=== PATIENT | male | born 1940 | race Caucasian/White ===

== ENCOUNTER → 2017-04-03 10:39 | Outpatient (CLI) | payer MEDICARE, SELFPAY ==
[2017-04-03 11:31] LABS: Potassium 4.3 mmol/L (3.5-5.1)
== END ==
PROVIDERS: Family Provider Internal Medicine; PCP Internal Medicine; Visit Provider Internal Medicine
DX: E87.5 Hyperkalemia (principal)
CPT/HCPCS: 84132

== ENCOUNTER 2017-08-08 04:08 | Emergency (ER) | payer MEDICARE, SELFPAY ==
[2017-08-08 04:10] VITALS: BP 150/81; PULSE 66; RESP 16; TEMP 36.6; O2SAT 96; BMI 30.3
[2017-08-08 04:45] LABS: Bacteria 0 SEEN /hpf (None Seen); Mucous, Urine 0 SEEN /hpf (<or=2+); White Blood Cells 0 SEEN /hpf (0-5)
[2017-08-08 04:47] LABS: Color, Urine Red (Yellow); Glucose, Dipstick Normal (Normal); Ketone-Dipstick 5 mg/dl (Negative); Leukocyte Esterase-Dipstick Negative /ul (Negative); Nitrite-Dipstick Negative (Negative); Occult Blood-Urine 250 /ul (Negative); Protein-Dipstick 500 mg/dl (Negative); Specific Gravity, Urine 1.015 (1.002-1.030); Urine Bilirubin Dipstick Negative (Negative); Urine Clarity Turbid (Clear); Urine Urobilinogen Normal (Normal)
[2017-08-08 04:54] LABS: Red Blood Cells-Urine > 100 SEEN /hpf (0-5); Squamous Epithelial Cells - UA 0-5 SEEN /hpf (0-5)
--- NOTE | 2017-08-08 06:09 | ED.VISSUMM ---
- ER Visit Summary Date of Service: 08/08/17 Chief Complaint: Hematuria History of Present Illness: The patient is a 77 M presenting for evaluation secondary to hematuria. Patient states that he has a underlying history of prostate cancer, and intermittently gets problems with having hematuria. Patient states that since yesterday however he has had symptoms of potentially having a urinary tract infection associated with frequency and burning and has had worse hematuria that he typically does. He states that his urine is very concentrated with blood. He has not been passing any clots, but he did feel as if he was somewhat unable to urinate and felt that he was potentially plugged. He denies any fevers or new back pain. He is not on any sort of anticoagulants. Review of systems otherwise negative. Physical Examination: Vital signs within normal limits. Well-nourished male no acute distress. Head normocephalic, no conjunctival pallor or scleral icterus. Heart regular lungs clear. Abdomen shows a massive hernia but is nontender. unremarkable. Test Results: Urinalysis is grossly contaminated with blood Emergency Department Course and Treatment: Patient presented with hematuria. Catheter was placed, and the patient was irrigated ?2. We were able to get the patient to a slightly more clear urine, but he continues to be having blood. Given how thick his hematuria was on initial presentation, and the fact that he was having retention I do believe that he is appropriate for discharge with a Green catheter. Given the fact that the patient states that he felt as if he was nam a urinary tract infection I will treat the patient empirically with Cipro. Patient will be given referral to Dr. Zafar for follow-up and catheter removal. He understands signs and symptoms for which to return. Disposition: Discharge Impression: 1. Urinary retention with hematuria This note was generated with [employer] dictation software. It may contain incorrect words, spelling, and punctuation that were not noted in review of the chart prior to signing ED Disposition - Plan for ED Patient: Disposition: Home or Assisted Living Chief Complaint: Complaint Diagnosis: Urinary retention, Hematuria Instructions: ED Retention Urinary Male, ED Hematuria Prescriptions: Ciprofloxacin [Cipro] 500 mg PO BID #14 tab Referrals: Javon Lopez MD [STAFF PHYSICIAN] - 2 Days
--- NOTE | 2017-08-08 06:13 | ED.DCSUM_ITS ---
- ER Visit Summary Date of Service: 08/08/17 Chief Complaint: Hematuria History of Present Illness: The patient is a 77 M presenting for evaluation secondary to hematuria. Patient states that he has a underlying history of prostate cancer, and intermittently gets problems with having hematuria. Patient states that since yesterday however he has had symptoms of potentially having a urinary tract infection associated with frequency and burning and has had worse hematuria that he typically does. He states that his urine is very concentrated with blood. He has not been passing any clots, but he did feel as if he was somewhat unable to urinate and felt that he was potentially plugged . He denies any fevers or new back pain. He is not on any sort of anticoagulants. Review of systems otherwise negative. Physical Examination: Vital signs within normal limits. Well-nourished male no acute distress. Head normocephalic, no conjunctival pallor or scleral icterus. Heart regular lungs clear. Abdomen shows a massive hernia but is nontender. unremarkable. Test Results: Urinalysis is grossly contaminated with blood Emergency Department Course and Treatment: Patient presented with hematuria. Catheter was placed, and the patient was irrigated ?2. We were able to get the patient to a slightly more clear urine, but he continues to be having blood. Given how thick his hematuria was on initial presentation, and the fact that he was having retention I do believe that he is appropriate for discharge with a Green catheter. Given the fact that the patient states that he felt as if he was nam a urinary tract infection I will treat the patient empirically with Cipro. Patient will be given referral to Dr. Zafar for follow-up and catheter removal. He understands signs and symptoms for which to return. Disposition: Discharge Impression: 1. Urinary retention with hematuria This note was generated with [employer] dictation software. It may contain incorrect words, spelling, and punctuation that were not noted in review of the chart prior to signing ED Disposition - Plan for ED Patient: Disposition: Home or Assisted Living Chief Complaint: Complaint Diagnosis: Urinary retention, Hematuria Instructions: ED Retention Urinary Male, ED Hematuria Prescriptions: Ciprofloxacin [Cipro] 500 mg PO BID #14 tab Referrals: Javon Lopez MD [STAFF PHYSICIAN] - 2 Days
[2017-08-08] MEDS: Ciprofloxacin 250 MG Tablet 500 MG PO (06:25)
[2017-08-08 06:46] VITALS: BP 155/78; PULSE 88; RESP 20; O2SAT 97
== END 2017-08-08 06:55 | disposition home or self-care (01) ==
PROVIDERS: Emergency Provider Emergency Medicine; Family Provider Internal Medicine; PCP Internal Medicine
DX: R33.9 Retention of urine, unspecified (principal); R31.9 Hematuria, unspecified; R35.0 Frequency of micturition; R30.0 Dysuria; Z85.46 Personal history of malignant neoplasm of prostate
CPT/HCPCS: 81001; 87086; 87088; 99283

== ENCOUNTER 2017-08-08 13:49 | Emergency (ER) | payer MEDICARE, SELFPAY ==
[2017-08-08 13:51] VITALS: BP 134/71; PULSE 71; RESP 17; TEMP 36.7; O2SAT 96; BMI 30.1
[2017-08-08] MEDS: Phenazopyridine 95 MG Tablet 190 MG PO (15:05)
--- NOTE | 2017-08-08 15:15 | ED.DCSUM_ITS ---
- ER Visit Summary Date of Service: 08/08/17 Chief Complaint: [] Green catheter is not draining appropriately History of Present Illness: The patient is a 77 M [] prostate cancer surgery, radiation therapy, he has intermittent episodes of urinary retention, he developed that late last night he was seen in the emergency room early this morning had a Green catheter placed it was slightly blood-tinged he went home, he reports that he has had now decreased urinary output into the catheter bag and he is leaking urine from around the penile meatus he spoke with his urologist Dr. Lopez will he was instructed to come in to get a different catheter placed, his been ill in any way his health has been good no fever no cough eating drinking well Physical Examination: [] M he has a large anterior abdominal wall type hernia that is not an issue today it is nontender the area his Green catheter does have some blood-tinged urine in it but he appears to have leak around the penile meatus as he describes the exam is otherwise unremarkable the lungs are clear the heart tones are normal again the abdomen soft with this hernia he was able to walk into the emergency room without difficulty Test Results: [] Emergency Department Course and Treatment: [] Will change the Green catheter to a larger one at 20 or 22 over he can tolerate irrigate until clear and he has an appointment to see his urologist this Thursday he is currently on ciprofloxacin we will add Pyridium to that as she is complaining of some dysuria he is otherwise comfortable with the catheter the leg bag as he has had Green catheter is in leg bag in the past related to all of the above past history Treatment Plan: [] Disposition: [] Home stable Impression: [] Urinary retention, hematuria history of prostate cancer prostate surgery, radiation therapy This note was generated with [employer] dictation software. It may contain incorrect words, spelling, and punctuation that were not noted in review of the chart prior to signing ED Disposition - Plan for ED Patient: Chief Complaint: Green C/O Referrals: Steff Culp DO [Primary Care Provider] -
--- NOTE | 2017-08-08 15:15 | ED.DEP ---
ED Disposition - Plan for ED Patient: Chief Complaint: Green C/O Instructions: Discharge Instructions: Caring for Your Indwelling Urinary Catheter, ED Catheter Care Green Prescriptions: Phenazopyridine HCl [Pyridium] 200 mg PO BID PRN PRN #10 tab PRN Reason: Pain Referrals: Steff Culp DO [Primary Care Provider] -
== END 2017-08-08 16:12 | disposition home or self-care (01) ==
PROVIDERS: Emergency Provider Emergency Medicine; Family Provider Internal Medicine; PCP Internal Medicine
DX: R33.9 Retention of urine, unspecified (principal); R31.9 Hematuria, unspecified; R30.0 Dysuria; Z85.46 Personal history of malignant neoplasm of prostate; Z98.890 Other specified postprocedural states; Z92.3 Personal history of irradiation; K43.9 Ventral hernia without obstruction or gangrene; Z96.0 Presence of urogenital implants
CPT/HCPCS: 51702; 81001; 87086; 87088; 99283; 99284

== ENCOUNTER 2017-08-09 16:24 | Emergency (ER) | payer MEDICARE, SELFPAY ==
[2017-08-09 16:24] VITALS: BP 136/74; PULSE 81; RESP 16; TEMP 36.9; O2SAT 98; BMI 30.2
[2017-08-09] MEDS: 0.9% Normal Saline 1,000 ML 1000 ML IV (17:08)
[2017-08-09 17:14] LABS: Absolute Lymphocyte Count 0.82 X10^3/ul (0.83-4.51); Absolute Neutrophil Count 3.6 X10^3/uL (2.0-7.7); Basophil# 0.05 X10^3/uL; Eosinophil# 0.14 X10^3/uL; Eosinophils% 2.8 % (0-5); Hematocrit 36.8 % (40-54); Hemoglobin 12.5 g/dl (13.0-16.5); Lymphocyte # 0.82 X10^3/ul (4.0); Lymphocyte % 16.4 % (19-41); Mean Corpuscular Hgb 31.2 pg (27.0-32.0); Mean Corpuscular Volume 91.8 fL (80-94); Monocyte# 0.39 X10^3/uL; Monocyte% 7.8 % (0-10); Neutrophil % 71.8 % (47-70); Platelet Count 106 K/mm3 (150-450); RBC Distribution Width CV 14.4 % (11.6-14.6); RBC Distribution Width SD 48.9 fl (35.1-43.9); Red Blood Count 4.01 M/mm3 (4.6-6.2)
[2017-08-09 17:15] LABS: POSITIVE COUNT NO; POSITIVE DIFFERENTIAL NO; POSITIVE MORPHOLOGY NO
[2017-08-09 17:22] LABS: International Normalized Ratio 1.2; Prothrombin Time (Protime)PT. 15.3 SECONDS (11.7-14.9)
[2017-08-09 17:23] LABS: Partial Thromboplast Time 35.5 Seconds (24.1-36.2)
[2017-08-09 17:29] LABS: Anion Gap 6 (5-15); BUN 16 mg/dL (7-18); BUN/Creat Ratio 18.2 RATIO (10-20); Calcium,Total 7.8 mg/dL (8.5-10.1); Chloride 110 mmol/L (98-107); Creatinine, Serum 0.88 mg/dL (0.70-1.30); EST Glomerular Filtration Rate 90 mL/min (>60); Est Glom Filt Rate - Afr Amer 109 mL/min (>60); Estimated Creatinine Clearance 79.61 ml/min; Glucose 103 mg/dL (74-106); Potassium 3.9 mmol/L (3.5-5.1); Sodium Level 141 mmol/L (136-145)
--- NOTE | 2017-08-09 17:41 | ED.VISSUMM ---
- ER Visit Summary Date of Service: 08/09/17 Chief Complaint: Blood in urine History of Present Illness: The patient is a 77 M with history of prostate cancer. He had a catheter placed for urine retention 2 days ago. He was here yesterday for bleeding and concern for retention. A larger catheter was placed, 20 [place]. He has had continued bleeding. Urinalysis and culture were done. He was started on Cipro. He had some leakage today when he bears down with a bowel movement but otherwise he has not had leakage. Just complains of continued bleeding. No pain. No fevers. He is supposed to follow-up with Dr. Lopez tomorrow. Physical Examination: Vital signs unremarkable. Afebrile. No acute distress. Abdomen soft and nontender. No masses. Green catheter is in place. Urine is red wine consistency. Skin appears normal. Test Results: Laboratory studies showed a hemoglobin of 12.5 and platelets of 106. This is similar to previous. BMP and coags unremarkable. Emergency Department Course and Treatment: Catheter was irrigated with 400 mL's. 400 mL's were drained. He has continued bleeding. I did check labs which were unremarkable. Patient is comfortable. He would like to go home despite the continued bleeding. I explained that typically we would admit for continuous irrigation. He would like to go home. I did discuss with his urologist who will follow-up with him tomorrow. Return for any new or worsening issues. Treatment Plan: As above Disposition: Discharged Impression: 1. Hematuria This note was generated with [employer] dictation software. It may contain incorrect words, spelling, and punctuation that were not noted in review of the chart prior to signing ED Disposition - Plan for ED Patient: Chief Complaint: Green C/O Referrals: Steff Culp DO [Primary Care Provider] -
--- NOTE | 2017-08-09 17:47 | ED.DCSUM_ITS ---
- ER Visit Summary Date of Service: 08/09/17 Chief Complaint: Blood in urine History of Present Illness: The patient is a 77 M with history of prostate cancer. He had a catheter placed for urine retention 2 days ago. He was here yesterday for bleeding and concern for retention. A larger catheter was placed , 20 [place]. He has had continued bleeding. Urinalysis and culture were done. He was started on Cipro. He had some leakage today when he bears down with a bowel movement but otherwise he has not had leakage. Just complains of continued bleeding. No pain. No fevers. He is supposed to follow-up with Dr. Lopez tomorrow. Physical Examination: Vital signs unremarkable. Afebrile. No acute distress. Abdomen soft and nontender. No masses. Green catheter is in place. Urine is red wine consistency. Skin appears normal. Test Results: Laboratory studies showed a hemoglobin of 12.5 and platelets of 106. This is similar to previous. BMP and coags unremarkable. Emergency Department Course and Treatment: Catheter was irrigated with 400 mL' s. 400 mL's were drained. He has continued bleeding. I did check labs which were unremarkable. Patient is comfortable. He would like to go home despite the continued bleeding. I explained that typically we would admit for continuous irrigation. He would like to go home. I did discuss with his urologist who will follow-up with him tomorrow. Return for any new or worsening issues. Treatment Plan: As above Disposition: Discharged Impression: 1. Hematuria This note was generated with [employer]) dictation software. It may contain incorrect words, spelling, and punctuation that were not noted in review of the chart prior to signing ED Disposition - Plan for ED Patient: Chief Complaint: Green C/O Referrals: Steff Culp DO [Primary Care Provider] -
--- NOTE | 2017-08-09 17:47 | ED.DEP ---
ED Disposition - Plan for ED Patient: Chief Complaint: Green C/O Instructions: Discharge Instructions: Caring for Your Indwelling Urinary Catheter Referrals: Javon Lopez MD [STAFF PHYSICIAN] -
[2017-08-09 18:06] VITALS: BP 158/62; PULSE 82; RESP 16; O2SAT 99
== END 2017-08-09 18:07 | disposition home or self-care (01) ==
PROVIDERS: Emergency Provider Emergency Medicine; Family Provider Internal Medicine; PCP Internal Medicine
DX: R31.9 Hematuria, unspecified (principal); Z96.0 Presence of urogenital implants; Z85.46 Personal history of malignant neoplasm of prostate; Z92.3 Personal history of irradiation
CPT/HCPCS: 80048; 85025; 85610; 85730; 96360; 99283; J7030; A4216

== ENCOUNTER → 2017-10-26 13:07 | Outpatient (CLI) | payer MEDICARE, SELFPAY ==
--- NOTE | 2017-10-26 13:13 | US_ITS ---
STUDY: THYROID ULTRASOUND REASON FOR EXAM: Male, 77 years old. Thyroid nodule TECHNIQUE: Ultrasound evaluation of the thyroid was performed with real-time and static yanes-scale imaging. COMPARISON: Previous study of 06/09/2016 FINDINGS: RIGHT LOBE: The right lobe of the thyroid gland measures 4.7 x 2.1 x 1.3 cm. There is a homogeneous echotexture. There are 2 cysts of the right thyroid lobe, one located in the mid pole measuring 4 x 4 by 4 mm and the second in the lower pole measuring 5 x 6 x 5 mm. LEFT LOBE: The left lobe of the thyroid gland measures 5.2 x 1.7 x 1.4 cm. There is a homogeneous echotexture. There are no demonstrated solid, cystic or complex lesions. ISTHMUS: The isthmus measures . The regional lymph nodes are normal. US/Thyroid IMPRESSION: 2 cysts of the mid and lower pole of the right thyroid lobe as described above. The mid pole cyst represents a new interval finding. The lower pole cyst has increased in size in the interval. A 2 mm left thyroid lobe cyst reported on the previous study is not seen at this time. Electronically Signed: Naman Ramos MD at 23:52 EDT , Service support ,
== END ==
PROVIDERS: Family Provider Internal Medicine; PCP Internal Medicine; Visit Provider Internal Medicine
DX: E04.1 Nontoxic single thyroid nodule (principal)
CPT/HCPCS: 76536

== ENCOUNTER → 2018-06-08 | Outpatient (CLI) | payer MEDICARE, SELFPAY | END | disposition home or self-care (01) | PROVIDERS: Family Provider Internal Medicine; PCP Internal Medicine; Referring Provider Urology; Visit Provider Urology | DX: R30.0 Dysuria (principal) | CPT/HCPCS: 87077; 87086; 87088; 87186 ==

== ENCOUNTER → 2019-01-18 16:07 | Outpatient (CLI) | payer MEDICARE, SELFPAY ==
--- NOTE | 2019-01-18 16:11 | CT_ITS ---
STUDY: CT ABDOMEN AND PELVIS WITH AND WITHOUT CONTRAST REASON FOR EXAM: Male, 78 years old. GROSS HEMATURIA. PRIOR HERNIA SURGERY. PRIOR PROSTATE CANCER RADIATION DOSAGE (If Supplied By Facility): CTDIvol = ( 20.34 ) mGy, DLP = ( 2669.25 ) mGycm TECHNIQUE: Transaxial images were obtained from the dome of the diaphragm to the symphysis pubis without oral contrast. ISOVUE 300 100 ML was administered. Sagittal and coronal images were reconstructed. Individualized dose optimization techniques were used for this CT. COMPARISON: June 11, 2016 FINDINGS: Trace bilateral pleural effusions present, greater on the right than left. No suspicious pulmonary nodule though note is made of a very small subpleural nodular density at the left lung base measuring approximately 3.5 mm, likely to be benign. Cardiomegaly is noted. No pericardial effusion. Lobulated liver noted but otherwise the appearance of the liver is unremarkable. Cholelithiasis is noted with a gallstone measuring approximately 1.5 cm. No evidence of pathologic gallbladder wall thickening or biliary ductal dilatation. The gallbladder is only partially filled on this exam. There appears to be wandering spleen, the spleen is seen in the left lower quadrant projecting just anterior to the iliac crest on the left. Pancreatic atrophy noted. Normal bilateral adrenal glands. The right kidney is ptotic in position otherwise unremarkable. Normal left kidney. A stomach wall appears thickened which may be secondary to state of contraction, no definitive mass seen. I do note that there does appear mild wall thickening of the gastroesophageal junction. There is a small low density retrocrural lymph node present measuring approximately 1.7 x 1 point a 5 cm. Bowel is unobstructed. The bowel descends into a very large anterior abdominal wall hernia which descends to the left groin level. There is a small amount of ascites in the dependent portion of this hernia. For instance referred to sagittal image #107 series 602 and coronal image #27 series 601 at the anterior abdominal wall laxity musculature. It does appear that there was some surgery in this area with mesh. The hernia extends over the top of this prior operative area. There are multiple colonic diverticula consistent with diverticulosis. The appendix is visualized and appears normal. Tortuous aorta noted. Normal inferior vena cava. There appears that mixing of contrast within the gonadal vein on the left. Normal retroperitoneum. The urinary bladder is contracted. The prostate gland appears enlarged and impresses upon the base of the urinary bladder there does appear some debris in the urinary bladder likely related to patient's gross hematuria best seen on the postcontrast delayed imaging. Degenerative spondylosis of the spine is noted with mild levoscoliosis. CT/CT Abd/Pelvis W/WO Contrast IMPRESSION: The prostate gland does appear to impress upon the base of the urinary bladder. The urinary bladder is contracted. Given this patient's history of prostate cancer cannot exclude invasion into the bladder. Tt does appear that there is some debris within the bladder dependently which could represent hemorrhage on the postcontrast delayed study. No evidence of renal obstruction. There is a very large anterior abdominal wall hernia with wandering spleen and ptotic right kidney noted. There is a nonspecific retrocrural lymph node present. Cholelithiasis is noted without evidence of acute cholecystitis and there is diverticulosis without evidence of diverticulitis. See above. Electronically Signed: Letty Patton MD at 12:00 EST , Service support ,
[2019-01-18 16:31] LABS: CREATININE FINGERSTICK 0.9 mg/dL (0.70-1.30)
== END ==
PROVIDERS: Family Provider Internal Medicine; PCP Internal Medicine; Referring Provider Nurse Practitioner Adult Health; Visit Provider Nurse Practitioner Adult Health
DX: R31.9 Hematuria, unspecified (principal)
CPT/HCPCS: 74178; Q9967

== ENCOUNTER → 2019-01-27 17:37 | Outpatient (CLI) | payer MEDICARE, SELFPAY | PROVIDERS: Family Provider Internal Medicine; PCP Internal Medicine; Referring Provider Urology; Visit Provider Urology | DX: R82.998 Other abnormal findings in urine (principal) | CPT/HCPCS: 87077; 87086; 87088; 87186 ==

== ENCOUNTER → 2019-03-22 11:10 | Outpatient (CLI) | payer MEDICARE, SELFPAY ==
--- NOTE | 2019-03-22 11:13 | RAD_ITS ---
STUDY: X-RAY CHEST REASON FOR EXAM: Male, 78 years old. LLL pneumonia TECHNIQUE: Frontal and lateral views of the chest were performed COMPARISON: For May 2016 FINDINGS: The lungs are clear and heart expanded. There is no demonstrated pleural abnormality. Normal size heart. Normal mediastinum and mars. Normal visualized pulmonary arteries. Normal visualized aortic arch and descending thoracic aorta. Normal visualized thoracic spine. Normal visualized ribs, clavicles, and shoulders. There is no demonstrated abnormality of the visualized soft tissue structures of the upper abdomen. RAD/Chest PA and Lateral IMPRESSION: No acute findings or change since prior. Hyperinflation, presumably emphysema. Electronically Signed: Hugo Carson, at 19:23 EST Tel , Service support ,
== END ==
PROVIDERS: PCP Internal Medicine; Referring Provider Internal Medicine; Visit Provider Internal Medicine
DX: J18.9 Pneumonia, unspecified organism (principal)
CPT/HCPCS: 71046

== ENCOUNTER → 2019-03-29 09:48 | Outpatient (CLI) | payer MEDICARE, SELFPAY ==
--- NOTE | 2019-03-29 09:51 | US_ITS ---
STUDY: SUPERFICIAL ULTRASOUND - LEFT ANTERIOR CHEST. REASON FOR EXAM: Male, 78 years old. LT ANTEROLATERAL CHEST MASS SEEN ON CT - OUTSIDE FILMS IN PACS TECHNIQUE: A superficial ultrasound was performed with real-time and static yanes-scale imaging. COMPARISON: None. FINDINGS: The abnormality corresponds to a 1.5 cm x 2.5 cm x 1.5 cm hypoechoic nodule in the intercostal space. This is not completely seen on the CT scan. A repeat CT scan if this area is recommended for further evaluation. A biopsy may be indicated. US/Chest IMPRESSION: 1.5 cm x 2.5 cm x 1.5 Alne hypoechoic density in the intercostal space corresponding to the CT findings. A repeat examination with attention to this area is recommended prior to biopsy. Electronically Signed: Dano Boyce, at 11:19 EST , Service support ,
== END ==
PROVIDERS: Family Provider Internal Medicine; PCP Internal Medicine; Referring Provider Internal Medicine; Visit Provider Internal Medicine
DX: R22.2 Localized swelling, mass and lump, trunk (principal)
CPT/HCPCS: 76604

== ENCOUNTER → 2019-04-06 15:08 | Outpatient (CLI) | payer MEDICARE, SELFPAY ==
--- NOTE | 2019-04-06 15:11 | CT_ITS ---
STUDY: CT CHEST WITH CONTRAST REASON FOR EXAM: Male, 78 years old. CHEST WALL MASS? compare to CT from 02/16/19, pneumonia at this time. RADIATION DOSAGE (If Supplied By Facility): CTDIvol = ( 18.15 ) mGy, DLP = ( 664.90 ) mGycm TECHNIQUE: Transaxial imaging was performed following intravenous administration of IV 100ML ISOVUE 300. Individualized dose optimization techniques were used for this CT. COMPARISON: CT scan 02/16/2019. FINDINGS: On the previous study, there was marginal demonstration of a possible mass lesion in subcutaneous fat of the lateral left abdomen. This possible mass is not visualized on the current study, however, I''m uncertain that the current exam includes enough of the abdomen to demonstrate the mass effect that is still present. This finding would have been more reliably evaluated with a CT scan of the abdomen, rather than a CT scan of the chest. There is a small right pleural effusion, which is not significantly different from the previous study. There is a patchy airspace infiltrate in the right lower lobe, seen on axial images 71-82, which was not demonstrated on the previous CT scan, and it is likely to represent a new focus of pneumonia. There is interval resolution of a left lower lobe consolidation. There is persistent mild fibrosis or atelectasis in the posterior lower lung hays bilaterally. There are calcified granulomas in the right lower lung field. The heart is enlarged. There is no demonstrated pericardial effusion. Normal mediastinum. Normal hilar regions. Normal enhanced pulmonary arteries. There is tortuosity of the thoracic aorta with mild atherosclerotic calcification. There is no demonstrated aneurysm or dissection. There are bridging osteophytes at multiple contiguous levels of the spine, consistent with DISH (diffuse idiopathic skeletal hyperostosis). There is a calcified gallstone. Contour of the liver is somewhat irregular, suspicious for cirrhosis. CT/Chest WITH Contrast IMPRESSION: A potential left lateral abdominal wall mass was seen on the lowermost images of previous CT scan of the chest. This finding is not visualized on current exam, however, cannot be entirely certain that images extend sufficiently inferior to visualize this abnormality if it is still present. CT scan of the abdomen would more reliably evaluate this potential abnormality. New small focus of right lower lobe pneumonia. Interval resolution of a previously demonstrated left lower lobe airspace consolidation. Persistent small right pleural effusion. Persistent fibrosis or atelectasis in the posterior lung bases bilaterally. Cardiomegaly. Atherosclerosis. Electronically Signed: Tyler Lantigua MD at 7:49 EST , Service support ,
== END ==
PROVIDERS: PCP Internal Medicine; Referring Provider Internal Medicine; Visit Provider Internal Medicine
DX: R94.2 Abnormal results of pulmonary function studies (principal)
CPT/HCPCS: 71260; Q9967

== ENCOUNTER → 2019-04-13 14:38 | Outpatient (CLI) | payer MEDICARE, SELFPAY ==
[2019-04-13 17:31] LABS: Absolute Lymphocyte Count 0.73 X10^3/uL (0.83-4.51); Absolute Neutrophil Count 2.7 X10^3/uL (2.0-7.7); Basophil# 0.05 X10^3/uL; Basophil% 1.2 % (0-1); Eosinophil# 0.14 X10^3/uL; Eosinophils% 3.4 % (0-5); Hematocrit 35.5 % (40-54); Hemoglobin 11.2 g/dL (13.0-16.5); Lymphocyte # 0.73 X10^3/ul (4.0); Lymphocyte % 17.9 % (19-41); Mean Corp Hgb Conc 31.5 g/dL (32-36); Mean Corpuscular Hgb 28.6 pg (27.0-32.0); Mean Corpuscular Volume 90.8 fL (80-94); Mean Platelet Vol. 10.9 fl (6.2-12.0); Monocyte# 0.42 X10^3/uL; Monocyte% 10.3 % (0-10); NRBC Flagged by Analyzer 0 % (0-5); Neutrophil # 2.73 X10^3/uL (2.7-7.7); Platelet Count 123 K/mm3 (150-450); RBC Distribution Width SD 53.5 fl (35.1-43.9); Red Blood Count 3.91 M/mm3 (4.6-6.2); White Blood Count 4.1 K/mm3 (4.4-11.0)
[2019-04-13 17:55] LABS: Erythrocyte Sedimentation Rate 6 mm/hr (0-20)
[2019-04-13 18:10] LABS: CRP < 2.90 mg/L (0.0-3.0)
== END ==
PROVIDERS: PCP Internal Medicine; Referring Provider Internal Medicine Pulmonary Disease; Visit Provider Internal Medicine Pulmonary Disease
DX: J18.9 Pneumonia, unspecified organism (principal)
CPT/HCPCS: 36415; 85025; 85652; 86140

== ENCOUNTER → 2019-04-22 10:00 | Outpatient (CLI) | payer MEDICARE, SELFPAY | PROVIDERS: PCP Internal Medicine; Referring Provider Internal Medicine; Visit Provider Internal Medicine | DX: R94.2 Abnormal results of pulmonary function studies (principal) | CPT/HCPCS: 94060; 94726; 94729 ==

== ENCOUNTER → 2019-04-25 12:16 | Outpatient (CLI) | payer MEDICARE, SELFPAY ==
--- NOTE | 2019-04-25 12:20 | RAD_ITS ---
STUDY: X-RAY CHEST REASON FOR EXAM: Male, 79 years old. PLEURAL EFFUSION TECHNIQUE: 2 left decubitus views of the chest COMPARISON: April 25, 2019 at 12:[address] of the chest dated April 06, 2019 FINDINGS: No demonstrated pleural effusion on either decubitus view. The left lung is not well visualized due to the patient''s arm obscuring part of the upper lobe and general opaqueness. The visualized aspects of the right lung are clear. The remaining visualized structures are stable. The right lung is hyperinflated. RAD/Special CXR (Obl/Decub/A/L) IMPRESSION: Limited study. No demonstrated pleural effusion. Electronically Signed: Alvarado Grey MD at 12:34 EDT , Service support ,
--- NOTE | 2019-04-25 12:20 | RAD_ITS ---
STUDY: X-RAY CHEST REASON FOR EXAM: Male, 79 years old. PLEURAL EFFUSION TECHNIQUE: PA and lateral views of the chest. 4 views. COMPARISON: 04/07/2019 FINDINGS: The lungs are hyperinflated. There is a blunted appearance of the costophrenic angles. The focal patchy nodular density within the right lower lobe that measures 2.1 x 2.5 cm. There are still multifocal patchy densities in the lung bases. There is a small right effusion. There is still blunting of the left costophrenic angle. There is mild cardiac enlargement. Normal mediastinum and mars. Normal visualized pulmonary arteries. Normal visualized aortic arch and descending thoracic aorta. There are diffuse degenerative changes of the visualized thoracic spine. Normal visualized ribs, clavicles, and shoulders. There is no demonstrated abnormality of the visualized soft tissue structures of the upper abdomen. RAD/Chest PA and Lateral IMPRESSION: Small right effusion. Persistent patchy right lower lobe infiltrates. Possible nodule measuring 2.1 x 2.5 cm. May represent inflammatory change/pneumonia Given persistent over time cannot entirely exclude neoplasm. Recommend consideration for short term interval follow-up CT chest. A small left effusion. Electronically Signed: Roula Moreland MD at 17:58 EDT Tel , Service support ,
--- NOTE | 2019-04-25 12:20 | RAD_ITS ---
STUDY: X-RAY CHEST REASON FOR EXAM: Male, 79 years old. PLEURAL EFFUSION TECHNIQUE: 2 left decubitus views of the chest. COMPARISON: April 25, 2019 standard x-ray FINDINGS: No demonstrated consolidation or layering pleural effusion seen in either lung on this study although views are limited. Normal heart size. The remaining visualized structures are unremarkable. RAD/Special CXR (Obl/Decub/A/L) IMPRESSION: No demonstrated pleural effusion on the provided images Electronically Signed: Alvarado Grey MD at 14:19 EDT , Service support ,
== END ==
PROVIDERS: PCP Internal Medicine; Referring Provider Internal Medicine Pulmonary Disease; Visit Provider Internal Medicine Pulmonary Disease
DX: J90 Pleural effusion, not elsewhere classified (principal)
CPT/HCPCS: 71046

== ENCOUNTER → 2019-07-26 08:45 | Outpatient (CLI) | payer MEDICARE, SELFPAY ==
--- NOTE | 2019-07-26 09:11 | US_ITS ---
STUDY: ULTRASOUND BREAST - LEFT REASON FOR EXAM: Male, 79 years old. Palpable lump left breast. TECHNIQUE: Axial and longitudinal images of the LEFT breast were performed with a high resolution ultrasound transducer. # OF IMAGES: 50 COMPARISON: Comparison is made with prior mammogram done earlier today. FINDINGS: LEFT Breast: There is a 1.4 cm x 1.9 cm x 0.6 cm slightly irregular hypoechoic density in the retroareolar region. This corresponds to the patient''s palpable abnormality. A biopsy is recommended for further evaluation. US/Breast Limited Unilateral IMPRESSION: The palpable abnormality corresponds to a 1.4 cm x 1.9 cm x 0.6 cm slightly irregular hypoechoic density. A biopsy is recommended for further evaluation. ASSESSMENT CATEGORY: BIRADS Category 4: Suspicious - Biopsy Should Be Considered. A letter regarding these results will be sent to the patient by the facility within 30 days. Electronically Signed: Dano Boyce, at 12:42 EDT , Service support ,
--- NOTE | 2019-07-26 09:11 | BI_ITS ---
MAMMOGRAPHY - BILATERAL DIAGNOSTIC REASON FOR EXAM: Male, 79 years old. Left breast lump. Patient has a history of prostate cancer treated with Lupron. PERTINENT HISTORY: Non-contributory. TECHNIQUE: Digital bilateral breast alejandra (3D mammographic acquisition) in the CC and MLO projections. 2-D mediolateral oblique (MLO) and craniocaudad (CC) views of both breasts were obtained. CAD: Full Field Digital Mammography with Computer Added Detection was performed. COMPARISON: None. Baseline examination. FINDINGS: Breast Composition: There are scattered areas of fibroglandular density. There are no dominant masses or suspicious calcifications. More breast tissue is seen in the retroareolar region of the left breast as compared to the right side. This is suggestive of gynecomastia. Well-defined nodules are seen in the axillary region of both breasts suggestive of small lymph nodes. No other significant abnormalities are identified. BI/DIAG MAMM W/CAD, BILAT IMPRESSION: Findings suggestive of gynecomastia in the retroareolar region of the left breast as described. This corresponds to the patient''s history of left breast lump. Correlation with ultrasound is recommended. ASSESSMENT CATEGORY: BIRADS Category 0: Incomplete. Need additional imaging evaluation. A letter regarding these results will be sent to the patient by the facility within 30 days. Approximately 10% of breast cancers are not detected by mammography. A normal mammogram should not delay biopsy of a clinically suspicious abnormality. Electronically Signed: Dano Boyce, at 10:20 EDT , Service support ,
== END ==
PROVIDERS: PCP Internal Medicine; Referring Provider Internal Medicine; Visit Provider Internal Medicine
DX: N63.0 Unspecified lump in unspecified breast (principal)
CPT/HCPCS: 76642; 77062; 77066; G0279

== ENCOUNTER → 2019-08-01 15:54 | Outpatient (CLI) | payer MEDICARE, SELFPAY ==
[2019-07-27 14:19] VITALS: BMI 30.2
--- NOTE | 2019-08-01 15:58 | CT_ITS ---
STUDY: CT CHEST WITHOUT CONTRAST REASON FOR EXAM: Male, 79 years old. PT STATED F/U TO PLEURAL EFFUSION FIRST SEEN ON 02/15/19 AT ANOTHER FACILITY RADIATION DOSAGE (If Supplied By Facility): CTDIvol = ( 9.76 ) mGy, DLP = ( 412.36 ) mGycm TECHNIQUE: Transaxial imaging was performed without the administration of intravenous contrast material. Individualized dose optimization techniques were used for this CT. COMPARISON: April 06, 2019 FINDINGS: There is minor interstitial thickening in the lower lobes greater on the left. There are tiny granulomatous calcifications in the right lower lobe. There is mild pleural parenchymal scarring in the pulmonary apices. There is no pleural effusion or pneumothorax.. The heart is enlarged. Normal mediastinum. Tiny calcified right hilar nodes.. Normal unenhanced pulmonary arteries. Atherosclerotic changes of the aorta without evidence for aneurysm. Dorsal spine demonstrates changes of dish Lobulated appearance to enlarged liver consistent with hepatic cirrhosis. Contracted thick-walled gallbladder without calcified stones.. Small fluid density in the posterior mediastinum possibly representing lymphocele. Previously noted right pleural effusion has resolved CT/Chest without Contrast IMPRESSION: ASHD and mild interstitial thickening with old granulomatous disease. Resolution of previously noted right pleural effusion. Other findings as above. Electronically Signed: Tyler Allen MD at 22:53 EDT , Service support ,
== END ==
PROVIDERS: PCP Internal Medicine; Referring Provider Internal Medicine Pulmonary Disease; Visit Provider Internal Medicine Pulmonary Disease
DX: J90 Pleural effusion, not elsewhere classified (principal); J18.9 Pneumonia, unspecified organism
CPT/HCPCS: 71250

== ENCOUNTER → 2019-08-04 16:22 | Outpatient (CLI) | payer MEDICARE, SELFPAY ==
[2019-08-04 12:56] VITALS: BMI 30.2
--- NOTE | 2019-08-04 13:15 | BRBX_PTH ---
PATIENT: ZAC MAHAJAN LOC: [facility] U#:[id number] AGE/SX: 84/M ROOM: RE08/04/[address]: Dr. Petey Bartholomew MD : 1940 BED: DIS: SPEC #: [id number] RECD: 08/04/19 16:22 STATUS: LITZY REQ #: [id number] JANETT: 08/04/19 13:[address]: Petey Bartholomew DEPT: SURGICAL PATHOLOGY RECD BY: Adalberto Hayes ENTERED: 08/05/19 08:17 SP TYPE: BREAST BX OTHR DR: Dr. Steff Culp DO Tissues: Left breast, NOS Procedures: Surgery Specimen Level IV HEADER OPERATION: Ultrasound-guided needle core biopsy left breast PRE-OP DIAGNOSIS: Abnormal ultrasound left breast TISSUE SUBMITTED: Left breast biopsy ISCHEMIC TIME: 30 seconds FIXATION TIME: 7.5 hours MICROSCOPIC DIAGNOSIS Left breast, ultrasound-guided core biopsy: Consistent with gynecomastia. AM:isha 08/08/19 MICROSCOPIC DESCRIPTION Slides are reviewed. GROSS DESCRIPTION Received in fixative is one container labeled with the patient's name and designated left breast biopsy. The specimen consists of multiple irregular and elongated fragments of light yoo soft tissue that in aggregate measure 1 x 0.5 x 0.1 cm. The specimen is totally submitted in one cassette. / AM:isha 08/05/19 TC:5 CPT: 42082
== END ==
PROVIDERS: PCP Internal Medicine; Referring Provider Surgery; Visit Provider Surgery
DX: R92.8 Other abnormal and inconclusive findings on diagnostic imaging of breast (principal)
CPT/HCPCS: 88305

== ENCOUNTER → 2019-12-29 11:55 | Outpatient (CLI) | payer MEDICARE, SELFPAY ==
[2019-12-28 14:06] VITALS: BMI 26.7
[2019-12-29 15:42] LABS: Absolute Lymphocyte Count 0.72 X10^3/uL (0.83-4.51); Absolute Neutrophil Count 3.3 X10^3/uL (2.0-7.7); Basophil# 0.06 X10^3/uL; Basophil% 1.3 % (0-1); Eosinophil# 0.24 X10^3/uL; Eosinophils% 5.1 % (0-5); Hematocrit 39.6 % (40-54); Hemoglobin 12.8 g/dL (13.0-16.5); Lymphocyte # 0.72 X10^3/ul (4.0); Lymphocyte % 15.3 % (19-41); Mean Corp Hgb Conc 32.3 g/dL (32-36); Mean Corpuscular Hgb 30.9 pg (27.0-32.0); Mean Corpuscular Volume 95.7 fL (80-94); Mean Platelet Vol. 10.8 fl (6.2-12.0); Monocyte# 0.43 X10^3/uL; Monocyte% 9.1 % (0-10); NRBC Flagged by Analyzer 0 % (0-5); Neutrophil # 3.26 X10^3/uL (2.7-7.7); Platelet Count 133 K/mm3 (150-450); RBC Distribution Width CV 14.3 % (11.6-14.6); RBC Distribution Width SD 50.5 fl (35.1-43.9); Red Blood Count 4.14 M/mm3 (4.6-6.2); White Blood Count 4.7 K/mm3 (4.4-11.0)
[2019-12-29 16:15] LABS: Erythrocyte Sedimentation Rate 4 mm/hr (0-20)
[2019-12-29 16:21] LABS: ALB/GLOB Ratio 0.9 RATIO (0.9-2.4); AST(SGOT) 22 U/L (15-37); Alanine Aminotransfer ALT/SGPT 25 U/L (16-61); Albumin, Serum 2.9 g/dL (3.2-5.0); Alkaline Phosphatase 75 U/L (45-117); Anion Gap 2 (5-15); BUN 22 mg/dL (7-18); BUN/Creat Ratio 17.9 RATIO (10-20); CRP < 2.90 mg/L (0.0-3.0); Calcium,Total 8.2 mg/dL (8.5-10.1); Chloride 110 mmol/L (98-107); Creatinine, Serum 1.23 mg/dL (0.70-1.30); EST Glomerular Filtration Rate 61 mL/min (>60); Est Glom Filt Rate - Afr Amer 73 mL/min (>60); Globulin 3.3 g/dL (2.2-4.2); Glucose 71 mg/dL (74-106); Potassium 4.6 mmol/L (3.5-5.1); Protein, Total 6.2 g/dL (6.4-8.2); Sodium Level 142 mmol/L (136-145); Thyroid Stim Hormone (TSH) 2.48 uIU/mL (0.358-3.74)
[2020-01-02 18:26] LABS: ANTINUCLEAR ANTIBODIES DIRECT Positive (Negative)
== END ==
PROVIDERS: PCP Internal Medicine; Referring Provider Internal Medicine; Visit Provider Internal Medicine
DX: R76.8 Other specified abnormal immunological findings in serum (principal); R06.02 Shortness of breath
CPT/HCPCS: 36415; 80053; 84443; 85025; 85652; 86038; 86140

== ENCOUNTER → 2020-03-16 12:19 | Outpatient (CLI) | payer MEDICARE, SELFPAY ==
[2019-12-28 14:06] VITALS: BMI 26.7
== END ==
PROVIDERS: PCP Internal Medicine; Referring Provider Internal Medicine; Visit Provider Internal Medicine
DX: I49.3 Ventricular premature depolarization (principal)
CPT/HCPCS: 93225

== ENCOUNTER → 2020-03-28 12:17 | Outpatient (CLI) | payer MEDICARE, SELFPAY ==
[2020-03-28 11:27] VITALS: BMI 27.5
[2020-03-28 13:00] LABS: Absolute Lymphocyte Count 0.54 X10^3/uL (0.83-4.51); Basophil# 0.05 X10^3/uL; Basophil% 1.2 % (0-1); Eosinophil# 0.16 X10^3/uL; Eosinophils% 3.9 % (0-5); Hematocrit 38.9 % (40-54); Hemoglobin 12.4 g/dL (13.0-16.5); Lymphocyte # 0.54 X10^3/ul (4.0); Lymphocyte % 13.1 % (19-41); Mean Corp Hgb Conc 31.9 g/dL (32-36); Mean Corpuscular Hgb 29.2 pg (27.0-32.0); Mean Corpuscular Volume 91.7 fL (80-94); Mean Platelet Vol. 11.3 fl (6.2-12.0); Monocyte# 0.39 X10^3/uL; Monocyte% 9.5 % (0-10); NRBC Flagged by Analyzer 0 % (0-5); Neutrophil # 2.96 X10^3/uL (2.7-7.7); Neutrophil % 72.1 % (47-70); POSITIVE DIFFERENTIAL YES; Platelet Count 118 K/mm3 (150-450); RBC Distribution Width SD 47.3 fl (35.1-43.9); Red Blood Count 4.24 M/mm3 (4.6-6.2); White Blood Count 4.1 K/mm3 (4.4-11.0)
[2020-03-28 13:01] LABS: Differential Indicated SCAN CRITERIA MET
[2020-03-28 13:23] LABS: Platelet Estimate SLT DEC (ADEQ); Red Cell Morphology NORM C+C NORMAL (NORM C&C)
[2020-03-28 13:27] LABS: Anion Gap 0 (5-15); BUN 19 mg/dL (7-18); Calcium,Total 8.3 mg/dL (8.5-10.1); Chloride 112 mmol/L (98-107); Creatinine, Serum 1.19 mg/dL (0.70-1.30); EST Glomerular Filtration Rate 63 mL/min (>60); Est Glom Filt Rate - Afr Amer 76 mL/min (>60); Glucose 77 mg/dL (74-106); Magnesium 2.2 mg/dL (1.6-2.6); Potassium 4.4 mmol/L (3.5-5.1); Sodium Level 141 mmol/L (136-145); T4 Free Direct 1.83 ng/dL (0.76-1.46); Thyroid Stim Hormone (TSH) 1.97 uIU/mL (0.358-3.74)
[2020-03-28 13:35] LABS: BNP,B-Type NATRIURETIC PEPTIDE 398.2 pg/mL (0-100)
[2020-03-29 14:00] LABS: Pathologist Review Reviewed
== END ==
PROVIDERS: PCP Internal Medicine; Referring Provider Nurse Practitioner Family; Visit Provider Nurse Practitioner Family
DX: I42.8 Other cardiomyopathies (principal); I47.2 Ventricular tachycardia; I49.1 Atrial premature depolarization; R00.1 Bradycardia, unspecified; R06.00 Dyspnea, unspecified; R42 Dizziness and giddiness
CPT/HCPCS: 36415; 80048; 83735; 83880; 84439; 84443; 85025

== ENCOUNTER → 2020-04-04 14:00 | Outpatient (CLI) | payer MEDICARE, SELFPAY ==
[2020-03-28 11:27] VITALS: BMI 27.5
--- NOTE | 2020-04-04 14:05 | ECHOCS_ITS ---
Version 3 Reason For Study: Palpitations, PVC [place] Procedure This was a 2D Doppler, Color Flow transthoracic echocardiogram. Contrast injection was performed. Exam performed in department. Left Ventricle Mildly dilated left ventricle. Left ventricular systolic function is normal. The estimated ejection fraction is 55 %. Stage 1 diastolic dysfunction. No regional wall motion abnormalities noted. Right Ventricle Normal RV size. Normal systolic function. Atria Normal left atrium. Normal right atrium. Mitral Valve Normal mitral valve. Mild (1+) eccentric mitral valve insufficiency. Tricuspid Valve Normal tricuspid valve. Mild tricuspid valve insufficiency. Pulmonary artery systolic pressure is 34 mmHg. Aortic Valve Trisinus/trileaflet aortic valve. Peak aortic valve gradient 28 mmHg. Mean aortic valve gradient 15 mmHg. Mild aortic stenosis. Mild-Moderate (1-2+) aortic valve insufficiency. Pulmonic Valve Normal pulmonic valve. Great Vessels Normal aortic root. The pulmonary artery is normal size. Normal inferior vena cava. Pericardium/Pleural No pericardial effusion. Medication Diluted definity 4ml given slow IV push to enhance endocardial definition. MMode/2D Measurements & Calculations LVIDd: 6.8 cm IVSd: 1.2 cm LVOT diam: 2.2 cm LVIDs: 5.2 cm LVPWd: 1.1 cm RVDd: 3.4 cm FS: 23.2 % LVOT area: 3.8 cm2 Ao root diam: 2.8 cm LAV(MOD-bp): 79.3 ml LVAd ap4: 54.6 cm2 LAV(MOD-bp) Indexed: 36.8 ml/m2 EDV(MOD-sp4): 260.6 ml LAV(MOD-sp2): 101.2 ml EDV(sp4-el): 272.5 ml LAV(MOD-sp4): 53.8 ml LVAs ap4: 37.3 cm2 ESV(MOD-sp4): 145.4 ml ESV(sp4-el): 145.9 ml EF(MOD-sp4): 44.2 % EF(sp4-el): 46.5 % SV(MOD-sp4): 115.1 ml SV(sp4-el): 126.7 ml LA A4 area: 19.0 cm2 LA dimension(2D): 5.2 cm RA A4 area: 23.8 cm2 Doppler Measurements & Calculations MV E max holden: 51.8 cm/sec Lat Peak E' Holden: 6.8 cm/sec Med Peak E' Holden: 4.0 cm/sec MV A max holden: 69.0 cm/sec E/E' lat: 7.6 E/E' med: 12.9 MV E/A: 0.75 Ao V2 max: 267.3 cm/sec AI max holden: 538.2 cm/sec LV V1 max: 128.3 cm/sec Ao max P.7 mmHg AI max P.5 mmHg LV V1 max P.6 mmHg Ao V2 mean: 181.3 cm/sec LV V1 mean P.6 mmHg Ao mean P.7 mmHg AI dec slope: 231.5 cm/sec2 LV V1 mean: 90.0 cm/sec Ao V2 VTI: 54.2 cm AI P1/2t: 680.9 msec LV V1 VTI: 26.7 cm ANA(I,D): 1.9 cm2 ANA(V,D): 1.8 cm2 SV(LVOT): 102.1 ml PA V2 max: 113.2 cm/sec TR max holden: 275.5 cm/sec TR max P.4 mmHg Interpretation Summary Left ventricular systolic function is normal. The estimated ejection fraction is 55 %. Mild aortic stenosis. Stage 1 diastolic dysfunction. Mild (1+) eccentric mitral valve insufficiency. Pulmonary artery systolic pressure is 34 mmHg. Mild-Moderate (1-2+) aortic valve insufficiency. Mildly dilated left ventricle. Contrast injection was performed. Ordering Physician: Som Thompson Referring Physician: Steff Culp Performed By: Stacy Thompson, VICTORINA, RVT
== END ==
PROVIDERS: PCP Internal Medicine; Referring Provider Nurse Practitioner Family; Visit Provider Nurse Practitioner Family
DX: I49.1 Atrial premature depolarization (principal); I47.2 Ventricular tachycardia; I42.8 Other cardiomyopathies; I49.49 Other premature depolarization
CPT/HCPCS: 93306; Q9957; A4216; C8929

== ENCOUNTER → 2020-06-26 13:43 | Outpatient (CLI) | payer MEDICARE, SELFPAY ==
[2020-04-27 15:38] VITALS: BMI 26.9
== END ==
PROVIDERS: PCP Internal Medicine; Referring Provider Nurse Practitioner Family; Visit Provider Nurse Practitioner Family
DX: I47.2 Ventricular tachycardia (principal); I49.49 Other premature depolarization; R06.00 Dyspnea, unspecified; I42.8 Other cardiomyopathies
CPT/HCPCS: 93225; 93226

== ENCOUNTER → 2020-08-13 16:55 | Outpatient (CLI) | payer MEDICARE, SELFPAY ==
[2020-04-27 15:38] VITALS: BMI 26.9
[2020-08-13 18:41] LABS: AST(SGOT) 32 U/L (15-37); Alanine Aminotransfer ALT/SGPT 27 U/L (16-61); Alkaline Phosphatase 105 U/L (45-117); Anion Gap 7 (5-15); BUN 23 mg/dL (7-18); BUN/Creat Ratio 17.3 RATIO (10-20); Chloride 109 mmol/L (98-107); Creatinine, Serum 1.33 mg/dL (0.70-1.30); EST Glomerular Filtration Rate 55 mL/min (>60); Est Glom Filt Rate - Afr Amer 67 mL/min (>60); Glucose 78 mg/dL (74-106); Potassium 4.3 mmol/L (3.5-5.1); Sodium Level 143 mmol/L (136-145)
== END ==
LOC: MTRAD 16:56 → MTLAB 16:57
PROVIDERS: PCP Internal Medicine; Referring Provider Internal Medicine; Visit Provider Internal Medicine
DX: R79.89 Other specified abnormal findings of blood chemistry (principal)
CPT/HCPCS: 36415; 80053

== ENCOUNTER → 2021-01-01 13:47 | Outpatient (CLI) | payer MEDICARE, SELFPAY ==
[2021-01-01 15:39] LABS: Anion Gap 4 (5-15); BUN 20 mg/dL (7-18); BUN/Creat Ratio 16.1 RATIO (10-20); Calcium,Total 8.3 mg/dL (8.5-10.1); Chloride 110 mmol/L (98-107); Creatinine, Serum 1.24 mg/dL (0.70-1.30); EST Glomerular Filtration Rate 60 mL/min (>60); Est Glom Filt Rate - Afr Amer 72 mL/min (>60); Glucose 93 mg/dL (74-106); Potassium 4.6 mmol/L (3.5-5.1); Sodium Level 143 mmol/L (136-145)
[2021-01-01 15:40] LABS: BNP,B-Type NATRIURETIC PEPTIDE 697.9 pg/mL (0-100)
== END ==
PROVIDERS: PCP Internal Medicine; Visit Provider Internal Medicine Cardiovascular Disease
DX: R06.00 Dyspnea, unspecified (principal)
CPT/HCPCS: 36415; 80048; 83880

== ENCOUNTER → 2021-01-23 09:24 | Outpatient (CLI) | payer MEDICARE, SELFPAY ==
--- NOTE | 2021-01-23 13:43 | PFTCOMP ---
COMPLETE PULMONARY FUNCTION TEST INTERPRETATION Brief HPI: Patient is a 80 year old male, currently under the care of Dr. Martínez, who presents to [facility] for complete pulmonary function tests secondary to diagnosis of dyspnea. Respiratory therapist reports good effort and reproducible results. Interpretation: Forced expiration spirometry shows no large airways obstructive ventilatory defect with an FEV1 of 85% predicted. There is no significant bronchodilator response by strict ATS criteria. Spirograms are of good quality and plateau normally. The respiratory flow volume loop shows a normal pattern. Lung volumes by body plethysmography show a normal total lung capacity at 6.42 L, 93% predicted. All other lung volumes are within normal limits. Diffusion capacity by carbon monoxide is normal at 87% predicted. The airway resistance is normal. Compared to previous pulmonary function tests from 04/22/2019, there has been no significant change. Impression: Relatively normal pulmonary function testing with no change compared to previous.
== END ==
PROVIDERS: PCP Internal Medicine; Referring Provider Internal Medicine Cardiovascular Disease; Visit Provider Internal Medicine Cardiovascular Disease
DX: R06.00 Dyspnea, unspecified (principal)
CPT/HCPCS: 94060; 94726; 94729

== ENCOUNTER 2021-04-24 14:52 | Outpatient (CLI) | payer MEDICARE, SELFPAY ==
--- NOTE | 2021-04-24 14:57 | CT_ITS ---
STUDY: CT Abdomen And Pelvis WO/W Contrast Injection 04/24/2021 3:54 PM REASON FOR EXAM: Male, 81 years old. ABDOMINAL PAIN CHRONIC Cystitis W/O HEMATURIA TECHNIQUE: Transaxial images were obtained without oral contrast, and with and without IV 100mL Isovue-300 intravenous contrast. Individualized dose optimization techniques were used for this CT. COMPARISON: Jan 18 2019 4:26pm . FINDINGS: There are bilateral pleural effusions. Normal liver. There is a solitary gallstone. There is mild splenomegaly. Normal pancreas. Normal bilateral adrenal glands. There is a 9.3 mm hyperdensity in the right kidney. This is 77 HU. No follow up required for this stable hemorrhagic or protein cyst. There are hypodensities in the left kidney. These are consistent for cysts. No follow up required. Normal visualized stomach. Normal small intestine. There are multiple colonic diverticula consistent with diverticulosis. There is non-visualization of the appendix. There are no acute findings of the abdominal aorta. Normal inferior vena cava. Subcentimeter mesenteric lymph nodes. 17 mm possible duplication cyst near the aortic hiatus. Urinary bladder wall has wall thickening. This can be related to a partially contractile state. However, a cystitis is not excluded. Urinalysis should be performed in an effort to exclude cystitis. There are prostatic calcifications.Presacral inflammatory changes. There is a very large anterior abdominal wall hernia which has evidence of prior repair but there is a persistent large defect anteriorly. The hernia contains small bowel, colon, and some mesenteric vessels. There is a large left inguinal persistent hernia that contains small bowel, colon, and some mesenteric vessels. There is a very large left testicular hydrocele. These findings are unchanged. However, again, there are dilated mesenteric vessels in the scrotum. There are diffuse degenerative changes of the visualized lumbar spine. There is bilateral neural foraminal stenosis at L4-5 and L5-S1. bilaterally urinary bladder diverticuli.. IMPRESSION: (NOT LISTED IN ORDER OF SIGNIFICANCE) There is a very large anterior abdominal wall hernia which has evidence of prior repair but there is a persistent large defect anteriorly. The hernia contains small bowel, colon, and some mesenteric vessels. There is a large left inguinal persistent hernia that contains small bowel, colon, and some mesenteric vessels. There is a very large left testicular hydrocele. These findings are unchanged. However, again, there are dilated mesenteric vessels in the scrotum. There are bilateral pleural effusions. There is a solitary gallstone. There is mild splenomegaly. Urinary bladder wall has wall thickening. This can be related to a partially contractile state. However, a cystitis is not excluded. Urinalysis should be performed in an effort to exclude cystitis. Other findings as above. Electronically Signed: Charles Storey MD at 16:22 EST , CT/CT Abd/Pelvis W/WO Contrast
[2021-04-24 15:22] LABS: CREATININE FINGERSTICK 0.8 mg/dL (0.70-1.30); EGFR FINGERSTICK > 60.0000 mL/min (>60)
== END 2021-04-24 23:59 | disposition home or self-care (01) ==
LOC: CT 14:53
PROVIDERS: PCP Internal Medicine; Visit Provider Urology
DX: N30.20 Other chronic cystitis without hematuria (principal)
CPT/HCPCS: 74178; Q9967

== ENCOUNTER 2021-04-26 16:29 | Outpatient (CLI) | payer MEDICARE, SELFPAY ==
[2021-04-26 17:45] LABS: BNP,B-Type NATRIURETIC PEPTIDE 545.8 pg/mL (0-100)
[2021-04-26 17:50] LABS: Anion Gap 4 (5-15); BUN 18 mg/dL (7-18); BUN/Creat Ratio 12.9 RATIO (10-20); Calcium,Total 8.2 mg/dL (8.5-10.1); Chloride 111 mmol/L (98-107); EST Glomerular Filtration Rate 52 mL/min (>60); Est Glom Filt Rate - Afr Amer 63 mL/min (>60); Glucose 74 mg/dL (74-106); Potassium 4.1 mmol/L (3.5-5.1); Sodium Level 145 mmol/L (136-145)
== END 2021-04-26 23:59 | disposition home or self-care (01) ==
LOC: LAB 16:30
PROVIDERS: PCP Internal Medicine; Referring Provider Nurse Practitioner Family; Visit Provider Nurse Practitioner Family
DX: I49.49 Other premature depolarization (principal); R06.00 Dyspnea, unspecified
CPT/HCPCS: 36415; 80048; 83880

== ENCOUNTER 2021-05-08 08:41 | Observation (INO) | payer MEDICARE, SELFPAY ==
--- NOTE | 2021-05-02 13:51 | EKG12_ITS ---
Test Reason : PREOP Blood Pressure : / mmHG Vent. Rate : 078 BPM Atrial Rate : 070 BPM P-R Int : 000 ms QRS Dur : 144 ms QT Int : 432 ms P-R-T Axes : 000 -38 -03 degrees QTc Int : 492 ms Atrial fibrillation with premature ventricular or aberrantly conducted complexes Left axis deviation Right bundle branch block Abnormal ECG Confirmed by ANILA STEWART, JOEY ([id number]), newspaper editor managing MELISSA COYLE ([id number]) on 05/03/2021 7:17:30 AM Referred By: Javon Lopez Confirmed By:TED HIGH MD
[2021-05-02 16:22] LABS: Hematocrit 35.8 % (40-54); Hemoglobin 11.1 g/dL (13.0-16.5); Mean Corpuscular Hgb 27.3 pg (27.0-32.0); Mean Platelet Vol. 10.8 fl (6.2-12.0); Platelet Count 132 K/mm3 (150-450); RBC Distribution Width SD 57.4 fl (35.1-43.9); Red Blood Count 4.07 M/mm3 (4.6-6.2); White Blood Count 3.8 K/mm3 (4.4-11.0)
[2021-05-02 17:31] LABS: International Normalized Ratio 1.3
[2021-05-02 17:32] LABS: Partial Thromboplast Time 34.9 Seconds (24.1-36.2)
[2021-05-08] VITALS (12 sets, daily range): BP systolic 122–149; BP diastolic 66–98; PULSE 64–93; RESP 16–18; TEMP 35.9–37.2; O2SAT 94–100; BMI 25.4
--- NOTE | 2021-05-08 | IMM_PTH ---
PATIENT: ZAC MAHAJAN LOC: [facility] U#:[id number] AGE/SX: 81/M ROOM: [facility] RE05/08/[address]: Dr. Javon Lopez MD : 1940 BED: 1 DIS: 05/09/2021 SPEC #: [id number] RECD: 05/09/21 14:29 STATUS: LITZY REQ #: [id number] JANETT: 05/08/21 00:[address]: Javon Lopez DEPT: IMMUNOHISTOCHEMISTRY RECD BY: Amy Turcios ENTERED: 05/09/21 14:30 SP TYPE: IMMUNO OTHR DR: Dr. Steff Culp DO Tissues: Prostate, NOS Procedures: CK5-6 (add) 34BE12 (add) P40 (add) PSAP (add) 34BE12 (initial) Comments: @ Specimen number changed from [id number] to [id number] @ on 05/09/21 at 1439 by RGOOD. PHYSICIAN & [address] [address] SPECIMEN INFORMATION: Tissue Source: Prostate Clinical Info: BPH with obstruction, recurrent UTI, bladder stone Specimen Number: [id number] #4 & 6 CPT code: 18559, 91178 x7 METHODOLOGY: Deparaffinized sections of prefer/formalin-fixed tissue or PAP/DQ stained slides are incubated with monoclonal/polyclonal antibodies/oligonucleotide probes. Localization is made via biotin free immunoperoxidase method. Appropriate controls are performed and reacted as expected. Results on target cell population are indicated in the following table: RESULTS: ANTIBODY / CLONE RESULT Block 4 34BE12 (34BE12) positive PSAP (PASE/4LJ) positive, weak CK5-6 (D5 & 1684) positive P40 (BC28) positive Block 6 34BE12 (34BE12) positive PSAP (PASE/4LJ) positive, weak CK5-6 (D5 & 1684) positive P40 (BC28) positive These tests were developed and their performance characteristics determined by [facility]. They may not have been cleared or approved by the U.S. Food and Drug Administration. The FDA has determined that such clearance or approval is not necessary. The above immunohistochemical/dualISH markers are ordered and reviewed by the Pathologist. INTERPRETATION: Prostate, transurethral resection: Negative for malignancy. MAZIN:isha 05/10/2021
[2021-05-08] MEDS: Lactated Ringers 1,000 ML 15 ML IV ×2 (07:38→13:01)
--- NOTE | 2021-05-08 08:42 | HP.PCM_ITS ---
HPI - General HPI Narrative ZAC MAHAJAN, is a 81 M who presents for a TURP [facility] Medical History (Updated 05/02/21 @ 08:31 by Karla Ibrahim) Acute hypoxemic respiratory failure (02/16/19) Alcohol use Anemia Arthritis Atrial premature complexes Atrial tachycardia (02/16/19) Back pain Cancer Former smoker Gallstones Gynecomastia, male HFrEF (heart failure with reduced ejection fraction) History of echocardiogram History of edema History of Holter monitoring History of irregular heartbeat History of non-ST elevation myocardial infarction (NSTEMI) (02/16/19) History of prostate cancer History of stress test Left inguinal hernia Monoclonal gammopathy Multiple premature ventricular complexes Non-ischemic cardiomyopathy Nonrheumatic aortic (valve) stenosis with insufficiency Obesity Osteoarthritis Pancytopenia Paroxysmal ventricular tachycardia Pneumonia (02/16/19) Sepsis (02/16/19) Shortness of breath on exertion Tachyarrhythmia Thrombocytopenia Thyroid nodule Walker as ambulation aid Wears glasses Home Medications amiodarone 100 mg tablet 100 mg PO DAILY #30 tab 03/29/21 [Rx Last Taken 05/08/21] furosemide 40 mg tablet 40 mg PO .COMPLEX tab 04/29/21 [History Last Taken 05/07/21] cephalexin 500 mg PO BID #10 cap 05/08/21 [Rx Last Taken Unknown] Allergy/AdvReac Type Severity Reaction Status Date / Time ciprofloxacin [From Cipro] Allergy Mild rash Verified 05/02/21 08:09 levofloxacin [From Levaquin] Allergy Mild rash Verified 05/02/21 08:09 Sulfa (Sulfonamide AdvReac Unknown Verified 05/02/21 08:09 Antibiotics) Family History Son CVA (cerebral vascular accident) Surgical History (Updated 05/02/21 @ 08:31 by Karla Ibrahim) History of cardiac catheterization History of colonoscopy History of hernia repair History of left heart catheterization (02/18/19) History of prostate surgery History of transurethral resection of prostate Hx of breast biopsy Hx of left breast biopsy Social History Smoking Status: Former smoker how long ago did patient quit smokin years ago alcohol intake: current alcohol intake frequency: a few times a week Alcohol type: wine substance use type: does not use caffeine: Yes Type: coffee Vital Signs Vital Signs Vital Signs: 05/08/21 07:25 Temperature 99.0 F Temperature Source Temporal Pulse Rate 64 Respiratory Rate 16 Respiratory Pattern Normal Blood Pressure 138/72 H Blood Pressure Mean 94 Blood Pressure Source Monitor Blood Pressure Position Semi-Fowlers Blood Pressure Location Left Arm Pulse Ox 99 Oxygen Delivery Method Room Air Weight Weight: 85 kg Body Mass Index (BMI) 25.4 Results Lab / Micro Data Result Diagrams: 05/02/21 14:23
--- NOTE | 2021-05-08 08:43 | PCM.DC ---
Discharge Instructions Diet Discharge Diet: No restrictions Activity Discharge Activity: Return to Normal Activity and May Not Drive (while taking narcotic pain medications.) Dressing / Incision Call your doctor if you observe: Fever of 101 or Higher Follow Up Care Please Follow Up With: Javon Lopez MD When: Call [phone] for an appointment Test Results: Test results from this visit will be discussed in further detail at your follow-up appointment, if applicable. Discharge Plan Admission Primary Reason for Your Visit: TUR Attending Provider: Javon Lopez Primary Care Provider: Steff Culp Instructions Patient Instructions: DENIZ Home Recovery Discharge Orders/Prescriptions Prescriptions: New cephalexin 500 mg capsule 500 mg PO BID Qty: 10 RF: 0 Continued amiodarone 100 mg tablet 100 mg PO DAILY Qty: 30 RF: 12 furosemide [Lasix] 40 mg tablet 40 mg PO .COMPLEX RF: 0 Referrals / Follow Up: Steff Culp DO [Primary Care Provider] - Javon Lopez MD [STAFF PHYSICIAN] - Disposition Disposition (needs filled in before D/C Order can be placed): Home, Self Care
[2021-05-08] MEDS: Cefazolin 2 GM in 0.9% Normal Saline 100 ML IV (08:56)
--- NOTE | 2021-05-08 09:05 | PROS_PTH ---
PATIENT: ZAC MAHAJAN LOC: [facility] U#:[id number] AGE/SX: 81/M ROOM: [facility] RE05/08/[address]: Dr. Javon Lopez MD : 1940 BED: 1 DIS: 05/09/2021 SPEC #: [id number] RECD: 05/08/21 11:17 STATUS: LITZY BROCK #: [id number] JANETT: 05/08/21 09:[address]: Javon Lopez DEPT: SURGICAL PATHOLOGY RECD BY: Alberto Telles ENTERED: 05/08/21 12:56 SP TYPE: TURP OTHR DR: Dr. Steff Culp DO Tissues: Prostate, NOS Procedures: Surgery Specimen Level IV HEADER OPERATION: Cysto, TUR prostate, Olympus, laser bladder stone PRE-OP DIAGNOSIS: BPH with obstruction, recurrent UTI, bladder stone TISSUE SUBMITTED: Prostate tissue and bladder stone MICROSCOPIC DIAGNOSIS Prostate tissue and bladder stone, transurethral resection: Benign prostatic hyperplasia, predominantly stromal type. Focal basal cell hyperplasia, chronic inflammation and squamous metaplasia. See comment. MAZIN:isha 05/09/2021 COMMENT Immunohistochemistry ([id number]) supports the above diagnosis. Please make reference to previous specimen ([id number]) left prostate, apex, mid and base and lateral, core biopsies with diagnosis of ?prostatic adenocarcinoma.? MICROSCOPIC DESCRIPTION Slides are reviewed. GROSS DESCRIPTION Received is one container labeled with the patient's name and designated prostate tissue. The specimen consists of multiple irregular fragments of pink-yoo, rubbery, soft tissue that in aggregate weigh 7.8 gm and measure in aggregate 5 x 5 x 0.8 cm. Also present in the specimen container are multiple yellow calculi ranging in size from 0.1 to 0.5 cm. The entire specimen is submitted in six cassettes. / AM:isha 05/08/2021 TC:5 CPT: 17122
--- NOTE | 2021-05-08 09:44 | PCM.OPRPT ---
Report of Operation Date of Procedure: 05/08/21 Pre-Operative Diagnosis: BPH with obstruction and large bladder stones Post-Operative Diagnosis: Same Surgery/Procedure Performed:: Transurethral resection of the prostate and laser of bladder stones large Description of Surgical Findings:: In the preoperative setting I discussed with the patient how the surgery would be done with expect afterwards. We discussed how a prostate resection is done and we discussed the risk of the surgery including, bleeding, infection, retrograde ejaculation, changes with ejaculation or intercourse,. We discussed the possibility that the resection of the prostate may not alleviate his urinary symptoms. We discussed the small risk of developing scar tissue along the urethral channel and strictures. We also discussed the chance of the prostate could grow back and he may need further surgery or treatment in the future for prostate problems. Patient was taken back to the operating room, timeout procedure was performed, he was identified and marked and placed on the operating room table. He underwent general anesthesia. He was placed in dorsolithotomy position. Penis and testicles were prepped and draped in usual sterile fashion. The urethra and genitals were prepped and draped in usual sterile fashion. Went into the bladder using a 24 Bolivian cystoscope. We used the laser bridge through the scope for continuous irrigation. Then using the laser bridge we introduced a laser fiber into the bladder and the stone in the bladder was trapped against the back wall. The stone measured larger than 2,5cm in total size. The stone was then lasered using laser lithotripsy the small little pieces all the pieces were evacuated on the bladder. After all the stones were removed then the scope was removed there was minimal bleeding. Went into the bladder using the visual obturator with a resectoscope. Once inside the bladder identified the right and left ureteral orifice. I then identified the prostate and the anatomy of the prostate. I marked out the area of the sphincter and the verumontanum was identified. I then proceeded with the prostate resection first resected the median lobe. And then resected the right lobe of the prostate. Then to resect the left lobe of the prostate. I then resected the apical tissue of the prostate. This was a complete resection of all obstructive tissue to improve voiding and relieve obstruction. I then made sure that there was no injury to the sphincter or the verumontanum was still intact. At the end of the resection all the chips were Ellik out of the bladder. I then identified the left and right ureteral orifice and these were confirmed to be in good position and effluxing and not injured. The resectoscope was removed, a 22 Bolivian catheter was placed into the bladder on continuous irrigation. And the urine was fairly light pink color and draining normally. He was taken back to the PACU in good condition. CPT 04990 CPT 90068 Type of Anesthesia: General Drains: [address] Admit VTE Documentation VTE Present on Admission: No VTE Mechan Device Prophylaxis: SCD's VTE Pharm Prophylaxis ordered?: No
[2021-05-08] MEDS: Ondansetron 4 MG/2 ML Vial IV (13:00)
[2021-05-08] MEDS: 0.9% Saline Lock 10 ML Syringe IV (13:01)
[2021-05-09 03:16] VITALS: BMI 25.4
[2021-05-09 03:28] VITALS: BP 114/68; PULSE 74; RESP 18; TEMP 36.6; O2SAT 98
[2021-05-09 05:20] VITALS: BP 108/62; PULSE 66; RESP 18; TEMP 36.7; O2SAT 96
[2021-05-09 07:16] VITALS: BMI 25.4
[2021-05-09] MEDS: Amiodarone 200 MG Tablet 100 MG PO (08:29)
[2021-05-09] MEDS: Furosemide 40 MG Tablet PO (08:30)
[2021-05-09 11:16] VITALS: BMI 25.4
[2021-05-09 13:00] VITALS: BP 108/62; PULSE 66; RESP 18; TEMP 36.6; O2SAT 96
--- NOTE | 2021-05-09 14:11 | CHAPLAIN ---
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
== END 2021-05-09 07:39 | disposition home or self-care (01) ==
LOC: AC 08:41 → PCU 11:12
PROVIDERS: Anesthesiology; Admitting Provider Urology; PCP Internal Medicine; Referring Provider Urology; Visit Provider Urology
PROC: (CPT 52601; principal; 2021-05-08 08:55)
DX: N40.1 Benign prostatic hyperplasia with lower urinary tract symptoms (principal); I50.22 Chronic systolic (congestive) heart failure; I42.8 Other cardiomyopathies; I25.2 Old myocardial infarction; N30.01 Acute cystitis with hematuria; N21.0 Calculus in bladder; M19.90 Unspecified osteoarthritis, unspecified site; Z85.46 Personal history of malignant neoplasm of prostate; D47.2 Monoclonal gammopathy; Z87.891 Personal history of nicotine dependence; Z79.899 Other long term (current) drug therapy; I49.1 Atrial premature depolarization; R00.1 Bradycardia, unspecified; R06.00 Dyspnea, unspecified; Z86.2 Personal history of diseases of the blood and blood-forming organs and certain disorders involving the immune mechanism; N13.8 Other obstructive and reflux uropathy
CPT/HCPCS: 52601; 52318; 00914; 36415; 85027; 85610; 85730; 88305; 88341; 88342; 93005; 96374; 97802; 99218; J7120; A4216; G0378; J2405

== ENCOUNTER 2021-06-09 11:16 | Emergency (ER) | payer MEDICARE, SELFPAY ==
[2021-06-09 11:17] VITALS: BP 140/87; PULSE 51; RESP 18; TEMP 36.5; O2SAT 94; BMI 25.7
[2021-06-09 11:29] VITALS: BP 148/85; PULSE 86; RESP 18; O2SAT 96
[2021-06-09 11:30] VITALS: O2SAT 96
--- NOTE | 2021-06-09 12:10 | EDS_ITS ---
HPI History of Present Illness Chief Complaint: Shortness of Breath Informant: patient Onset/Context/Timing Onset: Days Context: gradual Timing: Continuous Quality: Positive for Orthopnea Worsened by: Lying flat Relieved by: Nothing Associated Symptoms cough, rhinorrhea, sore throat and yellow sputum; Negative for fever or chills Chest Pain: Positive for None Narrative Narrative: Patient presents with shortness of breath that has been getting worse over the past few days. Patient states it is worse whenever he lays flat. Patient states he is coughing up some yellow sputum. Patient denies any fevers or chills. Patient admits to some rhinorrhea and upper respiratory drainage. Patient also complains of a sore throat. Patient denies any chest pain. Patient was in [place] recently and traveled back by plane. Patient states he was not taking his Lasix as prescribed while he was in [place]. Patient also admits to a recent surgery. Patient had a TURP approximately 3 weeks ago. [facility] Medical History Acute hypoxemic respiratory failure (02/16/19) Alcohol use Anemia Arthritis Atrial premature complexes Atrial tachycardia (02/16/19) Back pain Cancer Former smoker Gallstones Gynecomastia, male HFrEF (heart failure with reduced ejection fraction) History of echocardiogram History of edema History of Holter monitoring History of irregular heartbeat History of non-ST elevation myocardial infarction (NSTEMI) (02/16/19) History of prostate cancer History of stress test Left inguinal hernia Monoclonal gammopathy Multiple premature ventricular complexes Non-ischemic cardiomyopathy Nonrheumatic aortic (valve) stenosis with insufficiency Obesity Osteoarthritis Pancytopenia Paroxysmal ventricular tachycardia Pneumonia (02/16/19) Sepsis (02/16/19) Shortness of breath on exertion Tachyarrhythmia Thrombocytopenia Thyroid nodule Walker as ambulation aid Wears glasses Home Medications amiodarone 100 mg tablet 100 mg PO DAILY #30 tab 03/29/21 [Rx Last Taken 05/08/21] furosemide 40 mg tablet 40 mg PO DAILY tab 04/29/21 [History Last Taken 05/07/21] cefdinir 300 mg PO BID 06/09/21 [History Last Taken Unknown] Allergy/AdvReac Type Severity Reaction Status Date / Time ciprofloxacin [From Cipro] Allergy Mild rash Verified 06/09/21 11:19 levofloxacin [From Levaquin] Allergy Mild rash Verified 06/09/21 11:19 Sulfa (Sulfonamide AdvReac Unknown Verified 06/09/21 11:19 Antibiotics) Family History Son CVA (cerebral vascular accident) Surgical History History of cardiac catheterization History of colonoscopy History of hernia repair History of left heart catheterization (02/18/19) History of prostate surgery History of transurethral resection of prostate Hx of breast biopsy Hx of left breast biopsy Social History Smoking Status: Former smoker how long ago did patient quit smokin years ago alcohol intake: current alcohol intake frequency: a few times a week Alcohol type: wine substance use type: does not use caffeine: Yes Type: coffee ROS ROS ED Constitutional Constitutional ED: Denies chills or fever(s) Eyes Eyes: Denies blurry vision or change in vision ENT ENT ED: Reports rhinorrhea and sore throat Cardiovascular Cardiovascular: Denies chest pain or palpitations Respiratory/Chest Respiratory/Chest: Reports cough and dyspnea Gastrointestinal Gastrointestinal: Denies nausea or vomiting Genitourinary Genitourinary ED: Denies dysuria or hematuria Musculoskeletal Musculoskeletal: Denies back pain or neck pain Integumentary Denies abscess or rash Neurologic Neurologic: Denies headache(s) or weakness Allergic/Immunologic Allergic/Immunologic ED: Denies mouth swelling or urticaria EXAM Physical Exam Const Vital Signs: 06/09/21 11:17 06/09/21 11:29 06/09/21 11:30 Temperature 97.7 F L Temperature Source Temporal Pulse Rate 51 L 86 Respiratory Rate 18 18 Respiratory Effort Short of Breath Respiratory Depth Deep Respiratory Pattern Normal Blood Pressure 140/87 H 148/85 H Blood Pressure Mean 104 106 Pulse Ox 94 96 Oxygen Delivery Method Room Air Room Air Room Air 06/09/21 12:41 06/09/21 13:13 Temperature Temperature Source Pulse Rate 85 74 Respiratory Rate 15 19 H Respiratory Effort Respiratory Depth Respiratory Pattern Normal Blood Pressure 144/88 H Blood Pressure Mean 106 Pulse Ox 96 Oxygen Delivery Method Room Air Positive well nourished and well developed General Appearance ED: well developed and NAD HEENT Reports moist mucous membranes Neck supple and no JVD Resp normal respiratory effort Auscultation: rhonchi throughout Cardio regular rate Rhythm: abnormal rhythm irregularly irregular GI non-tender Palpation: soft Neuro oriented x3, CN's II-XII intact bilaterally and no sensory deficits noted Sensorium / Orientation: alert Motor Exam: strength 5/5 throughout Psych mental status grossly normal MDM MDM MDM Narrative Medical decision making narrative: EKG was obtained. On my interpretation it shows atrial fibrillation with a rate of 90. There is a right bundle branch block pattern noted. There are no acute ST or T wave changes noted. There is left axis deviation at -42. This was unchanged compared to previous EKG. Portable 1 view chest x-ray was obtained. On my interpretation, lung hays show mild bilateral pulmonary effusions. There is cardiomegaly. Bony thorax is normal. There is no acute process noted. Radiologist also interpreted the x- ray and agrees. CBC was within normal limits. PT was INR and PTT were within normal limits. D-dimer was slightly elevated at 1.22. Comprehensive metabolic profile was essentially within normal limits. BNP was elevated at 941.5. Patient was given a dose of Lasix here. Because of the elevated D-dimer, CTA of the chest was obtained. There is no evidence of pulmonary embolism. There are pleural effusions bilaterally, right worse than left. There is cardiomegaly noted. This was interpreted by the radiologist and reviewed by myself. Patient had 2 recent COVID-19 antigen test which were negative. Patient is feeling better after diuresis. Patient was instructed to continue his Lasix and amiodarone as previously prescribed. Patient was instructed to follow-up with his primary care physician in 3 to 5 days. Patient understood and was agreeable with the plan. All questions were answered. Lab Data Attestation: I reviewed the patient's lab results. Labs: Laboratory Results - last 24 hr 06/09/21 06/09/21 06/09/21 12:35 12:35 12:35 WBC 5.2 RBC 4.54 L Hgb 13.8 Hct 42.7 MCV 94.1 H MCH 30.4 MCHC 32.3 RDW Std Deviation 72.3 H RDW Coeff of Ashkan 21.2 H Plt Count 144 L MPV 10.6 Immature Gran % (Auto) 0.200 Neut % (Auto) 67.6 Lymph % (Auto) 14.4 L [place] % (Auto) 10.4 H Eos % (Auto) 6.2 H Baso % (Auto) 1.2 H Absolute Neuts (auto) 3.5 Absolute Lymphs (auto) 0.75 L Nucleated RBC % 0 Polychromasia 1+ Anisocytosis 1+ PT 15.3 H INR 1.2 APTT 32.8 D-Dimer Quant (PE/DVT) 1.22 H* Sodium 142 Potassium 3.7 Chloride 109 H Carbon Dioxide 28.0 Anion Gap 5 BUN 15 Creatinine 1.19 Estim Creat Clear Calc 55.25 Est GFR (MDRD) Af Amer 76 Est GFR (MDRD) Non-Af 63 BUN/Creatinine Ratio 12.6 Glucose 92 Calcium 8.2 L Total Bilirubin 1.50 H AST 41 H ALT 37 Alkaline Phosphatase 189 H B-Natriuretic Peptide Total Protein 6.3 L Albumin 3.0 L Globulin 3.3 Albumin/Globulin Ratio 0.9 06/09/21 12:35 WBC RBC Hgb Hct MCV MCH MCHC RDW Std Deviation RDW Coeff of Ashkan Plt Count MPV Immature Gran % (Auto) Neut % (Auto) Lymph % (Auto) [place] % (Auto) Eos % (Auto) Baso % (Auto) Absolute Neuts (auto) Absolute Lymphs (auto) Nucleated RBC % Polychromasia Anisocytosis PT INR APTT D-Dimer Quant (PE/DVT) Sodium Potassium Chloride Carbon Dioxide Anion Gap BUN Creatinine Estim Creat Clear Calc Est GFR (MDRD) Af Amer Est GFR (MDRD) Non-Af BUN/Creatinine Ratio Glucose Calcium Total Bilirubin AST ALT Alkaline Phosphatase B-Natriuretic Peptide 941.5 H Total Protein Albumin Globulin Albumin/Globulin Ratio Radiography Chest X-Ray - ED: 1 View, Read by ED Physician, Read by Radiologist, No Acute Disease, Cardiomegaly, Right Effusion and Left Effusion Diagnostic Testing: Clinical Impression(s) from Imaging Studies Chest X-Ray 06/09/21 12:22 IMPRESSION: Cardiomegaly. No focal infiltrate is seen. Possible small bilateral pleural effusions. Electronically Signed: Cesar John MD at 13:00 EDT , Chest CTA 06/09/21 13:17 IMPRESSION: No evidence for pulmonary embolism. Right greater left pleural effusions. Marked cardiomegaly. Cholelithiasis. Individualized dose optimization techniques were used for this CT. at 1444 Reported and signed by: Adry Salas MD Electronically Signed: Adry Salas MD at 14:43 EDT , EKG Initial EKG: Attestation: I personally reviewed and interpreted this EKG as follows: Interpretation: Atrial Fibrillation (90), RBBB and Non-Specific ST Changes Prior EKG tracings: available for review Prior: Unchanged (05/08/2021) Discharge Plan Triage Chief Complaint: Shortness of Breath ED Provider: Poncho Heaton Dx/Rx/DC Orders Clinical Impression: Dyspnea, Atrial fibrillation, Pleural effusion Instructions: ED Dyspnea Prescriptions: No Action amiodarone 100 mg tablet 100 mg PO DAILY Qty: 30 RF: 12 cefdinir 300 mg capsule 300 mg PO BID RF: 0 furosemide [Lasix] 40 mg tablet 40 mg PO DAILY RF: 0 Primary Care Provider: Stfef Culp Referrals: Steff Culp DO [Primary Care Provider] - 3-5 Days Disposition Disposition: Home, Self Care
--- NOTE | 2021-06-09 12:22 | RAD_ITS ---
STUDY: X-RAY CHEST REASON FOR EXAM: Male, 81 years old. Cough TECHNIQUE: Single AP portable view of the chest. COMPARISON: 04/25/2019. FINDINGS: No focal infiltrate is seen. Blunting of costophrenic angles could be due to small left pleural effusion pleural thickening unchanged. There is mild cardiac enlargement. Normal mediastinum and mars. Normal visualized pulmonary arteries. There is atherosclerotic calcification of the aortic arch with tortuosity. Stable osseous structures. There is no demonstrated abnormality of the visualized soft tissue structures of the upper abdomen. RAD/Chest 1 View (Portable) IMPRESSION: Cardiomegaly. No focal infiltrate is seen. Possible small bilateral pleural effusions. Electronically Signed: Cesar John MD at 13:00 EDT ,
--- NOTE | 2021-06-09 12:23 | EKG12_ITS ---
Test Reason : SOB Blood Pressure : / mmHG Vent. Rate : 090 BPM Atrial Rate : 340 BPM P-R Int : 000 ms QRS Dur : 154 ms QT Int : 422 ms P-R-T Axes : 000 -42 -06 degrees QTc Int : 516 ms Atrial fibrillation with occasional PVC's Left axis deviation Right bundle branch block Septal infarct , age undetermined Abnormal ECG Confirmed by ADDIS STEWART, KM ([id number]), medical transcription editor EM AKHTAR ([id number]) on 06/11/2021 11:13:22 AM Referred By: NAMITA Confirmed By:KM MANCINI MD
[2021-06-09] MEDS: Ipratropium/Albuterol Sulfate 3 ML AMPUL.NEB INHALATION (12:38)
[2021-06-09 12:41] VITALS: PULSE 85; RESP 15
[2021-06-09 12:46] LABS: Absolute Lymphocyte Count 0.75 X10^3/uL (0.83-4.51); Absolute Neutrophil Count 3.5 X10^3/uL (2.0-7.7); Basophil# 0.06 X10^3/uL; Basophil% 1.2 % (0-1); Eosinophil# 0.32 X10^3/uL; Eosinophils% 6.2 % (0-5); Hematocrit 42.7 % (40-54); Hemoglobin 13.8 g/dL (13.0-16.5); Lymphocyte # 0.75 X10^3/ul (0.83-4.51); Lymphocyte % 14.4 % (19-41); Mean Corp Hgb Conc 32.3 g/dL (32-36); Mean Corpuscular Hgb 30.4 pg (27.0-32.0); Mean Corpuscular Volume 94.1 fL (80-94); Mean Platelet Vol. 10.6 fl (6.2-12.0); Monocyte# 0.54 X10^3/uL; Monocyte% 10.4 % (0-10); NRBC Flagged by Analyzer 0 % (0-5); Neutrophil # 3.52 X10^3/uL (2.7-7.7); Neutrophil % 67.6 % (47-70); POSITIVE MORPHOLOGY YES; Platelet Count 144 K/mm3 (150-450); RBC Distribution Width CV 21.2 % (11.6-14.6); RBC Distribution Width SD 72.3 fl (35.1-43.9); Red Blood Count 4.54 M/mm3 (4.6-6.2); White Blood Count 5.2 K/mm3 (4.4-11.0)
[2021-06-09 12:54] LABS: International Normalized Ratio 1.2; Prothrombin Time (Protime)PT. 15.3 SECONDS (11.7-14.9)
[2021-06-09 12:55] LABS: Partial Thromboplast Time 32.8 Seconds (24.1-36.2)
[2021-06-09 12:56] LABS: Differential Indicated SCAN CRITERIA MET
[2021-06-09 13:00] LABS: ALB/GLOB Ratio 0.9 RATIO (0.9-2.4); AST(SGOT) 41 U/L (15-37); Alanine Aminotransfer ALT/SGPT 37 U/L (16-61); Alkaline Phosphatase 189 U/L (45-117); Anion Gap 5 (5-15); BUN 15 mg/dL (7-18); BUN/Creat Ratio 12.6 RATIO (10-20); Calcium,Total 8.2 mg/dL (8.5-10.1); Chloride 109 mmol/L (98-107); Creatinine, Serum 1.19 mg/dL (0.70-1.30); EST Glomerular Filtration Rate 63 mL/min (>60); Est Glom Filt Rate - Afr Amer 76 mL/min (>60); Estimated Creatinine Clearance 55.25 ml/min; Globulin 3.3 g/dL (2.2-4.2); Glucose 92 mg/dL (74-106); Potassium 3.7 mmol/L (3.5-5.1); Protein, Total 6.3 g/dL (6.4-8.2); Sodium Level 142 mmol/L (136-145)
[2021-06-09 13:13] VITALS: BP 144/88; PULSE 74; RESP 19; O2SAT 96
[2021-06-09 13:13] LABS: D-Dimer Quantitative (DVT/PE) 1.22 FEU/ug/m (0.27-0.49)
--- NOTE | 2021-06-09 13:17 | CT_ITS ---
HISTORY: Elevated D-dimer. TECHNIQUE: Helically acquired images of the chest following IV contrast as per pulmonary angiogram protocol with 2D and 3D reconstructions. A radiation dose optimization technique was used for this scan. IV Contrast dosage and agent: 100 mL Isovue-300. # of images incl. paperwork: [id number]. COMPARISON: XR same day, CT 08/01/2019. FINDINGS: CENTRAL AIRWAYS: Patent. LUNGS: Mild apical scarring and lower lobe atelectasis. Calcified right lower lobe granuloma PLEURA: Mild-moderate right and mild left pleural effusions. PULMONARY ARTERIES: No filling defect with motion artifact limiting evaluation of the more distal branches. HEART/PERICARDIUM: Moderate-severe cardiomegaly with trace pericardial effusion. AORTA: Tortuous thoracic aorta without aneurysm. MEDIASTINUM/NINA: No enlarged lymph nodes. OSSEOUS STRUCTURES: Degenerative change. SOFT TISSUES: Mild chest wall edema. Eventration of the right hemidiaphragm UPPER ABDOMEN: Large calcified gallstone. CT/CTA Chest W/WO Contrast IMPRESSION: No evidence for pulmonary embolism. Right greater left pleural effusions. Marked cardiomegaly. Cholelithiasis. Individualized dose optimization techniques were used for this CT. at 1444 Reported and signed by: Adry Salas MD Electronically Signed: Adry Salas MD at 14:43 EDT Reading Location ID and State: [facility] / [place] Tel , Service support ,
[2021-06-09 13:22] LABS: Anisocytosis 1+; BNP,B-Type NATRIURETIC PEPTIDE 941.5 pg/mL (0-100); Polychromasia 1+
[2021-06-09] MEDS: Furosemide 40 MG/4 ML Vial IV (13:57)
[2021-06-09 15:20] VITALS: BP 146/82; PULSE 74; RESP 13
== END 2021-06-09 15:23 | disposition home or self-care (01) ==
PROVIDERS: Emergency Provider Emergency Medicine; PCP Internal Medicine; Visit Provider Emergency Medicine
DX: I48.91 Unspecified atrial fibrillation (principal); I50.22 Chronic systolic (congestive) heart failure; I42.8 Other cardiomyopathies; Z87.891 Personal history of nicotine dependence; I45.10 Unspecified right bundle-branch block; M19.90 Unspecified osteoarthritis, unspecified site; Z87.19 Personal history of other diseases of the digestive system; I25.2 Old myocardial infarction; I35.2 Nonrheumatic aortic (valve) stenosis with insufficiency; Z85.46 Personal history of malignant neoplasm of prostate; Z87.01 Personal history of pneumonia (recurrent); Z86.2 Personal history of diseases of the blood and blood-forming organs and certain disorders involving the immune mechanism; Z79.899 Other long term (current) drug therapy; R79.89 Other specified abnormal findings of blood chemistry; J90 Pleural effusion, not elsewhere classified
CPT/HCPCS: 71045; 71275; 80053; 83880; 85025; 85379; 85610; 85730; 93005; 94640; 96374; 99283; Q9967; A4216; J1940

== ENCOUNTER → 2021-06-12 | Outpatient (CLI) | payer MEDICARE, SELFPAY ==
--- NOTE | 2021-06-12 16:24 | RAD_ITS ---
STUDY: XR Chest 2 Views 06/12/2021 4:31 PM REASON FOR EXAM: Male, 81 years old. CHEST PAIN HEART FAILURE COMPARISON: 06.09.21 TECHNIQUE: XR Chest 2 Views FINDINGS: Bilateral pleural effusions. The lung hays are hyperexpanded. Normal heart size. Normal mediastinum. Normal mars. Prominent appearing increased interstitial lung markings. Normal visualized pulmonary arteries. There is atherosclerotic calcification of the aortic arch with tortuosity. There are diffuse degenerative changes of the visualized thoracic spine. There is degenerative osteoarthritis of the bilateral shoulders. There is no demonstrated abnormality of the visualized soft tissue structures of the upper abdomen. RAD/Chest PA and Lateral IMPRESSION: Bilateral pleural effusions. Electronically Signed: Charles Storey MD at 18:20 EDT ,
--- NOTE | 2021-06-12 16:25 | RAD_ITS ---
EXAM: XR LEFT FOOT COMPLETE, 3 OR MORE VIEWS CLINICAL INDICATION: FOOT PAIN left foot pain, bottom of foot by 1st mt TECHNIQUE: Frontal, lateral and oblique views of the left foot. This report was created using [employer] report generation technology. COMPARISON: None. FINDINGS: BONES/JOINTS: Unremarkable. No acute fracture. No subluxation. Normal alignment. Preservation of the joint space. No sclerotic or destructive changes observed. SOFT TISSUES: Unremarkable. No soft tissue swelling or gas. No radiopaque foreign body. RAD/Foot min 3 Views IMPRESSION: Negative left foot x-rays. Electronically Signed: Charles Storey MD at 18:22 EDT ,
[2021-06-12 18:45] LABS: Troponin-I HS 26 pg/mL (3.0-78.0)
== END | disposition home or self-care (01) ==
LOC: MTLAB 16:22
PROVIDERS: PCP Internal Medicine; Referring Provider Internal Medicine; Visit Provider Internal Medicine
DX: M79.672 Pain in left foot (principal); I50.9 Heart failure, unspecified; I42.9 Cardiomyopathy, unspecified
CPT/HCPCS: 36415; 71046; 73630; 84484

== ENCOUNTER → 2021-06-18 | Outpatient (CLI) | payer MEDICARE, SELFPAY ==
--- NOTE | 2021-06-18 14:08 | ECHOD_ITS ---
Reason For Study: Cardiomyopathy Procedure This was a 2D Doppler, Color Flow transthoracic echocardiogram. Technically difficult due to arrhythmia and Heart Rate. Exam performed in department. Left Ventricle Normal LV size. Left ventricular systolic function is normal. The estimated ejection fraction is 50 %. No regional wall motion abnormalities noted. Right Ventricle Normal RV size. Normal systolic function. Atria The left atrium is mildly enlarged. The right atrium is moderately enlarged. Mitral Valve Bileaflet diffuse mitral valve thickening. Tricuspid Valve Normal tricuspid valve. Pulmonary artery systolic pressure is 30 mmHg. Mild to moderate (1-2+) tricuspid valve insufficiency. Aortic Valve Normal aortic valve. Trisinus/trileaflet aortic valve. Mild (1+) aortic valve insufficiency. Pulmonic Valve Normal pulmonic valve. MMode/2D Measurements & Calculations LVIDd: 6.1 cm IVSd: 1.2 cm LA dimension: 3.8 cm LVIDs: 4.6 cm LVPWd: 1.0 cm FS: 24.5 % LAV(MOD-bp): 80.3 ml LA A4 area: 23.1 cm2 RA A4 area: 28.8 cm2 LAV(MOD-bp) Indexed: 39.6 ml/m2 LAV(MOD-sp2): 81.1 ml LAV(MOD-sp4): 71.0 ml Doppler Measurements & Calculations Ao V2 max: 185.1 cm/sec AI max lucia: 507.0 cm/sec LV V1 max: 94.0 cm/sec Ao max P.2 mmHg AI max P.3 mmHg LV V1 max P.7 mmHg AI dec slope: 243.1 cm/sec2 AI P1/2t: 610.9 msec PA V2 max: 97.0 cm/sec TR max lucia: 251.0 cm/sec TR max P.3 mmHg ECHO/Echo Complete Interpretation Summary Normal LV size. Left ventricular systolic function is normal. The estimated ejection fraction is 50 %. Bileaflet diffuse mitral valve thickening. Mild (1+) aortic valve insufficiency. The left atrium is mildly enlarged. The right atrium is moderately enlarged. Mild to moderate (1-2+) tricuspid valve insufficiency. Pulmonary artery systolic pressure is 30 mmHg. Ordering Physician: Steff Culp Referring Physician: Steff Culp Performed By: Jayce Ttae RCS
== END | disposition home or self-care (01) ==
LOC: CVS 14:07
PROVIDERS: PCP Internal Medicine; Referring Provider Internal Medicine; Visit Provider Internal Medicine
DX: I42.9 Cardiomyopathy, unspecified (principal); I35.1 Nonrheumatic aortic (valve) insufficiency
CPT/HCPCS: 93306

== ENCOUNTER → 2021-06-20 | Outpatient (CLI) | payer MEDICARE, SELFPAY ==
[2021-06-20 13:04] LABS: Anion Gap 9 (5-15); BUN 27 mg/dL (7-18); BUN/Creat Ratio 15.3 RATIO (10-20); Calcium,Total 9.1 mg/dL (8.5-10.1); Chloride 105 mmol/L (98-107); Creatinine, Serum 1.77 mg/dL (0.70-1.30); EST Glomerular Filtration Rate 40 mL/min (>60); Est Glom Filt Rate - Afr Amer 48 mL/min (>60); Glucose 87 mg/dL (74-106); Magnesium 2.4 mg/dL (1.6-2.6); Potassium 3.7 mmol/L (3.5-5.1); Sodium Level 143 mmol/L (136-145); T4 Free Direct 2.82 ng/dL (0.76-1.46); Thyroid Stim Hormone (TSH) 1.94 uIU/mL (0.358-3.74)
[2021-06-20 13:11] LABS: BNP,B-Type NATRIURETIC PEPTIDE 306.4 pg/mL (0-100)
== END | disposition home or self-care (01) ==
LOC: LAB 12:07
PROVIDERS: PCP Internal Medicine; Referring Provider Nurse Practitioner Family; Visit Provider Nurse Practitioner Family
DX: I47.1 Supraventricular tachycardia (principal); I50.30 Unspecified diastolic (congestive) heart failure; I48.91 Unspecified atrial fibrillation; I47.2 Ventricular tachycardia; R06.00 Dyspnea, unspecified; I35.2 Nonrheumatic aortic (valve) stenosis with insufficiency
CPT/HCPCS: 36415; 80048; 83735; 83880; 84439; 84443

== ENCOUNTER → 2021-07-17 | Outpatient (CLI) | payer MEDICARE, SELFPAY ==
[2021-07-17 15:19] LABS: Absolute Lymphocyte Count 0.73 X10^3/uL (0.83-4.51); Absolute Neutrophil Count 2.3 X10^3/uL (2.0-7.7); Basophil# 0.08 X10^3/uL; Basophil% 2.1 % (0-1); Eosinophil# 0.19 X10^3/uL; Eosinophils% 5.1 % (0-5); Hematocrit 36.5 % (40-54); Lymphocyte # 0.73 X10^3/ul (0.83-4.51); Lymphocyte % 19.5 % (19-41); Mean Corp Hgb Conc 32.9 g/dL (32-36); Mean Corpuscular Hgb 31.6 pg (27.0-32.0); Mean Corpuscular Volume 96.1 fL (80-94); Mean Platelet Vol. 10.2 fl (6.2-12.0); Monocyte# 0.43 X10^3/uL; Monocyte% 11.5 % (0-10); NRBC Flagged by Analyzer 0 % (0-5); Neutrophil # 2.31 X10^3/uL (2.7-7.7); Neutrophil % 61.5 % (47-70); Platelet Count 151 K/mm3 (150-450); RBC Distribution Width CV 18.2 % (11.6-14.6); White Blood Count 3.8 K/mm3 (4.4-11.0)
[2021-07-17 15:51] LABS: Anion Gap 5 (5-15); BUN 23 mg/dL (7-18); BUN/Creat Ratio 16.5 RATIO (10-20); Calcium,Total 8.3 mg/dL (8.5-10.1); Chloride 111 mmol/L (98-107); Creatinine, Serum 1.39 mg/dL (0.70-1.30); EST Glomerular Filtration Rate 52 mL/min (>60); Est Glom Filt Rate - Afr Amer 63 mL/min (>60); Glucose 68 mg/dL (74-106); Potassium 4.4 mmol/L (3.5-5.1); Sodium Level 144 mmol/L (136-145)
== END | disposition home or self-care (01) ==
PROVIDERS: Internal Medicine Gastroenterology; PCP Internal Medicine; Referring Provider Nurse Practitioner Family; Visit Provider Nurse Practitioner Family
DX: K92.1 Melena (principal)
CPT/HCPCS: 36415; 80048; 85025

== ENCOUNTER 2021-07-25 14:41 | Emergency (ER) | payer MEDICARE, SELFPAY ==
[2021-07-25 14:42] VITALS: BP 157/95; PULSE 82; RESP 16; TEMP 36.4; O2SAT 97; BMI 26.2
--- NOTE | 2021-07-25 15:16 | CT_ITS ---
STUDY: CTA HEAD AND NECK WITH CONTRAST REASON FOR EXAM: Male, 81 years old. altered mental status RADIATION DOSAGE (If Supplied By Facility): CTDIvol = ( 33.34 ) mGy, DLP = ( 1544.42 ) mGycm TECHNIQUE: CT angiography was performed with a multi-detector CT scanner. Data acquisition was obtained from the skull base through the vertex following intravenous administration of IV 100mL Isovue-370. MIP images were reconstructed from the axial data set. Post-processing of the angiographic images was performed, with multiplanar reformation and 3D reconstruction. Individualized dose optimization techniques were used for this CT. COMPARISON: No relevant priors. FINDINGS: Normal bilateral petrous carotid arteries. Normal right cavernous carotid artery with a normal supraclinoid bifurcation. Normal left cavernous carotid artery with a normal supraclinoid bifurcation. Normal right A1 segments of the anterior cerebral artery. Normal left A1 segments of the anterior cerebral artery. Normal intact anterior communicating artery (ACOM). Normal bilateral A2 segments of the anterior cerebral arteries. Normal right M1 and M2 segments of the middle cerebral arteries, with a normal M1 bifurcation. Normal left M1 and M2 segments of the middle cerebral arteries, with a normal M1 bifurcation. Normal right posterior communicating artery (PCOM). Left posterior communicating artery not visualized consistent with normal variant Right vertebral is dominant and normal caliber. The left vertebral is mildly diffusely narrowed and terminates in PICA consistent with normal variant Normal basilar artery with a normal basilar bifurcation. The visualized bilateral superior cerebellar (SCA) arteries are normal. Normal bilateral P1, P2 and visualized P3 segments of the posterior cerebral arteries. There is no demonstrated aneurysm of the [place]. AORTIC ARCH: Normal visualized aortic arch. Normal origins of the brachiocephalic, left common carotid, and left subclavian arteries. RIGHT CAROTID ARTERIES: Normal right common carotid artery (CCA). Normal right common carotid bulb. Normal origin of the right internal carotid (ICA) artery without a hemodynamically significant stenosis. Normal visualized cervical portion of the right internal carotid artery. Normal origin of the right external carotid artery (ECA). LEFT CAROTID ARTERIES: Mild calcific plaquing of distal left common carotid artery (CCA). Normal left common carotid bulb. Normal origin of the left internal carotid (ICA) artery without a hemodynamically significant stenosis. Normal visualized cervical portion of the left internal carotid artery. Normal origin of the left external carotid artery (ECA). VERTEBRAL ARTERIES: Right vertebral is dominant and normal caliber. There is mild diffuse narrowing of left vertebral which terminates in PICA and is normal variant CT/CTA Head AND Neck W/ Contrast IMPRESSION: Mild atherosclerotic disease. No evidence for hemodynamically significant stenosis utilizing NASCET criteria. Electronically Signed: Tyler Allen MD at 17:17 EDT ,
--- NOTE | 2021-07-25 15:17 | EKG12_ITS ---
Test Reason : CONFUSION Blood Pressure : / mmHG Vent. Rate : 086 BPM Atrial Rate : 214 BPM P-R Int : 000 ms QRS Dur : 160 ms QT Int : 466 ms P-R-T Axes : 000 -55 080 degrees QTc Int : 557 ms Atrial fibrillation with premature ventricular or aberrantly conducted complexes Right bundle branch block Left anterior fascicular block Bifascicular block T wave abnormality, consider lateral ischemia Abnormal ECG Confirmed by JENNIFER STEWART, LILI ([id number]), image editor EM AKHTAR ([id number]) on 07/29/2021 10:14:55 AM Referred By: Confirmed By:LILI RODRIGUEZ MD
--- NOTE | 2021-07-25 15:18 | EDS_ITS ---
HPI History of Present Illness Chief Complaint: Confusion Informant: patient and family Onset/Context/Timing Onset: Today Narrative Narrative: Patient presents for evaluation secondary to confusion. Patient does have a history of A. fib. He was recently off of his Eliquis for approximately 1 month secondary to dark stools. He restarted this last evening. He was also recently treated for a UTI. Due to continued symptoms a culture was sent 2 days ago but results are not back at this time. Patient reportedly had nausea last evening. Son did not see him this morning but after arriving home at 1230 this afternoon noted the patient to be up and dressed but sleeping in a chair. It appeared he had not taken his morning medications or eat anything. They woke him and try to get him to take his medications. They state after walking to the pillbox he turned around and walked away asking where his medications were. They got him to eat a small amounts but he seemed to still be more confused than baseline so brought him in for evaluation. They do report somewhat of an unsteady gait at baseline but it did seem to be slightly worse today. Patient has no complaints. [facility] Medical History (HFpEF) heart failure with preserved ejection fraction Acute hypoxemic respiratory failure (02/16/19) Alcohol use Anemia Arthritis Atrial premature complexes Atrial tachycardia (02/16/19) Back pain Bilateral pleural effusion Bradycardia Cancer Former smoker Gallstones Gynecomastia, male HFrEF (heart failure with reduced ejection fraction) History of edema History of irregular heartbeat History of non-ST elevation myocardial infarction (NSTEMI) (02/16/19) History of prostate cancer History of stress test Left inguinal hernia Melena Monoclonal gammopathy Multiple premature ventricular complexes New onset atrial fibrillation (05/02/21) Non-ischemic cardiomyopathy Nonrheumatic aortic (valve) stenosis with insufficiency Obesity Osteoarthritis Pancytopenia Paroxysmal ventricular tachycardia Pneumonia (02/16/19) Sepsis (02/16/19) Shortness of breath on exertion Tachyarrhythmia Thrombocytopenia Thyroid nodule Walker as ambulation aid Wears glasses Home Medications amiodarone 100 mg tablet 100 mg PO DAILY #30 tab 03/29/21 [Rx Last Taken 05/08/21] cholecalciferol (vitamin D3) 50 mcg (2,000 unit) tablet 50 mcg PO DAILY 06/20/21 [History Last Taken Unknown] furosemide 40 mg tablet 40 mg PO DAILY tab 07/19/21 [History Last Taken Unknown] omeprazole 20 mg capsule,delayed release 20 mg PO DAILY cap 07/23/21 [History Last Taken Unknown] potassium chloride 20 mEq tablet,extended release 20 meq PO BID tab 07/23/21 [History Last Taken Unknown] apixaban 5 mg tablet 5 mg PO BID #60 tab 07/24/21 [Rx Last Taken Unknown] nitrofurantoin macrocrystal 100 mg PO BID 7 Days #14 cap 07/25/21 [Rx Last Taken Unknown] Allergy/AdvReac Type Severity Reaction Status Date / Time ciprofloxacin [From Cipro] Allergy Mild rash Verified 07/25/21 14:42 levofloxacin [From Levaquin] Allergy Mild rash Verified 07/25/21 14:42 Sulfa (Sulfonamide AdvReac Unknown Verified 07/25/21 14:42 Antibiotics) Family History Son CVA (cerebral vascular accident) Surgical History History of cardiac catheterization History of colonoscopy History of esophagogastroduodenoscopy (EGD) (07/22/21) History of hernia repair History of left heart catheterization (02/18/19) History of prostate surgery History of transurethral resection of prostate Hx of breast biopsy Hx of left breast biopsy Social History Smoking Status: Former smoker how long ago did patient quit smokin years ago alcohol intake: current alcohol intake frequency: a few times a week Alcohol type: wine substance use type: does not use caffeine: Yes Type: coffee ROS ROS ED Constitutional Constitutional ED: Denies chills or fever(s) Eyes Eyes: Denies change in vision ENT ENT ED: Denies sore throat Cardiovascular Cardiovascular: Denies chest pain Respiratory/Chest Respiratory/Chest: Denies cough or dyspnea Gastrointestinal Gastrointestinal: Reports nausea; Denies abdominal pain, diarrhea or vomiting Genitourinary Genitourinary ED: Reports dysuria Musculoskeletal Musculoskeletal: Denies back pain or neck pain Integumentary Denies rash Neurologic Neurologic: Denies headache(s) or weakness Psychiatric Psychiatric: Denies anxiety or depression Allergic/Immunologic Allergic/Immunologic ED: Denies urticaria EXAM Physical Exam Const Vital Signs: 07/25/21 14:42 07/25/21 16:41 Temperature 97.5 F L Temperature Source Temporal Pulse Rate 82 72 Respiratory Rate 16 18 Blood Pressure 157/95 H 126/67 H Blood Pressure Mean 115 86 Pulse Ox 97 99 Oxygen Delivery Method Room Air Room Air Positive well nourished and well developed General Appearance ED: well developed HEENT Reports moist mucous membranes Eyes PERRL and EOMs intact bilaterally Neck supple Chest Wall inspection of chest normal and palpation of chest normal Resp normal respiratory effort and clear to auscultation bilaterally Cardio Rhythm: abnormal rhythm irregularly irregular GI normal to inspection, nondistended, normoactive bowel sounds and non-tender Palpation: soft Extremity normal to inspection Neuro oriented x3 Neuro Narrative: NIH equals 0 at time of my exam. Sensorium / Orientation: alert Psych mental status grossly normal Skin no rashes or lesions noted MDM MDM MDM Narrative Medical decision making narrative: CTA of the head and neck obtained. EKG, chest x-ray, lab work obtained. Urinalysis obtained. Lab Data Attestation: I reviewed the patient's lab results. Labs: Laboratory Results - last 24 hr 07/25/21 07/25/21 07/25/21 14:25 14:25 15:36 WBC 4.1 L RBC 4.02 L Hgb 12.5 L Hct 38.4 L MCV 95.5 H MCH 31.1 MCHC 32.6 RDW Std Deviation 59.5 H RDW Coeff of Ashkan 16.9 H Plt Count 157 MPV 10.9 Immature Gran % (Auto) 0.200 Neut % (Auto) 74.8 H Lymph % (Auto) 13.1 L [place] % (Auto) 8.5 Eos % (Auto) 2.4 Baso % (Auto) 1.0 Absolute Neuts (auto) 3.1 Absolute Lymphs (auto) 0.54 L Nucleated RBC % 0 Differential Comment SCANNED Diff Path Review May foll Sodium 142 Potassium 3.8 Chloride 110 H Carbon Dioxide 24.0 Anion Gap 8 BUN 23 H Creatinine 1.65 H Estim Creat Clear Calc 39.85 Est GFR (MDRD) Af Amer 52 L Est GFR (MDRD) Non-Af 43 L BUN/Creatinine Ratio 13.9 Glucose 116 H Calcium 8.8 Total Bilirubin 1.00 Direct Bilirubin 0.28 AST 38 H ALT 32 Alkaline Phosphatase 124 H Troponin I High Sens 23 Total Protein 6.9 Albumin 3.2 Globulin 3.7 Urine Color Yellow Urine Clarity Sl. Cloudy Urine pH 6.5 Ur Specific [place] 1.010 Urine Protein 15 H Urine Glucose (UA) Normal Urine Ketones Negative Urine Occult Blood 50 H Urine Nitrite Negative Urine Bilirubin Negative Urine Urobilinogen Normal Ur Leukocyte Esterase 500 H Urine RBC 10-25 SEEN Urine WBC 50-100 SEEN Ur Squamous Epith Cells 0-5 SEEN Urine Bacteria 4+ Urine Mucus 0 SEEN Radiography Chest X-Ray - ED: 1 View, Read by ED Physician and Chronic Changes Diagnostic Testing: Clinical Impression(s) from Imaging Studies Head/Neck CTA 07/25/21 15:16 IMPRESSION: Mild atherosclerotic disease. No evidence for hemodynamically significant stenosis utilizing NASCET criteria. Electronically Signed: Tyler Allen MD at 17:17 EDT , Chest X-Ray 07/25/21 15:55 IMPRESSION: Mild hyperinflation. No acute cardiopulmonary pathology. Electronically Signed: Tyler Allen MD at 16:41 EDT , EKG Initial EKG: Attestation: I personally reviewed and interpreted this EKG as follows: Interpretation: Atrial Fibrillation (A. fib at 86 with bifascicular block.) Treatment and Re-Evaluation Narrative: On repeat evaluation patient resting comfortably. White count is low at 4.1. Chemistry studies and LFTs unremarkable. CT of the head and neck reveals no acute findings. Chest x-ray per mitral rotation reveals no infiltrate. Urinalysis does show infection with 4+ bacteria and 50-100 white cells. I was able to speak to Dr. Flores who faxed me the urine culture that was obtained 2 days ago. This reveals E. coli that is pansensitive. Patient will be given a dose of Rocephin here and discharged with a prescription for nitrofurantoin. He does have noted allergies to sulfa, Cipro, Levaquin. Return instructions are provided. Family is comfortable with this plan. Discharge Plan Triage Chief Complaint: Confusion ED Provider: Rhiannon Don Dx/Rx/DC Orders Clinical Impression: UTI (urinary tract infection) Instructions: ED Bladder Infection, Male (Adult) Prescriptions: New nitrofurantoin macrocrystal 100 mg capsule 100 mg PO BID 7 Days Qty: 14 RF: 0 No Action amiodarone 100 mg tablet 100 mg PO DAILY Qty: 30 RF: 12 omeprazole 20 mg capsule,delayed release(DR/EC) 20 mg PO DAILY RF: 0 cholecalciferol (vitamin D3) 50 mcg (2,000 unit) tablet 50 mcg PO DAILY RF: 0 potassium chloride 20 mEq tablet extended release 20 meq PO BID RF: 0 furosemide [Lasix] 40 mg tablet 40 mg PO DAILY RF: 0 Eliquis 5 mg tablet 5 mg PO BID Qty: 60 RF: 11 Hold Instructions: occult positive Primary Care Provider: Steff Culp Referrals: Steff Culp DO [Primary Care Provider] - 1 Week Javon Lopez MD [STAFF PHYSICIAN] - As Needed Disposition Disposition: Home, Self Care
[2021-07-25 15:45] LABS: Mucous, Urine 0 SEEN /hpf (<or=2+)
[2021-07-25 15:47] LABS: Color, Urine Yellow (Yellow); Glucose, Dipstick Normal (Normal); Ketone-Dipstick Negative (Negative); Leukocyte Esterase-Dipstick 500 /ul (Negative); Nitrite-Dipstick Negative (Negative); Occult Blood-Urine 50 /ul (Negative); Protein-Dipstick 15 mg/dl (Negative); Urine Bilirubin Dipstick Negative (Negative); Urine Clarity Sl. Cloudy (Clear); Urine Urobilinogen Normal (Normal); Urine pH 6.5 (5.0 - 8.0)
[2021-07-25 15:47] LABS: Absolute Lymphocyte Count 0.54 X10^3/uL (0.83-4.51); Absolute Neutrophil Count 3.1 X10^3/uL (2.0-7.7); Basophil# 0.04 X10^3/uL; Eosinophils% 2.4 % (0-5); Hematocrit 38.4 % (40-54); Hemoglobin 12.5 g/dL (13.0-16.5); Lymphocyte # 0.54 X10^3/ul (0.83-4.51); Lymphocyte % 13.1 % (19-41); Mean Corp Hgb Conc 32.6 g/dL (32-36); Mean Corpuscular Hgb 31.1 pg (27.0-32.0); Mean Corpuscular Volume 95.5 fL (80-94); Mean Platelet Vol. 10.9 fl (6.2-12.0); Monocyte# 0.35 X10^3/uL; Monocyte% 8.5 % (0-10); NRBC Flagged by Analyzer 0 % (0-5); Neutrophil # 3.08 X10^3/uL (2.7-7.7); Neutrophil % 74.8 % (47-70); POSITIVE DIFFERENTIAL YES; Platelet Count 157 K/mm3 (150-450); RBC Distribution Width CV 16.9 % (11.6-14.6); RBC Distribution Width SD 59.5 fl (35.1-43.9); Red Blood Count 4.02 M/mm3 (4.6-6.2); White Blood Count 4.1 K/mm3 (4.4-11.0)
[2021-07-25 15:49] LABS: Differential Indicated SCAN CRITERIA MET
--- NOTE | 2021-07-25 15:55 | RAD_ITS ---
STUDY: X-RAY CHEST REASON FOR EXAM: Male, 81 years old. sob TECHNIQUE: AP portable COMPARISON: 06/12/2021. FINDINGS: Lungs are hyperinflated but clear.. There is no demonstrated pleural abnormality. Heart is enlarged.. Normal mediastinum and mars. Normal visualized pulmonary arteries. Normal visualized aortic arch and descending thoracic aorta. Dorsal spine and shoulders demonstrate degenerative changes.. Normal visualized ribs, clavicles, and shoulders. There is no demonstrated abnormality of the visualized soft tissue structures of the upper abdomen. RAD/Chest 1 View (Portable) IMPRESSION: Mild hyperinflation. No acute cardiopulmonary pathology. Electronically Signed: Tyler Allen MD at 16:41 EDT ,
[2021-07-25 16:04] LABS: Bacteria 4+ /hpf (None Seen); Red Blood Cells-Urine 10-25 SEEN /hpf (0-5); Squamous Epithelial Cells - UA 0-5 SEEN /hpf (0-5); White Blood Cells 50-100 SEEN /hpf (0-5)
[2021-07-25 16:13] LABS: AST(SGOT) 38 U/L (15-37); Alanine Aminotransfer ALT/SGPT 32 U/L (16-61); Albumin, Serum 3.2 g/dL (3.2-5.0); Alkaline Phosphatase 124 U/L (45-117); Anion Gap 8 (5-15); BUN 23 mg/dL (7-18); BUN/Creat Ratio 13.9 RATIO (10-20); Bilirubin, Direct 0.28 mg/dL (0.00-0.30); Calcium,Total 8.8 mg/dL (8.5-10.1); Chloride 110 mmol/L (98-107); Creatinine, Serum 1.65 mg/dL (0.70-1.30); EST Glomerular Filtration Rate 43 mL/min (>60); Est Glom Filt Rate - Afr Amer 52 mL/min (>60); Estimated Creatinine Clearance 39.85 ml/min; Globulin 3.7 g/dL (2.2-4.2); Glucose 116 mg/dL (74-106); Potassium 3.8 mmol/L (3.5-5.1); Protein, Total 6.9 g/dL (6.4-8.2); Sodium Level 142 mmol/L (136-145); Troponin-I HS 23 pg/mL (3.0-78.0)
[2021-07-25 16:31] LABS: Differential Comment SCANNED
[2021-07-25 16:41] VITALS: BP 126/67; PULSE 72; RESP 18; O2SAT 99
[2021-07-25] MEDS: Ceftriaxone 1 GM/50 ML BAG IV (17:51)
[2021-07-25 18:36] VITALS: PULSE 67; RESP 18
[2021-07-26 12:38] LABS: Pathologist Review Reviewed
== END 2021-07-25 18:53 | disposition home or self-care (01) ==
PROVIDERS: Emergency Provider Emergency Medicine; PCP Internal Medicine; Visit Provider Emergency Medicine
DX: N39.0 Urinary tract infection, site not specified (principal); I50.9 Heart failure, unspecified; I42.8 Other cardiomyopathies; I48.91 Unspecified atrial fibrillation; R26.81 Unsteadiness on feet; Z87.891 Personal history of nicotine dependence; Z87.19 Personal history of other diseases of the digestive system; I25.2 Old myocardial infarction; Z85.46 Personal history of malignant neoplasm of prostate; I45.2 Bifascicular block; Z87.01 Personal history of pneumonia (recurrent); Z86.19 Personal history of other infectious and parasitic diseases; Z86.2 Personal history of diseases of the blood and blood-forming organs and certain disorders involving the immune mechanism; E66.9 Obesity, unspecified; Z79.899 Other long term (current) drug therapy; Z79.01 Long term (current) use of anticoagulants; Z68.26 Body mass index [BMI] 26.0-26.9, adult
CPT/HCPCS: 70496; 70498; 71045; 80048; 80076; 81001; 84484; 85025; 87077; 87086; 87088; 87186; 93005; 96365; 99285; J7050; Q9967; A4216

== ENCOUNTER → 2021-08-01 | Outpatient (CLI) | payer MEDICARE, SELFPAY | END | disposition home or self-care (01) | LOC: LABSPEC 16:32 | PROVIDERS: PCP Internal Medicine; Visit Provider Urology | DX: R31.9 Hematuria, unspecified (principal) | CPT/HCPCS: 87086 ==

== ENCOUNTER → 2021-08-10 | Outpatient (CLI) | payer MEDICARE, SELFPAY ==
--- NOTE | 2021-08-10 10:11 | CT_ITS ---
EXAM: CT ABDOMEN AND PELVIS WITHOUT INTRAVENOUS CONTRAST CLINICAL INDICATION: hEMATURIA TECHNIQUE: Helically acquired images were obtained of the abdomen and pelvis without intravenous contrast. CTDIvol = ( 7.81 ) mGy, DLP = ( 650.62 ) mGycm This CT exam was performed using one or more of the following dose reduction techniques: automated exposure control, adjustment of the mA and/or kV according to patient size, and/or use of iterative reconstruction technique. This report was created using [employer] report generation technology. COMPARISON: April 24 2021 FINDINGS: Very small calculus at the anterior aspect of the left kidney at approximately the interpolar level. This was also seen on the prior study. No other urolithiasis. No hydronephrosis. Bladder is decompressed although there is thickening of the wall posteriorly with adjacent stranding raising concern for cystitis. Correlate with urinalysis Cholelithiasis. Colonic diverticulosis without acute diverticulitis. No bowel obstruction or colitis. Cardiomegaly without pericardial effusion. Redemonstration of very large anterior abdominal wall hernia with evidence of prior repair and persisting large defect anteriorly. The hernia contains small bowel, colon, and some mesenteric vessels. Redemonstration of large left inguinal hernia that contains small bowel, colon, and some mesenteric vessels. Left testicular hydrocele appears improved although may not be completely imaged on this study. Degenerative changes of the pelvis and spine with no unusual lytic or sclerotic lesions of bone. Pleural effusions are improved from the prior study. CT/Abdomen/Pelvis without Cont IMPRESSION: 1. Bladder is decompressed although there is thickening of the wall posteriorly with adjacent stranding raising concern for cystitis. Correlate with urinalysis. 2. No other evidence for new acute or inflammatory abdominopelvic disease. 3. Persisting abdominal wall and left inguinal hernias as above. 4. Pleural effusions are improved. Electronically Signed: Aurelio Odell MD at 11:48 EDT ,
== END | disposition home or self-care (01) ==
LOC: CT 10:10
PROVIDERS: PCP Internal Medicine; Visit Provider Urology
DX: R31.9 Hematuria, unspecified (principal)
CPT/HCPCS: 74176

== ENCOUNTER 2021-09-12 13:05 | Outpatient (CLI) | payer MEDICARE, SELFPAY ==
[2021-09-12] MEDS: 0.9% NaCl Peripheral Flush Adult/Peds IV (13:37)
[2021-09-12] MEDS: 0.9% Normal Saline 1,000 ML 500 ML IV (13:38)
[2021-09-12 13:45] VITALS: BP 109/67; PULSE 66; RESP 14; TEMP 36.8; O2SAT 97; BMI 38.0
[2021-09-12 15:58] VITALS: BP 113/71; PULSE 62; RESP 16; TEMP 36.7; O2SAT 100
== END 2021-09-12 23:59 | disposition home or self-care (01) ==
LOC: MEDOUTP 13:05
PROVIDERS: PCP Internal Medicine; Referring Provider Internal Medicine; Visit Provider Internal Medicine
DX: E86.0 Dehydration (principal)
CPT/HCPCS: 96360; 96361; J7030; A4216

== ENCOUNTER → 2021-09-17 | Outpatient (CLI) | payer MEDICARE, SELFPAY | END | disposition home or self-care (01) | LOC: LABSPEC 16:50 | PROVIDERS: PCP Internal Medicine; Visit Provider Urology | DX: N30.01 Acute cystitis with hematuria (principal) | CPT/HCPCS: 87077; 87086; 87088; 87186 ==

== ENCOUNTER 2021-09-19 11:37 | Inpatient (IN) | payer MEDICARE, SELFPAY ==
[2021-09-19] VITALS (12 sets, daily range): BP systolic 126–138; BP diastolic 56–87; PULSE 64–80; RESP 14–20; TEMP 36.6–37.8; O2SAT 96–100; BMI 25.0; BMI 24.3
--- NOTE | 2021-09-19 12:00 | EDS_ITS ---
HPI <MARIA DE JESUS Lofton - Last Filed: 09/19/21 13:21> History of Present Illness Chief Complaint: Complaint Narrative Narrative: 81-year-old male with history of frequent UTIs, atrial fibrillation, anemia presents to the emergency department with 24 hours of malaise, fevers, chills, feeling of fatigue. Patient sees urologist, and saw on his MyChart that the urine culture grew out E. coli. Patient is currently not on any antibiotics. Since the patient had fevers, chills, feeling of weakness, the patient family would like him to be evaluated. Patient denies any pain, however does state to feel hot and cold as well as some weakness. Denies any nausea or vomiting. Denies any back pain. [facility] <MARIA DE JESUS Lofton - Last Filed: 09/19/21 13:21> [facility] Medical History (HFpEF) heart failure with preserved ejection fraction Acute hypoxemic respiratory failure (02/16/19) Alcohol use Anemia Arthritis Atrial premature complexes Atrial tachycardia (02/16/19) Back pain Bilateral pleural effusion Bradycardia Cancer Former smoker Gallstones Gynecomastia, male HFrEF (heart failure with reduced ejection fraction) History of edema History of irregular heartbeat History of non-ST elevation myocardial infarction (NSTEMI) (02/16/19) History of prostate cancer History of stress test Left inguinal hernia Melena Monoclonal gammopathy Multiple premature ventricular complexes New onset atrial fibrillation (05/02/21) Non-ischemic cardiomyopathy Nonrheumatic aortic (valve) stenosis with insufficiency Obesity Osteoarthritis Pancytopenia Paroxysmal ventricular tachycardia Pneumonia (02/16/19) Sepsis (02/16/19) Shortness of breath on exertion Tachyarrhythmia Thrombocytopenia Thyroid nodule Walker as ambulation aid Wears glasses Home Medications amiodarone 100 mg tablet 100 mg PO DAILY #30 tabs 03/29/21 [Rx Last Taken 09/19/21] cholecalciferol (vitamin D3) 50 mcg (2,000 unit) tablet 50 mcg PO DAILY 06/20/21 [History Last Taken 09/19/21] furosemide 40 mg tablet (Lasix) 40 mg PO DAILY 07/19/21 [History Last Taken 09/19/21] omeprazole 20 mg capsule,delayed release 20 mg PO DAILY 07/23/21 [History Last Taken 09/19/21] potassium chloride 20 mEq tablet,extended release 20 meq PO DAILY 07/23/21 [History Last Taken 09/19/21] Allergy/AdvReac Type Severity Reaction Status Date / Time ciprofloxacin [From Cipro] Allergy Mild rash Verified 09/19/21 11:38 levofloxacin [From Levaquin] Allergy Mild rash Verified 09/19/21 11:38 Sulfa (Sulfonamide AdvReac Unknown Verified 09/19/21 11:38 Antibiotics) Family History Son CVA (cerebral vascular accident) Surgical History (Reviewed 09/13/21 @ 12:20 by Som Thompson [employer], [employer]) History of cardiac catheterization History of colonoscopy History of esophagogastroduodenoscopy (EGD) (07/22/21) History of hernia repair History of left heart catheterization (02/18/19) History of prostate surgery History of transurethral resection of prostate Hx of breast biopsy Hx of left breast biopsy Social History Smoking Status: Former smoker how long ago did patient quit smokin years ago alcohol intake: current alcohol intake frequency: a few times a week Alcohol type: wine substance use type: does not use caffeine: Yes Type: coffee ROS <MARIA DE JESUS Lofton - Last Filed: 09/19/21 13:21> ROS ED ROS Narrative Constitutional: Negative for weight loss, weakness. Positive for fever and chills Eyes: Negative for vision loss, vision change, double vision ENT: Negative for any sore throat, ear pain, congestion Cardiovascular: Negative for any chest pain, tightness, palpitations Respiratory: Negative for any cough, sputum production, hemoptysis, dyspnea, dyspnea on exertion, orthopnea Gastrointestinal: Negative for any abdominal pain, nausea, vomiting, diarrhea, constipation, blood in stool, blood in vomit : Negative for any urinary frequency, dysuria, retention, blood in urine Muscle skeletal: Negative for any muscle joint pain, stiffness, myalgias, arthralgias, neck pain, back pain Neurological: Negative for any headache, syncope, numbness or tingling, dizziness Skin: Negative for any rashes, lumps, itching, abrasions, lacerations Psychiatric: Negative for any depression, anxiety, stress, suicidal ideation, homicidal ideation Hematologic: Negative for any easy bruising, excessive bruising, easy bleeding Allergies: Negative for any eczema, hives, rash EXAM <MARIA DE JESUS Lofton - Last Filed: 09/19/21 13:21> Physical Exam Narrative Exam Narrative: Vital signs reviewed. Patient appears well, nontoxic, patient's vital signs are stable. HEET: Head normocephalic atraumatic, TMs clear bilaterally. Posterior pharynx is clear, moist mucous membranes. Nares clear bilaterally. Neck: Supple with no lymphadenopathy or tenderness. No signs of meningismus, negative jolt sign. Cardiac: Regular rate and rhythm no murmurs gallops or rubs, equal peripheral pulses bilaterally. Respiratory: Lungs clear to auscultation bilaterally. No chest tenderness. Abdomen: Soft, nontender, nondistended. No abdominal bruit or pulsatile masses. No hepatosplenomegaly Extremities: No peripheral edema, no signs of gross trauma or deformity. Active full range of motion of all extremities. Neuro: Cranial nerves II through XII intact, no focal neurological deficits. Skin: Clean dry and intact with no rash, purpura, petechiae, vesicles or pustules. Backs/flank: No CVA tenderness, no midline spinal tenderness, no deformity. Psych: Normal mood and affect. No SI, HI or acute psychosis. Const Vital Signs: 09/19/21 11:39 09/19/21 11:41 09/19/21 12:41 Temperature 98.3 F 98.3 F 98.3 F Temperature Source Temporal Temporal Temporal Pulse Rate 76 76 76 Respiratory Rate 14 14 14 Blood Pressure 128/87 H 128/87 H 130/78 H Blood Pressure Mean 100 95 Pulse Ox 100 100 100 Oxygen Delivery Method Room Air Room Air Room Air 09/19/21 13:00 09/19/21 13:25 Temperature 98 F 98 F Temperature Source Temporal Temporal Pulse Rate 65 66 Respiratory Rate 18 18 Blood Pressure 137/68 H 138/68 H Blood Pressure Mean 91 91 Pulse Ox 96 98 Oxygen Delivery Method Room Air Room Air Positive well nourished and well developed General Appearance ED: well developed <Dr. Petey Agosto DO - Last Filed: 09/19/21 13:33> Physical Exam Const Vital Signs: 09/19/21 11:39 09/19/21 11:41 09/19/21 12:41 Temperature 98.3 F 98.3 F 98.3 F Temperature Source Temporal Temporal Temporal Pulse Rate 76 76 76 Respiratory Rate 14 14 14 Blood Pressure 128/87 H 128/87 H 130/78 H Blood Pressure Mean 100 95 Pulse Ox 100 100 100 Oxygen Delivery Method Room Air Room Air Room Air 09/19/21 13:00 09/19/21 13:25 Temperature 98 F 98 F Temperature Source Temporal Temporal Pulse Rate 65 66 Respiratory Rate 18 18 Blood Pressure 137/68 H 138/68 H Blood Pressure Mean 91 91 Pulse Ox 96 98 Oxygen Delivery Method Room Air Room Air MDM <MARIA DE JESUS Lofton - Last Filed: 09/19/21 13:21> JOSÉ MIGUEL Lab Data Labs: Laboratory Results - last 24 hr 09/19/21 09/19/21 09/19/21 12:12 12:12 12:12 WBC 6.7 RBC 3.79 L Hgb 11.2 L Hct 35.8 L MCV 94.5 H MCH 29.6 MCHC 31.3 L RDW Std Deviation 51.8 H RDW Coeff of Ashkan 15.0 H Plt Count 130 L MPV 10.2 Immature Gran % (Auto) 0.400 Neut % (Auto) 88.6 H Lymph % (Auto) 4.3 L [place] % (Auto) 5.7 Eos % (Auto) 0.6 Baso % (Auto) 0.4 Absolute Neuts (auto) 5.9 Absolute Lymphs (auto) 0.29 L Nucleated RBC % 0 Sodium 140 Potassium 3.6 Chloride 107 Carbon Dioxide 27.0 Anion Gap 6 BUN 20 H Creatinine 1.55 H Estim Creat Clear Calc 42.42 Est GFR (MDRD) Af Amer 56 L Est GFR (MDRD) Non-Af 46 L BUN/Creatinine Ratio 12.9 Glucose 137 H Lactic Acid 3.5 H* Calcium 7.9 L Radiography Diagnostic Testing: Clinical Impression(s) from Imaging Studies Chest X-Ray 09/19/21 12:11 IMPRESSION: Hyperinflation suggesting emphysema. Stable cardiomegaly. Electronically Signed: Leobardo Us MD at 12:33 EDT , Treatment and Re-Evaluation Narrative: Patient appears well, patient appears nontoxic, vital signs are stable. Patient presents to the emergency department with complaints of fever, chills for 24 hours as well as a positive urine culture for E. coli. Patient did receive some basic laboratory values well as lactic acid, COVID test, influenza test, patient was given IV fluids as well as IV Rocephin. Patient did receive some basic laboratory eval as well as a chest x-ray which interpreted ER physician. This shows some emphysema however no acute process. Patient markable other than some renal insufficiency which is chronic. Patient's lactic acid was critical high at 3.5. I did speak with Dr. Baron, he did recommend admission for recurrent infections. Patient be admitted to the hospital for IV antibiotics and further treatment. Patient stable <Dr. Petey Agosto DO - Last Filed: 09/19/21 13:33> [facility] MDM Narrative Medical decision making narrative: I performed a history and physical examination of the patient and discussed management plan with the physician talent assistant. I reviewed the physician talent assistant's note and agree with the documented findings and plan of care. The patient status post TURP with recurrent UTI (E. coli pansensitive). Has had cystoscopy CT. He has been on preventative antibiotics. I spoke with his urologist we reviewed his work-up. He would like the patient admitted which is reasonable. He received Rocephin. Petey Agosto DO, MS Lab Data Attestation: I reviewed the patient's lab results. Labs: Laboratory Results - last 24 hr 09/19/21 09/19/21 09/19/21 12:12 12:12 12:12 WBC 6.7 RBC 3.79 L Hgb 11.2 L Hct 35.8 L MCV 94.5 H MCH 29.6 MCHC 31.3 L RDW Std Deviation 51.8 H RDW Coeff of Ashkan 15.0 H Plt Count 130 L MPV 10.2 Immature Gran % (Auto) 0.400 Neut % (Auto) 88.6 H Lymph % (Auto) 4.3 L [place] % (Auto) 5.7 Eos % (Auto) 0.6 Baso % (Auto) 0.4 Absolute Neuts (auto) 5.9 Absolute Lymphs (auto) 0.29 L Nucleated RBC % 0 Sodium 140 Potassium 3.6 Chloride 107 Carbon Dioxide 27.0 Anion Gap 6 BUN 20 H Creatinine 1.55 H Estim Creat Clear Calc 42.42 Est GFR (MDRD) Af Amer 56 L Est GFR (MDRD) Non-Af 46 L BUN/Creatinine Ratio 12.9 Glucose 137 H Lactic Acid 3.5 H* Calcium 7.9 L Radiography Diagnostic Testing: Clinical Impression(s) from Imaging Studies Chest X-Ray 09/19/21 12:11 IMPRESSION: Hyperinflation suggesting emphysema. Stable cardiomegaly. Electronically Signed: Leobardo Us MD at 12:33 EDT , Discharge Plan Dx/Rx/DC Orders Clinical Impression: H/O recurrent urinary tract infection, Acute lower UTI, Weakness, Acidosis, lactic Disposition Disposition: Acute Care [facility]
--- NOTE | 2021-09-19 12:11 | RAD_ITS ---
EXAM: XR CHEST, 1 VIEW CLINICAL INDICATION: fever TECHNIQUE: Frontal view of the chest. This report was created using [employer] report generation technology. COMPARISON: XR Chest dated 07/25/2021 FINDINGS: LUNGS AND PLEURAL SPACES: Hyperinflation suggesting emphysema. No pneumothorax. No effusion. HEART: Stable mild cardiomegaly with left ventricular prominence. MEDIASTINUM: Central airways and mediastinal contour are unremarkable. BONES/JOINTS: Normal. SOFT TISSUES: Normal. RAD/Chest 1 View (Portable) IMPRESSION: Hyperinflation suggesting emphysema. Stable cardiomegaly. Electronically Signed: Leobardo Us MD at 12:33 EDT ,
[2021-09-19 12:20] LABS: Absolute Lymphocyte Count 0.29 X10^3/uL (0.83-4.51); Absolute Neutrophil Count 5.9 X10^3/uL (2.0-7.7); Basophil# 0.03 X10^3/uL; Basophil% 0.4 % (0-1); Eosinophil# 0.04 X10^3/uL; Eosinophils% 0.6 % (0-5); Hematocrit 35.8 % (40-54); Hemoglobin 11.2 g/dL (13.0-16.5); Lymphocyte # 0.29 X10^3/ul (0.83-4.51); Lymphocyte % 4.3 % (19-41); Mean Corp Hgb Conc 31.3 g/dL (32-36); Mean Corpuscular Hgb 29.6 pg (27.0-32.0); Mean Corpuscular Volume 94.5 fL (80-94); Mean Platelet Vol. 10.2 fl (6.2-12.0); Monocyte# 0.38 X10^3/uL; Monocyte% 5.7 % (0-10); NRBC Flagged by Analyzer 0 % (0-5); Neutrophil # 5.92 X10^3/uL (2.7-7.7); Neutrophil % 88.6 % (47-70); POSITIVE DIFFERENTIAL YES; Platelet Count 130 K/mm3 (150-450); RBC Distribution Width SD 51.8 fl (35.1-43.9); Red Blood Count 3.79 M/mm3 (4.6-6.2); White Blood Count 6.7 K/mm3 (4.4-11.0)
[2021-09-19] MEDS: 0.9% Normal Saline 1,000 ML 1000 ML IV (12:23)
[2021-09-19 12:24] LABS: Differential Indicated SCAN CRITERIA MET
[2021-09-19 12:34] LABS: Anion Gap 6 (5-15); BUN 20 mg/dL (7-18); BUN/Creat Ratio 12.9 RATIO (10-20); Calcium,Total 7.9 mg/dL (8.5-10.1); Chloride 107 mmol/L (98-107); Creatinine, Serum 1.55 mg/dL (0.70-1.30); EST Glomerular Filtration Rate 46 mL/min (>60); Est Glom Filt Rate - Afr Amer 56 mL/min (>60); Estimated Creatinine Clearance 42.42 ml/min; Glucose 137 mg/dL (74-106); Potassium 3.6 mmol/L (3.5-5.1); Sodium Level 140 mmol/L (136-145)
[2021-09-19] MEDS: Ceftriaxone 1 GM/50 ML BAG IV (12:38)
[2021-09-19 12:45] LABS: Lactic Acid 3.5 mmol/L (0.4-1.9)
--- NOTE | 2021-09-19 13:37 | PCM.HP.STD ---
HPI - General General Date of Admission: 09/19/21 Date of Service: 09/19/21 Chief Complaint: Fever, chills, acute on recurrent UTI HPI Narrative ZAC MAHAJAN, is a 81 M who came to ED for fever along with chills for 2 days. Patient urine culture on 09/17 shows E. coli, ESBL negative pansensitive. There is no UA. Patient states he does not have burning pain in penile urethra or the scrotal region but has bad order urine and also has urinary incontinence. Denies nausea, vomiting but feels very fatigued, low energy. Patient usually does not need assistance and walks independently but he is unsteady, walks slowly with 1 person standby recently last 2 days. Feels dehydrated. Patient has decreased oral intake, loss of appetite for last 2 days. Patient has [id number], recurrent UTI for last 3 to 4 months and has been on suppressive antibiotic nitrofurantoin for 2 months. Patient does not have renal angle pain and no prior history of kidney stone. Has history of prostate cancer as documented in medical history Past medical history: Atrial tachycardia, paroxysmal A. fib, paroxysmal ventricular tachycardia, APCs and VPCs. Patient on Eliquis. Besides that, patient has large recurrent left inguinal hernia [facility] Medical History (HFpEF) heart failure with preserved ejection fraction Acute hypoxemic respiratory failure (02/16/19) Alcohol use Anemia Arthritis Atrial premature complexes Atrial tachycardia (02/16/19) Back pain Bilateral pleural effusion Bradycardia Cancer Former smoker Gallstones Gynecomastia, male HFrEF (heart failure with reduced ejection fraction) History of edema History of irregular heartbeat History of non-ST elevation myocardial infarction (NSTEMI) (02/16/19) History of prostate cancer History of stress test Left inguinal hernia Melena Monoclonal gammopathy Multiple premature ventricular complexes New onset atrial fibrillation (05/02/21) Non-ischemic cardiomyopathy Nonrheumatic aortic (valve) stenosis with insufficiency Obesity Osteoarthritis Pancytopenia Paroxysmal ventricular tachycardia Pneumonia (02/16/19) Sepsis (02/16/19) Shortness of breath on exertion Tachyarrhythmia Thrombocytopenia Thyroid nodule Walker as ambulation aid Wears glasses Home Medications amiodarone 100 mg tablet 100 mg PO DAILY #30 tabs 03/29/21 [Rx Last Taken 09/19/21] cholecalciferol (vitamin D3) 50 mcg (2,000 unit) tablet 50 mcg PO DAILY 06/20/21 [History Last Taken 09/19/21] furosemide 40 mg tablet (Lasix) 40 mg PO DAILY 07/19/21 [History Last Taken 09/19/21] omeprazole 20 mg capsule,delayed release 20 mg PO DAILY 07/23/21 [History Last Taken 09/19/21] potassium chloride 20 mEq tablet,extended release 20 meq PO DAILY 07/23/21 [History Last Taken 09/19/21] Allergy/AdvReac Type Severity Reaction Status Date / Time ciprofloxacin [From Cipro] Allergy Mild rash Verified 09/19/21 11:38 levofloxacin [From Levaquin] Allergy Mild rash Verified 09/19/21 11:38 Sulfa (Sulfonamide AdvReac Unknown Verified 09/19/21 11:38 Antibiotics) Family History Son CVA (cerebral vascular accident) Surgical History History of cardiac catheterization History of colonoscopy History of esophagogastroduodenoscopy (EGD) (07/22/21) History of hernia repair History of left heart catheterization (02/18/19) History of prostate surgery History of transurethral resection of prostate Hx of breast biopsy Hx of left breast biopsy Social History Smoking Status: Former smoker how long ago did patient quit smokin years ago alcohol intake: current alcohol intake frequency: a few times a week Alcohol type: wine substance use type: does not use caffeine: Yes Type: coffee ROS ROS Narrative Patient is hard of hearing. 14 ROS completed with the help of patient's and son. Constitutional: Reports extreme fatigue and weakness. Feels shaky, chills and fever HEENT: Reports systems reviewed and no addt'l complaints, except as documented Respiratory/Chest: Denies chest pain, shortness of breath at rest. Shortness of breath on exertion Gastrointestinal: Denies coffee ground emesis, hematemesis or vomiting. No GI bleed Genitourinary: Chronic urinary incontinence. Dark orange color urine. Rest as mentioned in HPI Musculoskeletal: Reports mild knee joint pain and limited range of motion Neurologic: Denies seizure-like activity. No focal weakness skin: No ulcer. No rash Endocrinology: Reports systems reviewed and no addt'l complaints, except as documented Hematologic/Lymphatic: Chronic thrombocytopenia, low platelets. Reports systems reviewed and no addt'l complaints, except as documented Rest 14 ROS are negative except as mentioned in HPI Vital Signs Vital Signs Vital Signs: 09/19/21 11:39 09/19/21 11:41 09/19/21 12:41 Temperature 98.3 F 98.3 F 98.3 F Temperature Source Temporal Temporal Temporal Pulse Rate 76 76 76 Respiratory Rate 14 14 14 Blood Pressure 128/87 H 128/87 H 130/78 H Blood Pressure Mean 100 95 Pulse Ox 100 100 100 Oxygen Delivery Method Room Air Room Air Room Air 09/19/21 13:00 09/19/21 13:25 Temperature 98 F 98 F Temperature Source Temporal Temporal Pulse Rate 65 66 Respiratory Rate 18 18 Blood Pressure 137/68 H 138/68 H Blood Pressure Mean 91 91 Pulse Ox 96 98 Oxygen Delivery Method Room Air Room Air Weight Weight: 184 lb 1.376 oz Body Mass Index (BMI) 25.0 Physical Exam Narrative Physical exam General: Alert, Oriented x3, Cooperative HEENT: Bilateral hearing loss. Atraumatic, PERRLA, EOMI, Normocephalic Oral: Oral mucosa dry. No Gingival or Mucosal Lesions/ Ulcerations Neck: Supple, No JVD, Negative Carotid Bruits Lungs: Air entry diminished in bilateral lung bases. Dyspnea on mild exertion Cardiovascular: Irregular rhythm, Normal S1, Normal S2, systolic murmur over the lisping cardiac apex Abdomen: Large reducible, recurrent, direct left inguinal hernia. Surgical scar of inguinal hernia repair. Bowel Sounds Present, Soft, Non Tender, Non-Distended : No renal angle tenderness. No suprapubic tenderness. Urine dark color Extremities: No edema, Capillary Refill Less than 3 Seconds Skin: No rashes, No breakdown Musculoskeletal: No Tenderness to Palpation of Joints or Extremities Neurological: Cranial nerves II-XII grossly intact, DTR 2+/4 and Symmetrical, Neuro grossly intact Psych/Mental Status: Flat affect. Results Lab / Micro Data Result Diagrams: 09/19/21 12:12 09/19/21 12:12 Labs: Laboratory Results - last 24 hr 09/19/21 12:12: WBC 6.7, RBC 3.79 L, Hgb 11.2 L, Hct 35.8 L, MCV 94.5 H, MCH 29.6, MCHC 31.3 L, RDW Std Deviation 51.8 H, RDW Coeff of Ashkan 15.0 H, Plt Count 130 L, MPV 10.2, Immature Gran % (Auto) 0.400, Neut % (Auto) 88.6 H, Lymph % (Auto) 4.3 L, [place] % (Auto) 5.7, Eos % (Auto) 0.6, Baso % (Auto) 0.4, Absolute Neuts (auto) 5.9, Absolute Lymphs (auto) 0.29 L, Nucleated RBC % 0 09/19/21 12:12: Sodium 140, Potassium 3.6, Chloride 107, Carbon Dioxide 27.0, Anion Gap 6, BUN 20 H, Creatinine 1.55 H, Estim Creat Clear Calc 42.42, Est GFR (MDRD) Af Amer 56 L, Est GFR (MDRD) Non-Af 46 L, BUN/Creatinine Ratio 12.9, Glucose 137 H, Calcium 7.9 L 09/19/21 12:12: Lactic Acid 3.5 H* Micro: Microbiology 09/19/21 12:12 Nasal Secretion SARS-CoV-2 & FLU Antigen (Rapid) - Final Radiology Impression Chest X-Ray 09/19/21 12:11 IMPRESSION: Hyperinflation suggesting emphysema. Stable cardiomegaly. Electronically Signed: Leobardo Us MD at 12:33 EDT Reading Location ID and State: [facility] [place] / [place] Tel , Service support , Assessment & Plan Assessment/Plan (1) Acute lower UTI: PLAN: This 9-year-old gentleman admitted with fever, chills for 2 days, low appetite, extreme weakness with acute on recurrent UTI for last 4 months. 1. Acute symptomatic on recurrent UTI, exact precipitating cause unclear: Patient is admitted on MedSur. IV fluid normal saline 1 L bolus in ED and then half-normal saline at 75 mils an hour ordered. Patient had 1 dose of IV ceftriaxone in ED and continued. UA, urine culture, blood cultures x2 stat. Patient last urine culture on 09/17 shows ESBL negative E. coli more than [address] abdomen pelvis without contrast, stone protocol ordered to rule out stone. Discussed with urologist Dr. Lopez and he thinks patient does not have history for stone and exact cause of recurrent UTI unclear. Patient has lactic acidosis probably due to hypovolemia. Patient does not look sick, toxic or labs suggestive of sepsis therefore sepsis ruled 2. Chronic HFpEF, paroxysmal ventricular tachycardia, nonrheumatic aortic valve stenosis with insufficiency, chronic A. fib, non-STEMI : His most recent echo on 06/18/2021 shows 50%. Hold Lasix for now but might resume tomorrow if patient is hypervolemic. Patient has low blood pressure therefore not candidate for Entresto or spironolactone, OLAF/ARB. Continue amiodarone 200 mg daily. After phone conversation with Som Ellis NP patient had recurrent GI bleed and could not tolerate anticoagulant therefore Eliquis is discontinued. Patient was made referral to pododermatologist in [facility] October 08 for evaluation for watchman procedure. 3. Left large recurrent direct hernia, reducible: Outpatient follow-up. Patient was told that he is not a candidate for operative surgery as it recurred after inguinal repair 4. Other comorbidities include history of prostate cancer, monoclonal gammopathy, low functional capacity: PT and OT ordered Living will/advanced directive/end of life care: Patient does have living will or advanced directive. His son, present in the ED is power of design chief for health. After discussion of benefits/risks procedures involved with full code, DNR CC arrest and DNR CC, the patient, his son and opted for full code. Patient does want artificial life support including intubation, tube feed, ventilator and/chest compression, central venous catheter, vasopressor and DC shock if needed Total time spent in [id number] encounter in discussion of advanced directive 16 minutes. Charges/Coding Visit Charges OBSV E&M: 17392 Initial observation care L3 Procedures Hospitalists Procedures: 04676 Advncd Care Plan 30 Min
--- NOTE | 2021-09-19 13:39 | EKG12_ITS ---
Test Reason : a-fib Blood Pressure : / mmHG Vent. Rate : 074 BPM Atrial Rate : 000 BPM P-R Int : 000 ms QRS Dur : 150 ms QT Int : 440 ms P-R-T Axes : 000 -50 031 degrees QTc Int : 488 ms Atrial fibrillation Right bundle branch block Left anterior fascicular block Bifascicular block Abnormal ECG Confirmed by JENNIFER STEWART, LILI ([id number]), senior editor MELISSA COYLE ([id number]) on 09/24/2021 9:44:07 AM Referred By: Lawrence Confirmed By:LILI RODRIGUEZ MD
--- NOTE | 2021-09-19 13:52 | CT_ITS ---
EXAM: CT ABDOMEN AND PELVIS WITHOUT INTRAVENOUS CONTRAST CLINICAL INDICATION: -- Recurrent UTI TECHNIQUE: Helically acquired images were obtained of the abdomen and pelvis without intravenous contrast. This CT exam was performed using one or more of the following dose reduction techniques: automated exposure control, adjustment of the mA and/or kV according to patient size, and/or use of iterative reconstruction technique. This report was created using [employer] report generation technology. COMPARISON: CT Abdomen Pelvis dated 08/10/2021 FINDINGS: LOWER THORAX: Stable cardiomegaly. Slight increase in the small right pleural effusion. New minimal left pleural effusion. ABDOMEN: LIVER: Normal. Homogeneous. GALLBLADDER AND BILE DUCTS: Calcified gallstone. No gallbladder distention or wall edema. No intra- or extrahepatic biliary ductal dilation. PANCREAS: Normal. No focal cystic mass. SPLEEN: Normal. Normal size without focal cystic or solid mass. ADRENALS: Normal. No nodules. KIDNEYS AND URETERS: Subcentimeter hypodensity lesion right kidney again seen likely representing proteinaceous cysts. No specific follow-up recommended. Normal renal size and position. No hydronephrosis. STOMACH AND BOWEL: Diverticulosis of the colon noted without evidence of acute diverticulitis. PELVIS: APPENDIX: No evidence of acute appendicitis. BLADDER: Normal. REPRODUCTIVE: Unremarkable as visualized. No mass. ABDOMEN and PELVIS: INTRAPERITONEAL SPACE: Normal. No ascites or other fluid collection. No free air. BONES/JOINTS: Normal. No suspicious lytic or blastic abnormality. SOFT TISSUES: Large eventration of the left side of the anterior abdominal wall again seen with nearly all of the large and small bowel projecting through the abdominal wall defect. No discrete abdominal or pelvic wall hernia. VASCULATURE: Normal. Abdominal aorta is non-dilated. LYMPH NODES: Normal. No enlarged lymph nodes. CT/Abdomen/Pelvis without Cont IMPRESSION: 1. Stable moderate cardiomegaly. 2. Small bilateral pleural effusions. 3. Cholelithiasis. 4. Diverticulosis coli. 5. No change in the large eventration anterior abdominal wall. Electronically Signed: Leobardo Us MD at 14:28 EDT Reading Location ID and State: [facility] / [place] Tel , Service support ,
--- NOTE | 2021-09-19 13:56 | ED.RN ---
PT HAS BEEN ON MULTIPLE ANTIBIOTICS FOR SEVERAL DAYS. PLUS IV ANTIBIOTICS
[2021-09-19 14:00] LABS: AST(SGOT) 27 U/L (15-37); Alanine Aminotransfer ALT/SGPT 26 U/L (16-61); Albumin, Serum 2.6 g/dL (3.2-5.0); Alkaline Phosphatase 91 U/L (45-117); Bilirubin, Direct 0.58 mg/dL (0.00-0.30); Globulin 3.2 g/dL (2.2-4.2); Protein, Total 5.8 g/dL (6.4-8.2)
[2021-09-19 14:39] LABS: International Normalized Ratio 1.4; Partial Thromboplast Time 35.3 Seconds (24.1-36.2); Prothrombin Time (Protime)PT. 16.6 SECONDS (11.7-14.9)
[2021-09-19 16:15] LABS: Reflex Lactate? Y
[2021-09-19] MEDS: 0.45% Normal Saline 1,000 ML 75 ML IV (16:37)
--- NOTE | 2021-09-19 17:26 | CON.PCM.UR_ITS ---
Assessment & Plan Assessment/Plan (1) H/O recurrent urinary tract infection: PLAN: Plan 81-year-old male multiple medical problems who presents to the hospital with another infection he has E. coli pansensitive I can asked the nurses to do a bladder scan after he urinates to check postvoid residuals we will continue with antibiotics may consider doing a cystoscopy to evaluate the bladder and prostate once his infection is cleared. HPI Consult Data Date of Consult: 09/19/21 HPI Narrative Reason for Consultation: Recurrent bladder infections HPI Narrative: ZAC MAHAJAN, is a 81 M who To the hospital after failed outpatient management for recurrent bladder infections. He had a lactic acid that was elevated, CT scan was done at admission demonstrates somewhat of the distended bladder I see some calcium lining around the area where he had surgery done perhaps he has a foreign object inside the bladder may consider cystoscopy, he also could have incomplete bladder emptying and just recurrent infections he is failed low-dose suppressive antibiotics still keeps on getting infections despite antibiotics. He is brought in today for a pansensitive E. coli infection [facility] Medical History (HFpEF) heart failure with preserved ejection fraction Acute hypoxemic respiratory failure (02/16/19) Alcohol use Anemia Arthritis Atrial premature complexes Atrial tachycardia (02/16/19) Back pain Bilateral pleural effusion Bradycardia Cancer Congestive heart failure (CHF) Former smoker Gallstones Gynecomastia, male HFrEF (heart failure with reduced ejection fraction) History of edema History of irregular heartbeat History of non-ST elevation myocardial infarction (NSTEMI) (02/16/19) History of prostate cancer History of stress test Irregular heart beat Left inguinal hernia Melena Monoclonal gammopathy Multiple premature ventricular complexes New onset atrial fibrillation (05/02/21) Non-ischemic cardiomyopathy Nonrheumatic aortic (valve) stenosis with insufficiency Obesity Osteoarthritis Pancytopenia Paroxysmal ventricular tachycardia Pneumonia (02/16/19) Sepsis (02/16/19) Shortness of breath on exertion Tachyarrhythmia Thrombocytopenia Thyroid nodule Walker as ambulation aid Wears glasses Home Medications amiodarone 100 mg tablet 100 mg PO DAILY #30 tabs 03/29/21 [Rx Last Taken 09/19/21] cholecalciferol (vitamin D3) 50 mcg (2,000 unit) tablet 50 mcg PO DAILY 06/20/21 [History Last Taken 09/19/21] furosemide 40 mg tablet (Lasix) 40 mg PO DAILY 07/19/21 [History Last Taken 09/19/21] omeprazole 20 mg capsule,delayed release 20 mg PO DAILY 07/23/21 [History Last Taken 09/19/21] potassium chloride 20 mEq tablet,extended release 20 meq PO DAILY 07/23/21 [Hi story Last Taken 09/19/21] Allergy/AdvReac Type Severity Reaction Status Date / Time ciprofloxacin [From Cipro] Allergy Mild rash Verified 09/19/21 11:38 levofloxacin [From Levaquin] Allergy Mild rash Verified 09/19/21 11:38 Sulfa (Sulfonamide AdvReac Unknown Verified 09/19/21 11:38 Antibiotics) Family History Son CVA (cerebral vascular accident) Surgical History History of cardiac catheterization History of colonoscopy History of esophagogastroduodenoscopy (EGD) (07/22/21) History of hernia repair History of left heart catheterization (02/18/19) History of prostate surgery History of transurethral resection of prostate Hx of breast biopsy Hx of left breast biopsy Social History Smoking Status: Former smoker how long ago did patient quit smokin years ago alcohol intake: current alcohol intake frequency: a few times a week Alcohol type: wine substance use type: does not use caffeine: Yes Type: coffee ROS Constitutional Constitutional: Denies chills, fever(s) or malaise Eyes Eyes: Denies blurry vision or change in vision ENT HEENT: Reports none Cardiovascular Cardiovascular: Denies chest pain or palpitations Respiratory/Chest Respiratory/Chest: Denies cough or shortness of breath with exertion Gastrointestinal Gastrointestinal: Denies abdominal pain, constipation or diarrhea Musculoskeletal Musculoskeletal: Denies back pain, joint stiffness or joint swelling Integumentary Integumentary: Denies dry skin, jaundice, lesions or rash Neurologic Neurologic: Denies confusion, syncope or weakness Psychiatric Psychiatric: Reports none; Denies anxiety or depression Endocrine Endocrinology: Denies excessive sweating, fatigue or flushing Hematologic/Lymphatic Hematologic/Lymphatic: Denies anemia, easy bleeding or easy bruising Physical Exam Narrative He has a large abdominal hernia that he uses a binder Lab / Micro Data Result Diagrams: 09/19/21 12:12 09/19/21 12:12 Labs: Laboratory Results - last 24 hr 09/19/21 12:12: WBC 6.7, RBC 3.79 L, Hgb 11.2 L, Hct 35.8 L, MCV 94.5 H, MCH 29.6, MCHC 31.3 L, RDW Std Deviation 51.8 H, RDW Coeff of [place] 15.0 H, Plt Count 130 L, MPV 10.2, Immature Gran % (Auto) 0.400, Neut % (Auto) 88.6 H, Lymph % (Auto) 4.3 L, [place] % (Auto) 5.7, Eos % (Auto) 0.6, Baso % (Auto) 0.4, Absolute Neuts (auto) 5.9, Absolute Lymphs (auto) 0.29 L, Nucleated RBC % 0 09/19/21 12:12: Sodium 140, Potassium 3.6, Chloride 107, Carbon Dioxide 27.0, Anion Gap 6, BUN 20 H, Creatinine 1.55 H, Estim Creat Clear Calc 42.42, Est GFR (MDRD) Af Amer 56 L, Est GFR (MDRD) Non-Af 46 L, BUN/Creatinine Ratio 12.9, Glucose 137 H, Calcium 7.9 L 09/19/21 12:12: Lactic Acid 3.5 H* 09/19/21 12:12: Magnesium 2.0, Total Bilirubin 1.60 H, Direct Bilirubin 0.58 H, AST 27, ALT 26, Alkaline Phosphatase 91, Total Protein 5.8 L, Albumin 2.6 L, Globulin 3.2 09/19/21 14:20: PT 16.6 H, INR 1.4, APTT 35.3 Micro: Microbiology 09/19/21 12:12 Nasal Secretion SARS-CoV-2 & FLU Antigen (Rapid) - Final Radiology Impression Chest X-Ray 09/19/21 12:11 IMPRESSION: Hyperinflation suggesting emphysema. Stable cardiomegaly. Electronically Signed: Leobardo Us MD at 12:33 EDT , Abdomen/Pelvis CT 09/19/21 13:52 IMPRESSION: 1. Stable moderate cardiomegaly. 2. Small bilateral pleural effusions. 3. Cholelithiasis. 4. Diverticulosis coli. 5. No change in the large eventration anterior abdominal wall. Electronically Signed: Leobardo Us MD at 14:28 EDT ,
[2021-09-19 18:38] LABS: Lactic Acid 2.3 mmol/L (0.4-1.9)
[2021-09-19 20:17] LABS: Mucous, Urine 0 SEEN /hpf (<or=2+)
[2021-09-19 20:35] LABS: Color, Urine Yellow (Yellow); Glucose, Dipstick Normal (Normal); Ketone-Dipstick 5 mg/dl (Negative); Leukocyte Esterase-Dipstick 500 /ul (Negative); Nitrite-Dipstick Negative (Negative); Occult Blood-Urine 250 /ul (Negative); Protein-Dipstick 100 mg/dl (Negative); Specific Gravity, Urine 1.015 (1.002-1.030); Urine Bilirubin Dipstick Negative (Negative); Urine Clarity Sl. Cloudy (Clear); Urine Urobilinogen Normal (Normal)
[2021-09-19 21:01] LABS: Amorphous Sediment 1+ URATE; Bacteria RARE /hpf (None Seen); Red Blood Cells-Urine 50-100 SEEN /hpf (0-5); Squamous Epithelial Cells - UA 5-10 SEEN /hpf (0-5); White Blood Cells >100 SEEN /hpf (0-5)
[2021-09-20] VITALS (10 sets, daily range): BP systolic 114–135; BP diastolic 62–71; PULSE 64–83; RESP 14–18; TEMP 37.2–37.9; O2SAT 96–100
[2021-09-20 05:20] LABS: Absolute Lymphocyte Count 0.52 X10^3/uL (0.83-4.51); Absolute Neutrophil Count 4.8 X10^3/uL (2.0-7.7); Basophil# 0.04 X10^3/uL; Basophil% 0.7 % (0-1); Eosinophil# 0.06 X10^3/uL; Hematocrit 30.5 % (40-54); Hemoglobin 10.1 g/dL (13.0-16.5); Lymphocyte # 0.52 X10^3/ul (0.83-4.51); Lymphocyte % 8.5 % (19-41); Mean Corp Hgb Conc 33.1 g/dL (32-36); Mean Corpuscular Hgb 30.2 pg (27.0-32.0); Mean Corpuscular Volume 91.3 fL (80-94); Mean Platelet Vol. 9.7 fl (6.2-12.0); Monocyte# 0.74 X10^3/uL; NRBC Flagged by Analyzer 0 % (0-5); Neutrophil # 4.76 X10^3/uL (2.7-7.7); Neutrophil % 77.3 % (47-70); POSITIVE COUNT YES; POSITIVE DIFFERENTIAL YES; Platelet Count 97 K/mm3 (150-450); RBC Distribution Width CV 14.8 % (11.6-14.6); RBC Distribution Width SD 49.1 fl (35.1-43.9); Red Blood Count 3.34 M/mm3 (4.6-6.2); White Blood Count 6.2 K/mm3 (4.4-11.0)
[2021-09-20 05:42] LABS: Differential Indicated SCAN CRITERIA MET
[2021-09-20 05:52] LABS: Anion Gap 4 (5-15); BUN 20 mg/dL (7-18); Calcium,Total 7.2 mg/dL (8.5-10.1); Chloride 107 mmol/L (98-107); Creatinine, Serum 1.33 mg/dL (0.70-1.30); EST Glomerular Filtration Rate 55 mL/min (>60); Est Glom Filt Rate - Afr Amer 67 mL/min (>60); Estimated Creatinine Clearance 49.43 ml/min; Glucose 100 mg/dL (74-106); Potassium 3.8 mmol/L (3.5-5.1); Sodium Level 136 mmol/L (136-145)
[2021-09-20 06:22] LABS: Differential Comment SCANNED; Platelet Estimate SLT DEC (ADEQ)
--- NOTE | 2021-09-20 10:15 | DCINST_ITS ---
Discharge Instructions Diet Discharge Diet: Low fat / Low cholesterol and 2000 mg Sodium Diet Dressing / Incision Call your doctor if you observe: Fever of 101 or Higher, Coldness, Increased Pain, Numbness or Tingling, Change in Color, Inability to urinate, Inability to have a bowel movement, Shortness of breath, Dizziness, Fainting spells, Swelling in the ankles, Chest pain, Prolonged hiccupping, Increased palpitations (irregular heartbeat) and Uncontrolled pain Follow Up Care Test Results: Test results from this visit will be discussed in further detail at your follow- up appointment, if applicable. Discharge Plan Admission Admit Date/Time: 09/19/21 13:28 Primary Reason for Your Visit: Acute on recurrent E. coli UTI Attending Provider: Kirk Bravo Primary Care Provider: Steff Culp Consulting Providers: Javon Lopez Discharge Orders/Prescriptions Prescriptions: New sennosides-docusate sodium [Stool Softener-Stimulant Laxat] 8.6-50 mg Tablet 2 tab PO BID PRN PRN (Reason: Constipation) Qty: 0 0RF cefadroxil 500 mg capsule 500 mg PO BID Qty: 14 0RF Continued amiodarone 100 mg tablet 100 mg PO DAILY Qty: 30 12RF omeprazole 20 mg capsule,delayed release(DR/EC) 20 mg PO DAILY Label Comments: 1 (ONE) CAPSULE Q AM cholecalciferol (vitamin D3) 50 mcg (2,000 unit) tablet 50 mcg PO DAILY potassium chloride 20 mEq tablet extended release 20 meq PO DAILY Label Comments: TAKE 1 TABLET BY MOUTH TWICE A DAY Changed furosemide [Lasix] 40 mg tablet 20 mg PO DAILY Qty: 30 0RF Rx Instructions: Take an additional 20 mg dose at 5 PM for increased leg swelling or weight gain 5 pounds in 1 week. Referrals / Follow Up: Steff Culp DO [Primary Care Provider] - Disposition Disposition (needs filled in before D/C Order can be placed): Home, Self Care
[2021-09-20] MEDS: Furosemide 40 MG Tablet PO (10:20)
[2021-09-20] MEDS: Amiodarone 200 MG Tablet 100 MG PO (10:20)
[2021-09-20] MEDS: Ceftriaxone 1 GM/50 ML BAG IV (10:21)
[2021-09-20] MEDS: Pantoprazole Sodium 40 MG Tablet PO (10:21)
[2021-09-20] MEDS: 0.9% Saline Lock 10 ML Syringe IV (10:26)
[2021-09-20] MEDS: Senna/Docusate Sodium 1 Tablet 2 TABLET PO (11:23)
--- NOTE | 2021-09-20 12:10 | DS.PCM_ITS ---
Providers Date of Admission: 09/19/21 Date of Discharge: 09/20/21 Primary Care Physician: Dr. Steff Culp, DO Consultations 09/19/21 16:01 Consult: Urology Routine Consulting Provider: Javon Lopez Reason for Consult: Recurrent UTI EMERGENT Consult: No MD Notified: Yes Date Notified: 09/19/21 Time Notified: 13:43 Method of Notification: Verbal Reason For Visit: RECURRENT UTI Diagnosis Discharge Diagnosis (1) H/O recurrent urinary tract infection: Status: Acute Code(s): Z87.440 - Personal history of urinary (tract) infections Medications at Discharge Home Medications amiodarone 100 mg tablet 100 mg PO DAILY #30 tabs 03/29/21 cholecalciferol (vitamin D3) 50 mcg (2,000 unit) tablet 50 mcg PO DAILY 06/20/21 omeprazole 20 mg capsule,delayed release 20 mg PO DAILY 07/23/21 potassium chloride 20 mEq tablet,extended release 20 meq PO DAILY 07/23/21 cefadroxil 500 mg capsule 500 mg PO BID #14 caps 09/20/21 furosemide 40 mg tablet (Lasix) 20 mg PO DAILY #30 tabs 09/20/21 sennosides 8.6 mg-docusate sodium 50 mg tablet (Stool Softener-Stimulant Laxative) 2 tab PO BID PRN PRN Constipation #0 tabs 09/20/21 Hospital Course Summary of Care Provided Hospital Course: This 81-year-old gentleman admitted with fever, chills for 2 days, low appetite, extreme weakness with acute on recurrent UTI for last 4 months. 1.? Acute symptomatic on recurrent UTI, exact precipitating cause unclear: Patient is admitted on MedSur.? IV fluid normal saline 1 L bolus in ED and then half-normal saline at 75 mils an hour ordered.? Patient had 1 dose of IV ceftriaxone in ED and continued.? UA, urine culture, blood cultures x2 stat.? Patient last urine culture on 09/17 shows ESBL negative E. coli more than [address] abdomen pelvis without contrast, stone protocol ordered to rule out stone.? Discussed with urologist Dr. Lopez and he thinks patient does not have history for stone and exact cause of recurrent UTI unclear.? Patient has lactic acidosis probably due to hypovolemia.? Patient does not look sick, toxic or labs suggestive of sepsis therefore sepsis ruled 09/20: Sepsis ruled out. Patient feels more energetic, denies any subjective feverish feeling. Discussed with the ID and urologist, Dr. Lopez. In view of recurrent UTI for 4 months, prolonged antibiotic course of 2 weeks suggested. Based on previous sensitivity, prescription for cefadroxil 500 mg twice daily for 2 weeks sent to patient's pharmacy. As per verbal prelim report from micro lab, present urine culture also growing E. coli but less colonies, probably not in pathology range. Dr. Lopez will take her in the office regarding prostatic ultrasound and cystoscopy once infection is controlled. 2.? Chronic HFpEF, paroxysmal ventricular tachycardia, nonrheumatic aortic valve stenosis with insufficiency, chronic A. fib, non-STEMI : His most recent? echo on 06/18/2021 shows 50%.? Lasix was held. Patient has low blood pressure therefore not candidate for Entresto or spironolactone, OLAF/ARB.? Continue amiodarone 200 mg daily.? After phone conversation with Som Ellis NP patient had recurrent GI bleed and could not tolerate anticoagulant therefore Eliquis is discontinued.? Patient was made referral to solid fiber paster operator in [facility] October 08 for evaluation for watchman procedure. 09/20: Patient does not have leg swelling, shortness of breath or lung crepitations. Furosemide decreased 20 mg daily and follow with Lasix as patient dark urine color. 3.? Left large recurrent direct hernia, reducible: Outpatient follow-up.? Patient was told that he is not a candidate for operative surgery as it recurred after inguinal repair 4.? Other comorbidities include history of prostate cancer, monoclonal gammopathy, low functional capacity: PT and OT ordered Discharge medication reconciliation done. Discharge follow-up instructions completed. Discharge process discussed with the patient and all questions were answered to patient's satisfaction. Total time spent, exact 35 minutes on discharge meds reconciliation, examination, coordination of care with nurses and ancillary staff, review of imaging and blood test and discussion with the patient on follow-up instructions. Living will/advanced directive/end of life care: Patient does have living will or advanced directive.? His son, present in the ED is power of administrative assistant for health.? After discussion of benefits/risks procedures involved with? full code, DNR CC arrest and DNR CC, the patient, his son and opted for full code. Patient? does want artificial life support including intubation, tube feed, ventilator and/chest compression, central venous catheter, vasopressor and DC shock if needed ?? Total time spent in [id number] encounter in discussion of advanced directive 16 minutes. Physical Exam Narrative Seen and examined. Patient feels more energetic. Urine is dark yellow. Lasix dose is decreased. Patient has chronic heart conditions and follows Dr. Bolanos. Low-grade fever T-max 100.1 Fahrenheit on 8 evening. Afebrile in the morning. Patient did not feel any chills shivering or diaphoresis. Physical exam General: Alert, Oriented x3, Cooperative HEENT: Bilateral hearing loss. Atraumatic, PERRLA, EOMI, Normocephalic Oral: Oral mucosa moist. No Gingival or Mucosal Lesions/ Ulcerations Neck: Supple, No JVD, Negative Carotid Bruits Lungs: Air entry diminished in bilateral lung bases. Dyspnea on mild exertion Cardiovascular: A. fib, Normal S1, Normal S2, systolic murmur over the LLSB and cardiac apex Abdomen: Large reducible, recurrent, direct left inguinal hernia. Surgical scar of inguinal hernia repair. Bowel Sounds Present, Soft, Non Tender, Non- Distended : No renal angle tenderness. No suprapubic tenderness. Urine dark color, better than yesterday Extremities: No edema, Capillary Refill Less than 3 Seconds Skin: No rashes, No breakdown Musculoskeletal: No Tenderness to Palpation of Joints or Extremities Neurological: Cranial nerves II-XII grossly intact, DTR 2+/4 and Symmetrical, Neuro grossly intact Psych/Mental Status: Flat affect. Weight / BMI Weight Weight: 179 lb 0.246 oz Body Mass Index (BMI) 24.3 ABG / Lab / Microbiology Data Result Diagrams: 09/20/21 05:12 09/20/21 05:12 Laboratory: Laboratory Results - last 24 hr 09/19/21 12:12: WBC 6.7, RBC 3.79 L, Hgb 11.2 L, Hct 35.8 L, MCV 94.5 H, MCH 29.6, MCHC 31.3 L, RDW Std Deviation 51.8 H, RDW Coeff of [place] 15.0 H, Plt Count 130 L, MPV 10.2, Immature Gran % (Auto) 0.400, Neut % (Auto) 88.6 H, Lymph % (Auto) 4.3 L, [place] % (Auto) 5.7, Eos % (Auto) 0.6, Baso % (Auto) 0.4, Absolute Neuts (auto) 5.9, Absolute Lymphs (auto) 0.29 L, Nucleated RBC % 0 09/19/21 12:12: Sodium 140, Potassium 3.6, Chloride 107, Carbon Dioxide 27.0, Anion Gap 6, BUN 20 H, Creatinine 1.55 H, Estim Creat Clear Calc 42.42, Est GFR (MDRD) Af Amer 56 L, Est GFR (MDRD) Non-Af 46 L, BUN/Creatinine Ratio 12.9, Glucose 137 H, Calcium 7.9 L 09/19/21 12:12: Lactic Acid 3.5 H* 09/19/21 12:12: Magnesium 2.0, Total Bilirubin 1.60 H, Direct Bilirubin 0.58 H, AST 27, ALT 26, Alkaline Phosphatase 91, Total Protein 5.8 L, Albumin 2.6 L, Globulin 3.2 09/19/21 14:20: PT 16.6 H, INR 1.4, APTT 35.3 09/19/21 17:48: Lactic Acid 2.3 H* 09/19/21 20:00: Urine Color Yellow, Urine Clarity Sl. Cloudy, Urine pH 6.0, Ur Specific [place] 1.015, Urine Protein 100 H, Urine Glucose (UA) Normal, Urine Ketones 5 H, Urine Occult Blood 250 H, Urine Nitrite Negative, Urine Bilirubin Negative, Urine Urobilinogen Normal, Ur Leukocyte Esterase 500 H, Urine RBC 50- 100 SEEN, Urine WBC >100 SEEN, Ur Squamous Epith Cells 5-10 SEEN, Amorphous Sediment 1+ URATE, Urine Bacteria RARE, Urine Mucus 0 SEEN 09/20/21 05:12: WBC 6.2, RBC 3.34 L, Hgb 10.1 L, Hct 30.5 L, MCV 91.3, MCH 30.2, MCHC 33.1 D, RDW Std Deviation 49.1 H, RDW Coeff of [place] 14.8 H, Plt Count 97 L, MPV 9.7, Immature Gran % (Auto) 0.500, Neut % (Auto) 77.3 H, Lymph % (Auto) 8.5 L, [place] % (Auto) 12.0 H, Eos % (Auto) 1.0, Baso % (Auto) 0.7, Absolute Neuts (auto) 4.8, Absolute Lymphs (auto) 0.52 L, Nucleated RBC % 0, Differential Comment SCANNED, Platelet Estimate SLT 09/20/21 05:12: Sodium 136, Potassium 3.8, Chloride 107, Carbon Dioxide 25.0, Anion Gap 4 L, BUN 20 H, Creatinine 1.33 H, Estim Creat Clear Calc 49.43, Est GF R (MDRD) Af Amer 67, Est GFR (MDRD) Non-Af 55 L, BUN/Creatinine Ratio 15.0, G lucose 100, Calcium 7.2 L Microbiology: Microbiology 09/19/21 12:12 Nasal Secretion SARS-CoV-2 & FLU Antigen (Rapid) - Final Radiography Diagnostic Testing: Radiology Impression Chest X-Ray 09/19/21 12:11 IMPRESSION: Hyperinflation suggesting emphysema. Stable cardiomegaly. Electronically Signed: Leobardo Us MD at 12:33 EDT , Abdomen/Pelvis CT 09/19/21 13:52 IMPRESSION: 1. Stable moderate cardiomegaly. 2. Small bilateral pleural effusions. 3. Cholelithiasis. 4. Diverticulosis coli. 5. No change in the large eventration anterior abdominal wall. Electronically Signed: Leobardo Us MD at 14:28 EDT , D/C Instructions Discharge Diet: Low fat / Low cholesterol and 2000 mg Sodium Diet Call your doctor if you observe: Fever of 101 or Higher, Coldness, Increased Pain, Numbness or Tingling, Change in Color, Inability to urinate, Inability to have a bowel movement, Shortness of breath, Dizziness, Fainting spells, Swelling in the ankles, Chest pain, Prolonged hiccupping, Increased palpitations (irregular heartbeat) and Uncontrolled pain Meaningful Use Info Meaningful Use Diagnoses (Choose all that apply): None applicable Discharge Plan Admission Admit Date/Time: 09/19/21 13:28 Primary Reason for Your Visit: Acute on recurrent E. coli UTI Attending Provider: Kirk Bravo Primary Care Provider: Steff Culp Consulting Providers: Javon Lopez Discharge Orders/Prescriptions Prescriptions: New sennosides-docusate sodium [Stool Softener-Stimulant Laxat] 8.6-50 mg Tablet 2 tab PO BID PRN PRN (Reason: Constipation) Qty: 0 0RF cefadroxil 500 mg capsule 500 mg PO BID Qty: 14 0RF Continued amiodarone 100 mg tablet 100 mg PO DAILY Qty: 30 12RF omeprazole 20 mg capsule,delayed release(DR/EC) 20 mg PO DAILY Label Comments: 1 (ONE) CAPSULE Q AM cholecalciferol (vitamin D3) 50 mcg (2,000 unit) tablet 50 mcg PO DAILY potassium chloride 20 mEq tablet extended release 20 meq PO DAILY Label Comments: TAKE 1 TABLET BY MOUTH TWICE A DAY Changed furosemide [Lasix] 40 mg tablet 20 mg PO DAILY Qty: 30 0RF Rx Instructions: Take an additional 20 mg dose at 5 PM for increased leg swelling or weight gain 5 pounds in 1 week. Referrals / Follow Up: Steff Culp DO [Primary Care Provider] - Disposition Disposition (needs filled in before D/C Order can be placed): Home, Self Care Charges/Coding Visit Charges OBSV E&M: 53633 Observation care discharge
--- NOTE | 2021-09-20 13:00 | CASEMGMT ---
Addendum entered by Mariangel Hickman 09/20/21 14:32: Met with pt nurse and pt son outside of the room. Pt son to speak with patient regarding SNF stay vs returning home. Son states pt has declined from being pretty independent in the home and driving on Thursday to now being unable to ambulate on own or get oob. Pt son to notify nurses station when he and his father has decided on a plan. Original Note: WARREN MAC Assessment: Face to Face with pt for initial transition planning/care coordination assessment. WARREN MAC introduced self and role at [facility], pt voices understanding and consents to assessment. Pt is A/O x4 and answers all questions appropriately at this time, although takes time to come up with certain words. Care providers, pharmacy, and demographics verified/updated. Admitting Dx: Recurrent UTI PCP:Robbi Specialists:NATE, cardio; Jessica uro [facility]acy: [facility] Insurance: [facility] Prescription Benefit: yes LW/HPOA: Pt states he has a LW/DPOA and his DPOA is his son Simón Warren. He is aware this is not on file at [facility] and he may bring in to be scanned into his chart. LNOK: Smión Warren, son; Kerry Warren, Living Arrangements: Pt lives with , son and dtr in law in a single story house with 5 steps to enter. Pt reports he was I in ADL's prior to hospitalization. Pt denies concerns at home. Pt dtr in law provides cooking and laundry. Transportation: Pt drives self and denies concerns with transportation. DME/HHC/SNF: Pt states he has a FWW at home but only uses when he is out of the house, not in the home. Pt has a grab bar in the bathroom. Pt denies hx of HHC or SNF stays. Pt states no concerns with going home at time of dc. He states he takes care of his at home as she has dementia. Discussed with pt how he did with therapy, he states it was difficult and he did not do as well as he would like. Made him aware that currently he is not safe to return home. Pt asks if he can walk one more time. He is not willing to discuss SNF or HHC until he walks again. Updated SW and pt nurse. TC to pt son, he states that he saw pt today and he felt that the patient was not able to return home today as he was not independent in toileting. He states that pt was I at home. He and his are not at the home 08/09 and can not be available to be. CM to follow. Advised pt to ask CM if any further question/concerns/needs arise, voices understanding. Pt Goal: Home Plan: TBD
--- NOTE | 2021-09-20 13:59 | PN.HOSP_ITS ---
Subjective Subjective Follow-up for recurrent UTI. Objective Data Objective Data Vital Signs: Vital Signs Temp Pulse Resp BP Pulse Ox O2 Del Method 98.9 F 64 18 114/66 100 Room Air 09/20/21 13:28 09/20/21 13:28 09/20/21 13:28 09/20/21 13:28 09/20/21 13:28 09/20/21 13:28 Oxygen Delivery Method Room Air Weight: 179 lb 0.246 oz Body Mass Index (BMI) 24.3 Intake & Output: Intake and Output for Last 24 Hours 09/18/21 09/19/21 09/20/21 23:59 23:59 23:59 Intake Total 1530 / 1730 1590 / 1590 Output Total 350 / 550 300 / 300 Balance 1180 / 1180 1290 / 1290 Lab / Micro Data Result Diagrams: 09/20/21 05:12 09/20/21 05:12 Labs: Laboratory Results - last 24 hr 09/19/21 12:12: Magnesium 2.0, Total Bilirubin 1.60 H, Direct Bilirubin 0.58 H, AST 27, ALT 26, Alkaline Phosphatase 91, Total Protein 5.8 L, Albumin 2.6 L, Globulin 3.2 09/19/21 14:20: PT 16.6 H, INR 1.4, APTT 35.3 09/19/21 17:48: Lactic Acid 2.3 H* 09/19/21 20:00: Urine Color Yellow, Urine Clarity Sl. Cloudy, Urine pH 6.0, Ur Specific [place] 1.015, Urine Protein 100 H, Urine Glucose (UA) Normal, Urine Ketones 5 H, Urine Occult Blood 250 H, Urine Nitrite Negative, Urine Bilirubin Negative, Urine Urobilinogen Normal, Ur Leukocyte Esterase 500 H, Urine RBC 50- 100 SEEN, Urine WBC >100 SEEN, Ur Squamous Epith Cells 5-10 SEEN, Amorphous Sediment 1+ URATE, Urine Bacteria RARE, Urine Mucus 0 SEEN 09/20/21 05:12: WBC 6.2, RBC 3.34 L, Hgb 10.1 L, Hct 30.5 L, MCV 91.3, MCH 30.2, MCHC 33.1 D, RDW Std Deviation 49.1 H, RDW Coeff of Ashkan 14.8 H, Plt Count 97 L, MPV 9.7, Immature Gran % (Auto) 0.500, Neut % (Auto) 77.3 H, Lymph % (Auto) 8.5 L, [place] % (Auto) 12.0 H, Eos % (Auto) 1.0, Baso % (Auto) 0.7, Absolute Neuts (auto) 4.8, Absolute Lymphs (auto) 0.52 L, Nucleated RBC % 0, Differential Comment SCANNED, Platelet Estimate SLT 09/20/21 05:12: Sodium 136, Potassium 3.8, Chloride 107, Carbon Dioxide 25.0, Anion Gap 4 L, BUN 20 H, Creatinine 1.33 H, Estim Creat Clear Calc 49.43, Est GFR (MDRD) Af Amer 67, Est GFR (MDRD) Non-Af 55 L, BUN/Creatinine Ratio 15.0, Glucose 100, Calcium 7.2 L Micro: Microbiology 09/19/21 12:12 Nasal Secretion SARS-CoV-2 & FLU Antigen (Rapid) - Final Radiography Diagnostic Testing: Radiology Impression Abdomen/Pelvis CT 09/19/21 13:52 IMPRESSION: 1. Stable moderate cardiomegaly. 2. Small bilateral pleural effusions. 3. Cholelithiasis. 4. Diverticulosis coli. 5. No change in the large eventration anterior abdominal wall. Electronically Signed: Leobardo Us MD at 14:28 EDT , Physical Exam Narrative Seen and examined. Patient feels more energetic. Urine is dark yellow. Lasix dose is decreased. Patient has chronic heart conditions and follows Dr. Bolanos. Low-grade fever T-max 100.1 Fahrenheit on 8/4 evening. Afebrile in the morning. Patient did not feel any chills shivering or diaphoresis. Physical exam General: Alert, Oriented x3, Cooperative HEENT: Bilateral hearing loss. Atraumatic, PERRLA, EOMI, Normocephalic Oral: Oral mucosa moist. No Gingival or Mucosal Lesions/ Ulcerations Neck: Supple, No JVD, Negative Carotid Bruits Lungs: Air entry diminished in bilateral lung bases. Dyspnea on mild exertion, chronic in nature. Lungs clear. Cardiovascular: A. fib, Normal S1, Normal S2, systolic murmur over the LLSB and cardiac apex Abdomen: Large reducible, recurrent, direct left inguinal hernia. Surgical scar of inguinal hernia repair. Bowel Sounds Present, Soft, Non Tender, Non-Diste nded : No renal angle tenderness. No suprapubic tenderness. Urine dark color, better than yesterday Extremities: No edema, Capillary Refill Less than 3 Seconds Skin: No rashes, No breakdown Musculoskeletal: No Tenderness to Palpation of Joints or Extremities Neurological: Cranial nerves II-XII grossly intact, DTR 2+/4 and Symmetrical, Neuro grossly intact Psych/Mental Status: Flat affect. Assessment & Plan Assessment/Plan (1) H/O recurrent urinary tract infection: PLAN: This 81-year-old gentleman admitted with fever, chills for 2 days, low appetite, extreme weakness with acute on recurrent UTI for last 4 months. 1.? Acute symptomatic on recurrent UTI, exact precipitating cause unclear: Patient is admitted on MedSurg.? IV fluid normal saline 1 L bolus in ED and then half-normal saline at 75 mils an hour ordered.? Patient had 1 dose of IV ceftriaxone in ED and continued.? UA, urine culture, blood cultures x2 stat.? Patient last urine culture on 09/17 shows ESBL negative E. coli more than [address] abdomen pelvis without contrast, stone protocol ordered to rule out stone.? Discussed with urologist Dr. Lopez and he thinks patient does not have history for stone and exact cause of recurrent UTI unclear.? Patient has lactic acidosis probably due to hypovolemia.? Patient does not look sick, toxic or labs suggestive of sepsis therefore sepsis ruled 09/20: Sepsis ruled out.? Patient feels more energetic, denies any subjective feverish feeling.? Discussed with the ID and urologist, Dr. Lopez.? In view of recurrent UTI for 4 months, prolonged antibiotic course of 2 weeks suggested.? Based on previous sensitivity, prescription for cefadroxil 500 mg twice daily for 2 weeks sent to patient's pharmacy.? As per verbal prelim report from micro lab, present urine culture also growing E. coli but less colonies, probably not in pathology range.? He will follow-up with Dr. Lopez's office regarding prostatic ultrasound and cystoscopy once infection is controlled. 2.? Chronic HFpEF, paroxysmal ventricular tachycardia, nonrheumatic aortic valve stenosis with insufficiency, chronic A. fib, non-STEMI : His most recent? echo on 06/18/2021 shows 50%.? Lasix was held.? Patient has low blood pressure therefore not candidate for Entresto or spironolactone, OLAF/ARB.? Continue amiodarone 200 mg daily.? After phone conversation with Som Ellis NP patient had recurrent GI bleed and could not tolerate anticoagulant therefore Eliquis is discontinued.? Patient was made referral to director of scientific research in [facility] October 08 for evaluation for watchman procedure. 09/20: Patient does not have leg swelling, shortness of breath or lung crepitations.? Furosemide decreased 20 mg daily and follow with Lasix as patient dark urine color. Patient +2.5 L of fluid balance. 3.? Left large recurrent direct hernia, reducible: Outpatient follow-up.? Patient was told that he is not a candidate for operative surgery as it recurred after inguinal repair 4.? Other comorbidities include history of prostate cancer, monoclonal gammopathy, low functional capacity: PT and OT done recommended needed as patient did poorly. Not comfortable taking home although patient pressing hard for discharge. At last, patient agreeable to stay for SNF. The patient has to stay through weekend. Living will/advanced directive/end of life care: Patient does have living will or advanced directive.? His son, present in the ED is power of contracts attorney for health.? After discussion of benefits/risks procedures involved with? full code, DNR CC arrest and DNR CC, the patient, his son and opted for full code. Patient? does want artificial life support including intubation, tube feed, ventilator and/chest compression, central venous catheter, vasopressor and DC shock if needed Charges/Coding Addendum Addendum: Please cancel the billing charge of discharge summary of same date Visit Charges OBSV E&M: 66220 Initial observation care L2
--- NOTE | 2021-09-20 15:48 | CASEMGMT ---
Social Work SW called pt's son, Simón, to discuss discharge plans as the family was supposed to update staff on options for SNF. Pt son stated he had hoped pt could stay in the hospital over the weekend. SW reported pt's doctor feels he is medically ready to be discharged. Simón was reluctant to discuss SNF choices. CRESENCIO explained insurance precert can sometime take a long time and that it was important to begin the process of finding the right option today. Simón voiced understanding. My father feels threatened about going to a usp but he may like the Transitional Care Unit since it is still in the hospital. SW discussed intent to talk with pt about this decision. Simón voiced understanding. SW in to room to talk with pt about his choices. Patient was provided a list of SNF providers including quality and resource use data that is consistent with the patient?s preferred geographic region, medical needs, and insurance network. The patient?s preferred provider is?[facility], as suggested by his son. SW called Sammi at [facility] to refer pt. Voicemail was left. DERREK Santos
[2021-09-20] MEDS: Acetaminophen 325 MG Tablet 650 MG PO (21:24)
[2021-09-21] VITALS (12 sets, daily range): BP systolic 108–130; BP diastolic 57–80; PULSE 61–91; RESP 16; TEMP 36.8–37.3; O2SAT 95–99
[2021-09-21 06:24] LABS: Absolute Lymphocyte Count 0.59 X10^3/uL (0.83-4.51); Absolute Neutrophil Count 3.3 X10^3/uL (2.0-7.7); Basophil# 0.04 X10^3/uL; Basophil% 0.9 % (0-1); Eosinophil# 0.18 X10^3/uL; Eosinophils% 3.8 % (0-5); Hematocrit 33.7 % (40-54); Hemoglobin 11.2 g/dL (13.0-16.5); Lymphocyte # 0.59 X10^3/ul (0.83-4.51); Lymphocyte % 12.6 % (19-41); Mean Corp Hgb Conc 33.2 g/dL (32-36); Mean Corpuscular Hgb 30.4 pg (27.0-32.0); Mean Corpuscular Volume 91.6 fL (80-94); Mean Platelet Vol. 10.1 fl (6.2-12.0); Monocyte# 0.58 X10^3/uL; Monocyte% 12.3 % (0-10); NRBC Flagged by Analyzer 0 % (0-5); Neutrophil % 70.2 % (47-70); POSITIVE COUNT YES; POSITIVE DIFFERENTIAL YES; Platelet Count 95 K/mm3 (150-450); RBC Distribution Width CV 14.6 % (11.6-14.6); RBC Distribution Width SD 49.1 fl (35.1-43.9); Red Blood Count 3.68 M/mm3 (4.6-6.2); White Blood Count 4.7 K/mm3 (4.4-11.0)
[2021-09-21 06:45] LABS: Differential Indicated SCAN CRITERIA MET
[2021-09-21 06:50] LABS: Differential Comment SCANNED; Platelet Estimate SLT DEC (ADEQ)
[2021-09-21 06:54] LABS: Anion Gap 4 (5-15); BUN 20 mg/dL (7-18); BUN/Creat Ratio 14.4 RATIO (10-20); Calcium,Total 7.6 mg/dL (8.5-10.1); Chloride 105 mmol/L (98-107); Creatinine, Serum 1.39 mg/dL (0.70-1.30); EST Glomerular Filtration Rate 52 mL/min (>60); Est Glom Filt Rate - Afr Amer 63 mL/min (>60); Glucose 100 mg/dL (74-106); Potassium 3.6 mmol/L (3.5-5.1); Sodium Level 136 mmol/L (136-145)
[2021-09-21] MEDS: Ceftriaxone 1 GM/50 ML BAG IV (10:15)
[2021-09-21] MEDS: Amiodarone 200 MG Tablet 100 MG PO (10:15)
[2021-09-21] MEDS: Pantoprazole Sodium 40 MG Tablet PO (10:15)
[2021-09-21] MEDS: Furosemide 20 MG Tablet PO (10:20)
--- NOTE | 2021-09-21 10:56 | PN.HOSP_ITS ---
Subjective Subjective Follow-up for recurrent UTI, failure to thrive, physical debility. No fever or chills. Patient some came and convinced his father to stay for group home placement. Patient has ADL dependent with near fall situation and multiple cardiac conditions and son cannot take care of him. Objective Data Objective Data Vital Signs: Vital Signs Temp Pulse Resp BP Pulse Ox O2 Del Method 98.6 F 69 16 130/80 H 98 Room Air 09/21/21 07:53 09/21/21 07:53 09/21/21 07:53 09/21/21 07:53 09/21/21 07:53 09/21/21 07:53 Oxygen Delivery Method Room Air Weight: 178 lb 12.718 oz Body Mass Index (BMI) 24.3 Intake & Output: Intake and Output for Last 24 Hours 09/19/21 09/20/21 09/21/21 23:59 23:59 23:59 Intake Total 1530 / 1730 1840 / 1840 Output Total 350 / 550 300 / 425 475 / 475 Balance 1180 / 1180 1540 / 1415 -475 / -475 Lab / Micro Data Result Diagrams: 09/21/21 06:03 09/21/21 06:03 Labs: Laboratory Results - last 24 hr 09/21/21 06:03: WBC 4.7, RBC 3.68 L, Hgb 11.2 L, Hct 33.7 L, MCV 91.6, MCH 30.4, MCHC 33.2, RDW Std Deviation 49.1 H, RDW Coeff of Ashkan 14.6, Plt Count 95 L, MPV 10.1, Immature Gran % (Auto) 0.200, Neut % (Auto) 70.2 H, Lymph % (Auto) 12.6 L, [place] % (Auto) 12.3 H, Eos % (Auto) 3.8, Baso % (Auto) 0.9, Absolute Neuts (auto) 3.3, Absolute Lymphs (auto) 0.59 L, Nucleated RBC % 0, Differential Comment SCANNED, Platelet Estimate SLT 09/21/21 06:03: Sodium 136, Potassium 3.6, Chloride 105, Carbon Dioxide 27.0, Anion Gap 4 L, BUN 20 H, Creatinine 1.39 H, Estim Creat Clear Calc 47.30, Est G FR (MDRD) Af Amer 63, Est GFR (MDRD) Non-Af 52 L, BUN/Creatinine Ratio 14.4, Glucose 100, Calcium 7.6 L Micro: Microbiology 09/19/21 20:00 Urine, Clean Catch Urine Culture - Final Mixed Gram Pos & Gram Neg Org 09/19/21 12:12 Nasal Secretion SARS-CoV-2 & FLU Antigen (Rapid) - Final Physical Exam Narrative Seen and examined. No fever. Urine still dark yellow and concentrated probably over diuresed. Lasix dose decreased. Patient has chronic heart conditions and follows Dr. Bolanos. Physical exam General: Alert, Oriented x3, Cooperative HEENT: Bilateral hearing loss. Atraumatic, PERRLA, EOMI, Normocephalic Oral: Oral mucosa moist. No Gingival or Mucosal Lesions/ Ulcerations Neck: Supple, No JVD, Negative Carotid Bruits Lungs: Air entry diminished in bilateral lung bases. Dyspnea on mild exertion, chronic in nature. Lungs clear. Cardiovascular: A. fib, Normal S1, Normal S2, systolic murmur over the LLSB and cardiac apex Abdomen: Large reducible, recurrent, direct left inguinal hernia. Surgical scar of inguinal hernia repair. Bowel Sounds Present, Soft, Non Tender, Non- Distended : No urethral discharge. No scrotal, perineal or penile urethral tenderness. No renal angle or suprapubic tenderness. Urine dark color, better Extremities: No edema, Capillary Refill Less than 3 Seconds Skin: No rashes, No breakdown Musculoskeletal: No Tenderness to Palpation of Joints or Extremities Neurological: Cranial nerves II-XII grossly intact, DTR 2+/4 and Symmetrical, Neuro grossly intact Psych/Mental Status: Flat affect. Assessment & Plan Assessment/Plan (1) H/O recurrent urinary tract infection: PLAN: This 81-year-old gentleman admitted with fever, chills for 2 days, low appetite, extreme weakness with acute on recurrent UTI for last 4 months. 1.? Acute symptomatic on recurrent UTI, exact precipitating cause unclear: Patient is admitted on MedSurg.? IV fluid normal saline 1 L bolus in ED and then half-normal saline at 75 mils an hour ordered.? Patient had 1 dose of IV ceftriaxone in ED and continued.? UA, urine culture, blood cultures x2 stat.? Patient last urine culture on 09/17 shows ESBL negative E. coli more than [address] abdomen pelvis without contrast, stone protocol ordered to rule out stone.? Discussed with urologist Dr. Lopez and he thinks patient does not have history for stone and exact cause of recurrent UTI unclear.? Patient has lactic acidosis probably due to hypovolemia.? Patient does not look sick, toxic or labs suggestive of sepsis therefore sepsis ruled 09/20: Sepsis ruled out.? Discussed with the ID and urologist, Dr. Lopez.? In view of recurrent UTI for 4 months, prolonged antibiotic course of 2 weeks suggested.? Based on previous sensitivity, prescription for cefadroxil 500 mg twice daily for 2 weeks sent to patient's pharmacy.? As per verbal prelim report from micro lab, present urine culture also growing E. coli but less colonies, probably not in pathology range.? He will follow-up with Dr. Lopez's office regarding prostatic ultrasound and cystoscopy once infection is controlled. 09/21: Urine culture shows mixed gram-positive and gram-negative organisms probably contamination. Patient history of UTI with UA more than 100 cells, LE 500, nitrite negative and squamous epithelial cells 5-10 cell. We will continue treatment. Repeat UA and urine culture with straight cath as needed since patient has true UTI 2.? Chronic HFpEF, paroxysmal ventricular tachycardia, nonrheumatic aortic valve stenosis with insufficiency, chronic A. fib, non-STEMI : His most recent? echo on 06/18/2021 shows 50%.? Lasix was held.? Patient has low blood pressure therefore not candidate for Entresto or spironolactone, OLAF/ARB.? Continue amiodarone 200 mg daily.? After phone conversation with Som Ellis NP patient had recurrent GI bleed and could not tolerate anticoagulant therefore Eliquis is discontinued.? Patient was made referral to helper shear operator in [facility] October 08 for evaluation for watchman procedure. 09/20: Patient does not have leg swelling, shortness of breath or lung crepitations.? Furosemide decreased 20 mg daily and follow with Lasix as patient dark urine color. Patient +2.5 L of fluid balance. 09/21: Continue measurement of intake and output. Stage IIIb CKD: Creatinine 1.3 slightly better. Continue diuretic and increase if patient retains fluid/leg edema or shortness of breath. 3.? Left large recurrent direct hernia, reducible: Outpatient follow-up.? Patient was told that he is not a candidate for operative surgery as it recurred after inguinal repair 4.? Other comorbidities include history of prostate cancer, monoclonal gammopathy, low functional capacity: PT and OT done recommended needed as patient did poorly. Not comfortable taking home although patient pressing hard for discharge. At last, patient agreeable to stay for SNF. The patient has to stay through weekend. Living will/advanced directive/end of life care: Patient does have living will or advanced directive.? His son, present in the ED is power of title attorney for health.? After discussion of benefits/risks procedures involved with? full code, DNR CC arrest and DNR CC, the patient, his son and opted for full code. Patient? does want artificial life support including intubation, tube feed, ventilator and/chest compression, central venous catheter, vasopressor and DC shock if needed Microbiology Past 72 Hours 09/19/21 20:00 Urine, Clean Catch Urine Culture - Final Mixed Gram Pos & Gram Neg Org 09/19/21 12:12 Nasal Secretion SARS-CoV-2 & FLU Antigen (Rapid) - Final Laboratory Results 09/21/21 06:03: WBC 4.7, RBC 3.68 L, Hgb 11.2 L, Hct 33.7 L, MCV 91.6, MCH 30.4, MCHC 33.2, RDW Std Deviation 49.1 H, RDW Coeff of Ashkan 14.6, Plt Count 95 L, MPV 10.1, Immature Gran % (Auto) 0.200, Neut % (Auto) 70.2 H, Lymph % (Auto) 12.6 L, [place] % (Auto) 12.3 H, Eos % (Auto) 3.8, Baso % (Auto) 0.9, Absolute Neuts (auto) 3.3, Absolute Lymphs (auto) 0.59 L, Nucleated RBC % 0, Differential Comment SCANNED, Platelet Estimate SLT 09/21/21 06:03: Sodium 136, Potassium 3.6, Chloride 105, Carbon Dioxide 27.0, Anion Gap 4 L, BUN 20 H, Creatinine 1.39 H, Estim Creat Clear Calc 47.30, Est GFR (MDRD) Af Amer 63, Est GFR (MDRD) Non-Af 52 L, BUN/Creatinine Ratio 14.4, Glucose 100, Calcium 7.6 L Clinical Impression(s) from Imaging Studies Chest X-Ray 09/19/21 12:11 IMPRESSION: Hyperinflation suggesting emphysema. Stable cardiomegaly. Electronically Signed: Leobardo Us MD at 12:33 EDT , Abdomen/Pelvis CT 09/19/21 13:52 IMPRESSION: 1. Stable moderate cardiomegaly. 2. Small bilateral pleural effusions. 3. Cholelithiasis. 4. Diverticulosis coli. 5. No change in the large eventration anterior abdominal wall. Charges/Coding Visit Charges OBSV E&M: 28608 Subsequent observation care L2
[2021-09-21] MEDS: Potassium Chloride Oral Tablet 20 MEQ 40 MEQ PO (12:28)
[2021-09-21 16:05] LABS: Mucous, Urine 0 SEEN /hpf (<or=2+)
[2021-09-21 16:12] LABS: Color, Urine Yellow (Yellow); Glucose, Dipstick Normal (Normal); Ketone-Dipstick Negative (Negative); Leukocyte Esterase-Dipstick 500 /ul (Negative); Nitrite-Dipstick Negative (Negative); Occult Blood-Urine 250 /ul (Negative); Protein-Dipstick 100 mg/dl (Negative); Urine Bilirubin Dipstick Negative (Negative); Urine Clarity Cloudy (Clear); Urine Urobilinogen 4 mg/dl (Normal)
[2021-09-21 16:22] LABS: Bacteria 3+ /hpf (None Seen); Red Blood Cells-Urine 25-50 SEEN /hpf (0-5); Squamous Epithelial Cells - UA 5-10 SEEN /hpf (0-5); White Blood Cells >100 SEEN /hpf (0-5)
[2021-09-22] VITALS (8 sets, daily range): BP systolic 103–126; BP diastolic 57–73; PULSE 65–110; RESP 16–18; TEMP 36.4–37; O2SAT 97–99
[2021-09-22 06:57] LABS: Anion Gap 5 (5-15); BUN 22 mg/dL (7-18); BUN/Creat Ratio 18.2 RATIO (10-20); Calcium,Total 7.3 mg/dL (8.5-10.1); Chloride 108 mmol/L (98-107); Creatinine, Serum 1.21 mg/dL (0.70-1.30); EST Glomerular Filtration Rate 61 mL/min (>60); Est Glom Filt Rate - Afr Amer 74 mL/min (>60); Estimated Creatinine Clearance 54.33 ml/min; Glucose 87 mg/dL (74-106); Potassium 3.8 mmol/L (3.5-5.1); Sodium Level 139 mmol/L (136-145)
--- NOTE | 2021-09-22 07:29 | PN.HOSP_ITS ---
Subjective Subjective Patient is a 81-year-old gentleman with history of recurrent cystitis admitted with fever chills and abnormal urinalysis and assessment of acute cystitis made admitted to regular nursing floor for further management Objective Data Objective Data Vital Signs: Vital Signs Temp Pulse Resp BP Pulse Ox O2 Del Method 98.5 F 65 16 126/73 H 97 Room Air 09/22/21 04:00 09/22/21 04:00 09/22/21 04:00 09/22/21 04:00 09/22/21 04:00 09/22/21 04:00 Oxygen Delivery Method Room Air Weight: 82.9 kg Body Mass Index (BMI) 24.3 Intake & Output: Intake and Output for Last 24 Hours 09/20/21 09/21/21 09/22/21 23:59 23:59 23:59 Intake Total 1840 / 1840 50 / 50 Output Total 300 / 425 1275 / 1275 550 / 550 Balance 1540 / 1415 -1225 / -1225 -550 / -550 Lab / Micro Data Result Diagrams: 09/21/21 06:03 09/22/21 06:08 Labs: Laboratory Results - last 24 hr 09/21/21 15:54: Urine Color Yellow, Urine Clarity Cloudy, Urine pH 6.0, Ur Specific [place] 1.020, Urine Protein 100 H, Urine Glucose (UA) Normal, Urine Ketones Negative, Urine Occult Blood 250 H, Urine Nitrite Negative, Urine Bilirubin Negative, Urine Urobilinogen 4 H, Ur Leukocyte Esterase 500 H, Urine RBC 25-50 SEEN, Urine WBC >100 SEEN, Ur Squamous Epith Cells 5-10 SEEN, Urine Bacteria 3+, Urine Mucus 0 SEEN 09/22/21 06:08: Sodium 139, Potassium 3.8, Chloride 108 H, Carbon Dioxide 26.0, Anion Gap 5, BUN 22 H, Creatinine 1.21, Estim Creat Clear Calc 54.33, Est GFR (MDRD) Af Amer 74, Est GFR (MDRD) Non-Af 61, BUN/Creatinine Ratio 18.2, Glucose 87, Calcium 7.3 L Micro: Microbiology 09/19/21 14:20 Blood Culture (Wb) - Anticubital Right Blood Culture - Preliminary No growth in 48 hours. 09/19/21 20:00 Urine, Clean Catch Urine Culture - Final Mixed Gram Pos & Gram Neg Org 09/19/21 12:12 Nasal Secretion SARS-CoV-2 & FLU Antigen (Rapid) - Final Physical Exam Narrative GENERAL: cooperative HEENT: Atraumatic; EYES; Anicteric, Normal Conjunctiva NECK; supple, normal thyroid, RESPIRATORY: Diminished to auscultation CARDIOVASCULAR: Regular S1 S2, GI: soft, normoactive bowel sounds, : No Renal angle tenderness; EXTREMITIES: No edema, no clubbing, MUSCULOSKELETAL: no muscle wasting NEURO: Awake; no lateralizing signs. SKIN: No Rash PSYCH; Flat affect Assessment & Plan Assessment/Plan (1) H/O recurrent urinary tract infection: PLAN: Patient is a 81-year-old gentleman with history of recurrent cystitis admitted with fever chills and abnormal urinalysis and assessment of acute cystitis made admitted to regular nursing floor for further management 1. Acute cystitis with E. coli ?Patient admitted to regular nursing floor managed with Rocephin. Cultures obtained on 09/18/2019 through grew E. coli sensitivities reviewed. 2. Chronic congestive heart failure with preserved ejection fraction ? Echo obtained on 06/18/2021 demonstrated EF of 50%. Lasix held on admission due to relatively low blood pressure and impaired kidney function on admission 3. Paroxysmal ventricular tachycardia ? Patient is on amiodarone. Patient was previously on systemic anticoagulation with Eliquis which he did not tolerate due to recurrent GI bleed. Was apparently evaluated by EP at [facility] for watchman's procedure 4. Chronic A. fib ? Rate controlled 5. Thrombocytopenia ? Has some chronicity will monitor 5. Monoclonal gammopathy of unknown significance ? Patient being monitored as outpatient 7. Large left recurrent direct reducible hernia ? Patient to be followed up by primary care physician for possible referral to general surgery 8. GERD ? On PPI 9. Physical deconditioning - Requested for PT OT eval and social services aide to assist with discharge planning 10. DVT prophylaxis ? Chemoprophylaxis contraindicated in view of patient thrombocytopenia Charges/Coding Visit Charges Inpatient E&M: 78884 Subs Hosp L2
[2021-09-22] MEDS: Potassium Chloride Oral Tablet 20 MEQ 40 MEQ PO (10:05)
[2021-09-22] MEDS: Amiodarone 200 MG Tablet 100 MG PO (10:05)
[2021-09-22] MEDS: Furosemide 20 MG Tablet PO (10:05)
[2021-09-22] MEDS: Pantoprazole Sodium 40 MG Tablet PO (10:05)
[2021-09-22] MEDS: Ceftriaxone 1 GM/50 ML BAG IV (10:09)
[2021-09-22] MEDS: Senna/Docusate Sodium 1 Tablet 2 TABLET PO (20:06)
[2021-09-23] VITALS (10 sets, daily range): BP systolic 96–120; BP diastolic 49–75; PULSE 54–80; RESP 18; TEMP 36.6–36.9; O2SAT 96–98
[2021-09-23 06:26] LABS: Basophil# 0.06 X10^3/uL; Basophil% 1.8 % (0-1); Eosinophil# 0.23 X10^3/uL; Eosinophils% 6.8 % (0-5); Hematocrit 29.3 % (40-54); Hemoglobin 9.7 g/dL (13.0-16.5); Lymphocyte % 20.6 % (19-41); Mean Corp Hgb Conc 33.1 g/dL (32-36); Mean Corpuscular Volume 90.7 fL (80-94); Mean Platelet Vol. 10.1 fl (6.2-12.0); Monocyte# 0.43 X10^3/uL; Monocyte% 12.7 % (0-10); NRBC Flagged by Analyzer 0 % (0-5); Neutrophil # 1.97 X10^3/uL (2.7-7.7); Neutrophil % 58.1 % (47-70); Platelet Count 109 K/mm3 (150-450); RBC Distribution Width SD 49.5 fl (35.1-43.9); Red Blood Count 3.23 M/mm3 (4.6-6.2); White Blood Count 3.4 K/mm3 (4.4-11.0)
[2021-09-23 06:50] LABS: Anion Gap 6 (5-15); BUN 22 mg/dL (7-18); BUN/Creat Ratio 18.3 RATIO (10-20); Calcium,Total 7.1 mg/dL (8.5-10.1); Chloride 110 mmol/L (98-107); EST Glomerular Filtration Rate 62 mL/min (>60); Est Glom Filt Rate - Afr Amer 75 mL/min (>60); Estimated Creatinine Clearance 54.79 ml/min; Glucose 110 mg/dL (74-106); Magnesium 2.2 mg/dL (1.6-2.6); Potassium 3.8 mmol/L (3.5-5.1); Sodium Level 141 mmol/L (136-145)
--- NOTE | 2021-09-23 07:30 | PCM.PN.HOSP ---
Subjective Subjective Patient seen overall clinical condition continues to improve. Plan is to determine disposition pending PT assessment Objective Data Objective Data Vital Signs: Vital Signs Temp Pulse Resp BP Pulse Ox O2 Del Method 98 F 55 L 18 112/66 97 Room Air 09/23/21 02:46 09/23/21 03:59 09/23/21 02:46 09/23/21 02:46 09/23/21 02:46 09/23/21 02:46 Oxygen Delivery Method Room Air Weight: 82.9 kg Body Mass Index (BMI) 24.3 Intake & Output: Intake and Output for Last 24 Hours 09/21/21 09/22/21 09/23/21 23:59 23:59 23:59 Intake Total 50 / 50 50 / 50 Output Total 1275 / 1275 550 / 550 150 / 150 Balance -1225 / -1225 -500 / -500 -150 / -150 Lab / Micro Data Result Diagrams: 09/23/21 06:20 09/23/21 06:20 Labs: Laboratory Results - last 24 hr 09/23/21 06:20: WBC 3.4 L, RBC 3.23 L, Hgb 9.7 L, Hct 29.3 L, MCV 90.7, MCH 30.0, MCHC 33.1, RDW Std Deviation 49.5 H, RDW Coeff of Ashkan 15.0 H, Plt Count 109 L, MPV 10.1, Immature Gran % (Auto) 0.000, Neut % (Auto) 58.1, Lymph % (Auto) 20.6, [place] % (Auto) 12.7 H, Eos % (Auto) 6.8 H, Baso % (Auto) 1.8 H, Absolute Neuts (auto) 2.0, Absolute Lymphs (auto) 0.70 L, Nucleated RBC % 0 09/23/21 06:20: Sodium 141, Potassium 3.8, Chloride 110 H, Carbon Dioxide 25.0, Anion Gap 6, BUN 22 H, Creatinine 1.20, Estim Creat Clear Calc 54.79, Est GFR (MDRD) Af Amer 75, Est GFR (MDRD) Non-Af 62, BUN/Creatinine Ratio 18.3, Glucose 110 H, Calcium 7.1 L, Magnesium 2.2 Micro: Microbiology 09/19/21 17:48 Blood Culture (Wb) - Anticubital Left Blood Culture - Preliminary No growth in 48 hours. 09/21/21 15:54 Urine, Catheterized Urine Culture - Preliminary Gram positive organism 09/19/21 14:20 Blood Culture (Wb) - Anticubital Right Blood Culture - Preliminary No growth in 48 hours. 09/19/21 20:00 Urine, Clean Catch Urine Culture - Final Mixed Gram Pos & Gram Neg Org 09/19/21 12:12 Nasal Secretion SARS-CoV-2 & FLU Antigen (Rapid) - Final Physical Exam Narrative GENERAL: cooperative HEENT: Atraumatic; EYES; Anicteric, Normal Conjunctiva NECK; supple, normal thyroid, RESPIRATORY: Diminished to auscultation CARDIOVASCULAR: Regular S1 S2, GI: soft, normoactive bowel sounds, : No Renal angle tenderness; EXTREMITIES: No edema, no clubbing, MUSCULOSKELETAL: no muscle wasting NEURO: Awake; no lateralizing signs. SKIN: No Rash PSYCH; Flat affect Assessment & Plan Assessment/Plan (1) H/O recurrent urinary tract infection: PLAN: Patient is a 81-year-old gentleman with history of recurrent cystitis admitted with fever chills and abnormal urinalysis and assessment of acute cystitis made admitted to regular nursing floor for further management 1. Acute cystitis with E. coli ?Patient admitted to regular nursing floor managed with Rocephin. Cultures obtained on 09/18/2019 through grew E. coli sensitivities reviewed. 2. Chronic congestive heart failure with preserved ejection fraction ? Echo obtained on 06/18/2021 demonstrated EF of 50%. Lasix held on admission due to relatively low blood pressure and impaired kidney function on admission 3. Paroxysmal ventricular tachycardia ? Patient is on amiodarone. Patient was previously on systemic anticoagulation with Eliquis which he did not tolerate due to recurrent GI bleed. Was apparently evaluated by EP at [facility] for watchman's procedure 4. Chronic A. fib ? Rate controlled 5. Thrombocytopenia ? Has some chronicity will monitor 5. Monoclonal gammopathy of unknown significance ? Patient being monitored as outpatient 7. Large left recurrent direct reducible hernia ? Patient to be followed up by primary care physician for possible referral to general surgery 8. GERD ? On PPI 9. Physical deconditioning - Requested for PT OT eval and hospital social worker to assist with discharge planning 10. DVT prophylaxis ? Chemoprophylaxis contraindicated in view of patient thrombocytopenia Charges/Coding Visit Charges Inpatient E&M: 53767 Subs Hosp L2
[2021-09-23] MEDS: Amiodarone 200 MG Tablet 100 MG PO (08:52)
[2021-09-23] MEDS: Furosemide 20 MG Tablet PO (08:52)
[2021-09-23] MEDS: Potassium Chloride Oral Tablet 20 MEQ 40 MEQ PO (08:52)
[2021-09-23] MEDS: Pantoprazole Sodium 40 MG Tablet PO (08:53)
[2021-09-23] MEDS: Ceftriaxone 1 GM/50 ML BAG IV (09:01)
--- NOTE | 2021-09-23 09:39 | CASEMGMT ---
Addendum entered by Mariangel Hickman 09/23/21 14:27: Received acceptance from [facility], WARREN MAC in to pt room, pt and dtr in law present. Patient talking on phone. They are all aware that [facility] will be in touch to see pt tomorrow and disciplines ordered. Pt dtr from out of town is coming to also stay with patient. Pt/ family decline further needs. Addendum entered by Mariangel Hickman 09/23/21 12:16: WARREN MAC updated that pt and son agreeable to the [facility] previously chosen. TC to Kylee at [facility], referral made. Awaiting acceptance. Addendum entered by Mariangel Hickman 09/23/21 10:06: TC back from pt son, he states that pt will have difficulty navigating the home and performing his daily care. Pt son concerned that it will be a challenge to get the patient to the bathroom, showering. Pt son states he would like pt to get further therapy as he is not close to his baseline function. States if he was at baseline, he would want the patient to return home. He states he will be in with his mother as soon as possible and will have a definite decision then. Updated SW. Original Note: WARREN MAC spoke with therapy who states pt would like to return home with [facility] and he did ambulate without walker today. WARREN MAC in to pt room, discussed with patient. Pt states he would like his son to make the final decision. Patient was provided a list of [facility] providers including quality and resource use data and consistent with the patient?s preferred geographic region, medical needs, and insurance network. The patient?s preferred provider is [facility] but would like to confirm with his son that this is ok. TC to pt son, left message with return call information.
--- NOTE | 2021-09-23 11:30 | CASEMGMT ---
Social Work SW met with pt and pt son to discuss discharge plan. SW updated that referral had been made to TCU on Thursday, but after reviewing therapy notes from weekend, it is the opinion of this SW and TCU admissions that pt is functioning well enough that insurance will likely deny admission for skilled level of care as pt could return home with lesser level of care. Pt son continue to express concern for medical concerns and that pt has dementia and cannot help pt if he has a problem. SW made pt and son aware that pt can go to extended care facility and pay privately if he does not feel pt is safe at home. Pt and son deny this and are agreeable to home health. Pt does have a medical alert in which he does not wear. SW encouraged pt to use medical alert and pt is agreeable. CRESENCIO provided pt son with list of private duty aids. Pt wishes for [facility], RNCM updated. DERREK Miguel
--- NOTE | 2021-09-23 12:56 | DS.PCM_ITS ---
Providers Date of Admission: 09/20/21 Date of Discharge: 09/23/21 Primary Care Physician: Dr. Steff Culp, Consultations 09/19/21 16:01 Consult: Urology Routine Consulting Provider: Javon Lopez Reason for Consult: Recurrent UTI EMERGENT Consult: No MD Notified: Yes Date Notified: 09/19/21 Time Notified: 13:43 Method of Notification: Verbal Reason For Visit: RECURRENT UTI Diagnosis Discharge Diagnosis (1) H/O recurrent urinary tract infection: Status: Inactive Code(s): Z87.440 - Personal history of urinary (tract) infections Medications at Discharge Home Medications amiodarone 100 mg tablet 100 mg PO DAILY #30 tabs 03/29/21 cholecalciferol (vitamin D3) 50 mcg (2,000 unit) tablet 50 mcg PO DAILY 06/20/21 omeprazole 20 mg capsule,delayed release 20 mg PO DAILY 07/23/21 potassium chloride 20 mEq tablet,extended release 20 meq PO DAILY 07/23/21 cefadroxil 500 mg capsule 500 mg PO BID #14 caps 09/20/21 sennosides 8.6 mg-docusate sodium 50 mg tablet (Stool Softener-Stimulant Laxative) 2 tab PO BID PRN PRN Constipation #0 tabs 09/20/21 furosemide 40 mg tablet (Lasix) 20 mg PO QODAY #30 tabs 09/23/21 Hospital Course Operations None Summary of Care Provided Minutes Spent on Discharge: 35 Hospital Course: Patient is a 81-year-old gentleman with history of recurrent cystitis admitted with fever chills and abnormal urinalysis and assessment of acute cystitis made admitted to regular nursing floor for further management 1. Acute cystitis with E. coli ?Patient admitted to regular nursing floor managed with Rocephin. Cultures obtained on 09/18/2019 through grew E. coli sensitivities reviewed. -Discharged on cefadroxil 2. Chronic congestive heart failure with preserved ejection fraction ? Echo obtained on 06/18/2021 demonstrated EF of 50%. Lasix held on admission due to relatively low blood pressure and impaired kidney function on admission -Adjusted Lasix dose to 20 mg every other day on discharge 3. Paroxysmal ventricular tachycardia ? Patient is on amiodarone. Patient was previously on systemic anticoagulation with Eliquis which he did not tolerate due to recurrent GI bleed. Was apparently evaluated by EP at [facility] for watchman's procedure 4. Chronic A. fib ? Rate controlled 5. Thrombocytopenia ? Has some chronicity will monitor 5. Monoclonal gammopathy of unknown significance ? Patient being monitored as outpatient 7. Large left recurrent direct reducible hernia ? Patient to be followed up by primary care physician for possible referral to general surgery 8. GERD ? On PPI 9. Physical deconditioning - Requested for PT OT eval and social work supervisor to assist with discharge planning 10. DVT prophylaxis ? Chemoprophylaxis contraindicated in view of patient thrombocytopenia Physical Exam Narrative GENERAL: cooperative HEENT: Atraumatic; EYES; Anicteric, Normal Conjunctiva NECK; supple, normal thyroid, RESPIRATORY: Diminished to auscultation CARDIOVASCULAR: Regular S1 S2, GI: soft, normoactive bowel sounds, : No Renal angle tenderness; EXTREMITIES: No edema, no clubbing, MUSCULOSKELETAL: no muscle wasting NEURO: Awake; no lateralizing signs. SKIN: No Rash PSYCH; Flat affect Weight / BMI Weight Weight: 82.9 kg Body Mass Index (BMI) 24.3 ABG / Lab / Microbiology Data Result Diagrams: 09/23/21 06:20 09/23/21 06:20 Laboratory: Laboratory Results - last 24 hr 09/23/21 06:20: WBC 3.4 L, RBC 3.23 L, Hgb 9.7 L, Hct 29.3 L, MCV 90.7, MCH 30. 0, MCHC 33.1, RDW Std Deviation 49.5 H, RDW Coeff of Ashkan 15.0 H, Plt Count 109 L , MPV 10.1, Immature Gran % (Auto) 0.000, Neut % (Auto) 58.1, Lymph % (Auto) 20.6, [place] % (Auto) 12.7 H, Eos % (Auto) 6.8 H, Baso % (Auto) 1.8 H, Absolute Neuts (auto) 2.0, Absolute Lymphs (auto) 0.70 L, Nucleated RBC % 0 09/23/21 06:20: Sodium 141, Potassium 3.8, Chloride 110 H, Carbon Dioxide 25.0, Anion Gap 6, BUN 22 H, Creatinine 1.20, Estim Creat Clear Calc 54.79, Est GFR (MDRD) Af Amer 75, Est GFR (MDRD) Non-Af 62, BUN/Creatinine Ratio 18.3, Glucose 110 H, Calcium 7.1 L, Magnesium 2.2 Microbiology: Microbiology 09/21/21 15:54 Urine, Catheterized Urine Culture - Preliminary GPC Poss Enterococcus sp 09/19/21 17:48 Blood Culture (Wb) - Anticubital Left Blood Culture - Preliminary No growth in 48 hours. 09/19/21 14:20 Blood Culture (Wb) - Anticubital Right Blood Culture - Preliminary No growth in 48 hours. 09/19/21 20:00 Urine, Clean Catch Urine Culture - Final Mixed Gram Pos & Gram Neg Org 09/19/21 12:12 Nasal Secretion SARS-CoV-2 & FLU Antigen (Rapid) - Final D/C Instructions Discharge Diet: Low fat / Low cholesterol and 2000 mg Sodium Diet Discharge Activity: Return to Normal Activity Call your doctor if you observe: Fever of 101 or Higher, Coldness, Increased Pain, Numbness or Tingling, Change in Color, Inability to urinate, Inability to have a bowel movement, Shortness of breath, Dizziness, Fainting spells, Swelling in the ankles, Chest pain, Prolonged hiccupping, Increased palpitations (irregular heartbeat) and Uncontrolled pain Meaningful Use Info Meaningful Use Diagnoses (Choose all that apply): None applicable Discharge Plan Admission Admit Date/Time: 09/20/21 16:03 Primary Reason for Your Visit: Acute on recurrent E. coli UTI Attending Provider: Gurinder Newman Primary Care Provider: Steff Culp Consulting Providers: Javon Lopez ; Kirk Bravo Discharge Orders/Prescriptions Prescriptions: New sennosides-docusate sodium [Stool Softener-Stimulant Laxat] 8.6-50 mg Tablet 2 tab PO BID PRN PRN (Reason: Constipation) Qty: 0 0RF cefadroxil 500 mg capsule 500 mg PO BID Qty: 14 0RF Continued amiodarone 100 mg tablet 100 mg PO DAILY Qty: 30 12RF omeprazole 20 mg capsule,delayed release(DR/EC) 20 mg PO DAILY Label Comments: 1 (ONE) CAPSULE Q AM cholecalciferol (vitamin D3) 50 mcg (2,000 unit) tablet 50 mcg PO DAILY potassium chloride 20 mEq tablet extended release 20 meq PO DAILY Label Comments: TAKE 1 TABLET BY MOUTH TWICE A DAY Changed furosemide [Lasix] 40 mg tablet 20 mg PO QODAY Qty: 30 0RF Rx Instructions: Take an additional 20 mg dose at 5 PM for increased leg swelling or weight gain 5 pounds in 1 week. Referrals / Follow Up: Steff Culp, [Primary Care Provider] - Within 1 Week Disposition Disposition (needs filled in before D/C Order can be placed): Home Health Service Charges/Coding Visit Charges Inpatient E&M: 83723 Disch Hosp
--- NOTE | 2021-09-23 13:56 | CHAPLAIN ---
Type of Pastoral Visit _x__ Initial Visit ___ Follow-up Visit ___ On-call Visit ___ General Patient Visit ___ Spiritual Assessment ___ Family Conference ___ Bereavement ___ Rapid Response ___ Code Blue ___ Other (describe below) Pastoral Care Referral From _x__ Patient ___ Family ___ Nurse ___ Physician ___ Pediatrician Active Practice ___ Dispensary Technician ___ Other (describe below) Sacrament/Intervention _x__ Active listening ___ Anointing ___ Christianity ___ Bereavement ___ Communion _x__ Makayla exploration ___ _x__ Life review _x__ Prayer ___ Reconciliation ___ Sacrament of Sick _x__ Supportive presence ___ Wedding ___ Other (describe below) Pastoral Comments patient speaks about his improved condition today and his hopes of going home today; pt has concerns for his at home who has early dementia; son and DIL also live at their home; pt states they have done all they can for me here now and restates how he hopes to get home; pt also mentions his realization of being in last season of life and how that impacts his thinking about preparation for his and giving so others can have something better; pt welcomes prayer
== END 2021-09-23 16:27 | disposition home health service (06) | DRG 690 ==
LOC: ED 13:22 → MS3 14:03
PROVIDERS: Nurse Practitioner; Admitting Provider Internal Medicine; Emergency Provider Emergency Medicine; PCP Internal Medicine; Visit Provider Internal Medicine
DX: N30.00 Acute cystitis without hematuria (principal); I47.2 Ventricular tachycardia; I42.8 Other cardiomyopathies; I13.0 Hypertensive heart and chronic kidney disease with heart failure and stage 1 through stage 4 chronic kidney disease, or unspecified chronic kidney disease; I50.32 Chronic diastolic (congestive) heart failure; D69.6 Thrombocytopenia, unspecified; I48.0 Paroxysmal atrial fibrillation; D47.2 Monoclonal gammopathy; E86.1 Hypovolemia; B96.20 Unspecified Escherichia coli [E. coli] as the cause of diseases classified elsewhere; N18.32 Chronic kidney disease, stage 3b; I25.2 Old myocardial infarction; I35.2 Nonrheumatic aortic (valve) stenosis with insufficiency; K40.91 Unilateral inguinal hernia, without obstruction or gangrene, recurrent; Z87.440 Personal history of urinary (tract) infections; Z87.19 Personal history of other diseases of the digestive system; Z85.46 Personal history of malignant neoplasm of prostate; Z79.899 Other long term (current) drug therapy; Z87.891 Personal history of nicotine dependence
CPT/HCPCS: 36415; 71045; 74176; 80048; 80076; 81001; 83605; 83735; 85025; 85610; 85730; 87040; 87077; 87086; 87088; 87186; 87428; 93005; 97110; 97162; 97166; 97530; 97535; 99251; 99284; J7030; A4216; G0463

== ENCOUNTER → 2021-09-25 | Outpatient (CLI) | payer MEDICARE, SELFPAY ==
[2021-09-25] MEDS: 0.9% NaCl Peripheral Flush Adult/Peds IV (13:24)
[2021-09-25] MEDS: 0.9% Normal Saline 1,000 ML 500 ML IV (13:42)
[2021-09-25 13:43] VITALS: BP 115/66; PULSE 54; RESP 16; TEMP 36.5; O2SAT 97; BMI 25.4
[2021-09-25 15:55] VITALS: BP 116/64; PULSE 64; RESP 16; TEMP 36.1; O2SAT 99
== END | disposition home or self-care (01) ==
LOC: MEDOUTP 13:15
PROVIDERS: PCP Internal Medicine; Referring Provider Internal Medicine; Visit Provider Internal Medicine
DX: E86.0 Dehydration (principal)
CPT/HCPCS: 96360; 96361; J7030; A4216

== ENCOUNTER → 2021-10-09 | Outpatient (CLI) | payer MEDICARE, SELFPAY ==
[2021-10-09 13:06] LABS: Mean Corp Hgb Conc 31.4 g/dL (32-36); Mean Corpuscular Hgb 28.9 pg (27.0-32.0); Mean Corpuscular Volume 92.1 fL (80-94); Platelet Count 150 K/mm3 (150-450); RBC Distribution Width CV 15.8 % (11.6-14.6); RBC Distribution Width SD 53.3 fl (35.1-43.9)
[2021-10-09 13:36] LABS: ALB/GLOB Ratio 0.8 RATIO (0.9-2.4); AST(SGOT) 20 U/L (15-37); Alanine Aminotransfer ALT/SGPT 19 U/L (16-61); Albumin, Serum 2.7 g/dL (3.2-5.0); Alkaline Phosphatase 103 U/L (45-117); Anion Gap 3 (5-15); BUN 20 mg/dL (7-18); BUN/Creat Ratio 13.9 RATIO (10-20); Calcium,Total 8.4 mg/dL (8.5-10.1); Chloride 111 mmol/L (98-107); Creatinine, Serum 1.44 mg/dL (0.70-1.30); EST Glomerular Filtration Rate 50 mL/min (>60); Est Glom Filt Rate - Afr Amer 61 mL/min (>60); Globulin 3.2 g/dL (2.2-4.2); Glucose 85 mg/dL (74-106); Potassium 4.1 mmol/L (3.5-5.1); Protein, Total 5.9 g/dL (6.4-8.2); Sodium Level 143 mmol/L (136-145)
[2021-10-09] MEDS: 0.9% Normal Saline 1,000 ML 500 ML IV (14:18)
[2021-10-09 14:21] VITALS: BP 125/63; PULSE 81; RESP 14; TEMP 36.2; O2SAT 99; BMI 24.7
[2021-10-09 16:17] VITALS: BP 115/64; PULSE 57; O2SAT 100
== END | disposition home or self-care (01) ==
LOC: MEDOUTP 13:41
PROVIDERS: PCP Internal Medicine; Referring Provider Internal Medicine; Visit Provider Internal Medicine
DX: E86.0 Dehydration (principal); D50.9 Iron deficiency anemia, unspecified
CPT/HCPCS: 96365; 96366; 80053; 85027; J7030; A4216

== ENCOUNTER → 2021-10-23 | Outpatient (CLI) | payer MEDICARE, SELFPAY ==
[2021-10-23 13:33] VITALS: BP 116/56; PULSE 61; RESP 16; TEMP 36.3; O2SAT 100; BMI 25.0
[2021-10-23] MEDS: 0.9% Normal Saline 1,000 ML 500 ML IV (13:40)
[2021-10-23] MEDS: 0.9% NaCl Peripheral Flush Adult/Peds IV (13:40)
[2021-10-23 15:56] VITALS: BP 126/60; PULSE 72; RESP 16; TEMP 36.3; O2SAT 100
== END | disposition home or self-care (01) ==
LOC: MEDOUTP 13:19
PROVIDERS: PCP Internal Medicine; Referring Provider Internal Medicine; Visit Provider Internal Medicine
DX: E86.0 Dehydration (principal)
CPT/HCPCS: 96360; 96361 ×2; J7030; A4216

== ENCOUNTER → 2021-11-07 | Outpatient (CLI) | payer MEDICARE, SELFPAY ==
[2021-11-07] MEDS: 0.9% NaCl Peripheral Flush Adult/Peds IV (10:53)
[2021-11-07] MEDS: 0.9% Normal Saline 1,000 ML 500 ML IV (11:00)
[2021-11-07 11:02] VITALS: BP 135/67; PULSE 84; RESP 14; TEMP 36.8; O2SAT 99; BMI 24.8
[2021-11-07 13:14] VITALS: BP 122/65; PULSE 66; O2SAT 99
== END | disposition home or self-care (01) ==
LOC: MEDOUTP 10:42
PROVIDERS: PCP Internal Medicine; Referring Provider Internal Medicine; Visit Provider Internal Medicine
DX: E86.0 Dehydration (principal)
CPT/HCPCS: 96360; 96361; J7030; A4216

== ENCOUNTER → 2021-12-03 | Outpatient (CLI) | payer MEDICARE, SELFPAY ==
[2021-12-03 12:43] VITALS: BP 123/68; PULSE 87; RESP 18; TEMP 35.8; O2SAT 100
[2021-12-03] MEDS: 0.9% NaCl Peripheral Flush Adult/Peds IV (12:49)
[2021-12-03] MEDS: 0.9% Normal Saline 1,000 ML 500 ML IV (12:49)
[2021-12-03 15:11] VITALS: BP 145/72; PULSE 68; O2SAT 100
== END | disposition home or self-care (01) ==
LOC: MEDOUTP 12:38
PROVIDERS: PCP Internal Medicine; Referring Provider Internal Medicine; Visit Provider Internal Medicine
DX: E86.0 Dehydration (principal)
CPT/HCPCS: 96360; 96361; J7030; A4216

== ENCOUNTER 2021-12-16 12:01 | Observation (INO) | payer MEDICARE, SELFPAY ==
[2021-12-16] VITALS (7 sets, daily range): BP systolic 135–173; BP diastolic 74–95; PULSE 74–91; RESP 14–87; TEMP 35.5–36.5; O2SAT 96–99; BMI 25.2; BMI 24.2
--- NOTE | 2021-12-16 13:01 | CT_ITS ---
STUDY: CT BRAIN WITHOUT CONTRAST REASON FOR EXAM: Male, 81 years old. Altered mental status RADIATION DOSAGE (If Supplied By Facility): CTDIvol = ( 44.99 ) mGy, DLP = ( 829.85 ) mGycm TECHNIQUE: Transaxial CT imaging of the brain was performed without administration of intravenous contrast material. Individualized dose optimization techniques were used for this CT. COMPARISON: Comparison is made with prior study dated 07/25/2021. FINDINGS: Normal soft tissue structures. Normal calvarium. There is mild cerebral atrophy with widening of the extra-axial spaces and ventricular dilatation. Normal white matter tracts of the cerebral hemispheres. Normal basal ganglia and thalami. Normal brainstem. Normal cerebellum. There is no intracranial hemorrhage. There are no findings of an acute ischemic infarction. Normal visualized paranasal sinuses. CT/Brain/Head without Contrast IMPRESSION: Chronic involutional changes of the brain. Electronically Signed: Dano Boyce MD at 14:13 EDT ,
--- NOTE | 2021-12-16 13:01 | EKG12_ITS ---
Test Reason : Blood Pressure : / mmHG Vent. Rate : 081 BPM Atrial Rate : 000 BPM P-R Int : 000 ms QRS Dur : 166 ms QT Int : 424 ms P-R-T Axes : 000 -59 -13 degrees QTc Int : 492 ms Somatic/Motion Artifact Atrial fibrillation Left axis deviation Right bundle branch block Septal infarct , age undetermined , cannot be excluded Abnormal ECG Confirmed by ADDIS STEWART, KM ([id number]), news video editor EM AKHTAR ([id number]) on 12/18/2021 9:24:57 AM Referred By: TON Confirmed By:KM MANCINI MD
--- NOTE | 2021-12-16 13:03 | EDS_ITS ---
HPI History of Present Illness Chief Complaint: Confusion Informant: patient and family Onset/Context/Timing Onset: Today Context: - (Upon waking up this morning) Timing: Continuous Quality: Confused/disoriented Current Severity: Severe Maximum Severity: Severe Worsened by: Nothing Relieved by: Nothing Associated Symptoms Associated Symptoms: Weak all over Narrative Narrative: Patient awoke this morning very weak and confused this is different for him. Initially son states he noticed he was very weak and not necessarily grossly confused but wanted to sleep in, so he did not evaluate but later, 11 AM, he was still sleeping which is unusual for him, so son was more concerned. Upon discussing with him it appeared that he was very disoriented. He occasionally is confused about certain details and fax but it is very unusual for him to not recognize immediate family members which is the case this morning. He was feeling fatigued last night before bed but not necessarily confused. He drove his car yesterday and did okay. Son states in the last several weeks he has been nauseated off and on. He also has developed a tremor that has been intermittent, and has been having disequilibrium issues when he walks at times, saw PCP for that at 1 point. Has had urinary tract infections for the last 20 years for which he is usually symptomatic, yesterday he had no symptoms with urinating. Patient is not able to provide all of an ROS right now but basically states he feels fine and denies having pain anywhere. Lives with who has dementia and cannot provide history. The son is very attentive to both of them. States his main health issue is his congestive heart failure and when he develops edema of the legs that is more than usual, he is allowed to give an additional Lasix in the evening in addition to the usual 1 that he takes in the morning, and he was more swollen yesterday so he did give him an additional Lasix last night. He takes 20 mg in the morning usually. Also, son notes that he remembers hearing a thud overnight but it was not so loud and dramatic that he thought his dad fell out of bed or anything, but certainly could have bumped into something as he was walking to the bathroom etc. The patient does not recall any fall or injury. [facility] Medical History (Updated 12/16/21 @ 16:[address] Eliz Solomon MD) (HFpEF) heart failure with preserved ejection fraction Anemia Arthritis Former smoker Gynecomastia, male H/O recurrent urinary tract infection HFrEF (heart failure with reduced ejection fraction) History of non-ST elevation myocardial infarction (NSTEMI) (02/16/19) History of prostate cancer Monoclonal gammopathy Non-ischemic cardiomyopathy Nonrheumatic aortic (valve) stenosis with insufficiency Obesity Osteoarthritis Pancytopenia Persistent atrial fibrillation Recurrent gastrointestinal hemorrhage Thrombocytopenia Thyroid nodule Walker as ambulation aid Wears glasses Home Medications amiodarone 100 mg tablet 100 mg PO DAILY #30 tabs 03/29/21 [Rx Last Taken 09/19/21] omeprazole 20 mg capsule,delayed release 20 mg PO DAILY 07/23/21 [History Last Taken 09/19/21] potassium chloride 20 mEq tablet,extended release 20 meq PO DAILY 07/23/21 [History Last Taken 09/19/21] sennosides 8.6 mg-docusate sodium 50 mg tablet (Stool Softener-Stimulant Laxative) 2 tab PO BID PRN PRN Constipation #0 tabs 09/20/21 [Rx Last Taken Unknown] cholecalciferol (vitamin D3) 50 mcg (2,000 unit) tablet 100 mcg PO DAILY 01/07 [History Last Taken Unknown] furosemide 40 mg tablet (Lasix) 20 mg PO DAILY 11/26/21 [History Last Taken Unknown] psyllium husk 0.52 gram capsule (Daily Fiber) 0.52 g PO DAILY 11/26/21 [History Last Taken Unknown] Allergy/AdvReac Type Severity Reaction Status Date / Time ciprofloxacin [From Cipro] Allergy Mild rash Verified 11/07/21 11:02 levofloxacin [From Levaquin] Allergy Mild rash Verified 11/07/21 11:02 Sulfa (Sulfonamide AdvReac Unknown Verified 11/07/21 11:02 Antibiotics) Family History (Updated 12/16/21 @ 16:[address] Eliz Solomon MD) Son CVA (cerebral vascular accident) Father Heart disease CHF (congestive heart failure) Mother Skin disorder Surgical History History of cardiac catheterization History of colonoscopy History of esophagogastroduodenoscopy (EGD) (07/22/21) History of hernia repair History of left heart catheterization (02/18/19) History of prostate surgery History of transurethral resection of prostate Hx of breast biopsy Hx of left breast biopsy Social History (Updated 12/16/21 @ 16:[address] Eliz Solomon MD) household members: spouse Smoking Status: Former smoker how long ago did patient quit smokin years ago alcohol intake: current alcohol intake frequency: a few times a week Alcohol type: wine substance use type: does not use caffeine: Yes Type: coffee ROS ROS ED Constitutional Constitutional ED: Denies chills or fever(s) Eyes Eyes: Denies change in vision or diplopia ENT ENT ED: Denies sore throat Cardiovascular Cardiovascular: Denies chest pain Respiratory/Chest Respiratory/Chest: Denies dyspnea Gastrointestinal Gastrointestinal: Denies abdominal pain Musculoskeletal Musculoskeletal: Denies back pain or neck pain Neurologic Neurologic: Reports as per HPI, confusion and tremor(s); Denies headache(s) or paresthesias Psychiatric Psychiatric: Denies anxiety or suicidal thoughts EXAM Physical Exam Const Vital Signs: 12/16/21 12:02 12/16/21 14:42 Temperature 96 F L Temperature Source Temporal Pulse Rate 74 Respiratory Rate 87 H 14 Blood Pressure 135/84 H 149/87 H Blood Pressure Mean 101 107 Pulse Ox 99 98 Oxygen Delivery Method Room Air Room Air Positive well nourished and well developed General Appearance ED: well developed and NAD HEENT Reports moist mucous membranes HEENT Narrative: Scabbed abrasions on the top of the head and the left face near the zygomatic arch. Neither is tender or associated with hematoma, crepitance, depression. No other signs of trauma. normocephalic and atraumatic Eyes PERRL and EOMs intact bilaterally Neck full ROM and supple Resp normal respiratory effort and clear to auscultation bilaterally Cardio regular rate, regular rhythm and no murmurs GI non-tender and non-distended Auscultation: normoactive bowel sounds Palpation: soft Back/Spine no CVA tenderness General Back: other FROM Extremity normal to inspection General Extremety ED: Yes edema; Negative for pulses abnormal or tenderness General Extremity: edema bilateral lower extremity Details: mild; Negative for pulses abnormal Neuro CN's II-XII intact bilaterally and no sensory deficits noted Neuro Narrative: Oriented to person only not time or place at all. GCS 14 due to confusion. Follows commands. Confused but not aphasic. Nonlateralizing neurologic exam cannot hold all 4 extremities up, and can grab the rails and sit himself up in bed. No pain in his back or neck in doing so. Sensorium / Orientation: awake, alert and orientation impaired Motor Exam: strength 5/5 throughout Skin no rashes or lesions noted and no wounds MDM MDM MDM Narrative Medical decision making narrative: Work-up including CT of the head, chest x-ray, urine does not obviously explain his acute confusional state, unless his urine does indicate an early infection. There is no bacteria in it. I sent it for culture but nothing there that indicates the need for he is pancytopenic but that does not appear new and none of it needs to be addressed emergently. His head scan shows nothing acute, no evidence of a subdural hematoma. It is unknown if his confusional state is related to hitting his head, which he appears to have done recently without any major signs of trauma, and occult infection such as the urine, or an uncommon cerebrovascular issue that is not visible on the CT. His chest x-ray 2 views of my interpretation shows small effusion on the left without any acute infiltrates or obvious signs of infection. EKG shows A. fib, he does have a history of that, he is not anticoagulated because of a history of GI bleeding, as this does put him at an increased risk for stroke. A progressive neurologic disorder such as dementia could be at play here as well, the family does state that this is significant confusion compared to anything he has ever had; he is still confused on reevaluation, plan is for admission. The patient's CMP and troponin sample apparently hemolyzed, and there has been significant delay in getting the results of this. Discussed with hospitalist who will check the results and still admitted. Lab Data Attestation: I reviewed the patient's lab results. Labs: Laboratory Results - last 24 hr 12/16/21 12/16/21 12/16/21 12:30 12:30 13:40 WBC 3.3 L RBC 4.21 L Hgb 12.8 L Hct 38.5 L MCV 91.4 MCH 30.4 MCHC 33.2 RDW Std Deviation 69.6 H RDW Coeff of Ashkan 20.8 H Plt Count 87 L MPV 11.9 Immature Gran % (Auto) 0.300 Neut % (Auto) 63.1 Lymph % (Auto) 22.0 [place] % (Auto) 8.2 Eos % (Auto) 4.6 Baso % (Auto) 1.8 H Absolute Neuts (auto) 2.1 Absolute Lymphs (auto) 0.72 L Nucleated RBC % 0 Platelet Estimate SLT DEC Poikilocytosis 1+ Anisocytosis 1+ Ovalocytes 1+ Sodium Cancelled Potassium Cancelled Chloride Cancelled Carbon Dioxide Cancelled Anion Gap Cancelled BUN Cancelled Creatinine Cancelled Estim Creat Clear Calc Cancelled Est GFR (MDRD) Af Amer Cancelled Est GFR (MDRD) Non-Af Cancelled BUN/Creatinine Ratio Cancelled Glucose Cancelled Calcium Cancelled Total Bilirubin Cancelled AST Cancelled ALT Cancelled Alkaline Phosphatase Cancelled Troponin I High Sens Cancelled Total Protein Cancelled Albumin Cancelled Globulin Cancelled Albumin/Globulin Ratio Cancelled Urine Color Yellow Urine Clarity Sl. Cloudy Urine pH 8.0 Ur Specific [place] 1.015 Urine Protein 15 H Urine Glucose (UA) Normal Urine Ketones Negative Urine Occult Blood 10 H Urine Nitrite Negative Urine Bilirubin Negative Urine Urobilinogen 1 H Ur Leukocyte Esterase 100 H Urine RBC 0 SEEN Urine WBC 25-50 SEEN Ur Squamous Epith Cells 0 SEEN Urine Bacteria 0 SEEN Urine Mucus 0 SEEN Radiography Diagnostic Testing: Clinical Impression(s) from Imaging Studies Brain CT 12/16/21 13:01 IMPRESSION: Chronic involutional changes of the brain. Electronically Signed: Dano Boyce MD at 14:13 EDT , Chest X-Ray 12/16/21 13:44 IMPRESSION: Small left pleural effusion with left basilar atelectasis. Moderate cardiomegaly. Electronically Signed: Dano Boyce MD at 14:10 EDT , Rhythm Strip Rhythm Strip: A-fib Rate: 80 Ectopy: None EKG Initial EKG: Attestation: I personally reviewed and interpreted this EKG as follows: Interpretation: No Acute Injury Pattern, Atrial Fibrillation, RBBB and LAFB Prior EKG tracings: available for review Prior: Unchanged Discharge Plan Dx/Rx/DC Orders Clinical Impression: Acute encephalopathy, Persistent atrial fibrillation, Pancytopenia Disposition Disposition: Acute Care Hospital [facility] Discharge Date/Time: 12/16/21 16:03
[2021-12-16 13:15] LABS: Absolute Lymphocyte Count 0.72 X10^3/uL (0.83-4.51); Absolute Neutrophil Count 2.1 X10^3/uL (2.0-7.7); Basophil# 0.06 X10^3/uL; Basophil% 1.8 % (0-1); Eosinophil# 0.15 X10^3/uL; Eosinophils% 4.6 % (0-5); Hematocrit 38.5 % (40-54); Hemoglobin 12.8 g/dL (13.0-16.5); Lymphocyte # 0.72 X10^3/ul (0.83-4.51); Mean Corp Hgb Conc 33.2 g/dL (32-36); Mean Corpuscular Hgb 30.4 pg (27.0-32.0); Mean Corpuscular Volume 91.4 fL (80-94); Mean Platelet Vol. 11.9 fl (6.2-12.0); Monocyte# 0.27 X10^3/uL; Monocyte% 8.2 % (0-10); NRBC Flagged by Analyzer 0 % (0-5); Neutrophil # 2.07 X10^3/uL (2.7-7.7); Neutrophil % 63.1 % (47-70); POSITIVE COUNT YES; POSITIVE MORPHOLOGY YES; Platelet Count 87 K/mm3 (150-450); RBC Distribution Width CV 20.8 % (11.6-14.6); RBC Distribution Width SD 69.6 fl (35.1-43.9); Red Blood Count 4.21 M/mm3 (4.6-6.2); White Blood Count 3.3 K/mm3 (4.4-11.0)
[2021-12-16 13:18] LABS: Differential Indicated SCAN CRITERIA MET
[2021-12-16] MEDS: Ondansetron 4 MG/2 ML Vial IV (13:18)
--- NOTE | 2021-12-16 13:44 | RAD_ITS ---
STUDY: X-RAY CHEST REASON FOR EXAM: Male, 81 years old. Weakness . Confusion and swelling in the lower extremities. TECHNIQUE: AP and lateral views of the chest. COMPARISON: Comparison is made with prior study 09/19/2021. FINDINGS: EKG electrodes are seen. Small left pleural effusion with left basilar atelectasis. There is no demonstrated pleural abnormality. There is moderate cardiac enlargement. Normal mediastinum and mars. Normal visualized pulmonary arteries. There is atherosclerotic tortuosity of the aortic arch and descending thoracic aorta. There are diffuse degenerative changes of the visualized thoracic spine. Normal visualized ribs, clavicles, and shoulders. There is no demonstrated abnormality of the visualized soft tissue structures of the upper abdomen. RAD/Chest PA and Lateral IMPRESSION: Small left pleural effusion with left basilar atelectasis. Moderate cardiomegaly. Electronically Signed: Dano Boyce MD at 14:10 EDT ,
[2021-12-16 13:47] LABS: Platelet Estimate SLT DEC (ADEQ)
[2021-12-16 13:48] LABS: Anisocytosis 1+; Ovalocyte 1+; Poikilocytosis 1+
[2021-12-16 13:50] LABS: Bacteria 0 SEEN /hpf (None Seen); Mucous, Urine 0 SEEN /hpf (<or=2+); Squamous Epithelial Cells - UA 0 SEEN /hpf (0-5)
[2021-12-16 13:51] LABS: Color, Urine Yellow (Yellow); Glucose, Dipstick Normal (Normal); Ketone-Dipstick Negative (Negative); Leukocyte Esterase-Dipstick 100 /ul (Negative); Nitrite-Dipstick Negative (Negative); Occult Blood-Urine 10 /ul (Negative); Protein-Dipstick 15 mg/dl (Negative); Specific Gravity, Urine 1.015 (1.002-1.030); Urine Bilirubin Dipstick Negative (Negative); Urine Clarity Sl. Cloudy (Clear); Urine Urobilinogen 1 mg/dl (Normal)
[2021-12-16 14:00] LABS: Red Blood Cells-Urine 0 SEEN /hpf (0-5); White Blood Cells 25-50 SEEN /hpf (0-5)
--- NOTE | 2021-12-16 15:11 | HP.PCM.HOS_ITS ---
HPI - General General Date of Admission: 12/16/21 Date of Service: 12/16/21 Chief Complaint: Weakness, confusion HPI Narrative The patient is a 81 y/o M w/ PMHx: Dementia unclear type with unclear behavioral disturbance history, GERD, Chronic Diastolic CHF, Nonischemic cardiomyopathy, HTN, HLD, Former tobacco use, Hx Recurrent UTI, PAF not chronically anticoagulated secondary to GI bleed, Hx Prostate CA s/p TURP, Chronic pancytopenia who presents to the [facility] ED on 12/16/21 with history of increased confusion and debility, weakness above his baseline reporting that he slept in later than usual prompting the son eventually to check in on him at 11 AM reporting that at that time he was significantly disoriented although he can occasionally be confused with very focal details since unusual to be globally confused and not recognize family members which was the case reportedly feeling fatigued the evening prior but no confusion at that time. Over the last several weeks family is noted that he has been intermittently nauseated and is also developed an intermittent tremor with difficulty with his balance occasionally when he walks. He has seen the PCP in the past for his disequilibrium. He denies any recent urinary symptoms. Additionally he reported some mild increased lower extremity swelling and took an additional Lasix the evening prior. Also the evening prior the son remembers hearing a thud but was not extremely loud and there was no yell but certainly he notes that his father could have fell out of bed or in the bathroom but the patient does not recall any injury or trauma. Work-up in the ED included T 96, heart rate 74, BP 149/87, respiratory rate 14, 98% on room air, CBC with WBC 3.3, hemoglobin 12.8, platel et 87 with lymphopenia, urinalysis with specific gravity 1.015, negative nitrite, leukocyte esterase 100, urine WC is 25-50 with no urine bacteria, chest x-ray small left pleural effusion and left basilar atelectasis with moderate cardiomegaly, CT of the brain with chronic involutional changes with no acute intracranial findings, rapid COVID-negative, urine culture pending per ED, EKG with atrial fibrillation noted to be rate controlled with no acute evidence of ischemia. [facility] Medical History (Updated 12/16/21 @ 16:[address] Eliz Solomon MD) (HFpEF) heart failure with preserved ejection fraction Anemia Arthritis Former smoker Gynecomastia, male H/O recurrent urinary tract infection HFrEF (heart failure with reduced ejection fraction) History of non-ST elevation myocardial infarction (NSTEMI) (02/16/19) History of prostate cancer Monoclonal gammopathy Non-ischemic cardiomyopathy Nonrheumatic aortic (valve) stenosis with insufficiency Obesity Osteoarthritis Pancytopenia Persistent atrial fibrillation Recurrent gastrointestinal hemorrhage Thrombocytopenia Thyroid nodule Walker as ambulation aid Wears glasses Home Medications amiodarone 100 mg tablet 100 mg PO DAILY #30 tabs 03/29/21 [Rx Last Taken 09/19/21] omeprazole 20 mg capsule,delayed release 20 mg PO DAILY 07/23/21 [History Last Taken 09/19/21] potassium chloride 20 mEq tablet,extended release 20 meq PO DAILY 07/23/21 [History Last Taken 09/19/21] sennosides 8.6 mg-docusate sodium 50 mg tablet (Stool Softener-Stimulant Laxative) 2 tab PO BID PRN PRN Constipation #0 tabs 09/20/21 [Rx Last Taken Unknown] cholecalciferol (vitamin D3) 50 mcg (2,000 unit) tablet 100 mcg PO DAILY 11/26/21 [History Last Taken Unknown] furosemide 40 mg tablet (Lasix) 20 mg PO DAILY 11/26/21 [History Last Taken Unknown] psyllium husk 0.52 gram capsule (Daily Fiber) 0.52 g PO DAILY 11/26/21 [History Last Taken Unknown] Allergy/AdvReac Type Severity Reaction Status Date / Time ciprofloxacin [From Cipro] Allergy Mild rash Verified 11/07/21 11:02 levofloxacin [From Levaquin] Allergy Mild rash Verified 11/07/21 11:02 Sulfa (Sulfonamide AdvReac Unknown Verified 11/07/21 11:02 Antibiotics) Family History (Updated 12/16/21 @ 16:[address] Eliz Solomon MD) Son CVA (cerebral vascular accident) Father Heart disease CHF (congestive heart failure) Mother Skin disorder Surgical History History of cardiac catheterization History of colonoscopy History of esophagogastroduodenoscopy (EGD) (07/22/21) History of hernia repair History of left heart catheterization (02/18/19) History of prostate surgery History of transurethral resection of prostate Hx of breast biopsy Hx of left breast biopsy Social History (Updated 12/16/21 @ 16:[address] Eliz Solomon MD) household members: spouse Smoking Status: Former smoker how long ago did patient quit smokin years ago alcohol intake: current alcohol intake frequency: a few times a week Alcohol type: wine substance use type: does not use caffeine: Yes Type: coffee ROS ROS Narrative Admission Review of Systems: CONSTITUTIONAL: No weight loss, fever, chills, + weakness or fatigue. HEENT: Eyes: No visual loss, blurred vision, double vision or yellow sclerae. Ears, Nose, Throat: No hearing loss, sneezing, congestion, runny nose or sore throat. SKIN: No rash or itching, lesions, wounds. CARDIOVASCULAR: No chest pain, chest pressure or chest discomfort, palpitations, edema, orthopnea, syncopal events. RESPIRATORY: No shortness of breath, cough or sputum, wheezing, hemoptysis. GASTROINTESTINAL: No anorexia, nausea, vomiting or diarrhea, abdominal pain, melena, BRBPR. GENITOURINARY: No dysuria, frequency, urgency or retention. NEUROLOGICAL: + Potential falls, increased confusion above baseline, imbalance issues, no headache, dizziness, syncope, paralysis, numbness or tingling in the extremities, focal weakness, change in bowel or bladder control, seizure. MUSCULOSKELETAL: No muscle, back pain, joint pain or stiffness. HEMATOLOGIC: + anemia, bleeding or bruising. LYMPHATICS: No enlarged nodes. No history of splenectomy. PSYCHIATRIC: No history of depression or anxiety. ENDOCRINOLOGIC: No reports of sweating, cold or heat intolerance. No polyuria or polydipsia. ALLERGIES: No history of asthma, hives, eczema or rhinitis. Vital Signs Vital Signs Vital Signs: 12/16/21 12:02 12/16/21 14:42 Temperature 96 F L Temperature Source Temporal Pulse Rate 74 Respiratory Rate 87 H 14 Blood Pressure 135/84 H 149/87 H Blood Pressure Mean 101 107 Pulse Ox 99 98 Oxygen Delivery Method Room Air Room Air Weight Weight: 186 lb 3.2 oz Body Mass Index (BMI) 25.2 Physical Exam Narrative Physical Examination: General: Awake, alert, oriented to self and able to identify his however significant difficulty with even year, month, president, rinse cooperative and is frustrated with his inability to answer, seated upright in the ED bed, fatigued otherwise no acute distress. Skin: Normal color, normal turgor, no icterus, no cyanosis except for very staged ecchymoses to the extremities. HEENT: AT/NC, EOMI, PERRLA, MMM, no carotid bruits or JVD noted. Lungs: Mildly diminished, greater bases, appropriate effort, no rales, ronchi or wheezing. Heart: Irregular, rate controlled; no gallop, rub audible. Abdomen: Soft, overweight, NTTP, ND, distant normal BS, no HSM. Extremities: No cyanosis, no clubbing, chronic bilateral lower extremity ankle to distal lopez edema, left greater than right, nonpitting. Neurological: Patient awake, alert, oriented as noted, cognitive function decreased baseline with postulated underlying dementia per family however worsened, currently not baseline intact; pupils equally reactive to light and accommodation, cranial nerves II-XII grossly normal, moving all 4 extremities, no focal deficits, strength moderately global decreased, some difficulty with bilateral [id number] and [id number], equivocal Babinski, sensation intact Psychiatric: Affect appears mildly frustrated, no acute evidence of depressive or anxiety feelings. Results Lab / Micro Data Result Diagrams: 12/16/21 12:30 12/16/21 15:50 Labs: Laboratory Results - last 24 hr 12/16/21 12:30: WBC 3.3 L, RBC 4.21 L, Hgb 12.8 L, Hct 38.5 L, MCV 91.4, MCH 30.4, MCHC 33.2, RDW Std Deviation 69.6 H, RDW Coeff of Ashkan 20.8 H, Plt Count 87 L, MPV 11.9, Immature Gran % (Auto) 0.300, Neut % (Auto) 63.1, Lymph % (Auto) 22.0, [place] % (Auto) 8.2, Eos % (Auto) 4.6, Baso % (Auto) 1.8 H, Absolute Neuts (auto) 2.1, Absolute Lymphs (auto) 0.72 L, Nucleated RBC % 0, Platelet Estimate SLT DEC, Poikilocytosis 1+, Anisocytosis 1+, Ovalocytes 1+ 12/16/21 12:30: Sodium Cancelled, Potassium Cancelled, Chloride Cancelled, Carbon Dioxide Cancelled, Anion Gap Cancelled, BUN Cancelled, Creatinine Cancelled, Estim Creat Clear Calc Cancelled, Est GFR (MDRD) Af Amer Cancelled, Est GFR (MDRD) Non-Af Cancelled, BUN/Creatinine Ratio Cancelled, Glucose Cancelled, Calcium Cancelled, Total Bilirubin Cancelled, AST Cancelled, ALT Cancelled, Alkaline Phosphatase Cancelled, Troponin I High Sens Cancelled, Total Protein Cancelled, Albumin Cancelled, Globulin Cancelled, Albumin/Globulin Ratio Cancelled 12/16/21 13:40: Urine Color Yellow, Urine Clarity Sl. Cloudy, Urine pH 8.0, Ur Specific Stanton 1.015, Urine Protein 15 H, Urine Glucose (UA) Normal, Urine Ketones Negative, Urine Occult Blood 10 H, Urine Nitrite Negative, Urine Bilirubin Negative, Urine Urobilinogen 1 H, Ur Leukocyte Esterase 100 H, Urine RBC 0 SEEN, Urine WBC 25-50 SEEN, Ur Squamous Epith Cells 0 SEEN, Urine Bacteria 0 SEEN, Urine Mucus 0 SEEN Micro: Microbiology 12/16/21 13:20 Nasal Secretion SARS-CoV-2 & FLU Antigen (Rapid) - Final Rhythm Strip Rhythm Strip: A-fib Rate: 80 Ectopy: None Radiology Impression Brain CT 12/16/21 13:01 IMPRESSION: Chronic involutional changes of the brain. Electronically Signed: Dano Boyce MD at 14:13 EDT , Chest X-Ray 12/16/21 13:44 IMPRESSION: Small left pleural effusion with left basilar atelectasis. Moderate cardiomegaly. Electronically Signed: Dano Boyce MD at 14:10 EDT , Assessment & Plan Assessment/Plan (1) TIA (transient ischemic attack): PLAN: Plan The patient is a 81 y/o M w/ PMHx: Dementia unclear type with unclear behavioral disturbance history, GERD, Chronic Diastolic CHF, Nonischemic cardiomyopathy, HTN, HLD, Former tobacco use, Hx Recurrent UTI, PAF not chronically anticoagulated secondary to GI bleed, Hx Prostate CA s/p TURP, Chronic pancytopenia who presents to the [facility] ED on 12/16/21 with history of increased confusion and debility, weakness above his baseline reporting that he slept in later than usual prompting the son eventually to check in on him at 11 AM reporting that at that time he was significantly disoriented although he can occasionally be confused with very focal details since unusual to be globally confused and not recognize family members which was the case reportedly feeling fatigued the evening prior but no confusion at that time. #1. Imbalance, confusion above based concerning for TIA/CVA: Will admit to PCU, will obtain MRI Brain, MRA Head and carotid US, obtain ECHO, PT/OT/Speech/Nutrition evaluation per protocol. Will allow permissive HTN, maintain on asa, add moderate dose statin w/ AM FLP, fall precautions. FLP, mag, TSH, HgbA1c requested. Holding on anticoagulation with PAF history given GI bleed history. Once evaluation and work-up obtained will consider Neurology evaluation if appropriate. #2. Dementia unclear type with unclear behavioral disturbance history: Complicates presentation, unclear if potentially remitting/relapsing, therapies consulted as noted, maintain on fall and aspiration precautions. #3. Chronic Thrombocytopenia with history of monoclonal gammopathy: Admission CBC with WC 3.3, hemoglobin 12.8, MCV 91.4, platelet 87 with lymphopenia, baseline prior WBC 3.0 most recently 10/09/2021, baseline prior hemoglobin primarily 11-12 last noted 10/09/2021, baseline prior platelets primarily 90-150, will continue to trend. #4. Chronic diastolic CHF, nonischemic cardiomyopathy: We will continue patient home aspirin, adding moderate dose statin given #1 as noted, not on beta-summer therapy nor OLAF/ARB, holding lasix for permissive HTN temporarily. #5. PAF: We will continue patient home amiodarone regimen, not chronically anti coagulated secondary to prior GI bleed history and from current history of potential high fall risk also. #6. Hypertension: Temporarily hold as noted #1, add back once appropriate, PRN agents per stroke protocol. #7. Hyperlipidemia: Add moderate dose statin given acute presentation #1, FLP in AM. #8. History of prostate cancer: Status post TURP, considered in remission. #9. Former tobacco usage: Encourage continued tobacco cessation. #10. GERD: We will continue patient on PPI. #11. DVT prophylaxis: SCDs, heparin with continued close CBC monitoring, low threshold to hold given history and prior GI bleed hx. #12. CODE status: Patient notes that his healthcare power of estate planning attorney is his son and he is unsure if a living will is in place. present for conversations. Discussed CODE status at length including difference between FULL code, DNR-CCA and DNR-CC status. Following discussions about the differences in these status, requested Full Code status. Advanced Care Planning Face to Face Time: 16 minutes. Charges/Coding Visit Charges OBSV E&M: 32465 Initial observation care L3 Procedures Hospitalists Procedures: 13556 Advncd Care Plan 30 Min
--- NOTE | 2021-12-16 15:42 | NURSING ---
PCU WHITE ACUTE ENCEPHALOPATHY
[2021-12-16 16:18] LABS: AST(SGOT) 21 U/L (15-37); Alanine Aminotransfer ALT/SGPT 20 U/L (16-61); Albumin, Serum 2.8 g/dL (3.2-5.0); Alkaline Phosphatase 93 U/L (45-117); Anion Gap 5 (5-15); BUN 19 mg/dL (7-18); BUN/Creat Ratio 14.6 RATIO (10-20); Calcium,Total 8.5 mg/dL (8.5-10.1); Chloride 114 mmol/L (98-107); EST Glomerular Filtration Rate 57 mL/min (>60); Est Glom Filt Rate - Afr Amer 68 mL/min (>60); Estimated Creatinine Clearance 50.57 ml/min; Globulin 2.9 g/dL (2.2-4.2); Glucose 97 mg/dL (74-106); Potassium 4.2 mmol/L (3.5-5.1); Protein, Total 5.7 g/dL (6.4-8.2); Sodium Level 146 mmol/L (136-145); Troponin-I HS 28 pg/mL (3.0-78.0)
--- NOTE | 2021-12-16 16:21 | CDU_ITS ---
Reason For Study: CVA Rt. Velocities/BP Lt. Velocities/BP Prox CCA 66.4/6.9 cm/sec. Prox CCA 81.7/15.7 cm/sec. Mid CCA 77.8/9.7 cm/sec. Mid CCA 58.9/10.7 cm/sec. Dist CCA 59.8/12.6 cm/sec. Dist CCA 50/8.1 cm/sec. Prox ICA 52.2/9.7 cm/sec. Prox ICA 39.5/5.5 cm/sec. Mid ICA 50.4/11.6 cm/sec. Mid ICA 46.5/16 cm/sec. Dist ICA 51.3/11.6 cm/sec. Dist ICA 70.2/19.2 cm/sec. Rt. ICA/CCA = 0.79. Lt. ICA/CCA = 1.19. Prox ECA 88.2/11.5 cm/sec. Prox ECA 53.5/5.5 cm/sec. Rt. Vert. 55.1/12.6 cm/sec. Lt. Vert. 16.3/2.7 cm/sec. Right Extracranial There is intimal thickening but no significant atherosclerotic plaque noted in the right common carotid artery. There is intimal thickening but no significant atherosclerotic plaque noted in the right internal carotid artery. There is intimal thickening but no significant atherosclerotic plaque noted in the right external carotid artery. Antegrade flow is noted in the right vertebral artery. Left Extracranial There is homogeneous, smooth atherosclerotic plaque noted in the left common carotid artery. There is intimal thickening but no significant atherosclerotic plaque noted in the left internal carotid artery. There is intimal thickening but no significant atherosclerotic plaque noted in the left external carotid artery. Antegrade flow is noted in the left vertebral artery. VL/Carotid Duplex Ultrasound Interpretation Summary Intimal thickening bilateral proximal internal carotid arteries with less than 50% stenosis Less than 50% stenosis bilateral external carotid arteries Patent and antegrade vertebral arteries bilaterally Ordering Physician: Eliz Solomon Referring Physician: Steff Culp D.O. Performed By: Yi Velasco RVT
--- NOTE | 2021-12-16 16:21 | ECHOD_ITS ---
Version 2 Reason For Study: CVA Procedure This was a 2D Doppler, Color Flow transthoracic echocardiogram. The study was technically difficult. PT WAS VERY RESTLESS AND CONFUSED. PT held my arm throughout exam.(it helped calm him some). Exam performed portable in patient room. Left Ventricle Mildly dilated left ventricle. Mild concentric left ventricular hypertrophy. Left ventricular systolic function is normal. The estimated ejection fraction is 55 %. Stage 3 diastolic dysfunction. No regional wall motion abnormalities noted. Right Ventricle Normal RV size. Normal systolic function. Atria The left atrium is mildly enlarged. The right atrium is moderately enlarged. No doppler evidence for ASD. Mitral Valve There is no mitral annular calcification. Mild diffuse mitral valve thickening. The mitral valve chordae are thickened and/or calcified. Trivial mitral valve insufficiency. Tricuspid Valve Normal tricuspid valve. Mild tricuspid valve insufficiency. Right ventricular systolic pressure estimated to be 31 mmHg. Aortic Valve Trisinus/trileaflet aortic valve. Mild focal aortic valve calcification. Mild (1+) aortic valve insufficiency. Pulmonic Valve The pulmonic valve is not well visualized. Great Vessels Normal sized aortic root. Pericardium/Pleural No pericardial effusion. Medication Bubble study attempted x 3. MMode/2D Measurements & Calculations LVIDd: 6.0 cm IVSd: 1.3 cm Ao root diam: 3.3 cm LVIDs: 4.4 cm LVPWd: 1.4 cm RVDd: 4.0 cm FS: 26.7 % LAV(MOD-bp): 152.5 ml LA A4 area: 41.0 cm2 LA dimension(2D): 4.3 cm LAV(MOD-bp) Indexed: 75.2 ml/m2 LAV(MOD-sp2): 109.4 ml LAV(MOD-sp4): 148.3 ml RA A4 area: 39.2 cm2 Doppler Measurements & Calculations MV E max holden: 76.0 cm/sec Lat Peak E' Holden: 8.7 cm/sec Med Peak E' Holden: 7.6 cm/sec MV A max holden: 29.9 cm/sec E/E' lat: 8.7 E/E' med: 10.1 MV E/A: 2.5 Ao V2 max: 207.9 cm/sec AI max holden: 482.4 cm/sec LV V1 max: 81.7 cm/sec Ao max P.3 mmHg AI max P.1 mmHg LV V1 max P.7 mmHg Ao V2 mean: 153.6 cm/sec AI dec slope: 216.6 cm/sec2 LV V1 mean P.8 mmHg Ao mean P.6 mmHg AI P1/2t: 652.4 msec LV V1 mean: 65.2 cm/sec Ao V2 VTI: 40.3 cm LV V1 VTI: 14.7 cm PA V2 max: 79.9 cm/sec TR max holden: 262.5 cm/sec TR max P.6 mmHg ECHO/Echo Complete Interpretation Summary The study was technically difficult. Mildly dilated left ventricle. Left ventricular systolic function is normal. The estimated ejection fraction is 55 %. Mild concentric left ventricular hypertrophy. The left atrium is mildly enlarged. The right atrium is moderately enlarged. Mild diffuse mitral valve thickening. The mitral valve chordae are thickened and/or calcified. Trivial mitral valve insufficiency. Mild tricuspid valve insufficiency. Mild focal aortic valve calcification. Mild (1+) aortic valve insufficiency. Right ventricular systolic pressure estimated to be 31 mmHg. Stage 3 diastolic dysfunction. Ordering Physician: Eliz Solomon Referring Physician: Steff Culp Performed By: Barbara Alford, VICTORINA, RVT
[2021-12-16 16:35] LABS: Magnesium 2.3 mg/dL (1.6-2.6)
[2021-12-16] MEDS: Atorvastatin Calcium 20 MG Tablet PO (21:59)
[2021-12-16] MEDS: Heparin Injection (Vial) 5,000 UNIT/ML VIAL 5000 UNIT SC (21:59)
[2021-12-17] VITALS (15 sets, daily range): BP systolic 131–169; BP diastolic 71–93; PULSE 68–88; RESP 16–20; TEMP 36.4–37.2; O2SAT 95–99; BMI 24.2
[2021-12-17 06:30] LABS: Absolute Lymphocyte Count 0.75 X10^3/uL (0.83-4.51); Absolute Neutrophil Count 2.2 X10^3/uL (2.0-7.7); Basophil# 0.07 X10^3/uL; Eosinophil# 0.14 X10^3/uL; Eosinophils% 4.1 % (0-5); Hematocrit 37.6 % (40-54); Hemoglobin 12.7 g/dL (13.0-16.5); Lymphocyte # 0.75 X10^3/ul (0.83-4.51); Lymphocyte % 21.8 % (19-41); Mean Corp Hgb Conc 33.8 g/dL (32-36); Mean Corpuscular Hgb 30.5 pg (27.0-32.0); Mean Corpuscular Volume 90.2 fL (80-94); Mean Platelet Vol. 10.4 fl (6.2-12.0); Monocyte# 0.28 X10^3/uL; Monocyte% 8.1 % (0-10); NRBC Flagged by Analyzer 0 % (0-5); Neutrophil # 2.19 X10^3/uL (2.7-7.7); Neutrophil % 63.7 % (47-70); POSITIVE MORPHOLOGY YES; Platelet Count 105 K/mm3 (150-450); RBC Distribution Width CV 20.9 % (11.6-14.6); RBC Distribution Width SD 68.7 fl (35.1-43.9); Red Blood Count 4.17 M/mm3 (4.6-6.2); White Blood Count 3.4 K/mm3 (4.4-11.0)
[2021-12-17 06:45] LABS: Differential Indicated SCAN CRITERIA MET
[2021-12-17 06:50] LABS: Anisocytosis 2+
[2021-12-17 06:51] LABS: Platelet Estimate SLT DEC (ADEQ)
[2021-12-17 07:08] LABS: AST(SGOT) 23 U/L (15-37); Alanine Aminotransfer ALT/SGPT 18 U/L (16-61); Albumin, Serum 2.6 g/dL (3.2-5.0); Alkaline Phosphatase 86 U/L (45-117); Anion Gap 4 (5-15); BUN 19 mg/dL (7-18); BUN/Creat Ratio 14.8 RATIO (10-20); Calcium,Total 8.3 mg/dL (8.5-10.1); Chloride 117 mmol/L (98-107); Cholesterol 136 mg/dL (200); Creatinine, Serum 1.28 mg/dL (0.70-1.30); EST Glomerular Filtration Rate 58 mL/min (>60); Est Glom Filt Rate - Afr Amer 70 mL/min (>60); Estimated Creatinine Clearance 51.36 ml/min; Globulin 2.6 g/dL (2.2-4.2); Glucose 94 mg/dL (74-106); High Density Lipoprotein 69 mg/dL; Potassium 4.2 mmol/L (3.5-5.1); Protein, Total 5.2 g/dL (6.4-8.2); Sodium Level 146 mmol/L (136-145); Thyroid Stim Hormone (TSH) 4.33 uIU/mL (0.358-3.74); Triglycerides 70 mg/dL; Very Low Density Lipoprotein 14 mg/dL (5-40)
--- NOTE | 2021-12-17 08:22 | PCM.PN.HOSP ---
Subjective Subjective Follow-up for acute confusional state, acute encephalopathy. Patient was admitted with disorientation, not acting appropriately Objective Data Objective Data Vital Signs: Vital Signs Temp Pulse Resp BP Pulse Ox O2 Del Method 98.9 F 68 18 169/86 H 98 Room Air 12/17/21 04:22 12/17/21 07:00 12/17/21 04:22 12/17/21 04:22 12/17/21 04:22 12/17/21 04:22 Oxygen Delivery Method Room Air Weight: 181 lb 7.047 oz Body Mass Index (BMI) 24.2 Intake & Output: Intake and Output for Last 24 Hours 12/15/21 12/16/21 12/17/21 23:59 23:59 23:59 Intake Total 120 / 120 120 / 120 Output Total 225 / 225 350 / 350 Balance -105 / -105 -230 / -230 Lab / Micro Data Result Diagrams: 12/17/21 06:00 12/17/21 06:00 Labs: Laboratory Results - last 24 hr 12/16/21 12:30: WBC 3.3 L, RBC 4.21 L, Hgb 12.8 L, Hct 38.5 L, MCV 91.4, MCH 30.4, MCHC 33.2, RDW Std Deviation 69.6 H, RDW Coeff of [place] 20.8 H, Plt Count 87 L, MPV 11.9, Immature Gran % (Auto) 0.300, Neut % (Auto) 63.1, Lymph % (Auto) 22.0, Petroleum % (Auto) 8.2, Eos % (Auto) 4.6, Baso % (Auto) 1.8 H, Absolute Neuts (auto) 2.1, Absolute Lymphs (auto) 0.72 L, Nucleated RBC % 0, Platelet Estimate SLT DEC, Poikilocytosis 1+, Anisocytosis 1+, Ovalocytes 1+ 12/16/21 12:30: Sodium Cancelled, Potassium Cancelled, Chloride Cancelled, Carbon Dioxide Cancelled, Anion Gap Cancelled, BUN Cancelled, Creatinine Cancelled, Estim Creat Clear Calc Cancelled, Est GFR (MDRD) Af Amer Cancelled, Est GFR (MDRD) Non-Af Cancelled, BUN/Creatinine Ratio Cancelled, Glucose Cancelled, Calcium Cancelled, Total Bilirubin Cancelled, AST Cancelled, ALT Cancelled, Alkaline Phosphatase Cancelled, Troponin I High Sens Cancelled, Total Protein Cancelled, Albumin Cancelled, Globulin Cancelled, Albumin/Globulin Ratio Cancelled 12/16/21 13:40: Urine Color Yellow, Urine Clarity Sl. Cloudy, Urine pH 8.0, Ur Specific [place] 1.015, Urine Protein 15 H, Urine Glucose (UA) Normal, Urine Ketones Negative, Urine Occult Blood 10 H, Urine Nitrite Negative, Urine Bilirubin Negative, Urine Urobilinogen 1 H, Ur Leukocyte Esterase 100 H, Urine RBC 0 SEEN, Urine WBC 25-50 SEEN, Ur Squamous Epith Cells 0 SEEN, Urine Bacteria 0 SEEN, Urine Mucus 0 SEEN 12/16/21 15:50: Sodium 146 H, Potassium 4.2, Chloride 114 H, Carbon Dioxide 27.0, Anion Gap 5, BUN 19 H, Creatinine 1.30, Estim Creat Clear Calc 50.57, Est GFR (MDRD) Af Amer 68, Est GFR (MDRD) Non-Af 57 L, BUN/Creatinine Ratio 14.6, Glucose 97, Calcium 8.5, Total Bilirubin 1.10 H, AST 21, ALT 20, Alkaline Phosphatase 93, Troponin I High Sens 28, Total Protein 5.7 L, Albumin 2.8 L, Globulin 2.9, Albumin/Globulin Ratio 1.0 12/16/21 15:50: Magnesium 2.3 12/17/21 06:00: WBC 3.4 L, RBC 4.17 L, Hgb 12.7 L, Hct 37.6 L, MCV 90.2, MCH 30.5, MCHC 33.8, RDW Std Deviation 68.7 H, RDW Coeff of [place] 20.9 H, Plt Count 105 L, MPV 10.4, Immature Gran % (Auto) 0.300, Neut % (Auto) 63.7, Lymph % (Auto) 21.8, Pet[place] % (Auto) 8.1, Eos % (Auto) 4.1, Baso % (Auto) 2.0 H, Absolute Neuts (auto) 2.2, Absolute Lymphs (auto) 0.75 L, Nucleated RBC % 0, Platelet Estimate SLT DEC, Anisocytosis 2+ 12/17/21 06:00: Sodium 146 H, Potassium 4.2, Chloride 117 H, Carbon Dioxide 25.0, Anion Gap 4 L, BUN 19 H, Creatinine 1.28, Estim Creat Clear Calc 51.36, Est GFR (MDRD) Af Amer 70, Est GFR (MDRD) Non-Af 58 L, BUN/Creatinine Ratio 14.8, Glucose 94, Calcium 8.3 L, Total Bilirubin 1.20 H, AST 23, ALT 18, Alkaline Phosphatase 86, Total Protein 5.2 L, Albumin 2.6 L, Globulin 2.6, Albumin/Globulin Ratio 1.0, Triglycerides 70, Cholesterol 136, LDL Cholesterol 53, VLDL Cholesterol 14, HDL Cholesterol 69, TSH 4.33 H Micro: Microbiology 12/16/21 13:20 Nasal Secretion SARS-CoV-2 & FLU Antigen (Rapid) - Final Radiography Diagnostic Testing: Radiology Impression Brain CT 12/16/21 13:01 IMPRESSION: Chronic involutional changes of the brain. Electronically Signed: Dano Boyce MD at 14:13 EDT , Chest X-Ray 12/16/21 13:44 IMPRESSION: Small left pleural effusion with left basilar atelectasis. Moderate cardiomegaly. Electronically Signed: Dano Boyce MD at 14:10 EDT , Rhythm Strip Rhythm Strip: A-fib Rate: 80 Ectopy: None Physical Exam Narrative Seen and examined EMS, ED and H&P reviewed. Patient was brought by EMS for confused, not able to answer simple questions like birthday, inappropriate words or sentences. Patient also some generalized weakness. This is still persistent to some degree. Patient knows his full name, date of but cannot tell age. Takes much longer time to tell the year, increased reaction time. Patient at times gets frustrated and cry as he is not able to recall or answer question quickly. As per son he also had issues of disequilibrium. Patient was not able to recognize his family member was more sleepy. Patient has A. fib. On air sampling and monitoring, A. fib noted. Physical exam General: Awake, confused and disoriented with regard to time and simple awareness questions. Oriented to place and person. HEENT: Atraumatic, PERRLA, EOMI, Normocephalic Oral: No Gingival or Mucosal Lesions/ Ulcerations Neck: Supple, No JVD, Negative Carotid Bruits Lungs: Air entry diminished in bilateral lung bases. No crepitation/rhonchi Cardiovascular: Regular rate, Regular Rhythm, Normal S1, Normal S2, No murmurs Abdomen: Bowel Sounds Present, Soft, Non Tender, Non-Distended : No renal angle tenderness. No suprapubic tenderness. Extremities: 2+ pitting, pedal chronic edema, Capillary Refill Less than 3 Seconds Skin: No rashes, No breakdown Musculoskeletal: No Tenderness to Palpation of Joints or Extremities Neurological: Cranial nerves II-XII grossly intact, DTR 2+/4, muscle strength 5/5 at LLE at knee and hip, 4+/5 at RLE. Nonfocal exam. Psych/Mental Status: Flat affect, frustrated, at times cry. Assessment & Plan Assessment/Plan (1) TIA (transient ischemic attack): PLAN: Plan The patient is a 81 y/o M was evaluated for confusion, disoriented, unable to recognize, and family member and answer simple question which is unusual for him. #1. acute encephalopathy and disequilibrium, acute stroke ruled out most probably metabolic/psychosocial stressor: The patient is being admitted to PCU. MRI brain and MRA head and carotid Doppler was done. Negative for acute infarct. MRA reported normal. Carotid Doppler shows less than 50% stenosis. I discussed with patient's son and gave my assessment and plan and I think its more acute confusional state probably metabolic encephalopathy. Patient denies burning micturition. UA shows 25-50 WBC cells. Urine culture pending. TSH 4.33 upper limit of normal, normal fasting profile, troponin, serum magnesium. Patient has hyponatremia and hyperkalemia probably due to dehydration: IV fluid D5 was started. Serum potassium normal. #2. Dementia unclear type with unclear behavioral disturbance history: Patient's son agrees that he has a lot of stressors as patient's 's dementia. Case nasoesophageal consulted. Patient will be benefited by outpatient psychiatrist evaluation. #3. 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 Platelet count 105,000 monitor CBC daily #4. Chronic diastolic CHF, nonischemic cardiomyopathy: continue patient home aspirin, adding moderate dose statin. Lasix on hold probably resume tomorrow. #5. PAF: hospital monitor shows A. fib. Continue patient home amiodarone regimen, not chronically anticoagulated secondary to prior GI bleed history and from current history of potential high fall risk also. #6. Hypertension: Temporarily hold as noted #1, add back once appropriate, PRN agents per stroke protocol. #7. Hyperlipidemia: Add moderate dose statin given acute presentation #1, FLP in AM. #8. History of prostate cancer: Status post TURP, considered in remission. #9. Former tobacco usage: Encourage continued tobacco cessation. #10. GERD: We will continue patient on PPI. #11. DVT prophylaxis: SCDs, heparin with continued close CBC monitoring, low threshold to hold given history and prior GI bleed hx. #12. CODE status: Son takes care of patient's medical and next to kin. Patient's has dementia. Full code. Total time of the visit including total time spent in counseling or coordination of care, (more than 50% of the total time, spent in obtaining medical information from nurses and other ancillary care providers,explaining to the patient about labs, imaging, diagnosis and management of active complex medical conditions), discussion with son, SOC neurology consult, review of labs and imaging is 40 minutes. Clinical Impression(s) from Imaging Studies Brain CT 12/16/21 13:01 IMPRESSION: Chronic involutional changes of the brain. Electronically Signed: Dano Boyce MD at 14:13 EDT , Chest X-Ray 12/16/21 13:44 IMPRESSION: Small left pleural effusion with left basilar atelectasis. Moderate cardiomegaly. Electronically Signed: Dano Boyce MD at 14:10 EDT , Carotid Duplex 12/16/21 16:21 Interpretation Summary Intimal thickening bilateral proximal internal carotid arteries with less than 50% stenosis Less than 50% stenosis bilateral external carotid arteries Patent and antegrade vertebral arteries bilaterally Brain MRI 12/17/21 09:15 IMPRESSION: Involutional changes of the brain, as described above. No acute infarct. Electronically Signed: Ramón Stahl MD at 12:53 EDT , Head MRA 12/17/21 09:15 IMPRESSION: Normal MRA of the head Charges/Coding Visit Charges Inpatient E&M: 16079 Subs Hosp L3
[2021-12-17] MEDS: Haloperidol Lactate 5 MG/ML Vial 2 MG IV (08:58)
[2021-12-17] MEDS: Potassium Chloride Oral Tablet 20 MEQ PO (08:58)
[2021-12-17] MEDS: Amiodarone 200 MG Tablet 100 MG PO (08:58)
[2021-12-17] MEDS: Aspirin 81 MG TAB.CHEW PO (08:58)
[2021-12-17] MEDS: Heparin Injection (Vial) 5,000 UNIT/ML VIAL 5000 UNIT SC ×2 (09:04→20:58)
[2021-12-17] MEDS: proMETHazine 25 MG/ML Syringe 6.25 MG IM (09:04)
[2021-12-17] MEDS: Pantoprazole Sodium 20 MG Tablet PO (09:06)
[2021-12-17 09:08] LABS: Hemoglobin A1c 5.1 % (3.8-5.6)
--- NOTE | 2021-12-17 09:15 | MRI_ITS ---
STUDY: MRI BRAIN WITHOUT CONTRAST REASON FOR EXAM: Male, 81 years old. CVA TECHNIQUE: Standardized multiplanar fat and water weighted pulse sequences were obtained. COMPARISON: None. FINDINGS: There is moderate cerebral atrophy with widening of the extra-axial spaces and ventricular dilatation. There are a limited number of small white matter hyperintensities, distributed throughout the deep white matter tracts of the cerebral hemispheres, consistent with mild chronic white matter ischemic changes. There is no evidence for recent intracranial ischemia or other cause of cytotoxic edema on diffusion weighted imaging (DWI). Normal T2* images of the brain without demonstrated susceptibility artifact. There is no demonstrated hemosiderin stain. Normal bilateral basal ganglia. Normal thalami. There is no extra-axial fluid accumulation. Normal flow voids within the major intracranial circulation suggesting patency by spin echo criteria. Normal sella turcica, pituitary gland, infundibular stalk, optic chiasm and hypothalamus. Normal tectal plate and pineal gland. Normal midbrain, cody and medulla. Normal cerebellum. Normal basal cisterns. Normal bilateral temporal bones. Normal bilateral internal auditory canals. There are bilateral ocular lens implants with otherwise normal intraorbital contents. Normal visualized paranasal sinuses. Normal calvarium and skull base. Normal visualized soft tissue structures. Normal visualized upper cervical spine. MRI/Brain without Contrast IMPRESSION: Involutional changes of the brain, as described above. No acute infarct. Electronically Signed: Ramón Stahl MD at 12:53 EDT ,
--- NOTE | 2021-12-17 09:15 | MRI_ITS ---
STUDY: MRA OF THE HEAD WITHOUT CONTRAST REASON FOR EXAM: Male, 81 years old. CVA TECHNIQUE: 3-D [id number] (TOF) imaging was performed with MIPs. The study was performed unenhanced. COMPARISON: None. FINDINGS: Normal bilateral petrous carotid arteries. Normal right cavernous carotid artery with a normal supraclinoid bifurcation. Normal left cavernous carotid artery with a normal supraclinoid bifurcation. There is hypoplastic development of the right A1 segment of the anterior cerebral arteries with an atretic but intact artery. Normal left A1 segments of the anterior cerebral artery. Normal intact anterior communicating artery (ACOM). Normal bilateral A2 segments of the anterior cerebral arteries. Normal right M1 and M2 segments of the middle cerebral arteries, with a normal M1 bifurcation. Normal left M1 and M2 segments of the middle cerebral arteries, with a normal M1 bifurcation. There is a persistent origin of the right posterior cerebral artery with absence of the P1 segment of the right posterior cerebral artery. Normal left posterior communicating artery (PCOM). There is a small atretic left vertebral artery with a dominant right vertebral artery. The hypoplastic left vertebral artery terminates as the left posterior inferior cerebellar artery. Normal basilar artery with a normal basilar bifurcation. The visualized bilateral superior cerebellar (SCA) arteries are normal. Normal bilateral P1, P2 and visualized P3 segments of the posterior cerebral arteries. There is no demonstrated aneurysm of the [place]. There is no major vessel occlusion or hemodynamically significant stenosis. There is no demonstrated abnormality of the visualized brain. MRI/MRA Head ONLY without Contrast IMPRESSION: Normal MRA of the head Electronically Signed: Ramón Stahl MD at 12:51 EDT ,
--- NOTE | 2021-12-17 14:50 | CASEMGMT ---
SW reviewed therapy's notes and they are recommending short term rehab for patient. Speech Therapist also notified SW that patient's family is looking for placement for patient short term. SW went to patient's room and no one was present except for patient who was sleeping. SW called patient's son, Simón with whom patient lives with. Simón agreed that patient will likely need short term rehab. However, Simón said he wants to know what the diagnosis/medical explanation is for patient's change in care. CRESENCIO let Simón know that SW has a list of providers that take patient's insurance. Simón said if patient has to go somewhere they prefer [facility]. CRESENCIO let Simón know SW can check on beds, but will also have a list in case they do not have any bed availability. CRESENCIO left a message for Nadiya inquiring if there are any beds in TCU. Mica Abad [employer]
--- NOTE | 2021-12-17 15:43 | CASEMGMT ---
Pt is still confused so call to pt's son,Simón Her, as documented in chart w/ dementia also. MARTINEZ explained, son voices understanding and gives verbal ok for signature via phone. Son then voices several concerns regarding pt confusion, further testing, etc. Dr. Bravo updated on all and states will give son a call regarding concerns. Son wants a definitive answer/diagnosis and this RN CM advised that may not happen as further OP testing may be needed. CM to follow. SStsterling RN CM
--- NOTE | 2021-12-17 15:49 | TELEMED_ITS ---
SOC Telemed has confirmed receipt of a request for visit. This document confirms receipt of the order initiating the consult. To find the results of the consultation, please view the patient's reports for the scanned Telemed Consult.
--- NOTE | 2021-12-17 19:02 | NURSING ---
Charting reviewed with Delbert Jackson RN
[2021-12-17] MEDS: MELATONIN 3 MG TABLET PO (20:58)
[2021-12-17] MEDS: Atorvastatin Calcium 20 MG Tablet PO (20:58)
[2021-12-17] MEDS: Acetaminophen 325 MG Tablet 650 MG PO (20:58)
[2021-12-17] MEDS: 0.9% Saline Lock 10 ML Syringe IV (21:26)
[2021-12-18] VITALS (14 sets, daily range): BP systolic 137–156; BP diastolic 67–90; PULSE 55–95; RESP 16–20; TEMP 36.2–36.7; O2SAT 95–99
--- NOTE | 2021-12-18 08:43 | PCM.PN.HOSP ---
Subjective Subjective Follow-up for altered mental status, behavioral abnormality, aggressive. Patient was sleepy, lethargic in the morning. Had to wake up. Slow in response. Later in the morning he got aggressive, trying to get out of bed and had to give Haldol and Phenergan. Patient again seen in afternoon and discussed with patient's and son and gave clinical update and patient was deeply snoring. Objective Data Objective Data Vital Signs: Vital Signs Temp Pulse Resp BP Pulse Ox O2 Del Method 97.8 F 68 18 156/89 H 95 Room Air 12/18/21 03:57 12/18/21 07:00 12/18/21 03:57 12/18/21 03:57 12/18/21 07:51 12/18/21 07:51 Oxygen Delivery Method Room Air Weight: 180 lb 8.937 oz Body Mass Index (BMI) 24.2 Intake & Output: Intake and Output for Last 24 Hours 12/16/21 12/17/21 12/18/21 23:59 23:59 23:59 Intake Total 120 / 120 660 / 660 854 / 854 Output Total 225 / 225 500 / 500 Balance -105 / -105 160 / 160 854 / 854 Lab / Micro Data Result Diagrams: 12/18/21 05:02 12/18/21 05:02 Labs: Laboratory Results - last 24 hr 12/17/21 06:00: Hemoglobin A1c 5.1 12/18/21 05:02: Free T4 2.30 H Micro: Microbiology 12/16/21 13:20 Nasal Secretion SARS-CoV-2 & FLU Antigen (Rapid) - Final Radiography Diagnostic Testing: Radiology Impression Carotid Duplex 12/16/21 16:21 Interpretation Summary Intimal thickening bilateral proximal internal carotid arteries with less than 50% stenosis Less than 50% stenosis bilateral external carotid arteries Patent and antegrade vertebral arteries bilaterally Echocardiogram 12/16/21 16:21 Interpretation Summary The study was technically difficult. Mildly dilated left ventricle. Left ventricular systolic function is normal. The estimated ejection fraction is 55 %. Mild concentric left ventricular hypertrophy. The left atrium is mildly enlarged. The right atrium is moderately enlarged. Mild diffuse mitral valve thickening. The mitral valve chordae are thickened and/or calcified. Trivial mitral valve insufficiency. Mild tricuspid valve insufficiency. Mild focal aortic valve calcification. Mild (1+) aortic valve insufficiency. Right ventricular systolic pressure estimated to be 31 mmHg. Stage 3 diastolic dysfunction. Brain MRI 12/17/21 09:15 IMPRESSION: Involutional changes of the brain, as described above. No acute infarct. Head MRA 12/17/21 09:15 IMPRESSION: Normal MRA of the head Electronically Signed: Ramón Stahl MD at 12:51 EDT , Rhythm Strip Rhythm Strip: A-fib Rate: 80 Ectopy: None Physical Exam Narrative Seen and examined Patient is still confused disoriented and at times aggressive. Started on Seroquel 25 mg p.o. twice daily with holding for sedation/lethargy. Physical exam General: Lethargy, awake and slow to response in the morning. Later on sedated after Haldol HEENT: Atraumatic, PERRLA, EOMI, Normocephalic Oral: No Gingival or Mucosal Lesions/ Ulcerations Neck: Supple, No JVD, Negative Carotid Bruits Lungs: Air entry diminished in bilateral lung bases. No crepitation/rhonchi Cardiovascular: Regular rate, Regular Rhythm, Normal S1, Normal S2, No murmurs Abdomen: Bowel Sounds Present, Soft, Non Tender, Non-Distended : No renal angle tenderness. No suprapubic tenderness. Extremities: 2+ pitting, pedal chronic edema, Capillary Refill Less than 3 Seconds Skin: No rashes, No breakdown Musculoskeletal: No Tenderness to Palpation of Joints or Extremities Neurological: Cranial nerves II-XII grossly intact, DTR 2+/4, muscle strength 5/5 at LLE at knee and hip, 4+/5 at RLE. Nonfocal exam. Psych/Mental Status: Flat affect. Psychomotor slowing. Assessment & Plan Assessment/Plan (1) TIA (transient ischemic attack): PLAN: Plan The patient is a 81 y/o M was evaluated for confusion, disoriented, unable to recognize, and family member and answer simple question which is unusual for him. #1. acute encephalopathy and disequilibrium, acute stroke ruled out most probably metabolic/psychosocial stressor: The patient is being admitted to PCU. MRI brain and MRA head and carotid Doppler was done. Negative for acute infarct. MRA reported normal. Carotid Doppler shows less than 50% stenosis. I discussed with patient's son and gave my assessment and plan and I think its more acute confusional state probably metabolic encephalopathy. Patient denies burning micturition. UA shows 25-50 WBC cells. Urine culture pending. TSH 4.33 upper limit of normal, normal fasting profile, troponin, serum magnesium. Patient has hyponatremia and hyperkalemia probably due to dehydration: IV fluid D5 was started. Serum potassium normal. 12/18: Urine culture shows mixed organism therefore contamination. No UTI. Patient still remain confused disoriented at times aggressive therefore had to give Haldol Phenergan. Currently patient is sleeping. Started on Seroquel 12.5 mg p.o. twice daily with holding for sedation/lethargy. SOC still has to see the patient. Discussed in detail with patient son who is power of special weapons unit officer for health and patient's nearby about my assessment and plan. Patient might have depression or adjustment disorder as gradually is not able to do what he used to to about 10 to 15 years ago. There is increase in creatinine from 1.2-1.43 but does not meet criteria for acute kidney injury. Lasix on hold. #2. Dementia unclear type with unclear behavioral disturbance history: Patient's son agrees that he has a lot of stressors as patient's 's dementia. Patient will be benefited by outpatient psychiatrist evaluation. #3. 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 Patient has chronic thrombocytopenia and leukopenia and some sort of plasma cell disorder, follows Dr. Valenzuela. Monitor CBC daily. Patient is not on active treatment but active surveillance. #4. Chronic diastolic CHF, nonischemic cardiomyopathy: continue patient home aspirin, adding moderate dose statin. #5. PAF: monitoring tech shows A. fib. Continue patient home amiodarone regimen, not chronically anticoagulated secondary to prior GI bleed history and from current history of potential high fall risk also. TSH 4.33, free T4 2.3. It is unclear the cause of thyroid hormone abnormality may be due to amiodarone autoimmune mechanism or euthyroid sick syndrome as both TSH and free T4 elevated. Repeat thyroid function test on Thursday a.m. #6. Hypertension: Patient not on antihypertensive medication. BP 137/67. #7. Dyslipidemia ruled out: Initially, patient was started on atorvastatin started as a stroke protocol but ruled out. Lipid profile shows LDL 53, HDL 69. #8. History of prostate cancer: Status post TURP, considered in remission. #9. Former tobacco usage: Encourage continued tobacco cessation. #10. GERD: We will continue patient on PPI. #11. DVT prophylaxis: SCDs, heparin with continued close CBC monitoring, low threshold to hold given history and prior GI bleed hx. #12. CODE status: Son takes care of patient's medical and next to kin. Patient's has dementia. Full code. Total time of the visit including total time spent in counseling or coordination of care, (more than 50% of the total time, spent in obtaining medical information from nurses and other ancillary care providers,explaining to the patient about labs, imaging, diagnosis and management of active complex medical conditions), discussion with son, SOC neurology consult, review of labs and imaging is 40 minutes. Clinical Impression(s) from Imaging Studies Brain CT 12/16/21 13:01 IMPRESSION: Chronic involutional changes of the brain. Electronically Signed: Dano Boyce MD at 14:13 EDT , Chest X-Ray 12/16/21 13:44 IMPRESSION: Small left pleural effusion with left basilar atelectasis. Moderate cardiomegaly. Electronically Signed: Dano Boyce MD at 14:10 EDT , Carotid Duplex 12/16/21 16:21 Interpretation Summary Intimal thickening bilateral proximal internal carotid arteries with less than 50% stenosis Less than 50% stenosis bilateral external carotid arteries Patent and antegrade vertebral arteries bilaterally Brain MRI 12/17/21 09:15 IMPRESSION: Involutional changes of the brain, as described above. No acute infarct. Electronically Signed: Ramón Stahl MD at 12:53 EDT , Head MRA 12/17/21 09:15 IMPRESSION: Normal MRA of the head Charges/Coding Visit Charges Inpatient E&M: 03846 Subs Hosp L3
[2021-12-18 09:20] LABS: Absolute Lymphocyte Count 1.01 X10^3/uL (0.83-4.51); Absolute Neutrophil Count 1.6 X10^3/uL (2.0-7.7); Basophil# 0.08 X10^3/uL; Basophil% 2.6 % (0-1); Eosinophil# 0.17 X10^3/uL; Eosinophils% 5.5 % (0-5); Hematocrit 39.9 % (40-54); Hemoglobin 13.4 g/dL (13.0-16.5); Lymphocyte # 1.01 X10^3/ul (0.83-4.51); Lymphocyte % 32.6 % (19-41); Mean Corp Hgb Conc 33.6 g/dL (32-36); Mean Corpuscular Hgb 31.1 pg (27.0-32.0); Mean Corpuscular Volume 92.6 fL (80-94); Mean Platelet Vol. 10.6 fl (6.2-12.0); Monocyte# 0.29 X10^3/uL; Monocyte% 9.4 % (0-10); NRBC Flagged by Analyzer 0 % (0-5); Neutrophil # 1.55 X10^3/uL (2.7-7.7); Neutrophil % 49.9 % (47-70); POSITIVE MORPHOLOGY YES; Platelet Count 101 K/mm3 (150-450); RBC Distribution Width CV 21.3 % (11.6-14.6); RBC Distribution Width SD 69.4 fl (35.1-43.9); Red Blood Count 4.31 M/mm3 (4.6-6.2); White Blood Count 3.1 K/mm3 (4.4-11.0)
[2021-12-18 09:25] LABS: Anion Gap 8 (5-15); BUN 22 mg/dL (7-18); BUN/Creat Ratio 15.4 RATIO (10-20); Calcium,Total 8.3 mg/dL (8.5-10.1); Chloride 115 mmol/L (98-107); Creatinine, Serum 1.43 mg/dL (0.70-1.30); EST Glomerular Filtration Rate 51 mL/min (>60); Est Glom Filt Rate - Afr Amer 61 mL/min (>60); Estimated Creatinine Clearance 45.98 ml/min; Glucose 94 mg/dL (74-106); Phosphorus 3.1 mg/dL (2.5-4.9); Potassium 4.2 mmol/L (3.5-5.1); Sodium Level 142 mmol/L (136-145)
[2021-12-18 09:28] LABS: Differential Indicated SCAN CRITERIA MET
--- NOTE | 2021-12-18 10:30 | CASEMGMT ---
TCU would have a bed for patient and Nadiya started the pre-cert. SW will notify patient's son. Plan: [facility] pending being medically ready and insurance approval. Mica HAYES
[2021-12-18 10:53] LABS: Anisocytosis 2+; Differential Comment SCANNED; Macrocytosis 1+; Microcytosis 1+
[2021-12-18] MEDS: proMETHazine 25 MG/ML Syringe 12.5 MG IM (11:33)
[2021-12-18] MEDS: Haloperidol Lactate 5 MG/ML Vial 2 MG IV (11:34)
[2021-12-18] MEDS: Heparin Injection (Vial) 5,000 UNIT/ML VIAL 5000 UNIT SC ×2 (11:34→20:44)
[2021-12-18] MEDS: Pantoprazole Sodium 20 MG Tablet PO (12:12)
[2021-12-18] MEDS: Aspirin 81 MG TAB.CHEW PO (12:12)
[2021-12-18] MEDS: Amiodarone 200 MG Tablet 100 MG PO (12:12)
[2021-12-18] MEDS: Cholecalciferol (VIT D3) 25 MCG TABLET (1,000 UNITS) 100 MCG PO (12:13)
[2021-12-18] MEDS: Furosemide 20 MG Tablet PO (12:14)
[2021-12-18] MEDS: Potassium Chloride Oral Tablet 20 MEQ PO (12:15)
--- NOTE | 2021-12-18 12:40 | NURSING ---
Bladder scanned patient for >585, pt agitated and trying to climb out of bed repeatedly. Straight cathed for 400 mL and re-bladder scanned patient for 0 mL in bladder.
--- NOTE | 2021-12-18 19:17 | NURSING ---
Patient's son from [facility] here visiting patient, not Simón whom is POA but his other son Mckay. Mckay approached this RN at nurses station and asked why Dr. Bravo has not called his whom is a physician. Explained to Mckay that Dr. Bravo came to bedside twice today and had a lengthy conversation with his brother Simón and patient's and has had multiple conversations via phone with Simón as well. Explained to Mckay that I did notify Dr. Bravo that he was here at bedside and wanted to speak with Dr. Bravo but that I cannot do anything further then pass the message on to Dr. Bravo. Explained that he probably would not be calling his because she nor him are listed on the patient's chart and as I previously stated, he has had multiple conversations with Simón. Mckay was not happy with this RN's answer and said to this RN It is a physician to physician this RN explained to Mckay that it is not a physician to physician because his may be a physician but she is not the patient's physician and Mckay responded with Actually she is Mckay then asked this RN if patient is on a stool softener and this RN told him I would look into it for him and if he wasn't that we would have to contact the MD for an order. Mckay asked this nurse you can't just put that order in as a nurse? You need permission from the doctor? That's ridiculous Explained to Mckay that yes, I did need an order from the MD for any medications. batch records clerk Anish made aware of this conversation and Mckay's demands.
--- NOTE | 2021-12-18 19:36 | NURSING ---
Charting reviewed with Delbert Jackson RN
--- NOTE | 2021-12-18 19:50 | NURSING ---
Contacted SOC regarding consult tonight, SOC states they are very far behind currently and it will be very late until they ca see him tonight. Informed SOC the family wants to be present for the consult since he is confused. SOC staff suggests to plan for the morning then for his consult so as not to make them wait all night for the consult. Informed patients nurse.
[2021-12-18] MEDS: Acetaminophen 325 MG Tablet 650 MG PO (20:45)
[2021-12-18] MEDS: MELATONIN 3 MG TABLET PO (20:45)
[2021-12-19 03:00] VITALS: PULSE 72
[2021-12-19 05:03] LABS: Absolute Lymphocyte Count 0.82 X10^3/uL (0.83-4.51); Absolute Neutrophil Count 1.9 X10^3/uL (2.0-7.7); Basophil# 0.08 X10^3/uL; Basophil% 2.4 % (0-1); Eosinophil# 0.18 X10^3/uL; Eosinophils% 5.4 % (0-5); Hematocrit 40.9 % (40-54); Hemoglobin 13.5 g/dL (13.0-16.5); Lymphocyte # 0.82 X10^3/ul (0.83-4.51); Lymphocyte % 24.4 % (19-41); Mean Corpuscular Hgb 30.1 pg (27.0-32.0); Mean Corpuscular Volume 91.3 fL (80-94); Mean Platelet Vol. 9.7 fl (6.2-12.0); Monocyte# 0.35 X10^3/uL; Monocyte% 10.4 % (0-10); NRBC Flagged by Analyzer 0 % (0-5); Neutrophil # 1.93 X10^3/uL (2.7-7.7); Neutrophil % 57.4 % (47-70); POSITIVE COUNT YES; POSITIVE MORPHOLOGY YES; Platelet Count 97 K/mm3 (150-450); RBC Distribution Width CV 20.5 % (11.6-14.6); RBC Distribution Width SD 68.2 fl (35.1-43.9); Red Blood Count 4.48 M/mm3 (4.6-6.2); White Blood Count 3.4 K/mm3 (4.4-11.0)
[2021-12-19 05:22] LABS: Differential Indicated SCAN CRITERIA MET
[2021-12-19 05:25] LABS: Anisocytosis 2+; Platelet Estimate MOD DEC (ADEQ)
[2021-12-19 05:28] VITALS: BP 145/96; PULSE 67; RESP 20; TEMP 36.5; O2SAT 98
[2021-12-19 06:03] LABS: Anion Gap 5 (5-15); BUN 20 mg/dL (7-18); BUN/Creat Ratio 14.7 RATIO (10-20); Calcium,Total 8.4 mg/dL (8.5-10.1); Chloride 114 mmol/L (98-107); Creatinine, Serum 1.36 mg/dL (0.70-1.30); EST Glomerular Filtration Rate 54 mL/min (>60); Est Glom Filt Rate - Afr Amer 65 mL/min (>60); Estimated Creatinine Clearance 48.34 ml/min; Glucose 79 mg/dL (74-106); Sodium Level 144 mmol/L (136-145)
[2021-12-19 07:00] VITALS: PULSE 64
[2021-12-19 07:14] VITALS: O2SAT 96
[2021-12-19] MEDS: Aspirin 81 MG TAB.CHEW PO (08:57)
[2021-12-19] MEDS: Amiodarone 200 MG Tablet 100 MG PO (08:57)
[2021-12-19] MEDS: Heparin Injection (Vial) 5,000 UNIT/ML VIAL 5000 UNIT SC (08:58)
[2021-12-19] MEDS: Psyllium 1 PACKET PO (08:58)
[2021-12-19] MEDS: Potassium Chloride Oral Tablet 20 MEQ PO (08:58)
[2021-12-19] MEDS: Pantoprazole Sodium 20 MG Tablet PO (08:58)
[2021-12-19] MEDS: Cholecalciferol (VIT D3) 25 MCG TABLET (1,000 UNITS) 100 MCG PO (08:59)
[2021-12-19] MEDS: Senna/Docusate Sodium 1 Tablet 2 TABLET PO (09:12)
--- NOTE | 2021-12-19 09:16 | NURSING ---
Pt is alert and oriented this morning. Pt is able to state name, date, birthday, and place, as well as name all of his children. Pt states his DIL Patricia Warrne is a physician and is okay to have information. Pt states he would like Dr Bravo to speak with Patricia regarding his care. Elida Her's number is [phone].
[2021-12-19 09:30] VITALS: BP 135/82; PULSE 52; RESP 16; TEMP 36.7; O2SAT 98
--- NOTE | 2021-12-19 10:02 | CASEMGMT ---
Addendum entered by Mica Abad 12/19/21 11:27: Family and physician have been in and out of the room and have notified family patient will be going to TCU today. Mica HAYES Original Note: Nadiya notified SW that patient was approved for TCU. SW notified physician, engineering secretary, and RN. Plan: d/c to [facility] TCU under skilled level of care. Mica HAYES
[2021-12-19 10:14] LABS: Free T3 2.3 pg/mL (2.18-3.98); T4 Free Direct 2.39 ng/dL (0.76-1.46)
--- NOTE | 2021-12-19 10:20 | TREXTCAR_ITS ---
Diet Diet Order/Speech Therapy: 12/16/21 16:22 Diet: Cardiac - Heart Healthy Food consistency:: Regular Liquid Consistency:: Regular/Thin Routine Orders/Code Status Suppository Type: Dulcolax 10mg Suppository Frequency: Daily PRN Code Status: Full Code Therapies Weight Bearing: Weight bearing as tolerated Extremity Affected:: Bilateral Lower Physical Therapy: Eval and Treat Occupational Therapy: Eval and Treat Speech Therapy: Eval and Treat Problem/Diagnosis (1) TIA (transient ischemic attack): Status: Acute Code(s): G45.9 - Transient cerebral ischemic attack, unspecified Allergies/Procedures Done in Hospital Allergies ciprofloxacin [From Cipro] Allergy (Mild, Verified 11/07/21 11:02) rash levofloxacin [From Levaquin] Allergy (Mild, Verified 11/07/21 11:02) rash Sulfa (Sulfonamide Antibiotics) Adverse Reaction (Verified 11/07/21 11:02) Unknown Type of Care/Length of Stay Estimated LOS: Convalescent Care Less Than 30 days Type of Care Needed: Skilled Rehab Potential: Good Prognosis: Good Additional Orders/Day of Discharge Day of Discharge: 12/19/21 Dietary and Speech Recommendations Dietitian Recommendations/Changes: Continue cardiac diet; fluid restriction as needed given history of CHF. ONS as needed, will defer for now. Speech Linguistic Eval Summary: Chart reviewed. INFORMATION CLERK BROKERAGE spoke extensively w/ family (patient's son, Simón and , Kerry present) about patient's cognition. Patient presents w/ increased confusion and debility. Since June when patient was hospitalized for UTI, family reports intermittent altered mental status since. In hospitalist H&P, patient does have hx of recurrent UTI. Current urine culture pending to see if patient currently has a urinary tract infection. MRI unremarkable. Family concerned for depression. Administered portions of the BCAT to assess cognition. Scores above. Patient visibly tired. Patient oriented to self, current year and place independently. Patient unable to recall that he lives w/ . Unable to recall current month despite MAX verbal cueing re: yesterday was Halloween, last day of November,December 16... so today must be... w/ no success. Decreased orientation. 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 Impaired verbal expression characterized by slow, processing speed and repetition/revision. Impaired executive function including mental manipulation and cognitive shift. Patient follows w/ PCP, has never seen a neurologist. Family believes PCP gave dementia dx, concerned for Parkinson's d/t increase confusion, new onset of tremors and flat affect (depression?). Stated his PCP was not concerned, however would like to determine reason for change in status. INFORMATION CLERK BROKERAGE explained ST's role, possible short term placement since patient needs to be (I) prior to d/c home w/ family, depression screening warranted and physician follow-up on MRI results. SW notified of conversation w/ patient. RN notified of family's concern for dehydration/ UTI. Will continue to follow in subsequent sessions to assess/evaluate cognition and assist in patient restoring to PLOF. ST will hopefully have more information from hospitalist and SW. Continue per POC. Discharge Plan Admission Admit Date/Time: 12/16/21 15:33 Primary Reason for Your Visit: Altered mental status, acute encephalopathy resolved. Attending Provider: Kirk Bravo Primary Care Provider: Steff Culp Consulting Providers: Eliz Solomon Instructions Additional Instructions / Restrictions: Advised repeat thyroid function test TSH, free T4, free T3 in 6-weeks Outpatient referral to psychiatrist,the earliest appointment Discharge Orders/Prescriptions Prescriptions: New citalopram 10 mg Tablet 10 mg PO DAILY Qty: 0 0RF Continued amiodarone 100 mg tablet 100 mg PO DAILY Qty: 30 12RF omeprazole 20 mg capsule,delayed release(DR/EC) 20 mg PO DAILY Label Comments: 1 (ONE) CAPSULE Q AM potassium chloride 20 mEq tablet extended release 20 meq PO DAILY Label Comments: TAKE 1 TABLET BY MOUTH TWICE A DAY cholecalciferol (vitamin D3) 50 mcg (2,000 unit) tablet 100 mcg PO DAILY furosemide [Lasix] 40 mg tablet 20 mg PO DAILY Rx Instructions: Take an additional 20 mg dose at 5 PM for increased leg swelling or weight gain 5 pounds in 1 week. psyllium husk [Daily Fiber] 0.52 gram capsule 0.52 g PO DAILY sennosides-docusate sodium [Stool Softener-Stimulant Laxat] 8.6-50 mg Tablet 2 tab PO BID PRN PRN (Reason: Constipation) Qty: 0 0RF Referrals / Follow Up: Steff Culp DO [Primary Care Provider] - Within 2 Weeks Seese,Ortega L, DO [Med Staff - Securities Vault Supervisor] - In 1 Week (EARLIEST THE POSSIBLE. Possible adjustment disorder/mild depression) Disposition Disposition (needs filled in before D/C Order can be placed): [facility] Facility
--- NOTE | 2021-12-19 11:23 | CASEMGMT ---
SW did not complete a PHQ9 as patient did not have a Stroke or TIA. Patient has also been confused until today. Plan: d/c to [facility] TCU under skilled level of care. Mica HAYES
--- NOTE | 2021-12-19 11:27 | DS.PCM_ITS ---
Providers Date of Admission: 12/16/21 Date of Discharge: 12/19/21 Primary Care Physician: Dr. Steff Culp DO Reason For Visit: TIA/CVA Diagnosis Discharge Diagnosis (1) TIA (transient ischemic attack): Status: Acute Code(s): G45.9 - Transient cerebral ischemic attack, unspecified Medications at Discharge Home Medications omeprazole 20 mg capsule,delayed release 20 mg PO DAILY GERD 07/23/21 potassium chloride 20 mEq tablet,extended release 20 meq PO DAILY Supplement 07/23/21 sennosides 8.6 mg-docusate sodium 50 mg tablet (Stool Softener-Stimulant Laxative) 2 tab PO BID PRN PRN Constipation #0 tabs 09/20/21 cholecalciferol (vitamin D3) 50 mcg (2,000 unit) tablet 100 mcg PO DAILY Supplement 11/26/21 furosemide 40 mg tablet (Lasix) 20 mg PO DAILY Heart 11/26/21 psyllium husk 0.52 gram capsule (Daily Fiber) 0.52 g PO DAILY Fiber 11/26/21 amiodarone 100 mg tablet 100 mg PO DAILY Heart 12/19/21 citalopram 10 mg tablet 10 mg PO DAILY Mood 12/19/21 Hospital Course Summary of Care Provided Hospital Course: The patient is a 81 y/o M was evaluated for confusion, disoriented, unable to r ecognize, and family member and answer simple question which is unusual for him. #1. acute encephalopathy and disequilibrium, acute stroke ruled out most probably metabolic/psychosocial stressor: The patient is being admitted to PCU. MRI brain and MRA head and carotid Doppler was done. Negative for acute infarct. MRA reported normal. Carotid Doppler shows less than 50% stenosis. I discussed with patient's son and gave my assessment and plan and I think its more acute confusional state probably metabolic encephalopathy. Patient denies burning micturition. UA shows 25-50 WBC cells. Urine culture pending. TSH 4.33 upper limit of normal, normal fasting profile, troponin, serum magnesium. Patient has hyponatremia and hyperkalemia probably due to dehydration: IV fluid D5 was started. Serum potassium normal. 12/18: Urine culture shows mixed organism therefore contamination. No UTI. Patient still remain confused disoriented at times aggressive therefore had to give Haldol Phenergan. Currently patient is sleeping. Started on Seroquel 12.5 mg p.o. twice daily with holding for sedation/lethargy. SOC still has to see the patient. Discussed in detail with patient son who is power of grocery store associate for health and patient's nearby about my assessment and plan. Patient might clark ve depression or adjustment disorder as gradually is not able to do what he used to to about 10 to 15 years ago. There is increase in creatinine from 1.2-1.43 but does not meet criteria for acute kidney injury. Lasix on hold. 12/19: I talked with patient's son, Mr. Mckay Warren and daughter, Mrs. Melba Cardenas discussed in detail regarding clinical course, causes of altered mental status, stroke work-up, labs and imaging studies and SOC consult impression. They further requested to talked with patient's [id number] who is a physician in [place]. After discussion with patient's [id number] on phone, normal lipid profile and negative stroke work-up she said to discontinue statin and baby aspirin. Statin was already discontinued yesterday and I discontinued the baby aspirin. I think if patient does not have history of GI bleed, baby aspirin is appropriate for bilateral mild carotid stenosis as found in carotid Doppler but might be cautious as has chronic thrombocytopenia. Patient not on aspirin at home. #2. Dementia unclear type with unclear behavioral disturbance history: Patient' s son agrees that he has a lot of stressors as patient's 's dementia. Patient will be benefited by outpatient psychiatrist evaluation. #3. 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 Patient has chronic thrombocytopenia and leukopenia and some sort of plasma cell disorder, follows Dr. Valenzuela. Monitor CBC daily. Patient is not on active treatment but active surveillance. 12/19: Patient platelet count is around 200,000. #4. Chronic diastolic CHF, nonischemic cardiomyopathy #5. 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 fib. Continue patient home amiodarone regimen, not chronically anticoagulated secondary to prior GI bleed history and from current history of potential high fall risk also. TSH 4.33, free T4 2.3. It is unclear the cause of thyroid hormone abnormality may be due to amiodarone autoimmune mechanism or euthyroid sick syndrome as both TSH and free T4 elevated. Repeat thyroid function TSH 6.1, free T4 2.39 Free T3 2.3. Discussed with the patient's dwdkxjha-er-ail effusion and we agreed that it may be due to amiodarone induced immune reaction. Recommended to repeat thyroid function test after 6 weeks. Patient on a small dose of amiodarone 100 mg daily. #6. Hypertension: Patient not on antihypertensive medication. 12/19 BP normal. #7. Dyslipidemia ruled out: Initially, patient was started on atorvastatin started as a stroke protocol but ruled out. Lipid profile shows LDL 53, HDL 69. Statin discontinued #8. History of prostate cancer: Status post TURP, considered in remission. #9. Former tobacco usage: Encourage continued tobacco cessation. #10. GERD: We will continue patient on PPI. #11. DVT prophylaxis: SCDs, heparin with continued close CBC monitoring, low threshold to hold given history and prior GI bleed hx. #12. CODE status: Son takes care of patient's medical and next to kin. Patient's has dementia. Full code. Discharge medication reconciliation done. Discharge follow-up instructions completed. Discharge process discussed with the patient and all questions were answered to patient's satisfaction. Discharge process discussed in detail with the patient's son Mr. Mckay Warren, patient's fapldiap-[id number] his physician and patient's daughter near the bedside. Total time spent, exact 35 minutes on discharge meds reconciliation, examination, coordination of care with nurses and ancillary staff, review of imaging and blood test and discussion with the patient on follow-up instructions. Microbiology Past 72 Hours 12/19/21 11:55 Nasal Secretion SARS-CoV-2 Antigen (Rapid) - Final 12/16/21 13:46 Urine, Clean Catch Urine Culture - Final Mixed Gram Positive Organisms 12/16/21 13:20 Nasal Secretion SARS-CoV-2 & FLU Antigen (Rapid) - Final Laboratory Results 12/19/21 04:54: WBC 3.4 L, RBC 4.48 L, Hgb 13.5, Hct 40.9, MCV 91.3, MCH 30.1, MCHC 33.0, RDW Std Deviation 68.2 H, RDW Coeff of Ashkan 20.5 H, Plt Count 97 L, MPV 9.7, Immature Gran % (Auto) 0.000, Neut % (Auto) 57.4, Lymph % (Auto) 24.4, [place]irie % (Auto) 10.4 H, Eos % (Auto) 5.4 H, Baso % (Auto) 2.4 H, Absolute Neuts (auto) 1.9 L, Absolute Lymphs (auto) 0.82 L, Nucleated RBC % 0, Platelet Estimate MOD DEC, Anisocytosis 2+ 12/19/21 04:54: Sodium 144, Potassium 4.0, Chloride 114 H, Carbon Dioxide 25.0, Anion Gap 5, BUN 20 H, Creatinine 1.36 H, Estim Creat Clear Calc 48.34, Est GFR (MDRD) Af Amer 65, Est GFR (MDRD) Non-Af 54 L, BUN/Creatinine Ratio 14.7, Glucose 79, Calcium 8.4 L 12/19/21 04:54: TSH 6.10 H, Free T4 2.39 H, Free T3 pg/dL 2.3 Clinical Impression(s) from Imaging Studies Brain CT 12/16/21 13:01 IMPRESSION: Chronic involutional changes of the brain. Electronically Signed: Dano Boyce MD at 14:13 EDT , Chest X-Ray 12/16/21 13:44 IMPRESSION: Small left pleural effusion with left basilar atelectasis. Moderate cardiomegaly. Electronically Signed: Dano Boyce MD at 14:10 EDT , Carotid Duplex 12/16/21 16:21 Interpretation Summary Intimal thickening bilateral proximal internal carotid arteries with less than 50% stenosis Less than 50% stenosis bilateral external carotid arteries Patent and antegrade vertebral arteries bilaterally Brain MRI 12/17/21 09:15 IMPRESSION: Involutional changes of the brain, as described above. No acute infarct. Electronically Signed: Ramón Stahl MD at 12:53 EDT , Head MRA 12/17/21 09:15 IMPRESSION: Normal MRA of the head Physical Exam Narrative Seen and examined along with the nurse. Clinical course, labs and imaging, SOC impression discussed in detail with the patient's son Mckay and patient's daughter Melba in room. Patient is Started on Seroquel 25 mg p.o. twice daily with holding for sedation/lethargy. Physical exam General: Awake alert and oriented x3. Speech is more fluent and on baseline as pers patient's family member. Following simple commands. HEENT: Atraumatic, PERRLA, EOMI, Normocephalic Oral: Oral mucosa moist. No Gingival or Mucosal Lesions/ Ulcerations Neck: Supple, No JVD, Negative Carotid Bruits Lungs: Air entry diminished in bilateral lung bases. No crepitation/rhonchi Cardiovascular: Regular rate, Regular Rhythm, Normal S1, Normal S2, No murmurs Abdomen: Bowel Sounds Present, Soft, Non Tender, Non-Distended : No renal angle tenderness. No suprapubic tenderness. Extremities: 1+ pitting, pedal chronic edema, Capillary Refill Less than 3 Seconds Skin: No rashes, No breakdown Musculoskeletal: No Tenderness to Palpation of Joints or Extremities Neurological: Cranial nerves II-XII grossly intact, DTR 2+/4, muscle strength 5/5 at LLE at knee and hip, 4+/5 at RLE. Nonfocal exam. Psych/Mental Status: Flat affect. Psychomotor slowing. Weight / BMI Weight Weight: 180 lb 8.937 oz Body Mass Index (BMI) 24.2 ABG / Lab / Microbiology Data Result Diagrams: 12/19/21 04:54 12/19/21 04:54 Laboratory: Laboratory Results - last 24 hr 12/19/21 04:54: WBC 3.4 L, RBC 4.48 L, Hgb 13.5, Hct 40.9, MCV 91.3, MCH 30.1, MCHC 33.0, RDW Std Deviation 68.2 H, RDW Coeff of Ashkan 20.5 H, Plt Count 97 L, MPV 9.7, Immature Gran % (Auto) 0.000, Neut % (Auto) 57.4, Lymph % (Auto) 24.4, Prairie % (Auto) 10.4 H, Eos % (Auto) 5.4 H, Baso % (Auto) 2.4 H, Absolute Neuts (auto) 1.9 L, Absolute Lymphs (auto) 0.82 L, Nucleated RBC % 0, Platelet Estimate MOD DEC, Anisocytosis 2+ 12/19/21 04:54: Sodium 144, Potassium 4.0, Chloride 114 H, Carbon Dioxide 25.0, Anion Gap 5, BUN 20 H, Creatinine 1.36 H, Estim Creat Clear Calc 48.34, Est GFR (MDRD) Af Amer 65, Est GFR (MDRD) Non-Af 54 L, BUN/Creatinine Ratio 14.7, Glucose 79, Calcium 8.4 L 12/19/21 04:54: TSH 6.10 H, Free T4 2.39 H, Free T3 pg/dL 2.3 Microbiology: Microbiology 12/16/21 13:46 Urine, Clean Catch Urine Culture - Final Mixed Gram Positive Organisms 12/16/21 13:20 Nasal Secretion SARS-CoV-2 & FLU Antigen (Rapid) - Final Meaningful Use Info Meaningful Use Diagnoses (Choose all that apply): None applicable Discharge Plan Admission Admit Date/Time: 12/16/21 15:33 Primary Reason for Your Visit: Altered mental status, acute encephalopathy resolved. Attending Provider: Kirk Bravo Primary Care Provider: Steff Culp Consulting Providers: Eliz Solomon Instructions Additional Instructions / Restrictions: Advised repeat thyroid function test TSH, free T4, free T3 in 6-weeks Outpatient referral to psychiatrist,the earliest appointment Discharge Orders/Prescriptions Prescriptions: Continued omeprazole 20 mg capsule,delayed release(DR/EC) 20 mg PO DAILY Label Comments: 1 (ONE) CAPSULE Q AM potassium chloride 20 mEq tablet extended release 20 meq PO DAILY Label Comments: TAKE 1 TABLET BY MOUTH TWICE A DAY cholecalciferol (vitamin D3) 50 mcg (2,000 unit) tablet 100 mcg PO DAILY furosemide [Lasix] 40 mg tablet 20 mg PO DAILY Rx Instructions: Take an additional 20 mg dose at 5 PM for increased leg swelling or weight gain 5 pounds in 1 week. psyllium husk [Daily Fiber] 0.52 gram capsule 0.52 g PO DAILY sennosides-docusate sodium [Stool Softener-Stimulant Laxat] 8.6-50 mg Tablet 2 tab PO BID PRN PRN (Reason: Constipation) Qty: 0 0RF No Action citalopram 10 mg tablet 10 mg PO DAILY amiodarone 100 mg tablet 100 mg PO DAILY Referrals / Follow Up: Steff Culp DO [Primary Care Provider] - Within 2 Weeks Ortega Hughes DO [Med Staff - Sponge Packer] - In 1 Week (EARLIEST THE POSSIBLE. Possible adjustment disorder/mild depression) Disposition Disposition (needs filled in before D/C Order can be placed): [facility] Facility Charges/Coding Visit Charges Inpatient E&M: 52518 Disch Hosp
[2021-12-19] MEDS: Citalopram 10 MG Tablet PO (11:55)
--- NOTE | 2021-12-19 14:46 | NURSING ---
report called to TCU RN. pt going to RM 5
[2021-12-19 15:05] VITALS: BP 116/64; PULSE 76; RESP 12; TEMP 36.8; O2SAT 100
== END 2021-12-19 11:25 | disposition skilled nursing facility (03) ==
LOC: ED 15:37 → PCU 16:00
PROVIDERS: Admitting Provider Family Medicine; Emergency Provider Emergency Medicine; PCP Internal Medicine; Visit Provider Internal Medicine
DX: G45.9 Transient cerebral ischemic attack, unspecified (principal); D61.818 Other pancytopenia; F03.90 Unspecified dementia, unspecified severity, without behavioral disturbance, psychotic disturbance, mood disturbance, and anxiety; I11.0 Hypertensive heart disease with heart failure; I50.42 Chronic combined systolic (congestive) and diastolic (congestive) heart failure; I42.8 Other cardiomyopathies; I48.19 Other persistent atrial fibrillation; D69.6 Thrombocytopenia, unspecified; E78.5 Hyperlipidemia, unspecified; Z87.891 Personal history of nicotine dependence; K21.9 Gastro-esophageal reflux disease without esophagitis; E87.1 Hypo-osmolality and hyponatremia; E87.5 Hyperkalemia; I65.23 Occlusion and stenosis of bilateral carotid arteries; I45.10 Unspecified right bundle-branch block; R94.31 Abnormal electrocardiogram [ECG] [EKG]; R53.1 Weakness; M79.89 Other specified soft tissue disorders
CPT/HCPCS: 36415; 70450; 70544; 70551; 71046; 80048; 80053; 80061; 81001; 83036; 83735; 84100; 84439; 84443; 84481; 84484; 85025; 87086; 87088; 87426; 87428; 92507; 92523; 93005; 93306; 93880; 96372; 96374; 96375; 96376; 97162; 97166; 97530; 97535; 97802; 99218; 99251; 99285; A4216; G0378; G0463; J2405

== ENCOUNTER 2021-12-19 15:17 | Inpatient (IN) | payer MEDICARE, SELFPAY ==
[2021-12-19 15:24] VITALS: BP 128/69; PULSE 76; RESP 17; TEMP 36.5; O2SAT 91; BMI 24.2
--- NOTE | 2021-12-19 17:41 | NURSING ---
Patient pleasant, needs cues and has some delay in responses. Family very involved and at bedside. Patient oriented to call angel use, provided multiple pillows to help keep comfortable in bed. Patient alert to self and place but needs reminders. Family requested another room due to his view is of a rooftop. This nurse reported she would pass it on if another room became available but family aware the unit has no other room at this time.
[2021-12-19] MEDS: Senna/Docusate Sodium 1 Tablet 2 TABLET PO (18:43)
--- NOTE | 2021-12-19 19:35 | HP.PCM_ITS ---
HPI - General General Date of Admission: 12/19/21 Date of Service: 12/19/21 Chief Complaint: Here for rehab. HPI Narrative 12/16/2021 ZAC MAHAJAN, is a 81 Male who presents to [facility] Emergency Department with confusion. 12/16/2021 EKG atrial fibrillation, left axis deviation, right bundle branch block, septal infarct, age undetermined, cannot be excluded. Weak, confused, wanted to sleep in. Baseline occasional confusion, but did not recognize family members, which is new. Nausea off and on, Tremor intermittent, dysequilibrium. CT brain negative, Chest X-ray negative, Urinalysis negative, Urine culture sent. 12/16/2021 Admit to Hospital. MRI brain, MRA head/neck, carotid duplex, Echo to rule out TIA/Stroke. 12/16/2021 Echo Mildly dilated LV. LVSF normal. EF 55%. Right ventricular systolic pressure 31mm HG. Stage 3 diastolic dysfunction. 12/17/2021 MRI brain negative, MRA head/neck negative, Carotid duplex negative. Metabolic encephalopathy secondary to hyponatremia, hyperkalemia. 12/18/2021 Sleepy, lethargic, then aggressive requiring haldol, phenergan. Urine culture contaminated, urinary tract infection ruled out. No anticoagulation for atrial fibrillation due to history of gastrointestinal bleed. Citalopram 10mg daily for depression, patient under stress caring for with dementia. 12/19/2021 Admit to TCU with debility, here for rehabilitation, strengthening, prior to discharge home with . [facility] Medical History (HFpEF) heart failure with preserved ejection fraction Anemia Arthritis Former smoker Gynecomastia, male H/O recurrent urinary tract infection HFrEF (heart failure with reduced ejection fraction) History of non-ST elevation myocardial infarction (NSTEMI) (02/16/19) History of prostate cancer Monoclonal gammopathy Non-ischemic cardiomyopathy Nonrheumatic aortic (valve) stenosis with insufficiency Obesity Osteoarthritis Pancytopenia Persistent atrial fibrillation Recurrent gastrointestinal hemorrhage Thrombocytopenia Thyroid nodule Walker as ambulation aid Wears glasses Home Medications omeprazole 20 mg capsule,delayed release 20 mg PO DAILY GERD 07/23/21 [History Last Taken 09/19/21] potassium chloride 20 mEq tablet,extended release 20 meq PO DAILY Supplement 07/23/21 [History Last Taken 09/19/21] sennosides 8.6 mg-docusate sodium 50 mg tablet (Stool Softener-Stimulant Laxative) 2 tab PO BID PRN PRN Constipation #0 tabs 09/20/21 [Rx Last Taken Unknown] cholecalciferol (vitamin D3) 50 mcg (2,000 unit) tablet 100 mcg PO DAILY Supplement 11/26/21 [History Last Taken Unknown] furosemide 40 mg tablet (Lasix) 20 mg PO DAILY Heart 11/26/21 [History Last Taken Unknown] psyllium husk 0.52 gram capsule (Daily Fiber) 0.52 g PO DAILY Fiber 11/26/21 [History Last Taken Unknown] amiodarone 100 mg tablet 100 mg PO DAILY Heart 12/19/21 [History Last Taken Unknown] citalopram 10 mg tablet 10 mg PO DAILY Mood 12/19/21 [History Last Taken Unknown] Allergy/AdvReac Type Severity Reaction Status Date / Time ciprofloxacin [From Cipro] Allergy Mild rash Verified 11/07/21 11:02 levofloxacin [From Levaquin] Allergy Mild rash Verified 11/07/21 11:02 Sulfa (Sulfonamide AdvReac Unknown Verified 11/07/21 11:02 Antibiotics) Family History Son CVA (cerebral vascular accident) Father Heart disease CHF (congestive heart failure) Mother Skin disorder Surgical History History of cardiac catheterization History of colonoscopy History of esophagogastroduodenoscopy (EGD) (07/22/21) History of hernia repair History of left heart catheterization (02/18/19) History of prostate surgery History of transurethral resection of prostate Hx of breast biopsy Hx of left breast biopsy Social History household members: spouse Smoking Status: Former smoker how long ago did patient quit smokin years ago alcohol intake: current alcohol intake frequency: a few times a week Alcohol type: wine substance use type: does not use caffeine: Yes Type: coffee ROS Constitutional Constitutional: Denies chills, fever(s) or weight gain ENT HEENT: Denies headache(s), nasal congestion or nasal discharge Cardiovascular Cardiovascular: Denies chest pain or palpitations Respiratory/Chest Respiratory/Chest: Denies cough, excessive phlegm production or shortness of breath with exertion Gastrointestinal Gastrointestinal: Denies abdominal pain, nausea or vomiting Genitourinary Genitourinary: Denies dysuria Musculoskeletal Musculoskeletal: Denies joint pain or joint swelling Integumentary Integumentary: Denies rash or wounds Neurologic Neurologic: Denies focal weakness, numbness or tingling Psychiatric Psychiatric: Denies anxiety, auditory hallucinations, depression, homicidal ideation or suicidal ideation Vital Signs Vital Signs Vital Signs: 12/19/21 15:24 Temperature 97.7 F L Temperature Source Oral Pulse Rate 76 Respiratory Rate 17 Blood Pressure 128/69 H Blood Pressure Mean 88 Blood Pressure Source Monitor Blood Pressure Position Semi-Fowlers Blood Pressure Location Left Arm Pulse Ox 91 Oxygen Delivery Method Room Air Weight Weight: 81 kg Body Mass Index (BMI) 24.2 Physical Exam Narrative Confused. Const alert General Appearance: cooperative HEENT normocephalic Eyes PERRL and EOMs intact bilaterally Neck supple, no JVD and no carotid bruits Resp normal respiratory effort, normal air movement and clear to auscultation b ilaterally Cardio regular rate and regular rhythm GI normal to inspection, nondistended, normoactive bowel sounds, non-tender and non-distended Extremity normal capillary refill General Extremity: Negative for edema Skin no rashes or lesions noted General Skin Exam: no breakdown Psych affect normal Appearance: appropriate Assessment & Plan Assessment/Plan (1) Debility: (2) Atrial fibrillation: (3) Acute encephalopathy: (4) Hyponatremia: (5) Chronic diastolic congestive heart failure: (6) Atrial fibrillation: (7) Gastroesophageal reflux disease: (8) Dementia: (9) History of prostate cancer: (10) Depression: PLAN: Plan 81 year old male with below past medical history hospitalized for acute encepha lopathy, etiology unclear, stroke ruled out, admitted to TCU with debility, here for rehabilitation, strengtening, prior to discharge home with . * Debility - PT/OT. * Pain - Tylenol 1000mg q6h prn pain (1-10). * Bowel - Metamucil 1 packet bid, senna/colace 2 tablets bid prn, Dulcolax 10mg pr x 1 prn. * Adult immunization - Administer pneumonia vaccine, covid19 vaccine, flu vaccine as appropriate. * DVT prophylaxis - Hold, history of gi bleed. * Atrial fibrillation - Amiodarone 100mg daily, anticoagulation on hold due to gi bleed. 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 * Chronic diastolic congestive heart failure - Furosemide 20mg daily. * GERD - Pantoprazole 20mg daily. * Hypokalemia - KCL 20meq daily.
[2021-12-19 22:03] VITALS: O2SAT 94
[2021-12-20] MEDS: Citalopram 10 MG Tablet PO (05:27)
[2021-12-20] MEDS: Psyllium 1 PACKET PO (05:27)
[2021-12-20] MEDS: Pantoprazole Sodium 20 MG Tablet PO (05:28)
[2021-12-20] MEDS: Amiodarone 200 MG Tablet 100 MG PO (05:28)
[2021-12-20] MEDS: Furosemide 20 MG Tablet PO (05:28)
[2021-12-20 05:47] LABS: Absolute Lymphocyte Count 0.91 X10^3/uL (0.83-4.51); Absolute Neutrophil Count 2.8 X10^3/uL (2.0-7.7); Basophil# 0.07 X10^3/uL; Basophil% 1.6 % (0-1); Eosinophil# 0.24 X10^3/uL; Eosinophils% 5.4 % (0-5); Hemoglobin 12.9 g/dL (13.0-16.5); Lymphocyte # 0.91 X10^3/ul (0.83-4.51); Lymphocyte % 20.5 % (19-41); Mean Corp Hgb Conc 33.1 g/dL (32-36); Mean Corpuscular Hgb 29.9 pg (27.0-32.0); Mean Corpuscular Volume 90.3 fL (80-94); Mean Platelet Vol. 10.3 fl (6.2-12.0); Monocyte# 0.43 X10^3/uL; Monocyte% 9.7 % (0-10); NRBC Flagged by Analyzer 0 % (0-5); Neutrophil # 2.78 X10^3/uL (2.7-7.7); Neutrophil % 62.6 % (47-70); POSITIVE MORPHOLOGY YES; Platelet Count 108 K/mm3 (150-450); RBC Distribution Width CV 20.4 % (11.6-14.6); RBC Distribution Width SD 67.7 fl (35.1-43.9); Red Blood Count 4.32 M/mm3 (4.6-6.2); White Blood Count 4.4 K/mm3 (4.4-11.0)
[2021-12-20 06:03] LABS: Differential Indicated SCAN CRITERIA MET
[2021-12-20 06:25] LABS: Anion Gap 5 (5-15); BUN 26 mg/dL (7-18); BUN/Creat Ratio 18.4 RATIO (10-20); Calcium,Total 8.4 mg/dL (8.5-10.1); Chloride 113 mmol/L (98-107); Creatinine, Serum 1.41 mg/dL (0.70-1.30); EST Glomerular Filtration Rate 51 mL/min (>60); Est Glom Filt Rate - Afr Amer 62 mL/min (>60); Estimated Creatinine Clearance 46.63 ml/min; Glucose 82 mg/dL (74-106); Potassium 4.3 mmol/L (3.5-5.1); Sodium Level 142 mmol/L (136-145)
[2021-12-20 06:27] LABS: Anisocytosis 2+
[2021-12-20] MEDS: Potassium Chloride Oral Tablet 20 MEQ PO (09:17)
[2021-12-20] MEDS: Nystatin Powder 15gm Bottle 1 APPLIC TOPICAL ×2 (09:19→18:04)
[2021-12-20] MEDS: Menthol/Lanolin/Calamine/Znox 113 GM Tube 1 APPLIC TOPICAL ×2 (09:20→18:04)
[2021-12-20] MEDS: Tuberculin,Purif.prot.deriv. 50 TU/ML Vial 0.1 ML ID (13:22)
[2021-12-20 14:00] VITALS: BP 127/63; PULSE 94; RESP 18; TEMP 36.4; O2SAT 96
[2021-12-20] MEDS: Aspirin 81 MG TAB.CHEW PO (15:01)
[2021-12-20 21:09] VITALS: PULSE 61; RESP 16; O2SAT 98
--- NOTE | 2021-12-21 06:29 | NURSING ---
This nurse went into Patient room and attempted to get vitals and administer AM medications. Patient started yelling, get out of here, I am not taking those right now!
[2021-12-21] MEDS: Furosemide 20 MG Tablet PO (08:15)
[2021-12-21] MEDS: Citalopram 10 MG Tablet PO (08:17)
[2021-12-21] MEDS: Psyllium 1 PACKET PO (08:17)
[2021-12-21] MEDS: Pantoprazole Sodium 20 MG Tablet PO (08:19)
[2021-12-21] MEDS: Aspirin 81 MG TAB.CHEW PO (08:20)
[2021-12-21] MEDS: Potassium Chloride Oral Tablet 20 MEQ PO (08:20)
[2021-12-21] MEDS: Amiodarone 200 MG Tablet 100 MG PO (08:32)
[2021-12-21 08:43] VITALS: BP 133/76; PULSE 89
[2021-12-21 10:45] VITALS: PULSE 69; RESP 18; O2SAT 98
[2021-12-21] MEDS: Petrolatum 33% Tube 1 APPLIC TOPICAL (11:02)
--- NOTE | 2021-12-21 11:53 | NURSING ---
OK PER THERAPY, PT CHILDREN CAN TRANSFER PT IN ROOM.
[2021-12-21 14:00] VITALS: BP 119/52; PULSE 65; RESP 16; TEMP 36.8; O2SAT 98
[2021-12-21] MEDS: Menthol/Lanolin/Calamine/Znox 113 GM Tube 1 APPLIC TOPICAL (17:35)
[2021-12-22 05:08] VITALS: BP 124/80; PULSE 71
[2021-12-22] MEDS: Pantoprazole Sodium 20 MG Tablet PO (05:09)
[2021-12-22] MEDS: Amiodarone 200 MG Tablet 100 MG PO (05:10)
[2021-12-22] MEDS: Furosemide 20 MG Tablet PO (05:10)
[2021-12-22] MEDS: Citalopram 10 MG Tablet PO (05:11)
[2021-12-22] MEDS: Nystatin Powder 15gm Bottle 1 APPLIC TOPICAL (05:13)
[2021-12-22] MEDS: Menthol/Lanolin/Calamine/Znox 113 GM Tube 1 APPLIC TOPICAL ×2 (05:13→18:16)
[2021-12-22] MEDS: Petrolatum 33% Tube 1 APPLIC TOPICAL (05:24)
--- NOTE | 2021-12-22 05:29 | NURSING ---
Pt required mod to max cueing to to am meds. Did not administer Metamucil as pt would not attempt to consume the fluid. Took a small sip of water through a straw.
[2021-12-22] MEDS: Potassium Chloride Oral Tablet 20 MEQ PO (08:05)
[2021-12-22] MEDS: Aspirin 81 MG TAB.CHEW PO (08:05)
--- NOTE | 2021-12-22 12:57 | NURSING ---
PT DAUGHTER SALAZAR CAME OUT AND ASKED IF THEY COULD WALK THE PT IN THE [place]. THIS NURSE STATED THAT THERAPY APPROVED FOR CHILDREN TO ONLY WALK PT IN ROOM WITH GATE BELT YESTERDAY. AND THEY WOULD HAVE TO GET APPROVAL FROM THERAPY TO WALK IN [place]. DAUGHTER STATED WELL THERAPY BETTER BE HERE TOMORROW. THIS NURSE STATED THAT THERAPY IS ONLY HERE MON-SAT. BUT I OR OTHER STAFF CAN WALK PT IN [place] IF PT WOULD LIKE. DAUGHTER STATED WE WILL CALL OUT WHEN HE WANTS TO GO. SO THIS NURSE WENT BACK LATER TO SEE IF PT WANTED TO GO FOR A WALK,DAUGHTER STATED HES TIRED RIGHT NOW AND WE ARE GOING TO GO GET LUNCH AND WILL BE BACK. THIS NURSE YESTERDAY 12/21/21 CAUGHT FAMILY WALKING PT IN [place] WITH OUT GATE BELT AND STATED THE SAME THING TO FAMILY ABOUT WALKING PT IN [place] WITH OUT THERAPY APPROVAL. RN AWARE.
[2021-12-22 14:00] VITALS: BP 137/65; PULSE 64; RESP 12; TEMP 36.1; O2SAT 98
--- NOTE | 2021-12-22 14:36 | NURSING ---
PT FOUND STANDING OUT SIDE RM 4 WITH WALKER. ASKED WHERE HE WAS GOING PT STATED SOME ONE SAID THEY WOULD TAKE ME FOR A WALK. STAFF HAD PT SIT DOWN IN LOUNGE WHILE THEY GOT NEW ADMIT SETTLED IN 4. STAFF THEN TOOK PT FOR WALK IN [place]. THIS NURSE EXPLAINED TO PT THAT HE NEEDS TO CALL FOR ANY ASSISTANTS FOR ANY THING INCLUDING WALKING AND EXPLAINED TO PT WHY AND THAT HE COULD FALL. PT STATED HE UNDER STOOD. PT SON CAME INTO ROOM AND THIS NURSE EXPLAINED WHAT HAPPENED. SON STATED CANT HE WALK IN ROOM BY HIS SELF. THIS NURSE STATED TO SON NO PT IS ONLY ALLOWED UP IN ROOM WITH STAFF OR FAMILY WITH GATE BELT AT THIS TIME PER THERAPY. SON THEN ASKED IF HE COULD TAKE HIS DAD OUT SIDE IN WHEEL CHAIR,OKED IT, BUT ADVISED SON TO DO NOT WALK PT OUT SIDE. SON STATED HE UNDER STOOD. RN AWARE
[2021-12-22 20:22] VITALS: PULSE 70; RESP 16; O2SAT 98
[2021-12-23] MEDS: Furosemide 20 MG Tablet PO (07:00)
[2021-12-23] MEDS: Amiodarone 200 MG Tablet 100 MG PO (07:03)
[2021-12-23] MEDS: Citalopram 10 MG Tablet PO (07:04)
[2021-12-23] MEDS: Pantoprazole Sodium 20 MG Tablet PO (07:04)
[2021-12-23] MEDS: Menthol/Lanolin/Calamine/Znox 113 GM Tube 1 APPLIC TOPICAL (07:04)
[2021-12-23] MEDS: Psyllium 1 PACKET PO (07:04)
[2021-12-23] MEDS: Petrolatum 33% Tube 1 APPLIC TOPICAL (07:06)
[2021-12-23] MEDS: Nystatin Powder 15gm Bottle 1 APPLIC TOPICAL (07:06)
[2021-12-23] MEDS: Potassium Chloride Oral Tablet 20 MEQ PO (08:24)
[2021-12-23] MEDS: Aspirin 81 MG TAB.CHEW PO (08:24)
[2021-12-23 14:00] VITALS: BP 119/72; PULSE 62; RESP 14; TEMP 36.6; O2SAT 97
--- NOTE | 2021-12-23 15:03 | NURSING ---
Storage Consultant Note; Activity Asset complete
--- NOTE | 2021-12-23 18:24 | CASEMGMT ---
Social Work See attached assessment for complete outreach and education social worker assessment details. This outreach and education social worker met with patient and patient spouse, Kerry in room. Introduced self and outreach and education social worker role. Patient agreeable to speak with this outreach and education social worker and provided verbal permission for this outreach and education social worker to speak openly with Kerry present. Patient plans to return to home with spouse. This outreach and education social worker communicating insurance update due on 12/20/2021 as first update. This outreach and education social worker communicating that anticipating continued stay approval by insurance with another update. This outreach and education social worker communicating that continued stay is not guaranteed and that insurance will issue a three day notice if continued stay is denied at any point during patient stay, patient and Kerry voiced understanding to this. This outreach and education social worker completed MOLST form with patient, patient wishes to be a Full Code. Kerry is patient Health care Power of stationary engineer apprentice. This outreach and education social worker noting that Health Care Power of stationary engineer apprentice paperwork is not on file for patient, Kerry plans to bring copy of Health Care Power of Print Line Inspector and Living Will to TCU to be able to be placed on patient chart. Active support and listening provided. This outreach and education social worker able to answer all questions. PLAN: Discharge to home with spouse No discharge date set at this time. Social Work to continue to follow. Tameka RIDDLE, MICHAEL
--- NOTE | 2021-12-23 19:19 | NURSING ---
Carmen RN called Dr. Culp PCP and left voicemail concerning Pneumonia vaccine. Awaiting return call.
[2021-12-24] MEDS: Pantoprazole Sodium 20 MG Tablet PO (06:20)
[2021-12-24] MEDS: Amiodarone 200 MG Tablet 100 MG PO (06:20)
[2021-12-24] MEDS: Furosemide 20 MG Tablet PO (06:20)
[2021-12-24] MEDS: Citalopram 10 MG Tablet PO (06:20)
[2021-12-24] MEDS: Psyllium 1 PACKET PO (06:20)
[2021-12-24 06:24] VITALS: BP 119/68; PULSE 56
[2021-12-24] MEDS: Aspirin 81 MG TAB.CHEW PO (07:57)
[2021-12-24] MEDS: Potassium Chloride Oral Tablet 20 MEQ PO (07:57)
[2021-12-24] MEDS: Petrolatum 33% Tube 1 APPLIC TOPICAL ×2 (10:53→23:45)
[2021-12-24] MEDS: Nystatin Powder 15gm Bottle 1 APPLIC TOPICAL ×2 (10:54→23:46)
[2021-12-24] MEDS: Senna/Docusate Sodium 1 Tablet 2 TABLET PO ×2 (10:57→17:58)
--- NOTE | 2021-12-24 11:06 | CASEMGMT ---
Social Work IDT met with patient, two sons and dtr for care plan meeting. Discussed patient's progress in PT/OT/ST/SN. Educated to [facility] insurance with [employer] 12/20 and continued stay is not guaranteed with each review. IDT currently recommending 24/7 supervision for cognition and safety, and ADLs. Pt is physically walking and transferring well, but not strong enough to manage ADLs without x2 assist. Family asked many questions of recommendations, DC options, goals, resources, insurance coverage of assistance at [place]. The rest of the team excused themselves from the meeting and this worker continued speaking with family. Answer questions and providing support/empathy to pt's current situation and home-going needs. Son who lives with pt is unsure about caring for pt 08/09 and asked more questions about placement. The dtr and son who live out of state expressed they do not want pt anywhere but home. SW acknowledged feelings. Offered ongoing assistance with navigating options, DC plans and insurance coverage. SW provided resources for SUBSTANCE ABUSE CLINICIAN and [place]. Dtr also inquired about a room change for pt to have better view to help improve mood. SW agreed to speak with team about moving room, once a better room with a view becomes available. Son inquired about pt having a Dementia dx. Per chart, dx is listed and offered to have Dr. Kirk contact son to further explain. Son appreciative. Met with family and pt for approximately one hour. Written communication left for Dr and nursing. SW to continue to follow for discharge planning and support. Alison Orellana, JANESSA CONVALESCENT SITTER
[2021-12-24 14:00] VITALS: BP 109/66; PULSE 68; RESP 16; TEMP 36; O2SAT 96
--- NOTE | 2021-12-24 14:06 | PHA.CONS_ITS ---
TCU RX Drug Regimen Review Subjective: [] TCU ADMISSION Objective: Allergies ciprofloxacin [From Cipro] Allergy (Mild, Verified 11/07/21 11:02) rash levofloxacin [From Levaquin] Allergy (Mild, Verified 11/07/21 11:02) rash Sulfa (Sulfonamide Antibiotics) Adverse Reaction (Verified 11/07/21 11:02) Unknown Current Medications Generic Name Dose Route Start Last Admin Trade Name Freq PRN Reason Stop Dose Admin Acetaminophen 1,000 mg 12/19/21 19:49 Acetaminophen 500 Mg Tablet PO Q6H PRN PRN Pain Score 1-10 Amiodarone HCl 100 mg 12/20/21 06:00 12/24/21 06:20 Amiodarone 200 Mg Tablet PO 100 mg DAILY CHRIS Administration Aspirin 81 mg 12/21/21 08:00 12/24/21 07:57 Aspirin 81 Mg Tab.Chew PO 81 mg BREAKFAST CHRIS Administration Bisacodyl 10 mg 12/19/21 15:42 Bisacodyl 10 Mg Suppository RC X1 PRN Constipation Calamine/Phenol 1 applic 12/23/21 22:00 12/24/21 10:52 Menthol/Lanolin/Calamine/Znox 113 Gm Tube TOPICAL Not Given BID@1000,2200 [facility] Protocol Citalopram Hydrobromide 10 mg 12/20/21 06:00 12/24/21 06:20 Citalopram 10 Mg Tablet PO 10 mg DAILY CHRIS Administration Furosemide 20 mg 12/20/21 06:00 12/24/21 06:20 Furosemide 20 Mg Tablet PO 20 mg DAILY CHRIS Administration Multi-Ingredient Cream 1 applic 12/24/21 10:00 12/24/21 10:53 Petrolatum 33% Tube TOPICAL 1 applic 1000,2200 [facility] Administration Protocol Nystatin 1 applic 12/23/21 22:00 12/24/21 10:54 Nystatin Powder 15gm Bottle TOPICAL 1 applic 1000,2200 [facility] Administration Protocol Pantoprazole Sodium 20 mg 12/20/21 06:00 12/24/21 06:20 Pantoprazole Sodium 20 Mg Tablet PO 20 mg DAILY CHRIS Administration Potassium Chloride 20 meq 12/20/21 08:00 12/24/21 07:57 Potassium Chloride Oral Tablet 20 Meq PO 20 meq BREAKFAST CHRIS Administration Psyllium Hydrophilic Mucilloid 1 packet 12/20/21 06:00 12/24/21 06:20 Psyllium 1 Packet PO 1 packet DAILY CHRIS Administration Senna/Docusate Sodium 2 tablet 12/19/21 15:38 12/24/21 10:57 Senna/Docusate Sodium 1 Tablet PO 2 tablet BID PRN PRN Administration Constipation Tuberculin PPD 0.1 ml 12/27/21 10:00 Tuberculin,Purif.Prot.Deriv. 50 Tu/Ml Vial ID 12/27/21 10:01 X1 ONE Problem List (Last Reviewed 12/19/21 @ 19:[address] Fredis Kirk MD) Depression (Acute) History of prostate cancer (Acute) Dementia (Acute) Gastroesophageal reflux disease (Acute) Atrial fibrillation (Acute) Chronic diastolic congestive heart failure (Chronic) Hyponatremia (Acute) Debility (Acute) Atrial fibrillation (Chronic) Acute encephalopathy (Acute) Vital Signs Temp Pulse Resp BP Pulse Ox O2 Del Method 97.9 F 56 L 14 119/68 97 Room Air 12/23/21 14:00 12/24/21 06:24 12/23/21 14:00 12/24/21 06:24 12/23/21 14:00 12/23/21 14:00 Oxygen Delivery Method Room Air Weight: 81.964 kg Body Mass Index (BMI) 24.2 Sodium 142 mmol/L (136-145) 12/20/21 05:14 Potassium 4.3 mmol/L (3.5-5.1) 12/20/21 05:14 Chloride 113 mmol/L (98-107) H 12/20/21 05:14 Carbon Dioxide 24.0 mmol/L (21.0-32.0) 12/20/21 05:14 Anion Gap 5 (5-15) 12/20/21 05:14 BUN 26 mg/dL (7-18) H 12/20/21 05:14 Creatinine 1.41 mg/dL (0.70-1.30) H 12/20/21 05:14 Est GFR (MDRD) Af Amer 62 mL/min (>60) 12/20/21 05:14 Est GFR (MDRD) Non-Af 51 mL/min (>60) L 12/20/21 05:14 BUN/Creatinine Ratio 18.4 RATIO (10-20) 12/20/21 05:14 Glucose 82 mg/dL (74-106) 12/20/21 05:14 Assessment/Plan: 1) Pain: Acetaminophen 1000mg po q6h prn for pain 1-10. Please continue to monitor prn usage and for signs/symptoms of increased pain. --PRN Note: There have been zero administrations of Acetaminophen to date 2) Bowel: Bisacodyl 10mg suppository x1 prn constipation, Senna/Docusate 2 tablets po bid prn for constipation, Metamucil 1 packet po daily. Please continue to monitor prn usage and for signs/symptoms of constipation/diarrhea. --PRN Note: There have been zero Bisacodyl administrations to date --PRN Note: There have been 2 Senna/Docusate administrations to date. 3) Hypokalemia: Potassium 20meq po with breakfast. Pt's last K+ level was within normal limits at 4.3 on 12/20/21. Please continue to monitor pt labs 4) GERD: Pantoprazole 20mg po daily. Please continue to monitor for signs/symptoms of GERD. Pt's last magnesium level was within normal limits at 2.3 on 12/16/21. Please continue to monitor pt labs 5) AFib: Amiodarone 100mg po daily. Pt's average pulse rate is 70.6, pulse strength is normal. Pt has had 3x irregular pulse rhythms and 2x regular pulse rhythms. Please continue to monitor. 6) Chronic Diastolic CHF: Furosemide 20mg po daily. Pt's last K+ and Na were within normal limits at 4.3 and 142 on 12/20/21. Please continue to monitor pt labs. Pt's average BP is 125.75/68.125, please continue to monitor BP. Assessment/Plan for indications treated with psychotropic medications: 1) Depression: Citalopram 10mg po daily. Per physician note, GDR not approp riate at this time due to pt undergoing stress due to caring for . Medical chart and medication regimen reviewed. The following medication irregularities or issues were identified: none Date of Note:: 12/24/21
--- NOTE | 2021-12-24 14:29 | PCM.PN.DRR ---
TCU RX Drug Regimen Review Subjective: [] Objective: Allergies ciprofloxacin [From Cipro] Allergy (Mild, Verified 11/07/21 11:02) rash levofloxacin [From Levaquin] Allergy (Mild, Verified 11/07/21 11:02) rash Sulfa (Sulfonamide Antibiotics) Adverse Reaction (Verified 11/07/21 11:02) Unknown Current Medications Generic Name Dose Route Start Last Admin Trade Name Freq PRN Reason Stop Dose Admin Acetaminophen 1,000 mg 12/19/21 19:49 Acetaminophen 500 Mg Tablet PO Q6H PRN PRN Pain Score 1-10 Amiodarone HCl 100 mg 12/20/21 06:00 12/24/21 06:20 Amiodarone 200 Mg Tablet PO 100 mg DAILY CHRIS Administration Aspirin 81 mg 12/21/21 08:00 12/24/21 07:57 Aspirin 81 Mg Tab.Chew PO 81 mg BREAKFAST [facility] Administration Bisacodyl 10 mg 12/19/21 15:42 Bisacodyl 10 Mg Suppository RC X1 PRN Constipation Calamine/Phenol 1 applic 12/23/21 22:00 12/24/21 10:52 Menthol/Lanolin/Calamine/Znox 113 Gm Tube TOPICAL Not Given BID@1000,2200 [facility] Protocol Citalopram Hydrobromide 10 mg 12/20/21 06:00 12/24/21 06:20 Citalopram 10 Mg Tablet PO 10 mg DAILY CHRIS Administration Furosemide 20 mg 12/20/21 06:00 12/24/21 06:20 Furosemide 20 Mg Tablet PO 20 mg DAILY CHRIS Administration Multi-Ingredient Cream 1 applic 12/24/21 10:00 12/24/21 10:53 Petrolatum 33% Tube TOPICAL 1 applic 1000,2200 [facility] Administration Protocol Nystatin 1 applic 12/23/21 22:00 12/24/21 10:54 Nystatin Powder 15gm Bottle TOPICAL 1 applic 1000,2200 [facility] Administration Protocol Pantoprazole Sodium 20 mg 12/20/21 06:00 12/24/21 06:20 Pantoprazole Sodium 20 Mg Tablet PO 20 mg DAILY CHRIS Administration Potassium Chloride 20 meq 12/20/21 08:00 12/24/21 07:57 Potassium Chloride Oral Tablet 20 Meq PO 20 meq BREAKFAST CHRIS Administration Psyllium Hydrophilic Mucilloid 1 packet 12/20/21 06:00 12/24/21 06:20 Psyllium 1 Packet PO 1 packet DAILY CHRIS Administration Senna/Docusate Sodium 2 tablet 12/19/21 15:38 12/24/21 10:57 Senna/Docusate Sodium 1 Tablet PO 2 tablet BID PRN PRN Administration Constipation Tuberculin PPD 0.1 ml 12/27/21 10:00 Tuberculin,Purif.Prot.Deriv. 50 Tu/Ml Vial ID 12/27/21 10:01 X1 ONE Problem List (Last Reviewed 12/19/21 @ 19:[address] Fredis Kirk MD) Depression (Acute) History of prostate cancer (Acute) Dementia (Acute) Gastroesophageal reflux disease (Acute) Atrial fibrillation (Acute) Chronic diastolic congestive heart failure (Chronic) Hyponatremia (Acute) Debility (Acute) Atrial fibrillation (Chronic) Acute encephalopathy (Acute) Vital Signs Temp Pulse Resp BP Pulse Ox O2 Del Method 97.9 F 56 L 14 119/68 97 Room Air 12/23/21 14:00 12/24/21 06:24 12/23/21 14:00 12/24/21 06:24 12/23/21 14:00 12/23/21 14:00 Oxygen Delivery Method Room Air Weight: 81.964 kg Body Mass Index (BMI) 24.2 Sodium 142 mmol/L (136-145) 12/20/21 05:14 Potassium 4.3 mmol/L (3.5-5.1) 12/20/21 05:14 Chloride 113 mmol/L (98-107) H 12/20/21 05:14 Carbon Dioxide 24.0 mmol/L (21.0-32.0) 12/20/21 05:14 Anion Gap 5 (5-15) 12/20/21 05:14 BUN 26 mg/dL (7-18) H 12/20/21 05:14 Creatinine 1.41 mg/dL (0.70-1.30) H 12/20/21 05:14 Est GFR (MDRD) Af Amer 62 mL/min (>60) 12/20/21 05:14 Est GFR (MDRD) Non-Af 51 mL/min (>60) L 12/20/21 05:14 BUN/Creatinine Ratio 18.4 RATIO (10-20) 12/20/21 05:14 Glucose 82 mg/dL (74-106) 12/20/21 05:14 Assessment/Plan: Assessment/Plan for indications treated with psychotropic medications: Medical chart and medication regimen reviewed. The following medication irregularities or issues were identified:
[2021-12-24] MEDS: traZODone 50 MG Tablet 25 MG PO (21:27)
[2021-12-24 23:14] VITALS: PULSE 78; RESP 17; O2SAT 98
[2021-12-24] MEDS: Menthol/Lanolin/Calamine/Znox 113 GM Tube 1 APPLIC TOPICAL (23:45)
[2021-12-25] MEDS: Citalopram 10 MG Tablet PO (04:36)
[2021-12-25] MEDS: Amiodarone 200 MG Tablet 100 MG PO (04:37)
[2021-12-25] MEDS: Pantoprazole Sodium 20 MG Tablet PO (04:38)
[2021-12-25] MEDS: Furosemide 20 MG Tablet PO (04:38)
[2021-12-25] MEDS: Senna/Docusate Sodium 1 Tablet 2 TABLET PO ×2 (04:38→17:38)
[2021-12-25] MEDS: Psyllium 1 PACKET PO (04:49)
[2021-12-25 06:00] VITALS: BP 123/81; PULSE 63
[2021-12-25] MEDS: Potassium Chloride Oral Tablet 20 MEQ PO (07:57)
[2021-12-25] MEDS: Aspirin 81 MG TAB.CHEW PO (07:57)
[2021-12-25 10:25] VITALS: PULSE 55; RESP 16; O2SAT 100
[2021-12-25] MEDS: Petrolatum 33% Tube 1 APPLIC TOPICAL ×2 (11:12→21:23)
[2021-12-25] MEDS: Nystatin Powder 15gm Bottle 1 APPLIC TOPICAL ×2 (11:16→21:22)
[2021-12-25 13:42] VITALS: BP 116/61; PULSE 64; RESP 16; TEMP 36.3; O2SAT 97
[2021-12-25] MEDS: traZODone 50 MG Tablet 25 MG PO (21:20)
[2021-12-25] MEDS: Menthol/Lanolin/Calamine/Znox 113 GM Tube 1 APPLIC TOPICAL (21:22)
[2021-12-26 06:00] VITALS: BP 131/57; PULSE 67; RESP 16
[2021-12-26] MEDS: Psyllium 1 PACKET PO (06:22)
[2021-12-26] MEDS: Furosemide 20 MG Tablet PO (06:22)
[2021-12-26] MEDS: Amiodarone 200 MG Tablet 100 MG PO (06:22)
[2021-12-26] MEDS: Citalopram 10 MG Tablet PO (06:22)
[2021-12-26] MEDS: Senna/Docusate Sodium 1 Tablet 2 TABLET PO (06:22)
[2021-12-26] MEDS: Pantoprazole Sodium 20 MG Tablet PO (06:23)
[2021-12-26 06:35] VITALS: BP 145/56; PULSE 61; RESP 16
[2021-12-26] MEDS: Aspirin 81 MG TAB.CHEW PO (08:31)
[2021-12-26] MEDS: Potassium Chloride Oral Tablet 20 MEQ PO (08:31)
--- NOTE | 2021-12-26 09:04 | NURSING ---
CALLED AND LEFT MESSAGE AT OFFICE TO SCHEDULE APPOINTMENT FOR PT.
--- NOTE | 2021-12-26 09:45 | NURSING ---
Comic Artist Note; MDS Complete
--- NOTE | 2021-12-26 11:04 | CASEMGMT ---
Addendum entered by Alison Orellana 12/26/21 17:21: SW contacted son Simón but Mckay answered the phone and provided update. Family is very hopeful the appeal will be overturned and pt remains at least another week in TCU. However, if not, the plan is pt to come home with additional help hired at home or family will consider paying privately in TCU until plans are in place at home. SW understands and will continue to follow. Son appreciative of this worker assistance. Addendum entered by Alison Orellana 12/26/21 15:58: Received voicemail from [employer] stating appeal was filed with Pt will need a FWW and HHC if pt DC's home. Family has not provided this worker with DC plan. Original Note: Social Work Insurance issued LCD 12/28, DC 12/29. Contacted son, Simón, to update. SW did explain appeal rights. Son is unsure of the DC plan, if he wants to appeal. Son expressed not feeling satisfied with pt's progress, wanting pt to f/u with neurologist and psychiatrist. SW provided supportive listening and empathy. Son would like to discuss with siblings and pt on plans. SW offered ongoing assistance with plans. SW presented to pt's room where son, Mckay, was present as well. SW explained pt and son of insurance DC date and appeal rights. Mckay voiced wanting to appeal to get pt more time but agreed to discuss with siblings first. SW asked pt how he felt about the DC, pt replied well I think it will be tricky, but I can manage. Completed BIMS (10/31) and PHQ-9 () for MDS assessment. Pt has been started on antidepressant and sleep medication to assist. Pt had Dr. Hughes, psychiatry appt yesterday. At this time, son Simón, presented to room. Both son's were uneasy with the scores of the assessment only solidifying the pt is not at baseline. Simón expressed frustration with pt not being able to see Dr. Hughes, psychiatrist, at appt yesterday nor having an appt scheduled for Dr. Sanders, neurologist, yet. SW inquired further about the psychiatry appt issue. Son explained pt was assisted by TCU staff into the car using the w/c, but once pt arrived at office, no w/c was available. Son returned to TCU to retrieve w/c and by the time pt was present for appt, the office stated pt was late and could not be seen; rescheduling appt for 01/01. SW acknowledged frustrations and offered to f/u on this and neurology appt. Son appreciative. Son's to discuss DC plans and notify this worker of outcome and if filing an appeal. Will continue to follow. Alison Orellana, DOWEL POINTER OFFICE REP
[2021-12-26] MEDS: Menthol/Lanolin/Calamine/Znox 113 GM Tube 1 APPLIC TOPICAL ×2 (11:19→19:56)
[2021-12-26] MEDS: Petrolatum 33% Tube 1 APPLIC TOPICAL ×2 (11:21→19:57)
[2021-12-26] MEDS: Nystatin Powder 15gm Bottle 1 APPLIC TOPICAL ×2 (11:21→19:56)
[2021-12-26 14:00] VITALS: BP 136/67; PULSE 69; RESP 14; TEMP 36.6; O2SAT 98
--- NOTE | 2021-12-26 16:38 | PCM.DC.SUM ---
Providers Date of Admission: 12/19/21 Primary Care Physician: Dr. Steff Culp DO Reason For Visit: TIA/VINCENZO Diagnosis Discharge Diagnosis (1) Debility: Status: Acute Code(s): R53.81 - Other malaise (2) Atrial fibrillation: Status: Chronic Code(s): I48.91 - Unspecified atrial fibrillation (3) Acute encephalopathy: Status: Acute Code(s): G93.40 - Encephalopathy, unspecified (4) Hyponatremia: Status: Acute Code(s): E87.1 - Hypo-osmolality and hyponatremia (5) Chronic diastolic congestive heart failure: Status: Chronic Code(s): I50.32 - Chronic diastolic (congestive) heart failure (6) Atrial fibrillation: Status: Acute Code(s): I48.91 - Unspecified atrial fibrillation (7) Gastroesophageal reflux disease: Status: Acute Code(s): K21.9 - Gastro-esophageal reflux disease without esophagitis (8) Dementia: Status: Acute Code(s): F03.90 - Unspecified dementia, unspecified severity, without behavioral disturbance, psychotic disturbance, mood disturbance, and anxiety (9) History of prostate cancer: Status: Acute Code(s): Z85.46 - Personal history of malignant neoplasm of prostate (10) Depression: Status: Acute Code(s): F32.A - Depression, unspecified Plan 81 year old male with below past medical history hospitalized for acute encephalopathy, etiology unclear, stroke ruled out, admitted to TCU with debility, here for rehabilitation, strengtening, prior to discharge home with . Debility - PT/OT. Pain - Tylenol 1000mg q6h prn pain (1-10). Bowel - Metamucil 1 packet bid, senna/colace 2 tablets bid prn, Dulcolax 10mg pr x 1 prn. Adult immunization - Administer pneumonia vaccine, covid19 vaccine, flu vaccine as appropriate. DVT prophylaxis - Hold, history of gi bleed. Atrial fibrillation - Amiodarone 100mg daily, anticoagulation on hold due to gi bleed. 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 Chronic diastolic congestive heart failure - Furosemide 20mg daily. GERD - Pantoprazole 20mg daily. Hypokalemia - KCL 20meq daily. Medications at Discharge Home Medications omeprazole 20 mg capsule,delayed release 20 mg PO DAILY GERD 07/23/21 potassium chloride 20 mEq tablet,extended release 20 meq PO DAILY Supplement 07/23/21 sennosides 8.6 mg-docusate sodium 50 mg tablet (Stool Softener-Stimulant Laxative) 2 tab PO BID PRN PRN Constipation #0 tabs 09/20/21 cholecalciferol (vitamin D3) 50 mcg (2,000 unit) tablet 100 mcg PO DAILY Supplement 11/26/21 furosemide 40 mg tablet (Lasix) 20 mg PO DAILY Heart 11/26/21 psyllium husk 0.52 gram capsule (Daily Fiber) 0.52 g PO DAILY Fiber 11/26/21 amiodarone 100 mg tablet 100 mg PO DAILY Heart 12/19/21 aspirin 81 mg chewable tablet 81 mg PO BREAKFAST #0 tabs 12/26/21 citalopram 10 mg tablet 10 mg PO DAILY 30 days #30 tabs 12/26/21 trazodone 50 mg tablet 25 mg PO QHS #0 tabs 12/26/21 Hospital Course Operations None Procedures None Summary of Care Provided Minutes Spent on Discharge: 35 Hospital Course: 81 year old male with below past medical history hospitalized for acute encephalopathy, etiology unclear, stroke ruled out, admitted to TCU with debility, here for rehabilitation, strengtening, prior to discharge home with . Discharge home with 12/29/2021 pending appeal, Home Health Care PT/OT/ST/COLLOID MILL OPERATOR, Front wheeled walker. Physical Exam Const alert General Appearance: cooperative HEENT normocephalic Eyes PERRL and EOMs intact bilaterally Neck supple, no JVD and no carotid bruits Resp normal respiratory effort, normal air movement and clear to auscultation bilaterally Cardio regular rate and regular rhythm GI normal to inspection, nondistended, normoactive bowel sounds, non-tender and non-distended Extremity normal capillary refill General Extremity: Negative for edema Skin no rashes or lesions noted General Skin Exam: no breakdown Psych affect normal Appearance: appropriate Weight / BMI Weight Weight: 81.964 kg Body Mass Index (BMI) 24.2 ABG / Lab / Microbiology Data Result Diagrams: 12/20/21 05:14 12/20/21 05:14 D/C Instructions Discharge Diet: No restrictions Discharge Activity: Return to Normal Activity, May Shower and Use Walker Weight Bearing Status: Weight bearing as tolerated Call your doctor if you observe: Fever of 101 or Higher, Inability to urinate, Inability to have a bowel movement, Shortness of breath, Dizziness, Fainting spells, Swelling in the ankles, Chest pain and Uncontrolled pain Additional Instructions: Discharge home with 12/29/2021 pending appeal, Home Health Care PT/OT/ST/COLLOID MILL OPERATOR, Front wheeled walker. Please Follow Up With: Ortega Hughes DO When: As scheduled. Meaningful Use Info Meaningful Use Diagnoses (Choose all that apply): None applicable Discharge Plan Admission Admit Date/Time: 12/19/21 15:17 Primary Reason for Your Visit: Debility. Attending Provider: Fredis Kirk Chi Primary Care Provider: Steff Culp Instructions Additional Instructions / Restrictions: Discharge home with 12/29/2021 pending appeal, Home Health Care PT/OT/ST/COLLOID MILL OPERATOR, Front wheeled walker. Discharge Orders/Prescriptions Prescriptions: New trazodone 50 mg Tablet 25 mg PO QHS Qty: 0 0RF citalopram 10 mg Tablet 10 mg PO DAILY 30 Days Qty: 30 0RF aspirin 81 mg Tablet,Chewable 81 mg PO BREAKFAST Qty: 0 0RF Continued omeprazole 20 mg capsule,delayed release(DR/EC) 20 mg PO DAILY Label Comments: 1 (ONE) CAPSULE Q AM potassium chloride 20 mEq tablet extended release 20 meq PO DAILY Label Comments: TAKE 1 TABLET BY MOUTH TWICE A DAY cholecalciferol (vitamin D3) 50 mcg (2,000 unit) tablet 100 mcg PO DAILY furosemide [Lasix] 40 mg tablet 20 mg PO DAILY Rx Instructions: Take an additional 20 mg dose at 5 PM for increased leg swelling or weight gain 5 pounds in 1 week. psyllium husk [Daily Fiber] 0.52 gram capsule 0.52 g PO DAILY sennosides-docusate sodium [Stool Softener-Stimulant Laxat] 8.6-50 mg Tablet 2 tab PO BID PRN PRN (Reason: Constipation) Qty: 0 0RF amiodarone 100 mg tablet 100 mg PO DAILY Discontinued citalopram 10 mg tablet 10 mg PO DAILY Referrals / Follow Up: Steff Culp DO [Primary Care Provider] - Disposition Disposition (needs filled in before D/C Order can be placed): Home Health Service
[2021-12-26] MEDS: traZODone 50 MG Tablet 25 MG PO (21:02)
[2021-12-26 21:48] VITALS: O2SAT 96
[2021-12-27 05:42] LABS: Absolute Lymphocyte Count 0.72 X10^3/uL (0.83-4.51); Absolute Neutrophil Count 1.9 X10^3/uL (2.0-7.7); Basophil# 0.06 X10^3/uL; Basophil% 1.8 % (0-1); Eosinophil# 0.18 X10^3/uL; Eosinophils% 5.5 % (0-5); Hematocrit 34.7 % (40-54); Hemoglobin 11.1 g/dL (13.0-16.5); Lymphocyte # 0.72 X10^3/ul (0.83-4.51); Lymphocyte % 21.8 % (19-41); Mean Corpuscular Hgb 29.5 pg (27.0-32.0); Mean Corpuscular Volume 92.3 fL (80-94); Mean Platelet Vol. 11.5 fl (6.2-12.0); Monocyte% 12.1 % (0-10); NRBC Flagged by Analyzer 0 % (0-5); Neutrophil # 1.93 X10^3/uL (2.7-7.7); Neutrophil % 58.5 % (47-70); POSITIVE MORPHOLOGY YES; Platelet Count 102 K/mm3 (150-450); RBC Distribution Width CV 19.5 % (11.6-14.6); RBC Distribution Width SD 65.9 fl (35.1-43.9); Red Blood Count 3.76 M/mm3 (4.6-6.2); White Blood Count 3.3 K/mm3 (4.4-11.0)
[2021-12-27 05:48] LABS: Differential Indicated SCAN CRITERIA MET
[2021-12-27] MEDS: Psyllium 1 PACKET PO (05:54)
[2021-12-27] MEDS: Senna/Docusate Sodium 1 Tablet 2 TABLET PO (05:54)
[2021-12-27] MEDS: Citalopram 10 MG Tablet PO (05:55)
[2021-12-27] MEDS: Amiodarone 200 MG Tablet 100 MG PO (05:55)
[2021-12-27] MEDS: Furosemide 20 MG Tablet PO (05:55)
[2021-12-27] MEDS: Pantoprazole Sodium 20 MG Tablet PO (05:55)
[2021-12-27 06:01] LABS: Anion Gap 4 (5-15); BUN 29 mg/dL (7-18); BUN/Creat Ratio 25.2 RATIO (10-20); Calcium,Total 8.4 mg/dL (8.5-10.1); Chloride 111 mmol/L (98-107); Creatinine, Serum 1.15 mg/dL (0.70-1.30); EST Glomerular Filtration Rate 65 mL/min (>60); Est Glom Filt Rate - Afr Amer 79 mL/min (>60); Estimated Creatinine Clearance 57.17 ml/min; Glucose 86 mg/dL (74-106); Potassium 4.3 mmol/L (3.5-5.1); Sodium Level 143 mmol/L (136-145)
[2021-12-27 06:04] VITALS: BP 132/64; PULSE 66
[2021-12-27 06:09] LABS: Anisocytosis 1+; Differential Comment SCANNED
[2021-12-27] MEDS: Aspirin 81 MG TAB.CHEW PO (07:42)
[2021-12-27] MEDS: Potassium Chloride Oral Tablet 20 MEQ PO (07:42)
--- NOTE | 2021-12-27 08:48 | NURSING ---
HOUSE KEEPING CAME TO THIS NURSE AND STATED SHE FOUND PT WEDDING RING AND WATCH UNDER BED. THIS NURSE ASKED PT IF I COULD LOCK THEM UP TILL FAMILY CAME IN AND EXPLAINED WHY. PT STATED OK AND HE DIDNT KNOW THEY WERE MISSING.
[2021-12-27] MEDS: Nystatin Powder 15gm Bottle 1 APPLIC TOPICAL ×2 (10:29→21:01)
[2021-12-27] MEDS: Menthol/Lanolin/Calamine/Znox 113 GM Tube 1 APPLIC TOPICAL ×2 (10:29→20:59)
[2021-12-27] MEDS: Petrolatum 33% Tube 1 APPLIC TOPICAL ×2 (10:30→21:00)
[2021-12-27] MEDS: Tuberculin,Purif.prot.deriv. 50 TU/ML Vial 0.1 ML ID (10:31)
--- NOTE | 2021-12-27 11:20 | NURSING ---
FAMILY IN TO SEE PT. EXPLAINED TO THEM WHAT HAPPENED THIS MORNING WITH THE WEDDING RING AND WATCH. SON KENTON STATED HE WOULD TAKE THE WEDDING RING WITH HIM AND LEAVE THE WATCH FOR PT. DAUGHTER SALAZAR AND PRESENT.
[2021-12-27 14:00] VITALS: BP 118/56; PULSE 66; RESP 14; TEMP 36.4; O2SAT 97
--- NOTE | 2021-12-27 14:52 | CASEMGMT ---
Social Work Appeal is in progress. [place] [facility] contacted son, Simón, to get update on their thoughts for DC plans and get skilled HHC choice. Son stated the family has been interviewing people to hire for personal caregivers in the home. Son stated if the appeal is lost, family will plan to pay privately in TCU for about a week to ensure good continuity of care. SW notified son the weekend SW will update family with appeal outcome and will plan on having pt remain in TCU. If son chooses to DC over the weekend, to have nursing notify the weekend SW to get services in place. Son appreciative. SW to continue to follow. IDT updated. JANESSA OsmanW
[2021-12-27] MEDS: traZODone 50 MG Tablet 25 MG PO (21:02)
[2021-12-28] MEDS: Furosemide 20 MG Tablet PO (05:51)
[2021-12-28] MEDS: Citalopram 10 MG Tablet PO (05:51)
[2021-12-28] MEDS: Pantoprazole Sodium 20 MG Tablet PO (05:51)
[2021-12-28] MEDS: Psyllium 1 PACKET PO (05:51)
[2021-12-28] MEDS: Senna/Docusate Sodium 1 Tablet 2 TABLET PO (05:51)
[2021-12-28] MEDS: Amiodarone 200 MG Tablet 100 MG PO (05:51)
[2021-12-28] MEDS: Aspirin 81 MG TAB.CHEW PO (07:59)
[2021-12-28] MEDS: Potassium Chloride Oral Tablet 20 MEQ PO (07:59)
[2021-12-28] MEDS: Menthol/Lanolin/Calamine/Znox 113 GM Tube 1 APPLIC TOPICAL ×2 (09:57→21:45)
[2021-12-28] MEDS: Nystatin Powder 15gm Bottle 1 APPLIC TOPICAL ×2 (09:59→21:45)
[2021-12-28] MEDS: Petrolatum 33% Tube 1 APPLIC TOPICAL ×2 (09:59→21:44)
[2021-12-28 14:00] VITALS: BP 97/64; PULSE 66; RESP 16; TEMP 36.3; O2SAT 99
[2021-12-28] MEDS: traZODone 50 MG Tablet 25 MG PO (21:41)
[2021-12-28 22:40] VITALS: PULSE 64; RESP 16; O2SAT 96
[2021-12-29 06:41] VITALS: BP 143/76; PULSE 64
[2021-12-29] MEDS: Citalopram 10 MG Tablet PO (06:42)
[2021-12-29] MEDS: Pantoprazole Sodium 20 MG Tablet PO (06:42)
[2021-12-29] MEDS: Furosemide 20 MG Tablet PO (06:42)
[2021-12-29] MEDS: Amiodarone 200 MG Tablet 100 MG PO (06:42)
[2021-12-29] MEDS: Senna/Docusate Sodium 1 Tablet 2 TABLET PO ×2 (06:42→16:44)
[2021-12-29] MEDS: Psyllium 1 PACKET PO (06:42)
[2021-12-29] MEDS: Potassium Chloride Oral Tablet 20 MEQ PO (08:24)
[2021-12-29] MEDS: Aspirin 81 MG TAB.CHEW PO (08:24)
[2021-12-29] MEDS: Menthol/Lanolin/Calamine/Znox 113 GM Tube 1 APPLIC TOPICAL ×2 (10:17→21:47)
[2021-12-29] MEDS: Petrolatum 33% Tube 1 APPLIC TOPICAL ×2 (10:17→21:47)
[2021-12-29] MEDS: Nystatin Powder 15gm Bottle 1 APPLIC TOPICAL ×2 (10:17→21:49)
[2021-12-29 14:00] VITALS: BP 100/64; PULSE 61; RESP 16; TEMP 36.2; O2SAT 95
--- NOTE | 2021-12-29 20:48 | NURSING ---
Was passed on to this Nurse during report that patient had bright red blood in toilet while having a bowel movement. Previous nurse left note for Dr. Kirk. After this nurse went in and assessed patient, patient stated he was unaware if it was urine or bowel movement. Patient then used the urinal. 250 mL of bright red colored urine obtained in urinal. Patient denies any pain or burning with urination. Patient states, I do get frequent Urinary infections. Dr. Kirk updated. New order for UA C&S.
[2021-12-29] MEDS: traZODone 50 MG Tablet 25 MG PO (21:45)
[2021-12-29 21:50] VITALS: PULSE 69; RESP 16; O2SAT 98
--- NOTE | 2021-12-29 23:26 | NURSING ---
UA obtained by straight cath using sterile technique. 150 mL of tea colored urine initially obtained, urine spilled. Bertha color then collected into specimen cup, transferred into UA tubes and sent to lab. Patient tolerated well.
[2021-12-29 23:30] LABS: Mucous, Urine 0 SEEN /hpf (<or=2+); Squamous Epithelial Cells - UA 0 SEEN /hpf (0-5)
[2021-12-29 23:51] LABS: Color, Urine Yellow (Yellow); Glucose, Dipstick Normal (Normal); Ketone-Dipstick 5 mg/dl (Negative); Leukocyte Esterase-Dipstick 500 /ul (Negative); Nitrite-Dipstick Negative (Negative); Occult Blood-Urine 250 /ul (Negative); Protein-Dipstick 100 mg/dl (Negative); Specific Gravity, Urine 1.025 (1.002-1.030); Urine Bilirubin Dipstick Negative (Negative); Urine Clarity Cloudy (Clear); Urine Urobilinogen 1 mg/dl (Normal)
[2021-12-30 00:01] LABS: White Blood Cells >100 SEEN /hpf (0-5)
[2021-12-30 00:02] LABS: Bacteria 1+ /hpf (None Seen); Red Blood Cells-Urine 50-100 SEEN /hpf (0-5)
[2021-12-30] MEDS: Amiodarone 200 MG Tablet 100 MG PO (06:44)
[2021-12-30] MEDS: Pantoprazole Sodium 20 MG Tablet PO (06:44)
[2021-12-30] MEDS: Senna/Docusate Sodium 1 Tablet 2 TABLET PO ×2 (06:44→17:27)
[2021-12-30] MEDS: Citalopram 10 MG Tablet PO (06:44)
[2021-12-30] MEDS: Psyllium 1 PACKET PO (06:45)
[2021-12-30] MEDS: Furosemide 20 MG Tablet PO (06:45)
[2021-12-30 06:52] VITALS: BP 118/59; PULSE 54
[2021-12-30] MEDS: Potassium Chloride Oral Tablet 20 MEQ PO (08:47)
[2021-12-30] MEDS: Aspirin 81 MG TAB.CHEW PO (08:48)
[2021-12-30] MEDS: Nystatin Powder 15gm Bottle 1 APPLIC TOPICAL ×2 (08:49→20:28)
[2021-12-30] MEDS: Menthol/Lanolin/Calamine/Znox 113 GM Tube 1 APPLIC TOPICAL ×2 (08:50→20:29)
[2021-12-30] MEDS: Petrolatum 33% Tube 1 APPLIC TOPICAL ×2 (08:51→20:29)
--- NOTE | 2021-12-30 10:25 | NURSING ---
CALLED AND GOT APPOINTMENT FOR PT WITH . HIS OFFICE STATED THE SOONEST THEY COULD GET PT IN WAS May @9AM. RN AWARE AND WILL UPDATE FAMILY.
--- NOTE | 2021-12-30 10:28 | CASEMGMT ---
Social Work Received voicemail from [employer] that pt lost his appeal and financial liability begins 12/29. CRESENCIO spoke with son, Simón, to confirm plan is for pt to pay privately for a week until family feel comfortable having pt DC home. Son confirms and concerned as there are new medical issues arising. SW agreed for pt to remain until stable. Educated son to providing payment to [facility] Electronic Publications Specialist's office for the 7 days up front with a total of $4,620, any days not used will be reimbursed. Son expressed understanding. SW notified Director. Will continue to follow for discharge planning. JANESSA OsmanW
[2021-12-30 10:45] VITALS: PULSE 63; RESP 18; O2SAT 98
--- NOTE | 2021-12-30 13:38 | NURSING ---
WHILE DOING PT ASSESSMENT THIS NURSE FOUND PT TOP LEFT FOOT AND TOES WERE BRUISED WITH SMALL BRUISE TO HEEL. ASKED PT WHAT HAPPENED,PT STATED HE DOESN'T REMEMBER ANY THING THAT HAPPENED TO FOOT. ASKED PT IF HE STUBBED IT,DROPPED ANY THING ON IT,RAN OVER IT WITH WHEEL CHAIR OR WHEN HE WAS OUT SIDE WITH FAMILY. PT STATED NO, MY SON WALKS ME OUT SIDE BUT I DONT REMEMBER ANT THING HAPPENING TO MY FOOT. ASKED PT IF ANY ONE HURT HIM PT STATED NO. RN AND FRANKY AWARE.
[2021-12-30 14:00] VITALS: BP 110/66; PULSE 67; RESP 18; TEMP 36.8; O2SAT 96
--- NOTE | 2021-12-30 14:04 | NURSING ---
UPDATED SON KADE ON PT AND SON OKED INFO TO GIVE CAREGIVER ADALGISA DUE TO SHE WILL BE HELPING WITH HOME CARE.
--- NOTE | 2021-12-30 14:52 | CASEMGMT ---
Social Work SW updated that Dr. Sanders cannot see pt until May 2022. Family requesting this worker's assistance to see other neurologist's with sooner availability. CRESENCIO contacted two offices. Dr. Rojas March 14 at 10:25 am in the [place] office Dr. Iyer January 14 at 2:40 pm in the [place] office SW spoke with son to provide choices. Son prefers Dr. Iyer. Son appreciative. SW canceled appt with Josef. Updated BUILDING ARCHITECTURAL DESIGNER. Alison Orellana, INTERIOR WALL ASSEMBLER DOUGH MOLDER HAND
[2021-12-30] MEDS: traZODone 50 MG Tablet 25 MG PO (20:29)
[2021-12-31] MEDS: Psyllium 1 PACKET PO (05:47)
[2021-12-31] MEDS: Furosemide 20 MG Tablet PO (05:47)
[2021-12-31] MEDS: Senna/Docusate Sodium 1 Tablet 2 TABLET PO ×2 (05:47→17:46)
[2021-12-31] MEDS: Amiodarone 200 MG Tablet 100 MG PO (05:47)
[2021-12-31] MEDS: Pantoprazole Sodium 20 MG Tablet PO (05:48)
[2021-12-31] MEDS: Citalopram 10 MG Tablet PO (05:48)
[2021-12-31] MEDS: Aspirin 81 MG TAB.CHEW PO (07:46)
[2021-12-31] MEDS: Potassium Chloride Oral Tablet 20 MEQ PO (07:46)
[2021-12-31] MEDS: Petrolatum 33% Tube 1 APPLIC TOPICAL ×2 (08:51→21:34)
[2021-12-31] MEDS: Nystatin Powder 15gm Bottle 1 APPLIC TOPICAL ×2 (08:52→21:35)
[2021-12-31] MEDS: Menthol/Lanolin/Calamine/Znox 113 GM Tube 1 APPLIC TOPICAL ×2 (08:53→21:33)
--- NOTE | 2021-12-31 09:22 | CASEMGMT ---
Social Work Received voicemail from son expressing concern about pt's change in medical condition and wanting insurance to reconsider decision since the change occurred on 12/29. SW returned call and spoke with son. Validated request and educated to filing a reconsideration/second level appeal with [employer], taking up to 14 days for outcome. Son agreed to pursue. Provided son with phone number and case number to file. SW notified Medical Records. Will continue to follow. Alison Orellana MEAT SEAFOOD ASSOCIATE CRANE CREW SUPERVISOR
[2021-12-31 14:00] VITALS: BP 116/60; PULSE 63; RESP 14; TEMP 36.6; O2SAT 98
--- NOTE | 2021-12-31 14:12 | NURSING ---
PT DAUGHTER IN LAW [MATTS ] CALLED REQUESTING THAT I FAX OR EMAIL INFO ON PT UTI'S TO PT DAUGHTER IN LAW WENDY MAHAJAN CAUSE SHE WANTS IT. THIS NURSE STATED THAT I CAN NOT DO THAT AND THAT SHE NEEDS TO TELL WENDY SHE NEEDS TO CALL IN AND TALK TO MEDICAL RECORDS. RN AWARE.
--- NOTE | 2021-12-31 16:25 | NURSING ---
PT DAUGHTER IN LAW, WENDY CALLED WHO STATES IS A DOCTOR IN [place] WANTED CERTAIN LABS AND MEDS FOR HER FATHER IN LAW AND HAD QUESTIONS ONLY COULD ANSWER. WENDY STATED SHE WOULD LIKE TO TALK TO DR. PLUNKETT. TOOK HER NUMBER AND STATED TO HER THAT I WOULD LET KNOW.
--- NOTE | 2021-12-31 17:57 | NURSING ---
Addendum entered by Nghia Villasenor 12/31/21 18:50: APPOINTMENT ON 01/01/22 Original Note: PT HAS A APPOINTMENT WITH ON 03/03/21 AT 1500. SON WILL TRANSPORT AND BARREL ASSEMBLER HELPER AT 1430.
--- NOTE | 2021-12-31 18:23 | NURSING ---
PT NEEDS APPOINTMENT MADE WITH DR. BESSIE GALVAN PER DR.KWOK RILEY.
[2021-12-31 21:00] VITALS: PULSE 60; RESP 16; O2SAT 98
--- NOTE | 2021-12-31 21:33 | NURSING ---
Patient refused to take trazodone at HS. States, it makes me to groggy in the morning.
[2022-01-01] MEDS: Amiodarone 200 MG Tablet 100 MG PO (06:38)
[2022-01-01] MEDS: Senna/Docusate Sodium 1 Tablet 2 TABLET PO ×2 (06:38→17:08)
[2022-01-01] MEDS: Pantoprazole Sodium 20 MG Tablet PO (06:38)
[2022-01-01] MEDS: Furosemide 20 MG Tablet PO (06:38)
[2022-01-01] MEDS: Psyllium 1 PACKET PO (06:38)
[2022-01-01] MEDS: Citalopram 10 MG Tablet PO (06:38)
[2022-01-01 06:46] VITALS: BP 121/73; PULSE 61
--- NOTE | 2022-01-01 07:16 | MDS.RN ---
Information for the md was obtained from review of the clinical record, interview of resident, staff, and direct observation of resident's care.
[2022-01-01] MEDS: Aspirin 81 MG TAB.CHEW PO (08:53)
[2022-01-01] MEDS: Potassium Chloride Oral Tablet 20 MEQ PO (08:53)
[2022-01-01] MEDS: Petrolatum 33% Tube 1 APPLIC TOPICAL (08:54)
[2022-01-01] MEDS: Nystatin Powder 15gm Bottle 1 APPLIC TOPICAL ×2 (08:54→21:36)
[2022-01-01] MEDS: Menthol/Lanolin/Calamine/Znox 113 GM Tube 1 APPLIC TOPICAL ×2 (08:55→21:36)
[2022-01-01] MEDS: Calcium Carbonate 500 MG Tablet PO (09:00)
--- NOTE | 2022-01-01 15:02 | CASEMGMT ---
Social Work Voicemail received from [facility], Ronnell ([phone]). Ronnell communicating that patient case has been dismissed due to [facility] not being the appropriate provider for the extended appeal process. Telephone call to patient son, Simón. Simón confirms to have also received above notice. Simón reports to have spoken with [facility] about extended appeal for patient and to have been directed to [facility] [facility] but then [facility] to contact [facility]. Simón reports to have left multiple voicemails for [facility] today. Simón inquired about advise/other options. This administrator social welfare encouraged Simón to reach out to the Helpline for [facility]: [phone], this administrator social welfare provided number to Simón. Simón to call the Helpline. Simón with no further questions. Simón reports to be encouraged with how patient father is doing over the past few days. Simón states I feel like I have my father back. Active support and listening provided. Social Work to continue to follow. Tameka RIDDLE, MICHAEL
[2022-01-01 16:00] VITALS: BP 112/78; PULSE 62; RESP 16; TEMP 36.6; O2SAT 99
--- NOTE | 2022-01-02 03:14 | NURSING ---
Left voice mail again at Dr. Sanders's office for appointment.
[2022-01-02] MEDS: Furosemide 20 MG Tablet PO (06:34)
[2022-01-02] MEDS: Citalopram 10 MG Tablet PO (06:34)
[2022-01-02] MEDS: Senna/Docusate Sodium 1 Tablet 2 TABLET PO ×2 (06:35→17:01)
[2022-01-02] MEDS: Amiodarone 200 MG Tablet 100 MG PO (06:35)
[2022-01-02] MEDS: Pantoprazole Sodium 20 MG Tablet PO (06:35)
[2022-01-02] MEDS: Psyllium 1 PACKET PO (06:37)
[2022-01-02 06:46] VITALS: BP 115/61; PULSE 65
[2022-01-02] MEDS: Potassium Chloride Oral Tablet 20 MEQ PO (08:31)
[2022-01-02] MEDS: Aspirin 81 MG TAB.CHEW PO (08:32)
[2022-01-02] MEDS: Calcium Carbonate 500 MG Tablet PO (08:32)
[2022-01-02 10:50] VITALS: PULSE 58; RESP 18; O2SAT 97
[2022-01-02] MEDS: Nystatin Powder 15gm Bottle 1 APPLIC TOPICAL ×2 (10:51→21:48)
[2022-01-02] MEDS: Menthol/Lanolin/Calamine/Znox 113 GM Tube 1 APPLIC TOPICAL ×2 (10:51→21:48)
[2022-01-02] MEDS: Petrolatum 33% Tube 1 APPLIC TOPICAL ×2 (10:52→21:46)
--- NOTE | 2022-01-02 11:04 | NURSING ---
Addendum entered by Nghia Villasenor 01/02/22 14:30: OFFICE CALLED BACK AND STATED THEY ONLY TAKE REFERRALS BY PAPER NOW AND IT NEEDS TO BE FAXED TO THE OFFICE. THIS NURSE FAXED REFERRAL TO OFFICE AND STATED IF THEY NEED MORE INFO TO CONTACT US. RN AWARE Original Note: THIS NURSE MADE CALL TO DR.TONI GALVAN OFFICE TO SET UP APPOINTMENT. NO ANSWER,LEFT MESSAGE.
[2022-01-02 14:00] VITALS: BP 97/57; PULSE 62; RESP 14; TEMP 36.7; O2SAT 96
--- NOTE | 2022-01-02 16:14 | CASEMGMT ---
Social Work Left message with son to follow up on DC plans. Alison Orellana, INSTRUCTOR MODELING PEACH GROWER
[2022-01-02 16:22] VITALS: BP 105/61; PULSE 52
[2022-01-03 05:43] LABS: Absolute Lymphocyte Count 0.77 X10^3/uL (0.83-4.51); Absolute Neutrophil Count 2.1 X10^3/uL (2.0-7.7); Basophil# 0.06 X10^3/uL; Basophil% 1.8 % (0-1); Eosinophils% 5.8 % (0-5); Hematocrit 33.3 % (40-54); Lymphocyte # 0.77 X10^3/ul (0.83-4.51); Lymphocyte % 22.5 % (19-41); Mean Corpuscular Hgb 30.9 pg (27.0-32.0); Mean Corpuscular Volume 93.5 fL (80-94); Mean Platelet Vol. 10.2 fl (6.2-12.0); Monocyte# 0.33 X10^3/uL; Monocyte% 9.6 % (0-10); NRBC Flagged by Analyzer 0 % (0-5); Neutrophil # 2.05 X10^3/uL (2.7-7.7); Platelet Count 113 K/mm3 (150-450); RBC Distribution Width CV 18.8 % (11.6-14.6); RBC Distribution Width SD 64.5 fl (35.1-43.9); Red Blood Count 3.56 M/mm3 (4.6-6.2); White Blood Count 3.4 K/mm3 (4.4-11.0)
[2022-01-03] MEDS: Furosemide 20 MG Tablet PO (05:48)
[2022-01-03] MEDS: Senna/Docusate Sodium 1 Tablet 2 TABLET PO (05:48)
[2022-01-03] MEDS: Pantoprazole Sodium 20 MG Tablet PO (05:48)
[2022-01-03] MEDS: Psyllium 1 PACKET PO (05:48)
[2022-01-03] MEDS: Citalopram 10 MG Tablet PO (05:48)
[2022-01-03] MEDS: Amiodarone 200 MG Tablet 100 MG PO (05:48)
[2022-01-03 05:53] VITALS: BP 126/74; PULSE 62
[2022-01-03 06:19] LABS: Anion Gap 3 (5-15); BUN 24 mg/dL (7-18); Chloride 107 mmol/L (98-107); EST Glomerular Filtration Rate 62 mL/min (>60); Est Glom Filt Rate - Afr Amer 75 mL/min (>60); Estimated Creatinine Clearance 54.79 ml/min; Glucose 84 mg/dL (74-106); Potassium 4.5 mmol/L (3.5-5.1); Sodium Level 141 mmol/L (136-145)
[2022-01-03] MEDS: Potassium Chloride Oral Tablet 20 MEQ PO (08:15)
[2022-01-03] MEDS: Aspirin 81 MG TAB.CHEW PO (08:15)
[2022-01-03] MEDS: Calcium Carbonate 500 MG Tablet PO (08:15)
[2022-01-03] MEDS: Nystatin Powder 15gm Bottle 1 APPLIC TOPICAL ×2 (08:24→21:07)
--- NOTE | 2022-01-03 10:48 | NURSING ---
Nghia Beaulieu's office industrial sales representative called stating that pt is not hyperthyroidism, start thyroid medication, repeat TSH & if still high then she will see him for referral. This promotion writer asked if industrial sales representative and can she find out from Dr beaulieu when she wants TSH repeated and let her know that pt is on synthroid. accredited legal secretary, stated I don't know, that's all she wrote will udpate Dr Kirk.
--- NOTE | 2022-01-03 13:36 | CASEMGMT ---
Social Work Received return call from son. Educated to pt self-pay through 01/04, inquired about DC 01/05 or pay another week. Son ready for pt to DC home 01/05. There is a caregiver hired to provide pt care at home. SW explained skilled HHC to be coordinated. Offered HHC list with quality and resource data. Son declined list and elected [facility]. No DME needs. Pt's dtr to transport and to be called for SOC, as son is going out of town for a week. Referral made via phone and [facility] to [facility] for PT/OT/ST/SN/MARIE/SW. This worker phone hand off to [facility] SW. Plan: DC home 01/05, [facility] PT/OT/ST/SN/MARIE/SW Alison SHOEMAKERW
[2022-01-03 13:50] VITALS: BP 108/59; PULSE 89; RESP 16; TEMP 36.9; O2SAT 95
[2022-01-03] MEDS: Petrolatum 33% Tube 1 APPLIC TOPICAL ×2 (14:37→21:08)
[2022-01-03] MEDS: Menthol/Lanolin/Calamine/Znox 113 GM Tube 1 APPLIC TOPICAL ×2 (14:44→21:07)
--- NOTE | 2022-01-03 15:58 | CASEMGMT ---
Social Work BIMS (), however, pt initially thought year was 2030 until correcting himself about one minute later, and PHQ-9 (07/12) completed for MDS assessment. Pt reports to overall improvement, and had a positive experience with Dr. Hughes, psychiatrist. Alison Orellana, COOLING SYSTEM OPERATOR NANOSYSTEMS ENGINEER
[2022-01-03 20:00] VITALS: PULSE 57
[2022-01-04] MEDS: Psyllium 1 PACKET PO (05:38)
[2022-01-04] MEDS: Amiodarone 200 MG Tablet 100 MG PO (05:38)
[2022-01-04] MEDS: Citalopram 10 MG Tablet PO (05:38)
[2022-01-04] MEDS: Pantoprazole Sodium 20 MG Tablet PO (05:38)
[2022-01-04] MEDS: Senna/Docusate Sodium 1 Tablet 2 TABLET PO ×2 (05:38→17:06)
[2022-01-04] MEDS: Furosemide 20 MG Tablet PO (05:38)
[2022-01-04 08:07] LABS: Thyroid Stim Hormone (TSH) 4.65 uIU/mL (0.358-3.74)
[2022-01-04] MEDS: Potassium Chloride Oral Tablet 20 MEQ PO (08:47)
[2022-01-04] MEDS: Aspirin 81 MG TAB.CHEW PO (08:47)
[2022-01-04] MEDS: Calcium Carbonate 500 MG Tablet PO (08:48)
[2022-01-04] MEDS: Nystatin Powder 15gm Bottle 1 APPLIC TOPICAL ×2 (08:48→21:01)
[2022-01-04] MEDS: Petrolatum 33% Tube 1 APPLIC TOPICAL ×2 (08:48→21:00)
[2022-01-04] MEDS: Menthol/Lanolin/Calamine/Znox 113 GM Tube 1 APPLIC TOPICAL ×2 (08:49→21:01)
[2022-01-04 14:00] VITALS: BP 111/61; PULSE 87; RESP 16; TEMP 36.7; O2SAT 97
[2022-01-05] MEDS: Psyllium 1 PACKET PO (05:02)
[2022-01-05] MEDS: Senna/Docusate Sodium 1 Tablet 2 TABLET PO (05:03)
[2022-01-05] MEDS: Furosemide 20 MG Tablet PO (05:04)
[2022-01-05] MEDS: Citalopram 10 MG Tablet PO (05:04)
[2022-01-05] MEDS: Amiodarone 200 MG Tablet 100 MG PO (05:04)
[2022-01-05] MEDS: Pantoprazole Sodium 20 MG Tablet PO (05:04)
[2022-01-05 05:50] VITALS: BP 117/65; PULSE 68
[2022-01-05] MEDS: Aspirin 81 MG TAB.CHEW PO (08:59)
[2022-01-05] MEDS: Potassium Chloride Oral Tablet 20 MEQ PO (08:59)
[2022-01-05] MEDS: Calcium Carbonate 500 MG Tablet PO (09:00)
[2022-01-05] MEDS: Menthol/Lanolin/Calamine/Znox 113 GM Tube 1 APPLIC TOPICAL (09:00)
[2022-01-05] MEDS: Nystatin Powder 15gm Bottle 1 APPLIC TOPICAL (09:00)
[2022-01-05] MEDS: Petrolatum 33% Tube 1 APPLIC TOPICAL (09:01)
[2022-01-05 10:19] VITALS: BP 116/70; PULSE 68; RESP 18; TEMP 36.6; O2SAT 97
== END 2022-01-05 10:25 | disposition home health service (06) | DRG 71 ==
PROVIDERS: Admitting Provider Family Medicine Geriatric Medicine; PCP Internal Medicine; Visit Provider Family Medicine Geriatric Medicine
DX: G93.40 Encephalopathy, unspecified (principal); I42.8 Other cardiomyopathies; I50.42 Chronic combined systolic (congestive) and diastolic (congestive) heart failure; I48.19 Other persistent atrial fibrillation; F03.90 Unspecified dementia, unspecified severity, without behavioral disturbance, psychotic disturbance, mood disturbance, and anxiety; K21.9 Gastro-esophageal reflux disease without esophagitis; I25.2 Old myocardial infarction; E87.6 Hypokalemia; Z87.891 Personal history of nicotine dependence; F32.A Depression, unspecified; Z79.899 Other long term (current) drug therapy
CPT/HCPCS: 36415; 80048; 81001; 84443; 85025; 87077; 87086; 87088; 92507; 92523; 92610; 97110; 97116; 97162; 97166; 97530; 97535; 97802

== ENCOUNTER 2022-01-29 11:59 | Outpatient (RCR) | payer MEDICARE, SELFPAY ==
[2022-01-29 12:56] LABS: Free T3 1.9 pg/mL (2.18-3.98); Thyroid Stim Hormone (TSH) 4.31 uIU/mL (0.358-3.74)
[2022-01-30 10:43] LABS: Thyroid Peroxidase AB 19 IU/mL (0-34)
== END 2022-01-29 18:00 ==
LOC: HHLAB 11:59
PROVIDERS: PCP Internal Medicine; Referring Provider Internal Medicine; Visit Provider Internal Medicine
DX: G93.41 Metabolic encephalopathy (principal); I50.32 Chronic diastolic (congestive) heart failure; E87.1 Hypo-osmolality and hyponatremia
CPT/HCPCS: 84439; 84443; 84481; 86376

== ENCOUNTER 2022-02-18 12:48 | Inpatient (IN) | payer MEDICARE, SELFPAY ==
[2022-02-18] VITALS (7 sets, daily range): BP systolic 130–162; BP diastolic 80–113; PULSE 62–81; RESP 16–21; TEMP 36.5–39.2; O2SAT 95–99; BMI 26.0
[2022-02-18 13:39] LABS: Absolute Lymphocyte Count 0.19 X10^3/uL (0.83-4.51); Basophil# 0.03 X10^3/uL; Basophil% 0.8 % (0-1); Eosinophil# 0.07 X10^3/uL; Hematocrit 47.6 % (40-54); Hemoglobin 15.2 g/dL (13.0-16.5); Lymphocyte # 0.19 X10^3/ul (0.83-4.51); Lymphocyte % 5.3 % (19-41); Mean Corp Hgb Conc 31.9 g/dL (32-36); Mean Corpuscular Hgb 30.6 pg (27.0-32.0); Mean Corpuscular Volume 95.8 fL (80-94); Mean Platelet Vol. 11.2 fl (6.2-12.0); Monocyte# 0.29 X10^3/uL; Monocyte% 8.1 % (0-10); NRBC Flagged by Analyzer 0 % (0-5); Neutrophil # 2.99 X10^3/uL (2.7-7.7); Neutrophil % 83.5 % (47-70); POSITIVE COUNT YES; POSITIVE DIFFERENTIAL YES; Platelet Count 96 K/mm3 (150-450); RBC Distribution Width CV 16.9 % (11.6-14.6); RBC Distribution Width SD 59.1 fl (35.1-43.9); Red Blood Count 4.97 M/mm3 (4.6-6.2); White Blood Count 3.6 K/mm3 (4.4-11.0)
[2022-02-18 13:47] LABS: Differential Indicated SCAN CRITERIA MET
[2022-02-18 13:59] LABS: ALB/GLOB Ratio 0.9 RATIO (0.9-2.4); AST(SGOT) 47 U/L (15-37); Alanine Aminotransfer ALT/SGPT 29 U/L (16-61); Albumin, Serum 3.1 g/dL (3.2-5.0); Alkaline Phosphatase 145 U/L (45-117); Anion Gap 7 (5-15); BUN 17 mg/dL (7-18); BUN/Creat Ratio 11.9 RATIO (10-20); Calcium,Total 8.3 mg/dL (8.5-10.1); Chloride 108 mmol/L (98-107); Creatinine, Serum 1.43 mg/dL (0.70-1.30); EST Glomerular Filtration Rate 51 mL/min (>60); Est Glom Filt Rate - Afr Amer 61 mL/min (>60); Estimated Creatinine Clearance 45.98 ml/min; Globulin 3.5 g/dL (2.2-4.2); Glucose 158 mg/dL (74-106); Potassium 3.9 mmol/L (3.5-5.1); Protein, Total 6.6 g/dL (6.4-8.2); Sodium Level 142 mmol/L (136-145)
--- NOTE | 2022-02-18 15:05 | RAD_ITS ---
STUDY: X-RAY CHEST REASON FOR EXAM: Male, 81 years old. Productive cough, rales LLL TECHNIQUE: XR Chest 2 Views COMPARISON: 12.16.21 FINDINGS: There is atherosclerotic calcification of the aortic arch with tortuosity. There are diffuse degenerative changes of the visualized thoracic spine. There is degenerative osteoarthritis of the bilateral shoulders. Bilateral pleural effusions. There is borderline cardiomegaly. Normal mediastinum and mars. Normal visualized pulmonary arteries. There is no demonstrated abnormality of the visualized soft tissue structures of the upper abdomen. RAD/Chest PA and Lateral IMPRESSION: Bilateral pleural effusions. Electronically Signed: Charles Storey MD at 16:51 EST ,
--- NOTE | 2022-02-18 15:05 | EDS_ITS ---
HPI History of Present Illness Chief Complaint: Weakness Detail of Chief Complaint: As well as URI symptoms Informant: patient and parent Onset/Context/Timing Onset: Today (This morning) Context: Sudden Onset Timing: Continuous Quality: I do not feel well Location: Predominantly respiratory and GI Current Severity: Mild Maximum Severity: Mild Worsened by: Nothing Relieved by: Nothing Associated Symptoms Associated Symptoms: Productive cough Narrative Narrative: Patient is a 81-year-old male who lives with his son who presents with generalized weakness, nausea without vomiting or diarrhea. He denies fever or chills. He does endorse drainage from his eyes this morning with many of his eyelashes. He does endorse nasal congestion without postnasal drainage sore throat. He does have a cough which is productive of white-colored sputum. He has not smoked in over 50 years. He does have history of congestive heart failure. He does have chronic swelling of his legs. He sleeps flat with 1 pillow only. He denies PND. He denies chest pain of any type. States he feels weak. He denies dysuria, frequency, urgency or hematuria. When asked if he has a headache his response was I do not believe so. There is no history of black or maroon-colored stool. Prior similar symptoms: Yes Recent Illness/Hospitalization: No [facility] Medical History (HFpEF) heart failure with preserved ejection fraction Anemia Arthritis Former smoker Gynecomastia, male H/O recurrent urinary tract infection HFrEF (heart failure with reduced ejection fraction) History of non-ST elevation myocardial infarction (NSTEMI) (02/16/19) History of prostate cancer Major depression Monoclonal gammopathy Non-ischemic cardiomyopathy Nonrheumatic aortic (valve) stenosis with insufficiency Obesity Osteoarthritis Pancytopenia Persistent atrial fibrillation Recurrent gastrointestinal hemorrhage Thrombocytopenia Thyroid nodule Walker as ambulation aid Wears glasses Home Medications omeprazole 20 mg capsule,delayed release 20 mg PO DAILY GERD 07/23/21 [History Last Taken 02/18/22] potassium chloride 20 mEq tablet,extended release 20 meq PO DAILY Supplement 07/23/21 [History Last Taken 02/18/22] cholecalciferol (vitamin D3) 50 mcg (2,000 unit) tablet 100 mcg PO DAILY Supplement 11/26/21 [History Last Taken 02/18/22] amiodarone 100 mg tablet 100 mg PO DAILY Heart 12/19/21 [History Last Taken 02/18/22] aspirin 81 mg chewable tablet 81 mg PO BREAKFAST #0 tabs 12/26/21 [Rx Last Taken 02/18/22] furosemide 40 mg tablet (Lasix) 20 mg PO DAILY Heart #120 tabs 01/01/22 [Rx Last Taken 02/18/22] sertraline 25 mg tablet See Rx Instructions .Route .COMPLEX #30 tabs 01/27/22 [Rx Last Taken 02/18/22] levothyroxine 25 mcg tablet 25 mcg PO DAILY THYROID 02/18/22 [History Last Taken 02/18/22] polyethylene glycol 3350 17 gram/dose oral powder (Miralax) 17 g PO DAILY CONSTIPATION 02/18/22 [History Last Taken Unknown] tamsulosin 0.4 mg capsule 0.4 mg PO BID PROSTATE 02/18/22 [History Last Taken 02/18/22] Allergy/AdvReac Type Severity Reaction Status Date / Time ciprofloxacin [From Cipro] Allergy Mild rash Verified 02/18/22 14:54 levofloxacin [From Levaquin] Allergy Mild rash Verified 02/18/22 14:54 Sulfa (Sulfonamide AdvReac Unknown Verified 02/18/22 14:54 Antibiotics) Family History Son CVA (cerebral vascular accident) Father Heart disease CHF (congestive heart failure) Mother Skin disorder Surgical History History of cardiac catheterization History of colonoscopy History of esophagogastroduodenoscopy (EGD) (07/22/21) History of hernia repair History of left heart catheterization (02/18/19) History of prostate surgery History of transurethral resection of prostate Hx of breast biopsy Hx of left breast biopsy Social History household members: spouse and family Smoking Status: Former smoker how long ago did patient quit smokin years ago alcohol intake: current alcohol intake frequency: a few times a week Alcohol type: wine substance use type: does not use caffeine: Yes Type: coffee ROS ROS ED Constitutional Constitutional ED: Denies chills, fever(s), subjective or sweats Eyes Eyes: Reports other Details: Documented HPI narrative ; Denies blurry vision, change in vision or diplopia ENT ENT ED: Reports rhinorrhea; Denies ear pain or sore throat Cardiovascular Cardiovascular: Denies chest pain, orthopnea, palpitations or paroxysmal nocturnal dyspnea Respiratory/Chest Respiratory/Chest: Reports cough, dyspnea on exertion and sputum; Denies dyspnea, orthopnea or paroxysmal nocturnal dyspnea Gastrointestinal Gastrointestinal: Reports nausea; Denies abdominal pain, constipation, diarrhea, melena or vomiting Genitourinary Genitourinary ED: Denies dysuria, hematuria or urinary frequency Musculoskeletal Musculoskeletal: Denies arthralgias, back pain or myalgias Integumentary Denies rash Neurologic Neurologic: Reports weakness; Denies headache(s) or paresthesias Hematologic/Lymphatic Hematologic/Lymphatic: Reports systems reviewed and no addt'l complaints, except as documented EXAM Physical Exam Const Vital Signs: 02/18/22 12:48 02/18/22 14:54 02/18/22 16:04 Temperature 97.7 F L Temperature Source Temporal Pulse Rate 81 74 Respiratory Rate 18 21 H Respiratory Effort Normal Non-Labored Respiratory Pattern Normal Blood Pressure 158/113 H Blood Pressure Mean 128 Pulse Ox 99 97 Oxygen Delivery Method Room Air Room Air 02/18/22 16:08 02/18/22 18:00 Temperature Temperature Source Pulse Rate 70 73 Respiratory Rate 19 H Respiratory Effort Respiratory Pattern Blood Pressure 162/88 H Blood Pressure Mean 112 Pulse Ox 96 Oxygen Delivery Method Room Air Positive well nourished and well developed General Appearance ED: well developed and NAD; Negative for cyanotic or diaphor etic HEENT Reports moist mucous membranes HEENT Narrative: Head is 8 minutes normocephalic. Ears normal. Nares patent. Uvula midline. No erythema exudate posterior pharynx. Eyes PERRL and EOMs intact bilaterally Eyes Narrative: Conjunctive a is injected with green discharge noted. General Eye ED: Negative for pale conjunctiva or scleral icterus Neck no lymphadenopathy, supple and no JVD Chest Wall inspection of chest normal and palpation of chest normal Resp normal respiratory effort and No clear to auscultation bilaterally Auscultation: rales left lower Cardio regular rate, S1 normal heart sound, S2 normal heart sound and no murmurs GI normal to inspection, nondistended, normoactive bowel sounds, non-tender, non- distended and no masses; Negative for hepatosplenomegaly Back/Spine no CVA tenderness Extremity Negative for normal to inspection Extremity Narrative: There is slight swelling of the left leg compared to the right. There is no leg vein distention, there is no palpable cords. There is no discoloration. There is no pain in the distribution deep venous system. General Extremety ED: Yes edema General Extremity: edema Neuro oriented x3, CN's II-XII intact bilaterally and no sensory deficits noted Sensorium / Orientation: alert Psych mental status grossly normal Skin no rashes or lesions noted, no wounds and skin turgor normal General Skin Exam: Negative for jaundice MDM MDM MDM Narrative Medical decision making narrative: Patient presents with generalized weakness. He has symptoms suggestive of respiratory infection. Will obtain chest x-ray to evaluate for pneumonia since he has abnormal auscultatory findings on the left. CBC was obtained to assess for white count and rule out anemia. Comprehensive metabolic panel was obtained to assess for endorgan injury as well as electrolytes. Lab Data Attestation: I reviewed the patient's lab results. Lab results narrative: Patient is neutropenic. He has been neutropenic in the past. There is slight increase in neutrophil count. He is not anemic. Electrolyte panels marked for creatinine of 1.43. He had elevated creatinines in the past. GFR is 51. Glucose is elevated 158. There is no history of diabetes. Bilirubin is elevated 2.1. Alk phos is slight elevated 145. Urine would indicate infection with 50-100 RBCs, greater than 100 WBCs and 1+ bacteria with 0-5 epithelial cells.'s of gravity is 1.02. Macro was positive for blood and leukoesterase and negative for nitrites. Culture was obtained. Patient was treated antibiotics. Family is trying to determine when his respiratory symptoms may have started since he is COVID- positive. He was left with caretakers. There are 2 caretakers that cared for him while his son and were out of town. Labs: Laboratory Results - last 24 hr 02/18/22 02/18/22 02/18/22 13:25 13:25 13:25 WBC 3.6 L RBC 4.97 Hgb 15.2 Hct 47.6 MCV 95.8 H MCH 30.6 MCHC 31.9 L RDW Std Deviation 59.1 H RDW Coeff of Ashkan 16.9 H Plt Count 96 L MPV 11.2 Immature Gran % (Auto) 0.300 Neut % (Auto) 83.5 H Lymph % (Auto) 5.[address] [place] % (Auto) 8.1 Eos % (Auto) 2.0 Baso % (Auto) 0.8 Absolute Neuts (auto) 3.0 Absolute Lymphs (auto) 0.19 L Nucleated RBC % 0 [address] Path Review May foll Sodium 142 Potassium 3.9 Chloride 108 H Carbon Dioxide 27.0 Anion Gap 7 BUN 17 Creatinine 1.43 H Estim Creat Clear Calc 45.98 Est GFR (MDRD) Af Amer 61 Est GFR (MDRD) Non-Af 51 L BUN/Creatinine Ratio 11.9 Glucose 158 H Calcium 8.3 L Total Bilirubin 2.10 H AST 47 H ALT 29 Alkaline Phosphatase 145 H B-Natriuretic Peptide 660.8 H Total Protein 6.6 Albumin 3.1 L Globulin 3.5 Albumin/Globulin Ratio 0.9 Urine Color Urine Clarity Urine pH Ur Specific [place] Urine Protein Urine Glucose (UA) Urine Ketones Urine Occult Blood Urine Nitrite Urine Bilirubin Urine Urobilinogen Ur Leukocyte Esterase Urine RBC Urine WBC Ur Squamous Epith Cells Amorphous Sediment Urine Bacteria Urine Mucus 02/18/22 15:17 WBC RBC Hgb Hct MCV MCH MCHC RDW Std Deviation RDW Coeff of [place] Plt Count MPV Immature Gran % (Auto) Neut % (Auto) Lymph % (Auto) [place] % (Auto) Eos % (Auto) Baso % (Auto) Absolute Neuts (auto) Absolute Lymphs (auto) Nucleated RBC % Diff Path Review Sodium Potassium Chloride Carbon Dioxide Anion Gap BUN Creatinine Estim Creat Clear Calc Est GFR (MDRD) Af Amer Est GFR (MDRD) Non-Af BUN/Creatinine Ratio Glucose Calcium Total Bilirubin AST ALT Alkaline Phosphatase B-Natriuretic Peptide Total Protein Albumin Globulin Albumin/Globulin Ratio Urine Color Yellow Urine Clarity Cloudy Urine pH 6.0 Ur Specific [place] 1.020 Urine Protein 100 H Urine Glucose (UA) Normal Urine Ketones Negative Urine Occult Blood 250 H Urine Nitrite Negative Urine Bilirubin Negative Urine Urobilinogen 1 H Ur Leukocyte Esterase 500 H Urine RBC 50-100 SEEN Urine WBC >100 SEEN Ur Squamous Epith Cells 0-5 SEEN Amorphous Sediment 1+ URATE Urine Bacteria 1+ Urine Mucus 0 SEEN Radiography Chest X-Ray - ED: 2 View (Bilateral pleural effusion right greater than left. Cardiac silhouette is unremarkable. Cardiac size is unremarkable. There may be increased interstitial markings on the left compared to prior. Radiology report only indicates bilateral pleural effusion. This was independently reviewed and inter) and Read by ED Physician Diagnostic Testing: Clinical Impression(s) from Imaging Studies Chest X-Ray 02/18/22 15:05 IMPRESSION: Bilateral pleural effusions. Electronically Signed: Charles Storey MD at 16:51 EST Reading Location ID and State: [facility] / [place] , Service support , Discharge Plan Dx/Rx/DC Orders Clinical Impression: COVID-19 virus infection, Monoclonal gammopathy, Atrial fibrillation, Bilateral pleural effusion, Urinary tract infection, Neutropenia Disposition Disposition: Acute Care Hospital [facility] Discharge Date/Time: 02/18/22 18:54
[2022-02-18 15:27] LABS: Mucous, Urine 0 SEEN /hpf (<or=2+)
[2022-02-18 15:43] LABS: Color, Urine Yellow (Yellow); Glucose, Dipstick Normal (Normal); Ketone-Dipstick Negative (Negative); Leukocyte Esterase-Dipstick 500 /ul (Negative); Nitrite-Dipstick Negative (Negative); Occult Blood-Urine 250 /ul (Negative); Protein-Dipstick 100 mg/dl (Negative); Urine Bilirubin Dipstick Negative (Negative); Urine Clarity Cloudy (Clear); Urine Urobilinogen 1 mg/dl (Normal)
[2022-02-18 16:07] LABS: Amorphous Sediment 1+ URATE; Bacteria 1+ /hpf (None Seen); Red Blood Cells-Urine 50-100 SEEN /hpf (0-5); Squamous Epithelial Cells - UA 0-5 SEEN /hpf (0-5); White Blood Cells >100 SEEN /hpf (0-5)
[2022-02-18 17:56] LABS: BNP,B-Type NATRIURETIC PEPTIDE 660.8 pg/mL (0-100)
[2022-02-18] MEDS: Ceftriaxone 1 GM/50 ML BAG IV (18:02)
--- NOTE | 2022-02-18 18:15 | PCM.HP.STD ---
HPI - General General Date of Admission: 02/18/22 Date of Service: 02/18/22 Chief Complaint: Generalized weakness, nausea, debility HPI Narrative ZAC MAHAJAN, is a 81 M who presented to the emergency department [facility] on 02/18/2022 with generalized weakness, nausea without vomiting, and upper respiratory symptoms including eye drainage, nasal congestion without pharyngitis and a cough which is productive of only white sputum. His son also reports that he has had confusion that is getting worse throughout the day. Upon my exam with questioning his son felt the confusion was worse now than it had been previously. He has had increased lower extremity swelling and has a known history of congestive heart failure with a nonischemic cardiomyopathy. They report he also gets frequent urinary tract infections which have been a problem since he had prostate cancer. He is had multiple TURPs and has seen Dr. Lopez in the past. Vital signs demonstrated temperature 97.7, heart rate 81, blood pressure 158/113 with a repeat of 162/88, respiratory rate is 18 and oxygen saturation is anywhere between 96 to 99% on room air. His CBC shows a leukopenia and a thrombocytopenia that is chronic and stable. He does have a left shift with an 83.5% neutrophilia. His chemistry shows mildly elevated serum creatinine from baseline at 1.43 with a baseline of approximately 1.2. His blood glucose is 158 however he had a hemoglobin A1c in December which was 5.1. Total bilirubin is slightly elevated at 2.1 and his AST is 47 with a normal ALT. He had significant leg swelling so I did asked them to obtain a BNP and it was found to be elevated at 660.8. His chest x-ray shows mild pulmonary vascular congestion with very small bilateral pleural effusions greater on the right than left. His EKG shows atrial fibrillation/flutter with a controlled rate and no ST-T wave changes consistent with ischemia. His urine shows occult blood and is positive for leuk esterase with greater than 100 WBCs and 1+ bacteria. In the emergency department he was given Tylenol, and treated with ceftriaxone for presumptive urinary tract infection. [facility] Medical History (HFpEF) heart failure with preserved ejection fraction Anemia Arthritis Former smoker Gynecomastia, male H/O recurrent urinary tract infection HFrEF (heart failure with reduced ejection fraction) History of non-ST elevation myocardial infarction (NSTEMI) (02/16/19) History of prostate cancer Major depression Monoclonal gammopathy Non-ischemic cardiomyopathy Nonrheumatic aortic (valve) stenosis with insufficiency Obesity Osteoarthritis Pancytopenia Persistent atrial fibrillation Recurrent gastrointestinal hemorrhage Thrombocytopenia Thyroid nodule Walker as ambulation aid Wears glasses Home Medications omeprazole 20 mg capsule,delayed release 20 mg PO DAILY GERD 07/23/21 [History Last Taken 02/18/22] potassium chloride 20 mEq tablet,extended release 20 meq PO DAILY Supplement 07/23/21 [History Last Taken 02/18/22] cholecalciferol (vitamin D3) 50 mcg (2,000 unit) tablet 100 mcg PO DAILY Supplement 11/26/21 [History Last Taken 02/18/22] amiodarone 100 mg tablet 100 mg PO DAILY Heart 12/19/21 [History Last Taken 02/18/22] aspirin 81 mg chewable tablet 81 mg PO BREAKFAST #0 tabs 12/26/21 [Rx Last Taken 02/18/22] furosemide 40 mg tablet (Lasix) 20 mg PO DAILY Heart #120 tabs 01/01/22 [Rx Last Taken 02/18/22] sertraline 25 mg tablet See Rx Instructions .Route .COMPLEX #30 tabs 01/27/22 [Rx Last Taken 02/18/22] levothyroxine 25 mcg tablet 25 mcg PO DAILY THYROID 02/18/22 [History Last Taken 02/18/22] polyethylene glycol 3350 17 gram/dose oral powder (Miralax) 17 g PO DAILY CONSTIPATION 02/18/22 [History Last Taken Unknown] tamsulosin 0.4 mg capsule 0.4 mg PO BID PROSTATE 02/18/22 [History Last Taken 02/18/22] Allergy/AdvReac Type Severity Reaction Status Date / Time ciprofloxacin [From Cipro] Allergy Mild rash Verified 02/18/22 14:54 levofloxacin [From Levaquin] Allergy Mild rash Verified 02/18/22 14:54 Sulfa (Sulfonamide AdvReac Unknown Verified 02/18/22 14:54 Antibiotics) Family History Son CVA (cerebral vascular accident) Father Heart disease CHF (congestive heart failure) Mother Skin disorder Surgical History History of cardiac catheterization History of colonoscopy History of esophagogastroduodenoscopy (EGD) (07/22/21) History of hernia repair History of left heart catheterization (02/18/19) History of prostate surgery History of transurethral resection of prostate Hx of breast biopsy Hx of left breast biopsy Social History household members: spouse and family Smoking Status: Former smoker how long ago did patient quit smokin years ago alcohol intake: current alcohol intake frequency: a few times a week Alcohol type: wine substance use type: does not use caffeine: Yes Type: coffee ROS ROS Narrative Patient confused. History obtained by me from son at bedside. Review of Systems ROS Unobtainable: due to mental condition Vital Signs Vital Signs Vital Signs: 02/18/22 12:48 02/18/22 14:54 02/18/22 16:04 Temperature 97.7 F L Temperature Source Temporal Pulse Rate 81 74 Respiratory Rate 18 21 H Respiratory Effort Normal Non-Labored Respiratory Pattern Normal Blood Pressure 158/113 H Blood Pressure Mean 128 Pulse Ox 99 97 Oxygen Delivery Method Room Air Room Air 02/18/22 16:08 02/18/22 18:00 Temperature Temperature Source Pulse Rate 70 73 Respiratory Rate 19 H Respiratory Effort Respiratory Pattern Blood Pressure 162/88 H Blood Pressure Mean 112 Pulse Ox 96 Oxygen Delivery Method Room Air Weight Weight: 87.09 kg Body Mass Index (BMI) 26.0 Physical Exam Const alert and well nourished Constitutional Narrative: Patient is only oriented to self at this time, appears comfortable and ill but nontoxic HEENT normocephalic, head/scalp atraumatic and moist oral mucous membranes HEENT Narrative: Mild to moderate hearing loss, Mallampati 2, dentition is fair Eyes PERRL, EOMs intact bilaterally and conjunctivae normal Eyes Narrative: No scleral icterus Neck no lymphadenopathy, supple and no carotid bruits Neck Narrative: Trachea midline, no thyroid enlargement Resp normal respiratory effort, no retractions, no use of accessory muscles and No clear to auscultation bilaterally Resp Narrative: Crackles at bilateral bases left greater than right Auscultation: crackles; Negative for rhonchi or wheezes Cardio regular rate, S1 normal heart sound, S2 normal heart sound, no murmurs, no rub, no gallops, no clicks and no JVD; Negative for regular rhythm Cardio Narrative: Irregular rhythm with regular rate GI normal to inspection, nondistended, normoactive bowel sounds, soft to palpation and non-tender GI Narrative: Large ventral hernia Extremity Extremity Narrative: Bilateral lower extremity 1-2+ pitting edema, cap refill is 2+, no cyanosis or clubbing, radial pulses are 2+ bilaterally pedal pulses are difficult to palpate secondary to swelling Skin no rashes or lesions noted, no wounds, skin turgor normal, no jaundice, no petechiae and no mottling Skin Narrative: Scattered ecchymosis Neuro CN's II-XII intact bilaterally and moves all extremities Neuro Narrative: Significant generalized weakness with no focal deficits moves all extremities symmetrically Speech: speech normal Psych Psych Narrative: Affect is flat and mood seems depressed Results Lab / Micro Data Attestation: I reviewed the patient's lab results. Result Diagrams: 02/18/22 13:25 02/18/22 13:25 Labs: Laboratory Results - last 24 hr 02/18/22 13:25: WBC 3.6 L, RBC 4.97, Hgb 15.2, Hct 47.6, MCV 95.8 H, MCH 30.6, MCHC 31.9 L, RDW Std Deviation 59.1 H, RDW Coeff of [place]kan 16.9 H, Plt Count 96 L, MPV 11.2, Immature Gran % (Auto) 0.300, Neut % (Auto) 83.5 H, Lymph % (Auto) 5.3 L, [place] % (Auto) 8.1, Eos % (Auto) 2.0, Baso % (Auto) 0.8, Absolute Neuts (auto) 3.0, Absolute Lymphs (auto) 0.19 L, Nucleated RBC % 0, Diff Path Review June02/18/22 13:25: Sodium 142, Potassium 3.9, Chloride 108 H, Carbon Dioxide 27.0, Anion Gap 7, BUN 17, Creatinine 1.43 H, Estim Creat Clear Calc 45.98, Est GFR (MDRD) Af Amer 61, Est GFR (MDRD) Non-Af 51 L, BUN/Creatinine Ratio 11.9, Glucose 158 H, Calcium 8.3 L, Total Bilirubin 2.10 H, AST 47 H, ALT 29, Alkaline Phosphatase 145 H, Total Protein 6.6, Albumin 3.1 L, Globulin 3.5, Albumin/Globulin Ratio 0.9 02/18/22 13:25: B-Natriuretic Peptide 660.8 H 02/18/22 15:17: Urine Color Yellow, Urine Clarity Cloudy, Urine pH 6.0, Ur Specific [place] 1.020, Urine Protein 100 H, Urine Glucose (UA) Normal, Urine Ketones Negative, Urine Occult Blood 250 H, Urine Nitrite Negative, Urine Bilirubin Negative, Urine Urobilinogen 1 H, Ur Leukocyte Esterase 500 H, Urine RBC 50-100 SEEN, Urine WBC >100 SEEN, Ur Squamous Epith Cells 0-5 SEEN, Amorphous Sediment 1+ URATE, Urine Bacteria 1+, Urine Mucus 0 SEEN Micro: Microbiology 02/18/22 15:24 Nasal Secretion SARS-CoV-2 & FLU Antigen (Rapid) - Final SARS-CoV-2 (COVID 19) Radiology Impression Chest X-Ray 02/18/22 15:05 IMPRESSION: Bilateral pleural effusions. Electronically Signed: Charles Storey MD at 16:51 EST Reading Location ID and State: [facility] / [place] , Service support , Assessment & Plan Assessment/Plan (1) COVID-19 virus infection: (2) Urinary tract infection: (3) Acute on chronic heart failure with preserved ejection fraction (HFpEF): (4) Hyperbilirubinemia: (5) Elevated serum creatinine: (6) Toxic metabolic encephalopathy: (7) Debility: PLAN: Plan COVID-19 infection -Patient is currently on room air and satting at 96% -At this point he does not qualify for remdesivir or Decadron -Monitor sats -I did discuss with family that Paxlovid is not an inpatient medication -Supportive care and monitor clinically Suspected urinary tract infection -His UA is consistent with infection -Patient has had history of previous infections and they appear to be recurrent per discussion with son -Culture pending -Start ceftriaxone 1 g daily Decompensated acute on chronic HFpEF -Most recent echo 12/16/2021 showed an EF of 55% with mild concentric LVH, mild LAE, moderate TRAVIS, right ventricular systolic pressure of 31 mmHg and stage III diastolic dysfunction -We will schedule Lasix 40 mg twice daily and monitor closely clinically -On presentation he was markedly edematous in bilateral lower extremities and had small bilateral pleural effusions -BNP was elevated as well Bilateral lower extremity edema -Suspect this is most likely related to decompensated heart failure -We will check bilateral lower extremity Dopplers to rule out DVT Toxic/metabolic encephalopathy -Suspect this is related to his acute infection with COVID-19 as well as suspected UTI -Monitor clinically -If patient with any agitation at night would recommend Risperdal 0.5 mg at at bedtime -Avoid Seroquel and Haldol as they will likely be overtly sedating -If mentation does not clear may need further work-up -We will check TSH Elevated serum creatinine -Baseline serum creatinine is about 1.2 -Current serum creatinine is 1.43 -Suspect this is related to decompensated heart failure and should improve with diuresis -Repeat BMP in a.m. to monitor response to Lasix Hyperbilirubinemia -Likely related to passive congestion of the liver -AST is mildly elevated as well -Repeat in a.m. Leukopenia -Appears that this has been chronic -Repeat CBC in a.m. Anemia -Patient's current hemoglobin is 15.2 but it appears he does have somewhat of anemia at baseline -Repeat CBC in a.m. and watch closely Chronic thrombocytopenia -Stable -Monitor -May worsen with COVID infection Debility -PT/OT consultation -Case management consultation -May need placement at discharge and this was discussed with son at admission -Patient has been to transitional care unit previously Persistent atrial fibrillation -Continue home amiodarone -Continue home aspirin -Patient is not fully anticoagulated Hypothyroidism -Continue home levothyroxine GERD -Continue home med all Constipation -Continue home MiraLAX BPH with history of prostate cancer -Status post multiple TURPs -Continue home Flomax twice daily D History of major depression -Continue home sertraline -Patient was previously on citalopram and this was recently discontinued by psychiatry -Patient follows with Dr. Hughes DVT prophylaxis -Enoxaparin -SCDs CODE STATUS -Full code as per discussion the emergency department with his son Charges/Coding Visit Charges Inpatient E&M: 36016 Init Hosp L2
[2022-02-18] MEDS: Acetaminophen 325 MG Tablet 650 MG PO ×2 (18:32→23:48)
--- NOTE | 2022-02-18 20:14 | VDLE_ITS ---
Reason For Study: LEG SWELLING RIGHT LEFT GSV is normal. GSV is normal. CFV is compressible, spontaneous, phasic, CFV is compressible, spontaneous, phasic, competent and demonstrates normal competent, and demonstrates normal augmentation. augmentation. FV is compressible, spontaneous, phasic, FV is compressible, spontaneous, phasic, competent and demonstrates normal competent and demonstrates normal augmentation. augmentation. POP V is compressible, spontaneous, phasic, POP V is compressible, spontaneous, phasic, competent and demonstrates normal competent and demonstrates normal augmentation. augmentation. T/P Trunk is compressible. T/P Trunk is compressible. PTV is compressible. PTV is compressible. RT PerV is compressible. LT PerV is compressible. Procedure This is a venous duplex using B-mode, color flow and spectral Doppler. Exam performed portable in patient room. The exam was diagnostic. A preliminary report was called and/or faxed to [facility] 2 WARREN Cook. VL/Venous Duplex US - Emile Extrem Interpretation Summary Deep veins of the bilateral lower extremities are patent and compressible segme ntally. There is no evidence of bilateral lower extremity deep vein thrombosis. The bilateral great saphenous veins appear patent and compressible segmentally. Ordering Physician: Nicolette Mcgee Referring Physician: Steff Culp D.O. Performed By: Aric Mcrae RVT
--- NOTE | 2022-02-18 20:30 | NURSING ---
attempted to call patients son whom patient lives with. Pt son did not answer. This nurse was unable to complete patients health history and admission questions based on the fact patient has Hx of dementia and patient stated he was having trouble finding some of his words and couldn't remember what he wanted to say at times. Patient was also stressed about not being able to find his bill fold. This nurse stated to patient that she would attempt to get a hold of son to ask him, as previously stated son did not answer and phone went directly to voicemail.
[2022-02-18] MEDS: Tamsulosin HCl 0.4 MG Capsule PO (23:42)
[2022-02-18] MEDS: guaiFENesin 10 ML UDC (200MG/10ML) 20 ML PO (23:48)
[2022-02-19] VITALS (12 sets, daily range): BP systolic 120–138; BP diastolic 58–86; PULSE 61–74; RESP 16–18; TEMP 2.7–37.2; O2SAT 93–98
[2022-02-19 06:11] LABS: Absolute Lymphocyte Count 0.37 X10^3/uL (0.83-4.51); Absolute Neutrophil Count 1.5 X10^3/uL (2.0-7.7); Basophil# 0.03 X10^3/uL; Basophil% 1.3 % (0-1); Eosinophil# 0.04 X10^3/uL; Eosinophils% 1.7 % (0-5); Hematocrit 36.9 % (40-54); Hemoglobin 12.2 g/dL (13.0-16.5); Lymphocyte # 0.37 X10^3/ul (0.83-4.51); Lymphocyte % 15.5 % (19-41); Mean Corp Hgb Conc 33.1 g/dL (32-36); Mean Corpuscular Hgb 31.1 pg (27.0-32.0); Mean Corpuscular Volume 94.1 fL (80-94); Mean Platelet Vol. 10.8 fl (6.2-12.0); Monocyte# 0.41 X10^3/uL; Monocyte% 17.2 % (0-10); NRBC Flagged by Analyzer 0 % (0-5); Neutrophil # 1.53 X10^3/uL (2.7-7.7); Neutrophil % 64.3 % (47-70); POSITIVE COUNT YES; POSITIVE DIFFERENTIAL YES; Platelet Count 69 K/mm3 (150-450); RBC Distribution Width CV 16.5 % (11.6-14.6); RBC Distribution Width SD 56.6 fl (35.1-43.9); Red Blood Count 3.92 M/mm3 (4.6-6.2); White Blood Count 2.4 K/mm3 (4.4-11.0)
[2022-02-19 06:14] LABS: Differential Indicated SCAN CRITERIA MET
[2022-02-19 06:41] LABS: ALB/GLOB Ratio 0.9 RATIO (0.9-2.4); AST(SGOT) 27 U/L (15-37); Alanine Aminotransfer ALT/SGPT 19 U/L (16-61); Albumin, Serum 2.2 g/dL (3.2-5.0); Alkaline Phosphatase 104 U/L (45-117); Anion Gap 4 (5-15); BUN 17 mg/dL (7-18); BUN/Creat Ratio 15.9 RATIO (10-20); Calcium,Total 7.5 mg/dL (8.5-10.1); Chloride 111 mmol/L (98-107); Creatinine, Serum 1.07 mg/dL (0.70-1.30); EST Glomerular Filtration Rate 71 mL/min (>60); Est Glom Filt Rate - Afr Amer 86 mL/min (>60); Estimated Creatinine Clearance 61.44 ml/min; Globulin 2.5 g/dL (2.2-4.2); Glucose 90 mg/dL (74-106); Magnesium 1.9 mg/dL (1.6-2.6); Phosphorus 2.6 mg/dL (2.5-4.9); Potassium 3.8 mmol/L (3.5-5.1); Protein, Total 4.7 g/dL (6.4-8.2); Sodium Level 143 mmol/L (136-145)
[2022-02-19 07:03] LABS: Differential Comment SCANNED; Platelet Estimate MOD DEC (ADEQ)
--- NOTE | 2022-02-19 07:51 | PN.HOSP_ITS ---
Subjective Subjective Feels well. Objective Data Objective Data Vital Signs: Vital Signs Temp Pulse Resp BP Pulse Ox O2 Del Method 36.8 C 62 16 131/86 H 93 Room Air 02/19/22 03:00 02/19/22 03:00 02/19/22 03:00 02/19/22 03:00 02/19/22 07:40 02/19/22 07:40 Oxygen Delivery Method Room Air Weight: 87.1 kg Body Mass Index (BMI) 26.0 Intake & Output: Intake and Output for Last 24 Hours 02/17/22 02/18/22 02/19/22 23:59 23:59 23:59 Intake Total 50 / 50 Output Total 100 / 100 Balance 50 / -50 -100 / -100 Lab / Micro Data Result Diagrams: 02/19/22 05:59 02/19/22 05:59 Labs: Laboratory Results - last 24 hr 02/18/22 13:25: WBC 3.6 L, RBC 4.97, Hgb 15.2, Hct 47.6, MCV 95.8 H, MCH 30.6, MCHC 31.9 L, RDW Std Deviation 59.1 H, RDW Coeff of Ashkan 16.9 H, Plt Count 96 L, MPV 11.2, Immature Gran % (Auto) 0.300, Neut % (Auto) 83.5 H, Lymph % (Auto) 5.3 L, Latimer % (Auto) 8.1, Eos % (Auto) 2.0, Baso % (Auto) 0.8, Absolute Neuts (auto) 3.0, Absolute Lymphs (auto) 0.19 L, Nucleated RBC % 0, Diff Path Review June02/18/22 13:25: Sodium 142, Potassium 3.9, Chloride 108 H, Carbon Dioxide 27.0, Anion Gap 7, BUN 17, Creatinine 1.43 H, Estim Creat Clear Calc 45.98, Est GFR (MDRD) Af Amer 61, Est GFR (MDRD) Non-Af 51 L, BUN/Creatinine Ratio 11.9, Glucose 158 H, Calcium 8.3 L, Total Bilirubin 2.10 H, AST 47 H, ALT 29, Alkaline Phosphatase 145 H, Total Protein 6.6, Albumin 3.1 L, Globulin 3.5, Album in/Globulin Ratio 0.9 02/18/22 13:25: B-Natriuretic Peptide 660.8 H 02/18/22 15:17: Urine Color Yellow, Urine Clarity Cloudy, Urine pH 6.0, Ur Specific Nova 1.020, Urine Protein 100 H, Urine Glucose (UA) Normal, Urine Ketones Negative, Urine Occult Blood 250 H, Urine Nitrite Negative, Urine Bilirubin Negative, Urine Urobilinogen 1 H, Ur Leukocyte Esterase 500 H, Urine RBC 50-100 SEEN, Urine WBC >100 SEEN, Ur Squamous Epith Cells 0-5 SEEN, Amorphous Sediment 1+ URATE, Urine Bacteria 1+, Urine Mucus 0 SEEN 02/19/22 05:59: WBC 2.4 L, RBC 3.92 L, Hgb 12.2 L, Hct 36.9 L, MCV 94.1 H, MCH 31.1, MCHC 33.1, RDW Std Deviation 56.6 H, RDW Coeff of Ashkan 16.5 H, Plt Count 69 L, MPV 10.8, Immature Gran % (Auto) 0.000, Neut % (Auto) 64.3, Lymph % (Auto) 15.5 L, Latimer % (Auto) 17.2 H, Eos % (Auto) 1.7, Baso % (Auto) 1.3 H, Absolute Neuts (auto) 1.5 L, Absolute Lymphs (auto) 0.37 L, Nucleated RBC % 0, Differential Comment SCANNED, Diff Path Review June, Platelet Estimate MOD 02/19/22 05:59: Sodium 143, Potassium 3.8, Chloride 111 H, Carbon Dioxide 28.0, Anion Gap 4 L, BUN 17, Creatinine 1.07, Estim Creat Clear Calc 61.44, Est GFR (MDRD) Af Amer 86, Est GFR (MDRD) Non-Af 71, BUN/Creatinine Ratio 15.9, Glucose 90, Calcium 7.5 L, Phosphorus 2.6, Magnesium 1.9, Total Bilirubin 1.30 H, AST 27, ALT 19, Alkaline Phosphatase 104, Total Protein 4.7 L, Albumin 2.2 L, Globulin 2.5, Albumin/Globulin Ratio 0.9, TSH 2.00 Micro: Microbiology 02/18/22 15:24 Nasal Secretion SARS-CoV-2 & FLU Antigen (Rapid) - Final SARS-CoV-2 (COVID 19) Radiography Diagnostic Testing: Radiology Impression Chest X-Ray 02/18/22 15:05 IMPRESSION: Bilateral pleural effusions. Electronically Signed: Charles Storey MD at 16:51 EST Reading Location ID and State: [facility] / [place] , Service support , Physical Exam Const alert and no apparent distress Resp normal respiratory effort, no retractions, no use of accessory muscles and clear to auscultation bilaterally Cardio regular rate, regular rhythm, S1 normal heart sound and S2 normal heart sound GI normal to inspection, nondistended, normoactive bowel sounds, soft to palpation and non-tender Extremity Extremity Narrative: wraps in place. no appreciable anemia. Assessment & Plan Assessment/Plan (1) COVID-19 virus infection: PLAN: -Patient is currently on room air and satting at 96% -At this point he does not qualify for remdesivir or Decadron -Monitor sats -Unclear time of onset. Until that becomes clear, day 0 with be 02/18. Quarantine 02/19-, then 5 days of mask from 02/24-. Check PCR, if negative (2) Urinary tract infection: QUALIFIERS: Hematuria presence: without hematuria Urinary tract infection type: acute cystitis Qualified Code(s): N30.00 - Acute cystitis without hematuria PLAN: -His UA is consistent with infection -Patient has had history of previous infections and they appear to be recurrent per discussion with son -Culture pending -Start ceftriaxone 1 g daily (3) Acute on chronic heart failure with preserved ejection fraction (HFpEF): PLAN: -Most recent echo 12/16/2021 showed an EF of 55% with mild concentric LVH, mild LAE, moderate TRAVIS, right ventricular systolic pressure of 31 mmHg and stage III diastolic dysfunction -We will schedule Lasix 40 mg twice daily and monitor closely clinically -On presentation he was markedly edematous in bilateral lower extremities and had small bilateral pleural effusions Patient appears compensated. We will change his furosemide over to oral. (4) Hyperbilirubinemia: PLAN: Trending down. Follow-up in a.m. (5) Elevated serum creatinine: PLAN: Improved- -Current serum creatinine is 1.43 -Suspect this is related to decompensated heart failure and should improve with diuresis -Repeat BMP in a.m. to monitor response to Lasix (6) Debility: PLAN: -PT/OT consultation -Case management consultation -May need placement at discharge and this was discussed with son at admission -Patient has been to transitional care unit previously (7) Metabolic encephalopathy: PLAN: Appears to be resolved. -Suspect this is related to his acute infection with COVID-19 as well as suspected UTI -Monitor clinically -If patient with any agitation at night would recommend Risperdal 0.5 mg at at bedtime -Avoid Seroquel and Haldol as they will likely be overtly sedating -If mentation does not clear may need further work-up -TS H within normal limits PLAN: Plan Chronic stable conditions: Leukopenia -Appears that this has been chronic -Repeat CBC in a.m. Anemia -Patient's current hemoglobin is 15.2 but it appears he does have somewhat of anemia at baseline -Repeat CBC in a.m. and watch closely Chronic thrombocytopenia -Stable -Monitor -May worsen with COVID infection Persistent atrial fibrillation -Continue home amiodarone -Continue home aspirin -Patient is not fully anticoagulated Hypothyroidism -Continue home levothyroxine GERD -Continue home med all Constipation -Continue home MiraLAX BPH with history of prostate cancer -Status post multiple TURPs -Continue home Flomax twice daily D History of major depression -Continue home sertraline -Patient was previously on citalopram and this was recently discontinued by psychiatry -Patient follows with Dr. Hughes DVT prophylaxis -Enoxaparin -SCDs CODE STATUS -Full code as per discussion the emergency department with his son Discussed with the patient's son at length. Spent additional 40 minutes discussed with patient's son about the COVID test, given his lack of symptoms I will check COVID PCR to confirm if that is a true positive or not. Patient has been vaccinated for COVID. If COVID PCR is negative then we will repeat that within 24 hours. Patient with heart failure standpoint appears to be compensated so we will change his furosemide from IV to p.o. and follow-up cultures of his urinary tract infection. Charges/Coding Visit Charges Inpatient E&M: 74485 Subs Hosp L2
[2022-02-19] MEDS: Polyethylene Glycol 3350 17 GM PACKET PO (08:45)
[2022-02-19] MEDS: Potassium Chloride Oral Tablet 20 MEQ PO (08:45)
[2022-02-19] MEDS: Enoxaparin 40 MG/0.4 ML Syringe SC (08:45)
[2022-02-19] MEDS: Tamsulosin HCl 0.4 MG Capsule PO ×2 (08:47→19:45)
[2022-02-19] MEDS: Pantoprazole Sodium 20 MG Tablet PO (08:47)
[2022-02-19] MEDS: Levothyroxine 25 MCG TABLET PO (08:47)
[2022-02-19] MEDS: Sertraline 50 MG Tablet 25 MG PO (08:47)
[2022-02-19] MEDS: Aspirin 81 MG TAB.CHEW PO (08:47)
[2022-02-19] MEDS: Amiodarone 200 MG Tablet 100 MG PO (08:47)
[2022-02-19] MEDS: Furosemide 40 MG/4 ML Vial IV (08:48)
[2022-02-19] MEDS: Cholecalciferol (VIT D3) 25 MCG TABLET (1,000 UNITS) 100 MCG PO (08:48)
[2022-02-19] MEDS: Ceftriaxone 1 GM/50 ML BAG IV (08:49)
[2022-02-19 13:27] LABS: Pathologist Review Reviewed
[2022-02-19 13:29] LABS: Pathologist Review Reviewed
--- NOTE | 2022-02-19 16:01 | NURSING ---
temp=36.9 deg celsius
--- NOTE | 2022-02-19 17:00 | CASEMGMT ---
WARREN MAC DC Planning Assessment: Face to Face not completed with pt due to reported confusion. Call placed to pt's son and HPOA Simón. WARREN MAC introduced self and role at [facility], Pt's son voiced understanding and was agreeable to participating in assessment. Care providers, insurance benefit, and demographics verified. Admitted Dx: COVID, UTI, A/C HFpEF PCP: Dr. Culp Specialists: Dr. Lopez (urology), NATE (cardiology) Preferred Pharmacy: [facility] Insurance: [employer] [facility] Prescription Benefit: Yes Living Will/HPOA: Yes/Yes-HPOA Simón Warren LNOK: son-Simón Living Arrangements: Pt's son and DIL live with pt in pt's home. Pt ambulates independently without the assistance of a device. Pt performs own dressing and some bathing but requires assistance for a thorough bath. Pt's home is a single story with 8 steps to enter and two steps between the living room and dining room. Pt has not had difficulty navigating these in the past. Family has hired a private duty home health aide for 8 hours a day for most days of the week. [employer]QUETTER [employer]PER[employer] and family able to assist with house hold tasks as needed. Transportation: Family able to transport pt as needed. DME: shower chair, hand held shower, multiple grab bars throughout the home, FWW SNF: [facility] HHC: [facility] HH Plan: Pt's son would like pt to return home at discharge if appropriate and skip the TCU this time. PT/OT evals pending at this time. Nursing noting pt is ambulatory with one assist and a walker. Will monitor pt's mobility for further determination of DC needs. Renata Johnson RN CM
[2022-02-19] MEDS: Nystatin Powder 15gm Bottle 1 APPLIC TOPICAL (21:14)
[2022-02-20] VITALS (7 sets, daily range): BP systolic 119–151; BP diastolic 63–89; PULSE 69–80; RESP 17–18; TEMP 36.9–37.3; O2SAT 93–98
[2022-02-20] MEDS: Nystatin Powder 15gm Bottle 1 APPLIC TOPICAL ×3 (04:42→20:00)
[2022-02-20 07:32] LABS: ALB/GLOB Ratio 0.8 RATIO (0.9-2.4); AST(SGOT) 32 U/L (15-37); Alanine Aminotransfer ALT/SGPT 20 U/L (16-61); Albumin, Serum 2.1 g/dL (3.2-5.0); Alkaline Phosphatase 108 U/L (45-117); Anion Gap 5 (5-15); BUN 20 mg/dL (7-18); BUN/Creat Ratio 16.9 RATIO (10-20); Calcium,Total 7.5 mg/dL (8.5-10.1); Chloride 109 mmol/L (98-107); Creatinine, Serum 1.18 mg/dL (0.70-1.30); EST Glomerular Filtration Rate 63 mL/min (>60); Est Glom Filt Rate - Afr Amer 76 mL/min (>60); Estimated Creatinine Clearance 55.72 ml/min; Globulin 2.5 g/dL (2.2-4.2); Glucose 91 mg/dL (74-106); Potassium 3.8 mmol/L (3.5-5.1); Protein, Total 4.6 g/dL (6.4-8.2); Sodium Level 141 mmol/L (136-145)
--- NOTE | 2022-02-20 08:03 | PCM.PN.HOSP ---
Subjective Subjective No events. Objective Data Objective Data Vital Signs: Vital Signs Temp Pulse Resp BP Pulse Ox O2 Del Method 36.9 C 73 17 147/89 H 94 Room Air 02/20/22 02:19 02/20/22 02:19 02/20/22 02:19 02/20/22 02:19 02/20/22 07:37 02/20/22 07:37 Oxygen Delivery Method Room Air Weight: 87.1 kg Body Mass Index (BMI) 26.0 Intake & Output: Intake and Output for Last 24 Hours 02/18/22 02/19/22 02/20/22 23:59 23:59 23:59 Intake Total 50 / 50 50 / 50 180 / 180 Output Total 1250 / 1250 275 / 275 Balance 50 / -50 -1200 / -1200 -95 / -95 Lab / Micro Data Result Diagrams: 02/19/22 05:59 02/20/22 06:52 Labs: Laboratory Results - last 24 hr 02/18/22 13:25: Diff Path Review Reviewed 02/19/22 05:59: Diff Path Review Reviewed 02/19/22 11:05: COVID-19 (ELIOT) Detected 02/20/22 06:52: Sodium 141, Potassium 3.8, Chloride 109 H, Carbon Dioxide 27.0, Anion Gap 5, BUN 20 H, Creatinine 1.18, Estim Creat Clear Calc 55.72, Est GFR (MDRD) Af Amer 76, Est GFR (MDRD) Non-Af 63, BUN/Creatinine Ratio 16.9, Glucose 91, Calcium 7.5 L, Total Bilirubin 0.90, AST 32, ALT 20, Alkaline Phosphatase 108, Total Protein 4.6 L, Albumin 2.1 L, Globulin 2.5, Albumin/Globulin Ratio 0.8 L Micro: Microbiology 02/18/22 15:24 Nasal Secretion SARS-CoV-2 & FLU Antigen (Rapid) - Final SARS-CoV-2 (COVID 19) Physical Exam Const alert and no apparent distress HEENT head/scalp atraumatic Resp normal respiratory effort, no retractions, no use of accessory muscles and clear to auscultation bilaterally Cardio regular rate, regular rhythm, S1 normal heart sound and S2 normal heart sound GI normal to inspection, nondistended, normoactive bowel sounds Assessment & Plan Assessment/Plan (1) COVID-19 virus infection: PLAN: -Patient is currently on room air and satting at 96% -At this point he does not qualify for remdesivir or Decadron -Unclear time of onset. Until that becomes clear, day 0 with be 02/18. Quarantine 02/19-, then 5 days of mask from 02/24-. PCR positive. This is a confirmed case. (2) Urinary tract infection: QUALIFIERS: Hematuria presence: without hematuria Urinary tract infection type: acute cystitis Qualified Code(s): N30.00 - Acute cystitis without hematuria PLAN: -His UA is consistent with infection -Patient has had history of previous infections and they appear to be recurrent per discussion with son -Culture showing Alpha heomylitic strep, sensitivities pending. -Start ceftriaxone 1 g daily (3) Acute on chronic heart failure with preserved ejection fraction (HFpEF): PLAN: -Most recent echo 12/16/2021 showed an EF of 55% with mild concentric LVH, mild LAE, moderate TRAVIS, right ventricular systolic pressure of 31 mmHg and stage III diastolic dysfunction -We will schedule Lasix 40 mg twice daily and monitor closely clinically -On presentation he was markedly edematous in bilateral lower extremities and had small bilateral pleural effusions Patient appears compensated. We will change his furosemide over to oral. (4) Hyperbilirubinemia: PLAN: Trending down. Follow-up in a.m. (5) Elevated serum creatinine: PLAN: Improved- -Current serum creatinine is 1.43 -Suspect this is related to decompensated heart failure and should improve with diuresis -Repeat BMP in a.m. to monitor response to Lasix (6) Debility: PLAN: -PT/OT consultation -Case management consultation -May need placement at discharge and this was discussed with son at admission -Patient has been to transitional care unit previously (7) Metabolic encephalopathy: PLAN: Appears to be resolved. -Suspect this is related to his acute infection with COVID-19 as well as suspected UTI -Monitor clinically -If patient with any agitation at night would recommend Risperdal 0.5 mg at at bedtime -Avoid Seroquel and Haldol as they will likely be overtly sedating -If mentation does not clear may need further work-up -TS H within normal limits PLAN: Plan Chronic stable conditions: Leukopenia -Appears that this has been chronic -Repeat CBC in a.m. Anemia -Patient's current hemoglobin is 15.2 but it appears he does have somewhat of anemia at baseline -Repeat CBC in a.m. and watch closely Chronic thrombocytopenia -Stable -Monitor -May worsen with COVID infection Persistent atrial fibrillation -Continue home amiodarone -Continue home aspirin -Patient is not fully anticoagulated Hypothyroidism -Continue home levothyroxine GERD -Continue home med all Constipation -Continue home MiraLAX BPH with history of prostate cancer -Status post multiple TURPs -Continue home Flomax twice daily D History of major depression -Continue home sertraline -Patient was previously on citalopram and this was recently discontinued by psychiatry -Patient follows with Dr. Hughes DVT prophylaxis -Enoxaparin -SCDs CODE STATUS -Full code as per discussion the emergency department with his son 02/19: Discussed with the patient's son at length. Spent additional 40 minutes discussed with patient's son about the COVID test, given his lack of symptoms I will check COVID PCR to confirm if that is a true positive or not. Patient has been vaccinated for COVID. If COVID PCR is negative then we will repeat that within 24 hours. Patient with heart failure standpoint appears to be compensated so we will change his furosemide from IV to p.o. and follow-up cultures of his urinary tract infection. 02/20: DW son. She would not be happy to go to longterm facility. Patient is just standby assist which was verified by nursing in the room. Some plan to be for the patient likely go home with home care on the 6 pending results of the cultures and assuming no other acute issues arise during this hospitalization. Charges/Coding Visit Charges Inpatient E&M: 12873 Subs Hosp L2
[2022-02-20] MEDS: Polyethylene Glycol 3350 17 GM PACKET PO (09:56)
[2022-02-20] MEDS: Ceftriaxone 1 GM/50 ML BAG IV (09:56)
[2022-02-20] MEDS: Enoxaparin 40 MG/0.4 ML Syringe SC (09:57)
[2022-02-20] MEDS: Pantoprazole Sodium 20 MG Tablet PO (09:57)
[2022-02-20] MEDS: Amiodarone 200 MG Tablet 100 MG PO (09:57)
[2022-02-20] MEDS: Cholecalciferol (VIT D3) 25 MCG TABLET (1,000 UNITS) 100 MCG PO (09:57)
[2022-02-20] MEDS: Potassium Chloride Oral Tablet 20 MEQ PO (09:57)
[2022-02-20] MEDS: Levothyroxine 25 MCG TABLET PO (09:58)
[2022-02-20] MEDS: Furosemide 40 MG Tablet PO (09:58)
[2022-02-20] MEDS: Tamsulosin HCl 0.4 MG Capsule PO ×2 (09:58→20:00)
[2022-02-20] MEDS: Sertraline 50 MG Tablet 25 MG PO (09:58)
[2022-02-20] MEDS: Aspirin 81 MG TAB.CHEW PO (09:58)
[2022-02-21 02:39] VITALS: BP 123/78; PULSE 80; RESP 18; TEMP 36.6; O2SAT 94
[2022-02-21 08:04] VITALS: BP 131/75; PULSE 72; RESP 18; TEMP 36.6; O2SAT 93
[2022-02-21] MEDS: Nystatin Powder 15gm Bottle 1 APPLIC TOPICAL ×2 (08:09→12:15)
--- NOTE | 2022-02-21 08:14 | PCM.PN.HOSP ---
Subjective Subjective No events overnight Objective Data Objective Data Vital Signs: Vital Signs Temp Pulse Resp BP Pulse Ox O2 Del Method 36.6 C 72 18 131/75 H 93 Room Air 02/21/22 08:04 02/21/22 08:04 02/21/22 08:04 02/21/22 08:04 02/21/22 08:04 02/21/22 08:05 Oxygen Delivery Method Room Air Weight: 84.867 kg Body Mass Index (BMI) 26.0 Intake & Output: Intake and Output for Last 24 Hours 02/19/22 02/20/22 02/21/22 23:59 23:59 23:59 Intake Total 50 / 50 690 / 690 Output Total 1250 / 1250 675 / 675 150 / 150 Balance -1200 / -1200 15 / 15 -150 / -150 Lab / Micro Data Result Diagrams: 02/19/22 05:59 02/20/22 06:52 Micro: Microbiology 02/18/22 15:17 Urine, Clean Catch Urine Culture - Preliminary Alpha Hemolytic Streptococcus 02/18/22 15:24 Nasal Secretion SARS-CoV-2 & FLU Antigen (Rapid) - Final SARS-CoV-2 (COVID 19) Radiography Diagnostic Testing: Radiology Impression Venous Doppler Study 02/18/22 20:14 Interpretation Summary Deep veins of the bilateral lower extremities are patent and compressible segmentally. There is no evidence of bilateral lower extremity deep vein thrombosis. The bilateral great saphenous veins appear patent and compressible segmentally. Ordering Physician: Nicolette Mcgee Referring Physician: Steff Culp D.O. Performed By: Aric Mcrae RVT Physical Exam Const alert and no apparent distress Cardio regular rate, regular rhythm, S1 normal heart sound and S2 normal heart sound GI normal to inspection, nondistended, normoactive bowel sounds, soft to palpation, non-tender and non-distended Assessment & Plan Assessment/Plan (1) COVID-19 virus infection: PLAN: -Patient is currently on room air and satting at 96% -At this point he does not qualify for remdesivir or Decadron -Unclear time of onset. Until that becomes clear, day 0 with be 02/18. Quarantine 02/19-, then 5 days of mask from 02/24-. PCR positive. This is a confirmed case. (2) Urinary tract infection: QUALIFIERS: Hematuria presence: without hematuria Urinary tract infection type: acute cystitis Qualified Code(s): N30.00 - Acute cystitis without hematuria PLAN: -His UA is consistent with infection -Patient has had history of previous infections and they appear to be recurrent per discussion with son -Aerococcus Discharged with amoxicillin to complete a 7-day course of antibiotics (3) Acute on chronic heart failure with preserved ejection fraction (HFpEF): PLAN: -Most recent echo 12/16/2021 showed an EF of 55% with mild concentric LVH, mild LAE, moderate TRAVIS, right ventricular systolic pressure of 31 mmHg and stage III diastolic dysfunction -We will schedule Lasix 40 mg twice daily and monitor closely clinically -On presentation he was markedly edematous in bilateral lower extremities and had small bilateral pleural effusions Patient appears compensated. We will change his furosemide over to oral. (4) Hyperbilirubinemia: PLAN: Trending down. Follow-up in a.m. (5) Elevated serum creatinine: PLAN: Improved- -Current serum creatinine is 1.43 -Suspect this is related to decompensated heart failure and should improve with diuresis -Repeat BMP in a.m. to monitor response to Lasix (6) Debility: PLAN: -PT/OT consultation -Case management consultation -May need placement at discharge and this was discussed with son at admission -Patient has been to transitional care unit previously (7) Metabolic encephalopathy: PLAN: Appears to be resolved. -Suspect this is related to his acute infection with COVID-19 as well as suspected UTI -Monitor clinically -If patient with any agitation at night would recommend Risperdal 0.5 mg at at bedtime -Avoid Seroquel and Haldol as they will likely be overtly sedating -If mentation does not clear may need further work-up -TS H within normal limits PLAN: Plan Chronic stable conditions: Leukopenia -Appears that this has been chronic -Repeat CBC in a.m. Anemia -Patient's current hemoglobin is 15.2 but it appears he does have somewhat of anemia at baseline -Repeat CBC in a.m. and watch closely Chronic thrombocytopenia -Stable -Monitor -May worsen with COVID infection Persistent atrial fibrillation -Continue home amiodarone -Continue home aspirin -Patient is not fully anticoagulated Hypothyroidism -Continue home levothyroxine GERD -Continue home med all Constipation -Continue home MiraLAX BPH with history of prostate cancer -Status post multiple TURPs -Continue home Flomax twice daily D History of major depression -Continue home sertraline -Patient was previously on citalopram and this was recently discontinued by psychiatry -Patient follows with Dr. Hughes DVT prophylaxis -Enoxaparin -SCDs CODE STATUS -Full code as per discussion the emergency department with his son 02/19: Discussed with the patient's son at length. Spent additional 40 minutes discussed with patient's son about the COVID test, given his lack of symptoms I will check COVID PCR to confirm if that is a true positive or not. Patient has been vaccinated for COVID. If COVID PCR is negative then we will repeat that within 24 hours. Patient with heart failure standpoint appears to be compensated so we will change his furosemide from IV to p.o. and follow-up cultures of his urinary tract infection. 02/20: DW son. She would not be happy to go to retirement facility. Patient is just standby assist which was verified by nursing in the room. Some plan to be for the patient likely go home with home care on the 6 pending results of the cultures and assuming no other acute issues arise during this hospitalization. Disposition: plan is for home w [facility].
[2022-02-21] MEDS: Ceftriaxone 1 GM/50 ML BAG IV (09:29)
[2022-02-21] MEDS: Enoxaparin 40 MG/0.4 ML Syringe SC (09:32)
[2022-02-21] MEDS: Polyethylene Glycol 3350 17 GM PACKET PO (09:32)
[2022-02-21] MEDS: Pantoprazole Sodium 20 MG Tablet PO (09:32)
[2022-02-21] MEDS: Amiodarone 200 MG Tablet 100 MG PO (09:32)
[2022-02-21] MEDS: Cholecalciferol (VIT D3) 25 MCG TABLET (1,000 UNITS) 100 MCG PO (09:32)
[2022-02-21] MEDS: Levothyroxine 25 MCG TABLET PO (09:33)
[2022-02-21] MEDS: Tamsulosin HCl 0.4 MG Capsule PO (09:33)
[2022-02-21] MEDS: Sertraline 50 MG Tablet 25 MG PO (09:33)
[2022-02-21] MEDS: Furosemide 40 MG Tablet PO (09:33)
[2022-02-21] MEDS: Aspirin 81 MG TAB.CHEW PO (09:33)
[2022-02-21] MEDS: Potassium Chloride Oral Tablet 20 MEQ PO (09:34)
--- NOTE | 2022-02-21 10:28 | CASEMGMT ---
Addendum entered by Mariangel Hickman 02/21/22 11:13: Received tc back from [facility], they have accepted pt and plan to see pt on Thursday for SOC. Original Note: RN CM in to pt room. Pt sitting up in chair on RA. Discussed dc planning. Pt is open to [facility]. Patient was provided a list of [facility] providers including quality and resource use data and consistent with the patient?s preferred geographic region, medical needs, and insurance network were provided from the [facility]. Pt chose [facility]. TC to Milka at [facility], referral made. Will await acceptance.
--- NOTE | 2022-02-21 10:57 | DCINST_ITS ---
Discharge Instructions Diet Discharge Diet: Low fat / Low cholesterol and 2000 mg Sodium Diet Dressing / Incision Call your doctor if you observe: Fever of 101 or Higher and Inability to urinate Follow Up Care Test Results: Test results from this visit will be discussed in further detail at your follow- up appointment, if applicable. Discharge Plan Admission Admit Date/Time: 02/18/22 18:03 Primary Reason for Your Visit: COVID 19. UTI Attending Provider: Poncho Eisenberg Primary Care Provider: tSeff Culp Consulting Providers: Nicolette Mcgee Instructions Additional Instructions / Restrictions: Quarantine 02/19-09/2022, then 5 days of mask from 02/24-. Discharge Orders/Prescriptions Prescriptions: New amoxicillin 500 mg capsule 500 mg PO Q8H 4 Days Qty: 12 0RF Rx Instructions: start 02/22/2022 Continued omeprazole 20 mg capsule,delayed release(DR/EC) 20 mg PO DAILY Label Comments: 1 (ONE) CAPSULE Q AM potassium chloride 20 mEq tablet extended release 20 meq PO DAILY Label Comments: TAKE 1 TABLET BY MOUTH TWICE A DAY cholecalciferol (vitamin D3) 50 mcg (2,000 unit) tablet 100 mcg PO DAILY amiodarone 100 mg tablet 100 mg PO DAILY aspirin 81 mg Tablet,Chewable 81 mg PO BREAKFAST Qty: 0 0RF levothyroxine 25 mcg tablet 25 mcg PO DAILY Label Comments: TAKE 1 TABLET BY MOUTH EVERY DAY IN THE MORNING ON EMPTY STOMACH FOR 30 DAYS tamsulosin 0.4 mg capsule 0.4 mg PO BID Label Comments: TAKE 1 CAPSULE BY MOUTH TWICE A DAY polyethylene glycol 3350 [Miralax] 17 gram/dose Powder 17 g PO DAILY furosemide [Lasix] 40 mg tablet 20 mg PO DAILY Qty: 120 3RF Rx Instructions: Take an additional 20 mg dose at 5 PM for increased leg swelling or weight gain 5 pounds in 1 week. sertraline 25 mg tablet See Rx Instructions .ROUTE .COMPLEX Qty: 30 2RF Dose Instruction: TAKE 1 TABLET BY MOUTH EVERY DAY Rx Instructions: TAKE 1 TABLET BY MOUTH EVERY DAY Referrals / Follow Up: Steff Culp DO [Primary Care Provider] - Within 2 Weeks Disposition Disposition (needs filled in before D/C Order can be placed): Home Health Service
--- NOTE | 2022-02-21 11:02 | PCM.DC.SUM ---
Providers Date of Admission: 02/18/22 Primary Care Physician: Dr. Steff Culp DO Reason For Visit: DEBILIY/COVID/UTI Diagnosis Discharge Diagnosis (1) COVID-19 virus infection: Status: Acute Code(s): U07.1 - COVID-19 Plan: -Patient is currently on room air and satting at 96% -At this point he does not qualify for remdesivir or Decadron -Unclear time of onset. Until that becomes clear, day 0 with be 02/18. Quarantine 02/19-, then 5 days of mask from 02/24-. PCR positive. This is a confirmed case. (2) Urinary tract infection: Status: Acute Code(s): N39.0 - Urinary tract infection, site not specified Qualifiers: Urinary tract infection type: acute cystitis Hematuria presence: without hematuria Qualified Code(s): N30.00 - Acute cystitis without hematuria Plan: -His UA is consistent with infection -Patient has had history of previous infections and they appear to be recurrent per discussion with son -Aerococcus Discharged with amoxicillin to complete a 7-day course of antibiotics (3) Acute on chronic heart failure with preserved ejection fraction (HFpEF): Status: Acute Code(s): I50.33 - Acute on chronic diastolic (congestive) heart failure Plan: -Most recent echo 12/16/2021 showed an EF of 55% with mild concentric LVH, mild LAE, moderate TRAVIS, right ventricular systolic pressure of 31 mmHg and stage III diastolic dysfunction -We will schedule Lasix 40 mg twice daily and monitor closely clinically -On presentation he was markedly edematous in bilateral lower extremities and had small bilateral pleural effusions Patient appears compensated. We will change his furosemide over to oral. (4) Hyperbilirubinemia: Status: Acute Code(s): E80.6 - Other disorders of bilirubin metabolism Plan: Trending down. Follow-up in a.m. (5) Elevated serum creatinine: Status: Acute Code(s): R79.89 - Other specified abnormal findings of blood chemistry Plan: Improved- -Current serum creatinine is 1.43 -Suspect this is related to decompensated heart failure and should improve with diuresis -Repeat BMP in a.m. to monitor response to Lasix (6) Debility: Status: Acute Code(s): R53.81 - Other malaise Plan: -PT/OT consultation -Case management consultation -May need placement at discharge and this was discussed with son at admission -Patient has been to transitional care unit previously (7) Metabolic encephalopathy: Status: Acute Code(s): G93.41 - Metabolic encephalopathy Plan: Appears to be resolved. -Suspect this is related to his acute infection with COVID-19 as well as suspected UTI -Monitor clinically -If patient with any agitation at night would recommend Risperdal 0.5 mg at at bedtime -Avoid Seroquel and Haldol as they will likely be overtly sedating -If mentation does not clear may need further work-up -TS H within normal limits Plan Chronic stable conditions: Leukopenia -Appears that this has been chronic -Repeat CBC in a.m. Anemia -Patient's current hemoglobin is 15.2 but it appears he does have somewhat of anemia at baseline -Repeat CBC in a.m. and watch closely Chronic thrombocytopenia -Stable -Monitor -May worsen with COVID infection Persistent atrial fibrillation -Continue home amiodarone -Continue home aspirin -Patient is not fully anticoagulated Hypothyroidism -Continue home levothyroxine GERD -Continue home med all Constipation -Continue home MiraLAX BPH with history of prostate cancer -Status post multiple TURPs -Continue home Flomax twice daily D History of major depression -Continue home sertraline -Patient was previously on citalopram and this was recently discontinued by psychiatry -Patient follows with Dr. Hughes DVT prophylaxis -Enoxaparin -SCDs CODE STATUS -Full code as per discussion the emergency department with his son 02/19: Discussed with the patient's son at length. Spent additional 40 minutes discussed with patient's son about the COVID test, given his lack of symptoms I will check COVID PCR to confirm if that is a true positive or not. Patient has been vaccinated for COVID. If COVID PCR is negative then we will repeat that within 24 hours. Patient with heart failure standpoint appears to be compensated so we will change his furosemide from IV to p.o. and follow-up cultures of his urinary tract infection. 02/20: DW son. She would not be happy to go to senior living facility. Patient is just standby assist which was verified by nursing in the room. Some plan to be for the patient likely go home with home care on the 6 pending results of the cultures and assuming no other acute issues arise during this hospitalization. Disposition: plan is for home w [facility]. Medications at Discharge Home Medications omeprazole 20 mg capsule,delayed release 20 mg PO DAILY GERD 07/23/21 potassium chloride 20 mEq tablet,extended release 20 meq PO DAILY Supplement 07/23/21 cholecalciferol (vitamin D3) 50 mcg (2,000 unit) tablet 100 mcg PO DAILY Supplement 11/26/21 amiodarone 100 mg tablet 100 mg PO DAILY Heart 12/19/21 aspirin 81 mg chewable tablet 81 mg PO BREAKFAST #0 tabs 12/26/21 furosemide 40 mg tablet (Lasix) 20 mg PO DAILY Heart #120 tabs 01/01/22 sertraline 25 mg tablet See Rx Instructions .Route .COMPLEX #30 tabs 01/27/22 levothyroxine 25 mcg tablet 25 mcg PO DAILY THYROID 02/18/22 polyethylene glycol 3350 17 gram/dose oral powder (Miralax) 17 g PO DAILY CONSTIPATION 02/18/22 tamsulosin 0.4 mg capsule 0.4 mg PO BID PROSTATE 02/18/22 amoxicillin 500 mg capsule 500 mg PO Q8H 4 days #12 caps 02/21/22 Hospital Course Operations None Procedures None Summary of Care Provided Minutes Spent on Discharge: 28 Weight / BMI Weight Weight: 84.867 kg Body Mass Index (BMI) 26.0 ABG / Lab / Microbiology Data Result Diagrams: 02/19/22 05:59 02/20/22 06:52 Microbiology: Microbiology 02/18/22 17:10 Blood Culture (Wb) - Anticubital Right Blood Culture - Preliminary No growth in 48 hours. 02/18/22 15:17 Urine, Clean Catch Urine Culture - Final Aerococcus urinae 02/18/22 15:24 Nasal Secretion SARS-CoV-2 & FLU Antigen (Rapid) - Final SARS-CoV-2 (COVID 19) D/C Instructions Discharge Diet: Low fat / Low cholesterol and 2000 mg Sodium Diet Call your doctor if you observe: Fever of 101 or Higher and Inability to urinate Meaningful Use Info Meaningful Use Diagnoses (Choose all that apply): CHF CHF OLAF/ARB ordered at discharge?: No Reason OLAF/ARB not ordered?: Worsening renal disease Documented LVEF (%): 55 Discharge Plan Admission Admit Date/Time: 02/18/22 18:03 Primary Reason for Your Visit: COVID 19. UTI Attending Provider: Poncho Eisenberg Primary Care Provider: Steff Culp Consulting Providers: Nicolette Mcgee Instructions Additional Instructions / Restrictions: Quarantine 02/19-09/2022, then 5 days of mask from 02/24-. Discharge Orders/Prescriptions Prescriptions: New amoxicillin 500 mg capsule 500 mg PO Q8H 4 Days Qty: 12 0RF Rx Instructions: start 02/22/2022 Continued omeprazole 20 mg capsule,delayed release(DR/EC) 20 mg PO DAILY Label Comments: 1 (ONE) CAPSULE Q AM potassium chloride 20 mEq tablet extended release 20 meq PO DAILY Label Comments: TAKE 1 TABLET BY MOUTH TWICE A DAY cholecalciferol (vitamin D3) 50 mcg (2,000 unit) tablet 100 mcg PO DAILY amiodarone 100 mg tablet 100 mg PO DAILY aspirin 81 mg Tablet,Chewable 81 mg PO BREAKFAST Qty: 0 0RF levothyroxine 25 mcg tablet 25 mcg PO DAILY Label Comments: TAKE 1 TABLET BY MOUTH EVERY DAY IN THE MORNING ON EMPTY STOMACH FOR 30 DAYS tamsulosin 0.4 mg capsule 0.4 mg PO BID Label Comments: TAKE 1 CAPSULE BY MOUTH TWICE A DAY polyethylene glycol 3350 [Miralax] 17 gram/dose Powder 17 g PO DAILY furosemide [Lasix] 40 mg tablet 20 mg PO DAILY Qty: 120 3RF Rx Instructions: Take an additional 20 mg dose at 5 PM for increased leg swelling or weight gain 5 pounds in 1 week. sertraline 25 mg tablet See Rx Instructions .ROUTE .COMPLEX Qty: 30 2RF Dose Instruction: TAKE 1 TABLET BY MOUTH EVERY DAY Rx Instructions: TAKE 1 TABLET BY MOUTH EVERY DAY Referrals / Follow Up: Steff Culp DO [Primary Care Provider] - Within 2 Weeks Disposition Disposition (needs filled in before D/C Order can be placed): Home Health Service Charges/Coding Visit Charges Inpatient E&M: 50253 Disch Hosp
[2022-02-21 12:17] VITALS: BP 132/64; PULSE 70; RESP 18; TEMP 36.6; O2SAT 94
== END 2022-02-21 15:44 | disposition home health service (06) | DRG 177 ==
LOC: ED 18:29 → MS2 18:43
PROVIDERS: Admitting Provider Internal Medicine; Emergency Provider Emergency Medicine; PCP Internal Medicine
DX: U07.1 COVID-19 (principal); I50.33 Acute on chronic diastolic (congestive) heart failure; G93.41 Metabolic encephalopathy; N30.00 Acute cystitis without hematuria; I48.19 Other persistent atrial fibrillation; J90 Pleural effusion, not elsewhere classified; D70.9 Neutropenia, unspecified; D69.6 Thrombocytopenia, unspecified; D47.2 Monoclonal gammopathy; B96.89 Other specified bacterial agents as the cause of diseases classified elsewhere; K76.1 Chronic passive congestion of liver; E03.9 Hypothyroidism, unspecified; K21.9 Gastro-esophageal reflux disease without esophagitis; D64.9 Anemia, unspecified; E80.6 Other disorders of bilirubin metabolism; I25.2 Old myocardial infarction; Z82.3 Family history of stroke; R53.81 Other malaise; Z87.891 Personal history of nicotine dependence; Z79.82 Long term (current) use of aspirin; R79.89 Other specified abnormal findings of blood chemistry; N40.0 Benign prostatic hyperplasia without lower urinary tract symptoms; Z85.46 Personal history of malignant neoplasm of prostate
CPT/HCPCS: 36415; 71046; 80053; 81001; 83735; 83880; 84100; 84443; 85025; 87040; 87077; 87086; 87088; 87186; 87428; 87635; 93970; 94668; 97166; 97802; 99285; J7040; A4216; J1940; U0003; U0005

== ENCOUNTER 2022-03-21 20:02 | Emergency (ER) | payer MEDICARE, SELFPAY ==
[2022-03-21 20:02] VITALS: BP 169/114; PULSE 49; RESP 59; TEMP -17.7; TEMP 0; O2SAT 83; BMI 25.1
--- NOTE | 2022-03-21 20:40 | EDS_ITS ---
HPI History of Present Illness Chief Complaint: CPR Informant: family and EMS Narrative Narrative: Initial history is from EMS. I discussed the case directly with them. They also showed picture of the patient's meds and medical illness. Evidently this patient was at home. He lost consciousness and his son started bystander CPR immediately. EMS was called. They found him in asystole. After 20 minutes of working CPR and epinephrine as well as bicarb he was able to get back a pulse. It was bradycardic. He had a blood pressure around 60. They lost this before arrival to the emergency department. They have not been able to get that back. Certainly, no history is obtainable directly from patient. Patient does have a history of CHF, atrial fibrillation, thyroid disease and GERD Medications are reviewed. He is on amiodarone. He is on baby aspirin. No other anticoagulation. He reportedly was in the hospital recently for UTI Allergy to Cipro, Levaquin, sulfa Prior abdominal surgery but none recent. Lives at home with family. [facility] Medical History (HFpEF) heart failure with preserved ejection fraction Amiodarone-induced thyroiditis Anemia Anemia Arthritis Atrial fibrillation Atrial fibrillation Chronic diastolic congestive heart failure Debility Depression Dyspnea on exertion Former smoker Gastroesophageal reflux disease Gynecomastia, male H/O recurrent urinary tract infection HFrEF (heart failure with reduced ejection fraction) History of non-ST elevation myocardial infarction (NSTEMI) (02/16/19) History of prostate cancer History of prostate cancer Major depression Monoclonal gammopathy Multiple premature ventricular complexes Non-ischemic cardiomyopathy Nonrheumatic aortic (valve) stenosis with insufficiency Obesity Osteoarthritis Pancytopenia Paroxysmal ventricular tachycardia Persistent atrial fibrillation 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 Thrombocytopenia Thyroid nodule Walker as ambulation aid Wears glasses Home Medications omeprazole 20 mg capsule,delayed release 20 mg PO DAILY GERD 07/23/21 [History Last Taken 02/18/22] potassium chloride 20 mEq tablet,extended release 20 meq PO DAILY Supplement 07/23/21 [History Last Taken 02/18/22] cholecalciferol (vitamin D3) 50 mcg (2,000 unit) tablet 100 mcg PO DAILY Supplement 11/26/21 [History Last Taken 02/18/22] amiodarone 100 mg tablet 100 mg PO DAILY Heart 12/19/21 [History Last Taken 02/18/22] aspirin 81 mg chewable tablet 81 mg PO BREAKFAST #0 tabs 12/26/21 [Rx Last Taken 02/18/22] furosemide 40 mg tablet (Lasix) 20 mg PO DAILY Heart #120 tabs 01/01/22 [Rx Last Taken 02/18/22] sertraline 25 mg tablet See Rx Instructions .Route .COMPLEX #30 tabs 01/27/22 [Rx Last Taken 02/18/22] polyethylene glycol 3350 17 gram/dose oral powder (Miralax) 17 g PO DAILY CONSTIPATION 02/18/22 [History Last Taken Unknown] tamsulosin 0.4 mg capsule 0.4 mg PO BID PROSTATE 02/18/22 [History Last Taken 02/18/22] levothyroxine 50 mcg tablet 50 mcg PO DAILY #90 tabs 03/13/22 [Rx Last Taken Unknown] Allergy/AdvReac Type Severity Reaction Status Date / Time ciprofloxacin [From Cipro] Allergy Mild rash Verified 03/21/22 20:57 levofloxacin [From Levaquin] Allergy Mild rash Verified 03/21/22 20:57 Sulfa (Sulfonamide AdvReac Unknown Verified 03/21/22 20:57 Antibiotics) Family History Son CVA (cerebral vascular accident) Father Heart disease CHF (congestive heart failure) Mother Skin disorder Other Anemia Anxiety Asthma Autoimmune disorder Eczema Melanoma Scleroderma Severe allergy Surgical History History of cardiac catheterization History of colonoscopy History of esophagogastroduodenoscopy (EGD) (07/22/21) History of hernia repair History of left heart catheterization (02/18/19) History of prostate surgery History of transurethral resection of prostate Hx of breast biopsy Hx of left breast biopsy Social History household members: spouse and family Smoking Status: Former smoker how long ago did patient quit smokin years ago alcohol intake: current alcohol intake frequency: a few times a week Alcohol type: wine substance use type: does not use caffeine: Yes Type: coffee what type of physical activity do you participate in: none ROS ROS ED ROS Narrative Unable to obtain. Patient unresponsive and in full cardiopulmonary arrest. EXAM Physical Exam Narrative Exam Narrative: Patient comes in with CPR in progress by EMS. This is continued here and throughout his stay with rapid transition between CPR providers. We only stop to check pulses. I do ultrasound at the time when were checking pulse. HEENT shows LMA in place. He is getting good breath sounds with this. No trauma. Eyes are dilated quite large and not responsive Neck shows no notable JVD Good breath sounds with Ambu bag no spontaneous breathing No spontaneous pulse. He does have good femoral and carotid pulses with CPR. Abdomen shows prior surgery. No notable distention Extremities minimal pallor. No trauma. Minimal lower extremity swelling but no asymmetry. Neuro: No response at all. Pupils as above Const Vital Signs: 03/21/22 20:02 03/21/22 20:02 Temperature 0 F L Temperature Source Temporal Pulse Rate [9] 49 L Respiratory Rate [9] 59 H Blood Pressure [9] 169/114 H Oxygen Delivery Method Ambu-Bag Oxygen Flow Rate (L/min) 15 MDM MDM MDM Narrative Medical decision making narrative: We continued CPR throughout his stay. We gave further doses of epinephrine. We gave bicarb. We did get what appeared to be a fine V. fib. With this his heart did not appear to actually be nam to any significance. At best I got a small section of the upper septum with a few fiber contractions on echo. But with the V. fib appearance on monitor we also attempted shocking this provided no benefit. We kept checking echo between CPR and meds. We got less in the last fiber contraction. It got to the point where he had asystole with no response at all despite CPR, multiple meds and shocking. At this point we did call the resuscitation and stop. I had spoken with the family once prior to this and then spoke with them again. We then cleaned some of the floor of the room and got the family in with the patient. Critical Care Time Critical Care Time: Yes Critical care time (excluding procedures): 30-74 minutes, Discussing w/Patient &/or Family/Jewelry [employer], Performing Direct Patient Care at Bedside and - (35 minutes) Discharge Plan Triage Chief Complaint: CPR ED Provider: Kendall Alonso Dx/Rx/DC Orders Clinical Impression: Cardiac arrest, Unsuccessful cardiopulmonary resuscitation Prescriptions: No Action omeprazole 20 mg capsule,delayed release(DR/EC) 20 mg PO DAILY Label Comments: 1 (ONE) CAPSULE Q AM potassium chloride 20 mEq tablet extended release 20 meq PO DAILY Label Comments: TAKE 1 TABLET BY MOUTH TWICE A DAY cholecalciferol (vitamin D3) 50 mcg (2,000 unit) tablet 100 mcg PO DAILY levothyroxine 50 mcg tablet 50 mcg PO DAILY Qty: 90 3RF amiodarone 100 mg tablet 100 mg PO DAILY aspirin 81 mg Tablet,Chewable 81 mg PO BREAKFAST Qty: 0 0RF tamsulosin 0.4 mg capsule 0.4 mg PO BID Label Comments: TAKE 1 CAPSULE BY MOUTH TWICE A DAY polyethylene glycol 3350 [Miralax] 17 gram/dose Powder 17 g PO DAILY furosemide [Lasix] 40 mg tablet 20 mg PO DAILY Qty: 120 3RF Rx Instructions: Take an additional 20 mg dose at 5 PM for increased leg swelling or weight gain 5 pounds in 1 week. sertraline 25 mg tablet See Rx Instructions .ROUTE .COMPLEX Qty: 30 2RF Dose Instruction: TAKE 1 TABLET BY MOUTH EVERY DAY Rx Instructions: TAKE 1 TABLET BY MOUTH EVERY DAY Primary Care Provider: Steff Culp Referrals: Steff Culp DO [Primary Care Provider] - Disposition Disposition: Discharge Date/Time: 03/21/22 22:22 Date/Time: 03/21/22 20:21
--- NOTE | 2022-03-21 20:56 | CM.ED ---
SW went to patient's room. No family present. Margarita COLLINS
--- NOTE | 2022-03-21 21:26 | CM.ED ---
SW Note SW went to meet with patient's family. They had left. Margarita COLLINS
--- NOTE | 2022-03-21 21:32 | ED.RN ---
[id number] Family called for home arrangements -- awaiting call back and also awaiting bander hand.
== END 2022-03-21 22:22 ==
PROVIDERS: Emergency Provider Emergency Medicine; PCP Internal Medicine; Visit Provider Emergency Medicine
DX: I46.9 Cardiac arrest, cause unspecified (principal); I50.32 Chronic diastolic (congestive) heart failure; I49.01 Ventricular fibrillation; I48.19 Other persistent atrial fibrillation; I25.2 Old myocardial infarction; Z87.891 Personal history of nicotine dependence; Z79.82 Long term (current) use of aspirin; Z79.899 Other long term (current) drug therapy
CPT/HCPCS: 92950; 99282; J7030; A4216